=== PATIENT | female | born 1955 | race Caucasian/White ===

== ENCOUNTER 2017-01-04 08:59 | Inpatient (IN) | payer BC ==
[2017-01-04 09:36] LABS: Sodium 138 mmol/L (135-148)
[2017-01-04 09:37] LABS: Spontaneous Rate 20 min
[2017-01-04 09:38] LABS: Mode BI-PAP S/T; PIP 12 cmH2O
[2017-01-04] MEDS ORDERED: methylPREDNISolone Sod Succ/PF 125 MG/2 ML VIAL ONE (09:50)
[2017-01-04] MEDS ORDERED: Magnesium Sulfate 2 GM/100 ML BAG ONE (09:50)
[2017-01-04] MEDS ORDERED: Water For Inject, Bacteriostat 30 ML ONE (09:50)
[2017-01-04 10:02] LABS: #Basophils 0.1 thou/uL (0.0-0.2); #Eosinphils 0.2 thou/uL (0.0-0.7); #Lymphocytes 1.9 thou/uL (1.20-3.40); #Monocytes 0.5 thou/uL (0.11-0.59); #Neutrophils 9.2 thou/uL (1.40-6.50); %Basophils 0.6 % (0.0-1.0); %Eosinophils 1.7 % (0.0-10.0); %Lymphocytes 16.1 % (21.0-51.0); %Monocytes 4.5 % (0.0-10.0); Hematocrit 37.6 % (36.0-47.0); Mean Platelet Volume 7.1 fL (7.4-10.4); Red Blood Cell (RBC) Count 4.03 mill/uL (4.20-5.40); White Blood Cell (WBC) Count 11.9 thou/uL (4.8-10.8)
--- NOTE | 2017-01-04 10:17 | RAD ---
SINGLE VIEW OF THE CHEST: Comparison: 01-28-16 History: Dyspnea, shortness of breath. FINDINGS: Single view of the chest shows a normal sized cardiomediastinal silhouette. There is no evidence of consolidation, mass, or pleural effusion. The bones are unremarkable. IMPRESSION: No evidence of acute cardiopulmonary disease. POS: [facility]
[2017-01-04 10:27] LABS: ALT (SGPT) 31 U/L (8-55); AST (SGOT) 25 U/L (5-34); Alkaline Phosphatase 79 U/L (40-150); Anion Gap 12 mmol/L (10-20); BUN (Urea Nitrogen) 21 mg/dL (9.8-20.1); Bilirubin, Total 0.6 mg/dL (0.2-1.2); CK (CPK) 59 U/L (29-168); Calc. Creatinine Clearance 0 mL/min (70-130); Calcium 9.6 mg/dL (7.8-10.44); Carbon Dioxide 30 mmol/L (23-31); Chloride 99 mmol/L (98-107); Estimated GFR-MDRD 66; Globulin 3.9 g/dL (2.4-3.5); Protein, Total 7.3 g/dL (6.0-8.3)
[2017-01-04 10:32] LABS: Troponin I 0.016 ng/mL (< 0.028)
[2017-01-04] MEDS ORDERED: Loratadine 10 MG TAB PO PRN (12:56)
[2017-01-04] MEDS ORDERED: Zolpidem Tartrate 5 MG TAB PO PRN (12:56)
[2017-01-04] MEDS ORDERED: Loperamide HCl 2 MG CAP PO PRN (12:56)
[2017-01-04] MEDS ORDERED: Sodium Chloride 0.65% Nasal 44 ML BOT EA NARE PRN (12:56)
[2017-01-04] MEDS ORDERED: Ondansetron ODT 4 MG TAB PO PRN (12:56)
[2017-01-04] MEDS ORDERED: Diabetic Tussin 200 MG/10 ML UDCUP PO PRN (12:56)
[2017-01-04] MEDS ORDERED: Dextrose 5% in Water 1,000 ML IV PRN (12:56)
[2017-01-04] MEDS ORDERED: Artificial Tears 18 DROP/0.9 ML EA EYE PRN (12:56)
[2017-01-04] MEDS ORDERED: Ondansetron HCl/PF 4 MG/2 ML Vial IVP PRN (12:56)
[2017-01-04] MEDS ORDERED: Milk Of Magnesia 30 ML UDCUP PO PRN (12:56)
[2017-01-04] MEDS ORDERED: Eucerin (Mineral Oil/Petrolatum,White) 30 gm Jar TOP PRN (12:56)
[2017-01-04] MEDS ORDERED: Dextrose 50% Abboject 50 ML SYRINGE SLOW IVP PRN (12:56)
[2017-01-04] MEDS ORDERED: Mag-Al 1200 mg/1200 mg/30 ML UDCUP PO PRN (12:56)
[2017-01-04] MEDS ORDERED: Senokot 8.6 MG TAB PO PRN (12:56)
[2017-01-04 13:06] VITALS: BMI 47.6
--- NOTE | 2017-01-04 13:11 | HP ---
PRIMARY CARE PHYSICIAN: Jassi Ramos M.D. REASON FOR ADMISSION: COPD/asthma exacerbation. HISTORY OF PRESENT ILLNESS: A 61-year-old female who has underlying history of obesity and asthma who came to emergency room for evaluation of increasing dyspnea. Patient reports that for last one week, she is experiencing dyspnea on exertion, after walking a few steps, she was getting out of breath and during nighttime she was feeling wheezing. Her symptoms gradually gotten worse to the point that last night she was not able to sleep. She was having cough productive of brown sputum. She denies any fever, but she was able to hear her own wheezing. She denies any lower extremity edema. She denies any fever or chills. She denies any flu-like illness. She was experiencing mild sore throat , but she was experiencing, that was related with her shortness of breath. She was feeling vague chest tightness, but no chest pain. She denies any dizziness , palpitation. She denies any PND. She had only orthopnea last night. She denies any recent travel or sick exposure. Last night, the patient tried to use her inhaler, but that was not helping, and that is why she has to call paramedics and paramedics brought her to the ER. Initially, paramedics gave her 3 times DuoNeb therapy and started on CPAP. The patient also required oxygen for her hypoxia, but after emergency room and gate attendant treatment, patient felt better, but wherever we are trying to reduce oxygen, she was desaturating and that is why we decided to keep this patient in the hospital. In the emergency room, initially she was treated with BiPAP and subsequently BiPAP was discontinued. PAST MEDICAL HISTORY: Chronic diastolic heart failure; history of atrial flutter, required cardioversion therapy and subsequently ablation; morbid obesity; asthma; diabetes type 2; hypertension; moderate mitral stenosis and mitral regurgitation. PAST SURGICAL HISTORY: Cholecystectomy, , cardioversion, cardiac ablation, cardiac catheterization in 2016 showed normal coronaries with normal EF. PAST PSYCHIATRIC HISTORY: Reviewed and negative. SOCIAL HISTORY: Patient lives at home with her . She quit smoking in 2008, but patient has passive exposure to smoking from her who is wheelchair bound. The patient has a 40-year smoking history. She denies any alcohol or illicit drug abuse. FAMILY HISTORY: Positive for heart disease and breast cancer to her mother. Father had unknown cancer, diabetes, hypertension runs among several family members. ALLERGIES: The patient is allergic to MULTAQ, SULFA, and BACTRIM. CURRENT HOME MEDICATIONS: Aspirin 81 mg p.o. daily, glyburide 10 mg twice daily , lisinopril 40 mg p.o. daily, Zocor 20 mg p.o. b.i.d., Lasix 20 mg 2 tablets b.i.d., albuterol inhaler as needed, digoxin 0.25 mg p.o. daily, Protonix 40 mg p.o. daily, potassium chloride 20 mEq p.o. daily, Carafate 1 gram a.c. and at bedtime, sotalol 80 mg twice daily, warfarin 5 mg p.o. as directed, Lantus insulin 80 units subcu in the evening, Cardizem CD 240 mg p.o. daily, vitamin two tablets daily. REVIEW OF SYSTEMS: The following complete review of systems was negative, unless otherwise mentioned in the HPI or below: Constitutional: Weight loss or gain, ability to conduct usual activities. Skin: Rash, itching. Eyes: Double vision, pain. ENT/Mouth: Nose bleeding, neck stiffness, pain, tenderness. Cardiovascular: Palpitations, dyspnea on exertion, orthopnea. Respiratory: Shortness of breath, wheezing, cough, hemoptysis, fever or night sweats. Gastrointestinal: Poor appetite, abdominal pain, heartburn, nausea, vomiting, constipation, or diarrhea. Genitourinary: Urgency, frequency, dysuria, nocturia. Musculoskeletal: Pain, swelling. Neurologic/Psychiatric: Anxiety, depression. Allergy/Immunologic: Skin rash, bleeding tendency. Please see my HPI for pertinent positive and negative. All other review of systems reviewed and negative except as mentioned in the HPI. EMERGENCY ROOM COURSE: The patient been given magnesium sulfate 2 g, Solu- Medrol 125 mg and patient has given 3 DuoNeb therapy by paramedics. PHYSICAL EXAMINATION: VITAL SIGNS: On arrival, blood pressure 120/84, pulse 89, respiratory rate 22, temperature 97.6, saturation 95% on 2 liter oxygen, weight 122.5 kilograms. GENERAL: Patient is currently alert, awake, in no obvious acute distress. HEAD: Normocephalic, atraumatic. EYES: Pupils round, reactive to light. Extraocular muscle intact. ENT: Oropharynx within normal limits. Moist mucous membranes. No oral lesions. No pharyngeal erythema, no exudate. NECK: Supple. Range of motion is normal. No meningeal signs of irritation. LUNGS: Bilateral end expiratory wheezing heard. No obvious rales noted. Air entry reduced on both sides. CARDIAC: S1 and S2 regular. No murmur, no gallop, no rub. ABDOMEN: Morbid obesity limiting examination. No peritoneal sign, no guarding , no rigidity, no rebound. BACK: Examination unremarkable, no CVA tenderness. EXTREMITIES: Upper extremity passive movements of all joints are normal. Lower extremity, trace bilateral pedal edema noted. No calf tenderness. Good distal pulsation. SKIN: No skin rash. HEMATOLOGICAL SYSTEM: No lymphadenopathy. PSYCHIATRIC: Normal affect. IMAGING AND SIGNIFICANT LABORATORY DATA: 1. EKG based on my review, normal sinus rhythm, premature ventricular complexes , nonspecific ST-T changes. Chest x-ray based on my review, no acute cardiopulmonary process. 2. CBC: WBC 11.9, hemoglobin 12.3, platelets 206. ABG: pH 7.38, CO2 51.9, O2 101.2, bicarbonate 32.2, saturation 97.7% on BiPAP. 3. BMP: Sodium 137, potassium 3.9, chloride 99, carbon dioxide 30, BUN 21, creatinine 0.87, glucose 207, calcium 9.6, lactic acid 1.0. 4. LFT: AST 25, ALT 31, alkaline phosphatase 79, albumin 3.4, CK 59, CK-MB 0.8 , troponin I 0.016, BNP 33.4. ASSESSMENT AND PLAN/IMPRESSION: 1. Acute chronic obstructive pulmonary disease/asthma exacerbation. This patient has a history of asthma and she has passive exposure to smoking from her . She has increasing shortness of breath for about a week and last night her condition gotten worse. She initially required bilevel positive airway pressure and continuous positive airway pressure. At this point, the patient has not completely improved with emergency room treatment. Patient will require admission. We will continue with DuoNeb every 6 hourly on an as needed basis, Dulera two puffs inhalation b.i.d., Solu-Medrol 20 mg IV q.8 hourly and empiric antibiotic therapy with Levaquin 750 mg daily and Mucinex 600 mg 3 times daily. We will monitor clinical response. We will wean off oxygen as needed basis. 2. Acute hypoxic and hypercapnic respiratory failure. The patient required initially bilevel positive airway pressure and continuous positive airway pressure in the emergency room. The patient is currently maintaining saturation with nasal cannula. We will continue with oxygen and we will daily assess her oxygen saturation to decide whether she needs oxygen therapy upon discharge or not. 3. Chronic diastolic heart failure. Currently, the patient appears slightly edematous on her feet, but her BNP is normal. She does not have any obvious rales. Her chest x-ray is normal. We will give her Lasix 20 mg IV b.i.d. while in hospital. 4. Diabetes type 2 with steroid, we are expecting her blood sugar may get worse and that is why we will continue insulin as per sliding scale per protocol. Diabetic diet will be given and we will continue her home dose of Lantus insulin while in hospital. 5. History of atrial arrhythmia, require cardioversion and ablation in the past. While in hospital, I will continue her home medications with digoxin, Cardizem CD, and sotalol. As per home dosage, we will verify her home medication and then we will resume those medications. 6. Chronic anticoagulation. We will check PT/INR here today as well as daily while in hospital and continue warfarin therapy as per home dosage. 7. Dyslipidemia. We will continue Zocor 20 mg p.o. at bedtime as per home dosage. 8. Gastroesophageal reflux disease. We will continue Protonix 40 mg p.o. daily. 9. Hypertension. We will continue lisinopril 20 mg p.o. daily along with other medication as mentioned above. 10. Deep venous thrombosis prophylaxis, patient is already on anticoagulation therapy. 11. Gastrointestinal prophylaxis, Protonix 40 mg p.o. daily. 12. Morbid obesity. Dietary education given. Weight loss education discussed. The patient may need outpatient sleep study to rule out any underlying sleep apnea. 13. Moderate mitral valve stenosis with regurgitation. The patient is advised to follow up with Cardiology on an outpatient basis. Patient is getting echocardiography every year through Cardiology office. CODE STATUS: The patient is FULL CODE. Disposition plan based on clinical course. We are expecting patient's stay in hospital more than 2 midnights. Plan of care discussed with the patient in detail. MTDD
[2017-01-04 14:16] LABS: Prothrombin Time 26.8 SEC (12.0-14.7)
[2017-01-04] MEDS: Furosemide 20 MG/2 ML VIAL SLOW IVP SCH (14:24)
[2017-01-04] MEDS: guaiFENesin ER 600 MG TAB PO SCH ×3 (14:25→23:27)
[2017-01-04] MEDS: HYDROcodone/Acetaminophen 5/325 mg Tablet PO PRN (16:37)
[2017-01-04] MEDS: Mometasone/Formoterol 120 PUFF INHALER INH SCH (18:53)
[2017-01-04] MEDS: Sucralfate 1 GM TAB PO SCH (20:34)
[2017-01-04] MEDS: HumaLOG 300 UNITS/3 ML VIAL SC PRN (20:40)
[2017-01-04] MEDS ORDERED: Famotidine 20 MG TAB PO SCH (21:00)
[2017-01-04] MEDS ORDERED: FLU VACC QS2017-18 36 mo. & older 0.5 ML SYRINGE IM ONE (21:00)
[2017-01-04] MEDS ORDERED: Insulin Detemir 100 UNITS/ML 80 UNITS in Pre-Filled Syringe 1 EACH SC SCH (21:00)
[2017-01-05] MEDS: HYDROcodone/Acetaminophen 5/325 mg Tablet PO PRN (01:05)
[2017-01-05] MEDS: Acetaminophen 325 MG TAB PO PRN ×2 (04:28→09:44)
[2017-01-05] MEDS: HumaLOG 300 UNITS/3 ML VIAL SC PRN ×3 (04:41→20:58)
[2017-01-05 05:47] LABS: #Lymphocytes 0.9 thou/uL (1.20-3.40); #Monocytes 0.2 thou/uL (0.11-0.59); #Neutrophils 11.5 thou/uL (1.40-6.50); %Eosinophils 0.1 % (0.0-10.0); %Lymphocytes 7.4 % (21.0-51.0); %Monocytes 1.2 % (0.0-10.0); Mean Platelet Volume 7.3 fL (7.4-10.4); Red Blood Cell (RBC) Count 3.88 mill/uL (4.20-5.40); White Blood Cell (WBC) Count 12.6 thou/uL (4.8-10.8)
[2017-01-05 05:53] LABS: Prothrombin Time 25.7 SEC (12.0-14.7)
[2017-01-05 06:11] LABS: Anion Gap 13 mmol/L (10-20); BUN (Urea Nitrogen) 21 mg/dL (9.8-20.1); Calc. Creatinine Clearance 125 mL/min (70-130); Calcium 9.3 mg/dL (7.8-10.44); Carbon Dioxide 27 mmol/L (23-31); Chloride 98 mmol/L (98-107); Estimated GFR-MDRD 63
[2017-01-05] MEDS: Furosemide 20 MG/2 ML VIAL SLOW IVP SCH ×2 (06:28→14:12)
[2017-01-05] MEDS ORDERED: Metolazone 2.5 MG TAB PO PRN (06:40)
[2017-01-05] MEDS ORDERED: DULAGLUTIDE SQ SCH (06:45)
[2017-01-05] MEDS ORDERED: DULAGLUTIDE SC SCH (07:15)
[2017-01-05] MEDS: Mometasone/Formoterol 120 PUFF INHALER INH SCH ×2 (07:33→18:35)
[2017-01-05] MEDS: Sucralfate 1 GM TAB PO SCH ×7 (07:41→20:53)
[2017-01-05] MEDS ORDERED: [UNRECOGNIZED DRUG - REMARK] PO SCH (09:00)
--- NOTE | 2017-01-05 09:22 | PDOC.PN ---
- Subjective Encounter Start Date: 01/05/17 Encounter Start Time: 07:10 -: old records requested/rev pt is feeling little better but not up to her baseline, no fever - Objective Resuscitation Status: Resuscitation Status FULL:Full Resuscitation MAR Reviewed: Yes Vital Signs & Weight: Vital Signs (12 hours) Temp Pulse Resp BP BP Pulse Ox 01/05/17 07:52 99 F 91 22 H 157/83 H 93 L 01/05/17 07:33 92 16 97 01/05/17 07:31 92 16 97 01/05/17 05:32 97.9 F 92 16 149/92 H 97 01/05/17 01:17 97.9 F 102 H 16 174/80 H 92 L 01/04/17 23:36 94 16 95 01/04/17 22:19 98.1 F 95 20 93 L Weight Weight 268 lb 15.423 oz I&O: 01/04/17 01/05/17 01/06/17 06:59 06:59 06:59 Intake Total 240 1100 Balance 240 1100 Result Diagrams: 01/05/17 05:13 01/05/17 05:13 Additional Labs: Accuchecks 01/05/17 01/04/17 01/04/17 04:35 19:41 18:01 POC Glucose 302 H 373 H 362 H Phys Exam - Physical Examination Constitutional: NAD HEENT: PERRLA, moist MMs, sclera anicteric Neck: no JVD, supple Respiratory: no wheezing, no rhonchi reduced air entry Cardiovascular: RRR, no significant murmur, no rub Gastrointestinal: soft, non-tender, no distention, positive bowel sounds obesity+ Musculoskeletal: pulses present, edema present Neurological: non-focal, normal sensation, moves all 4 limbs Psychiatric: normal affect, A&O x 3 Skin: no rash, normal turgor, cap refill <2 seconds Dx/Plan (1) COPD exacerbation Code(s): J44.1 - CHRONIC OBSTRUCTIVE PULMONARY DISEASE W (ACUTE) EXACERBATION Status: Acute (2) Acute respiratory failure with hypoxia Code(s): J96.01 - ACUTE RESPIRATORY FAILURE WITH HYPOXIA Status: Acute (3) Diabetes type 2, controlled Code(s): E11.9 - TYPE 2 DIABETES MELLITUS WITHOUT COMPLICATIONS Status: Chronic (4) Hypertension Code(s): I10 - ESSENTIAL (PRIMARY) HYPERTENSION Status: Chronic (5) Dyslipidemia Code(s): E78.5 - HYPERLIPIDEMIA, UNSPECIFIED Status: Chronic (6) Morbid obesity with BMI of 45.0-49.9, adult Code(s): E66.01 - MORBID (SEVERE) OBESITY DUE TO EXCESS CALORIES; Z68.42 - BODY MASS INDEX (BMI) 45.0-49.9, ADULT Status: Chronic (7) Chronic anticoagulation Code(s): Z79.01 - ALF (CURRENT) USE OF ANTICOAGULANTS Status: Chronic (8) H/O radiofrequency ablation for complex left atrial arrhythmia Code(s): Z98.890 - OTHER SPECIFIED POSTPROCEDURAL STATES; Z86.79 - PERSONAL HISTORY OF OTHER DISEASES OF THE CIRCULATORY SYSTEM Status: Chronic - Plan cont current plan of care, continue antibiotics, respiratory therapy * her blood sugar is high, so will start her home dose of insulin and meds, this is related with steroid * today will try to wean of oxygen as tolerated * continue IV lasix * continue current optimum medical therapy for copd/asthma * will dc levaquin as sotalol has interaction, will start cefepime * home medication reconciled * medication reviewed as below * symptomatic treatment. Review of Systems - Review of Systems Eyes: negative: Pain, Vision Change, Conjunctivae Inflammation, Eyelid Inflammation, Redness, Other ENT: negative: Ear Pain, Ear Discharge, Nose Pain, Nose Discharge, Nose Congestion, Mouth Pain, Mouth Swelling, Throat Pain, Throat Swelling, Other Respiratory: Cough, Shortness of Breath. negative: Dry, Hemoptysis, SOB with Excertion, Pleuritic Pain, Sputum, Wheezing Cardiovascular: negative: Chest Pain, Palpitations, Orthopnea, Paroxysmal Noc. Dyspnea, Edema, Light Headedness, Other Gastrointestinal: negative: Nausea, Vomiting, Abdominal Pain, Diarrhea, Constipation, Melena, Hematochezia, Other Genitourinary: negative: Dysuria, Frequency, Incontinence, Hematuria, Retention , Other Musculoskeletal: negative: Neck Pain, Shoulder Pain, Arm Pain, Back Pain, Hand Pain, Leg Pain, Foot Pain, Other Skin: negative: Rash, Lesions, Dino, Bruising, Other - Medications/Allergies Allergies/Adverse Reactions: Allergies Allergy/AdvReac Type Severity Reaction Status Date / Time dronedarone HCl [From Multaq] Allergy Verified 07/01/16 12:32 flecainide Allergy Verified 07/01/16 12:32 Sulfa (Sulfonamide Allergy Verified 07/01/16 12:32 Antibiotics) Medications: Current Medications Acetaminophen (Tylenol) 650 mg PO Q4H PRN PRN Reason: Headache/Fever or Pain Last Admin: 01/05/17 04:28 Dose: 650 mg Hydrocodone Bitart/Acetaminophen ([place] 5/325) 1 tab PO Q4H PRN PRN Reason: Moderate Pain (4-6) Last Admin: 01/05/17 01:05 Dose: 1 tab Al Hydroxide/Mg Hydroxide (Maalox) 30 ml PO Q6H PRN PRN Reason: Heartburn or Indigestion Albuterol/Ipratropium (Duoneb) 3 ml NEB [id number] Last Admin: 01/05/17 07:31 Dose: 3 ml Albuterol/Ipratropium (Duoneb) 3 ml NEB [id number] PRN PRN Reason: SOB &/or Wheezing Artificial Tears (Tears Naturale) 0 drop EA EYE PRN PRN PRN Reason: Dry Eyes Aspirin (Ecotrin) 81 mg PO DAILY [facility] Atorvastatin Calcium (Lipitor) 10 mg PO HS [facility] Dextrose/Water (Dextrose 50%) 25 gm SLOW IVP PRN PRN PRN Reason: Hypoglycemia Digoxin (Lanoxin) 0.25 mg PO DAILY [facility] Diltiazem HCl (Cardizem Cd) 120 mg PO DAILY [facility] Furosemide (Lasix) 20 mg SLOW IVP 0600,1400 [facility] Last Admin: 01/05/17 06:28 Dose: Not Given Glucagon (Glucagon) 1 mg IM PRN PRN PRN Reason: Hypoglycemia Glyburide (Diabeta) 10 mg PO BID-[facility] Guaifenesin (Robitussin Sf) 200 mg PO Q4H PRN PRN Reason: Cough Guaifenesin (Mucinex) 600 mg PO TID [facility] Last Admin: 01/04/17 23:27 Dose: 600 mg Hydralazine HCl (Apresoline) 10 mg SLOW IVP Q4H PRN PRN Reason: Systolic BP > 180 Dextrose/Water (D5w) 1,000 mls @ 0 mls/hr IV .Q0M PRN; As Directed PRN Reason: Hypoglycemia Insulin Detemir 80 units/ (Miscellaneous Medication) 0.8 mls @ 0 mls/hr SC [facility] Cefepime HCl 2 gm/ Sodium (Chloride) 100 mls @ 200 mls/hr IVPB Q12HR [facility] Insulin Human Lispro (Humalog) 0 units SC .MODERATE SLIDING SC PRN PRN Reason: Moderate Correctional Scale Last Admin: 01/05/17 04:41 Dose: 8 unit Insulin Human Lispro (Humalog) 0 units SC .BEDTIME SLIDING SC PRN PRN Reason: Bedtime Correctional Scale Last Admin: 01/04/17 20:40 Dose: 5 unit Lisinopril (Zestril) 20 mg PO DAILY [facility] Loperamide HCl (Imodium) 2 mg PO PRN PRN PRN Reason: Diarrhea/Loose Stools Loratadine (Claritin) 10 mg PO DAILYPRN PRN PRN Reason: Sinus Symptoms Magnesium Hydroxide (Milk Of Magnesium) 30 ml PO DAILYPRN PRN PRN Reason: Constipation Methylprednisolone Sodium Succinate (Solu-Medrol) 20 mg IVP Q8HR [facility] Last Admin: 01/05/17 04:40 Dose: 20 mg Metolazone (Zaroxolyn) 2.5 mg PO DAILYPRN PRN PRN Reason: Edema Mineral Oil/White Petrolatum (Eucerin Cream) 0 gm TOP BIDPRN PRN PRN Reason: Dry Skin Mometasone Furoate/Formoterol Fumar (Dulera 200 Mcg/5 Mcg Inhaler) 2 puff INH BID-RT [facility] Last Admin: 01/05/17 07:33 Dose: 2 puff Ondansetron HCl (Zofran Odt) 4 mg PO Q6H PRN PRN Reason: Nausea/Vomiting Ondansetron HCl (Zofran) 4 mg IVP Q6H PRN PRN Reason: Nausea/Vomiting Pantoprazole Sodium (Protonix) 40 mg PO 2100 [facility] Last Admin: 01/04/17 20:34 Dose: 40 mg Dulaglutide [ (Trulicity] 75 Mcg) 0 each SC Q7D [facility] Potassium Chloride (K-Dur) 20 meq PO QAM-WM [facility] Multivit/Folic Acid/Iron ( Vitamin) 2 tab PO DAILY [facility] Senna (Senokot) 2 tab PO HSPRN PRN PRN Reason: Constipation Sodium Chloride ([place] Nasal [place] 0.65%) 0 ml EA NARE QIDPRN PRN PRN Reason: Nasal Congestion Sodium Chloride (Flush - Normal Saline) 10 ml IVF Q12HR [facility] Last Admin: 01/04/17 20:45 Dose: 10 ml Sodium Chloride (Flush - Normal Saline) 10 ml IVF PRN PRN PRN Reason: Saline Flush Sotalol HCl (Betapace) 40 mg PO BID [facility] Sucralfate (Carafate) 1 gm PO ACHS [facility] Last Admin: 01/05/17 07:41 Dose: 1 gm Sucralfate (Carafate) 1 gm PO ACHS [facility] Last Admin: 01/05/17 07:58 Dose: 1 gm Tramadol HCl (Ultram) 50 mg PO TIDPRN PRN PRN Reason: Pain Zolpidem Tartrate (Ambien) 5 mg PO HSPRN PRN PRN Reason: Insomnia
[2017-01-05] MEDS: Cefepime 2 GM in Sodium Chloride 0.9% 100 ML IVPB SCH ×2 (09:33→20:52)
[2017-01-05] MEDS: Sotalol HCl 80 MG TAB PO SCH ×2 (09:34→20:53)
[2017-01-05] MEDS: Aspirin 81 mg Enteric Coated Tablet PO SCH (09:35)
[2017-01-05] MEDS: Prenatal Vitamin 1 TAB PO SCH (09:35)
[2017-01-05] MEDS: glyBURIDE 5 MG TAB PO SCH ×2 (09:35→16:50)
[2017-01-05] MEDS: Digoxin 0.25 MG TAB PO SCH (09:35)
[2017-01-05] MEDS: Lisinopril 20 MG TAB PO SCH (09:35)
[2017-01-05] MEDS: guaiFENesin ER 600 MG TAB PO SCH ×3 (09:36→20:53)
[2017-01-05] MEDS: Potassium Chloride 20 MEQ TAB PO SCH (09:36)
[2017-01-05] MEDS: traMADol HCl 50 MG TAB PO PRN ×2 (10:46→20:58)
[2017-01-05] MEDS ORDERED: Insulin Detemir 100 UNITS/ML 80 UNITS in Pre-Filled Syringe 1 EACH SC SCH (21:00)
[2017-01-05] MEDS ORDERED: Simvastatin 20 MG TAB PO SCH (21:00)
[2017-01-05] MEDS ORDERED: INSULIN GLARGINE HUM REC ANLOG 80 UNIT SQ SCH (21:00)
[2017-01-05] MEDS ORDERED: Atorvastatin Calcium 10 MG TAB PO SCH (21:00)
[2017-01-06] MEDS: Furosemide 20 MG/2 ML VIAL SLOW IVP SCH ×2 (05:35→13:17)
[2017-01-06] MEDS: HumaLOG 300 UNITS/3 ML VIAL SC PRN ×2 (05:35→11:23)
[2017-01-06] MEDS: Mometasone/Formoterol 120 PUFF INHALER INH SCH (06:22)
[2017-01-06 08:16] VITALS: BP 137/92; TEMP 98.5
[2017-01-06] MEDS: traMADol HCl 50 MG TAB PO PRN (08:52)
[2017-01-06] MEDS: Sucralfate 1 GM TAB PO SCH ×2 (08:52→11:23)
[2017-01-06] MEDS: Potassium Chloride 20 MEQ TAB PO SCH (08:52)
[2017-01-06] MEDS: Prenatal Vitamin 1 TAB PO SCH (08:52)
[2017-01-06] MEDS: guaiFENesin ER 600 MG TAB PO SCH ×2 (08:52→14:48)
[2017-01-06] MEDS: Cefepime 2 GM in Sodium Chloride 0.9% 100 ML IVPB SCH (08:53)
[2017-01-06] MEDS: Aspirin 81 mg Enteric Coated Tablet PO SCH (08:53)
[2017-01-06] MEDS: glyBURIDE 5 MG TAB PO SCH (08:53)
[2017-01-06] MEDS: Lisinopril 20 MG TAB PO SCH (08:55)
[2017-01-06] MEDS: Digoxin 0.25 MG TAB PO SCH (08:55)
[2017-01-06] MEDS: Sotalol HCl 80 MG TAB PO SCH (08:56)
--- NOTE | 2017-01-06 10:59 | DIS ---
DATE OF ADMISSION: 01/04/2017 DATE OF DISCHARGE: 01/06/2017 PRIMARY CARE PHYSICIAN: Dr. Jassi Ramos. DISCHARGE DISPOSITION: Home. PRIMARY DISCHARGE DIAGNOSES: 1. Acute respiratory failure with hypoxia. 2. Chronic obstructive pulmonary disease exacerbation. SECONDARY DISCHARGE DIAGNOSES: Diabetes type 2, chronic anticoagulation with warfarin, dyslipidemia, chronic obstructive pulmonary disease/asthma, history of radiofrequency ablation for complex, left atrial arrhythmia, hypertension, morbid obesity with BMI of 47. PRIMARY PROCEDURE/OPERATION: None. RADIOLOGICAL INVESTIGATION: Chest x-ray was normal. SIGNIFICANT LABORATORIES: WBC 12.6, hemoglobin 11.6, platelets 211. INR 2.3. Sodium 134, potassium 4.2, BUN 21, creatinine 0.90, calcium 9.3. LFTs normal. Cardiac enzymes negative. Lactic acid 1.0. BNP 33.4. Blood culture negative. DISCHARGE MEDICATIONS: New medications: Omnicef 300 mg p.o. b.i.d. for 7 days , Dulera 2 puffs inhalation b.i.d., Mucinex 600 mg t.i.d. for 7 days, prednisone 20 mg p.o. daily for 5 days, and then 10 mg p.o. daily for 5 days, and then 5 mg p.o. daily for 5 days, then stop. Continue following medications : ProAir HFA 2 puffs q.6 hourly p.r.n., aspirin 81 mg p.o. daily, digoxin 250 mcg p.o. daily, Cardizem-CD 120 mg p.o. daily, dulaglutide 70 mcg subQ every 7 days, Lantus 80 units subQ in the evening, lisinopril 20 mg p.o. daily, Zaroxolyn 2.5 mg p.o. daily p.r.n., multivitamin 1 tablet p.o. daily, potassium chloride 20 mEq p.o. daily, Zocor 20 mg p.o. at bedtime, Betapace 40 mg p.o. b.i.d., Carafate 1 gram p.o. q.i.d., Demadex 40 mg p.o. daily, warfarin as per home dosage, glyburide 10 mg p.o. b.i.d., tramadol 50 mg p.o. t.i.d. p.r.n. CONTRAINDICATIONS: None. CODE STATUS: FULL CODE. INPATIENT CONSULTANTS: None. ALLERGIES: MULTAQ, FLECAINIDE and SULFA DRUGS. DISCHARGE PLAN: Post hospital, the patient will follow up with primary care physician. HOSPITAL COURSE: A 61-year-old female who has underlying history of COPD/ asthma. She has ongoing passive smoking exposure from her . She came to emergency room on 01/04/2017. The patient was admitted by me. Please see my HPI for further details. This patient was hypoxic. She appeared to be in chronic obstructive pulmonary disease/asthma exacerbation based on clinical picture. She was not improved emergency room treatment. She required CPAP and subsequently CPAP was weaned off in the emergency room for hypoxia. She was also given a trial of BiPAP therapy in the emergency room. Patient was admitted to the medical floor and we optimally treated for COPD flare-up with steroid, empiric antibiotic therapy, Dulera and DuoNeb therapy. Patient's home medication was also continued while in hospital. On admission, she was hypoxic and after hospital treatment, we are monitoring her oxygen saturation. At this point, the patient is still requiring oxygen therapy whenever she exerts herself, her oxygen saturation is pretty much stable and normalized. Today, we will make sure that her oxygen remains normal after walking for a few minutes and if she qualifies for home oxygen, then we will arrange home oxygen because of steroid, her blood sugar was out of control, but we are expecting that will get better after discontinuation of steroid. Patient has bedbound and she today wants to go home and that is why per request, we are discharging her home with the above-mentioned medication. At this point, patient is pretty much stabilized and we advised her to avoid passive exposure to the smoking. The patient is seen and examined at bedside today. PHYSICAL EXAMINATION: VITAL SIGNS: Currently temperature 98.5, pulse 85, respiratory rate 16, saturation 94%, blood pressure 137/92. Weight 268 pounds. GENERAL: The patient is currently alert, awake, in no acute distress. HEAD: Normocephalic, atraumatic. EYES: Pupils round, reactive to light. Extraocular muscles intact. ENT: Oropharynx within normal limits. Moist mucous membranes. No oral lesions. No pharyngeal erythema. No exudate. NECK: Supple, range of motion is normal. LUNGS: Clear to auscultation without any rhonchi or rales. CARDIAC: S1, S2 regular without any significant murmur. ABDOMEN: Soft and benign. EXTREMITIES: No edema. NEUROLOGIC: Nonfocal examination. Total time spent on discharge day more than 30 minutes. MTDD
[2017-01-06] MEDS: HYDROcodone/Acetaminophen 5/325 mg Tablet PO PRN (14:48)
--- NOTE | 2017-01-07 14:48 | EKG ---
Test Reason : SOB Blood Pressure : / mmHG Vent. Rate : 087 BPM Atrial Rate : 087 BPM P-R Int : 172 ms QRS Dur : 094 ms QT Int : 388 ms P-R-T Axes : 069 045 066 degrees QTc Int : 466 ms Sinus rhythm with occasional Premature ventricular complexes Nonspecific ST and T wave abnormality Abnormal ECG Confirmed by DREAD MARIE, DEXTER Bowen ([id number]), newspaper editor LAUREN SOLIS ([id number]) on 01/07/2017 2:47:57 PM Referred By: Confirmed By:DEXTER CANADA MD
== END 2017-01-06 16:03 | disposition home or self-care (01) | DRG 190 ==
LOC: ERS 08:59 → T4-A 11:39
PROVIDERS: ADMIT Internal Medicine; ATTEND Internal Medicine
PROC: 5A09357 Assistance with Respiratory Ventilation, Less than 24 Consecutive Hours, Continuous Positive Airway Pressure (ICD-10-PCS; principal; 2017-01-04)
DX: J44.1 Chronic obstructive pulmonary disease with (acute) exacerbation (principal); J96.01 Acute respiratory failure with hypoxia; J96.02 Acute respiratory failure with hypercapnia; Z68.42 Body mass index [BMI] 45.0-49.9, adult; I11.0 Hypertensive heart disease with heart failure; I50.32 Chronic diastolic (congestive) heart failure; I48.92 Unspecified atrial flutter; E11.65 Type 2 diabetes mellitus with hyperglycemia; I05.2 Rheumatic mitral stenosis with insufficiency; Z87.891 Personal history of nicotine dependence; E66.01 Morbid (severe) obesity due to excess calories; Z23 Encounter for immunization; Z79.4 Long term (current) use of insulin; Z79.01 Long term (current) use of anticoagulants; K21.9 Gastro-esophageal reflux disease without esophagitis; Z88.1 Allergy status to other antibiotic agents; Z88.2 Allergy status to sulfonamides; Z88.8 Allergy status to other drugs, medicaments and biological substances; E78.5 Hyperlipidemia, unspecified; T38.0X5A Adverse effect of glucocorticoids and synthetic analogues, initial encounter
CPT/HCPCS: 36415; 36416; 71010; 80048; 80053; 82550; 82553; 82805; 83605; 83880; 84484; 85025; 85610; 87040; 90471; 90682; 93005; 94640; 94660; 96365; 96375; A4216; G0008; J0692; J1815; J1940; J1956; J2405; J2920; J2930; J3475; J7050; J7620; Q2036

== ENCOUNTER 2017-03-02 09:55 | Inpatient (IN) | payer BC ==
[2017-03-02] MEDS ORDERED: Furosemide 40 MG/4 ML VIAL ONE (10:13)
[2017-03-02 10:17] LABS: Oxyhemoglobin 85.3 % (94.0-97.0); Sodium 142 mmol/L (135-148)
[2017-03-02 10:18] LABS: Modified Allen's Test POSITIVE; Spontaneous Rate 14 min; Vent NO
[2017-03-02] MEDS ORDERED: Magnesium 2 GM/NS 0.9% 50 ML 2 GM in Premix Bag 1 BAG IVPB SCH (10:30)
[2017-03-02 10:39] LABS: Lactic Acid - Sepsis 1.3 mmol/L (0.5-2.2)
[2017-03-02 10:44] LABS: ALT (SGPT) 28 U/L (8-55); AST (SGOT) 27 U/L (5-34); Alkaline Phosphatase 84 U/L (40-150); Anion Gap 13 mmol/L (10-20); BUN (Urea Nitrogen) 18 mg/dL (9.8-20.1); Bilirubin, Total 0.7 mg/dL (0.2-1.2); Calc. Creatinine Clearance 0 mL/min (70-130); Calcium 9.4 mg/dL (7.8-10.44); Carbon Dioxide 23 mmol/L (23-31); Chloride 106 mmol/L (98-107); Estimated GFR-MDRD 72; Globulin 3.9 g/dL (2.4-3.5); Protein, Total 7.7 g/dL (6.0-8.3)
--- NOTE | 2017-03-02 10:49 | RAD ---
AP VIEW CHEST: Date: 03/02/17 HISTORY: Shortness of breath. FINDINGS: AP view of chest obtained. Comparison made to previous exam from 01/04/17. AP view of chest demonstrates cardiomegaly. Pulmonary vasculature congestion is seen. Diffuse air spa ce opacities seen in both perihilar regions. Small bilateral pleural effusions seen. IMPRESSION: 1. Cardiomegaly and pulmonary vascular congestion. 2. Small pleural effusions. Findings compatible with congestive heart failure. POS: [facility]
[2017-03-02 10:56] LABS: #Basophils 0.1 thou/uL (0.0-0.2); #Eosinphils 0.2 thou/uL (0.0-0.7); #Lymphocytes 3.3 thou/uL (1.20-3.40); #Monocytes 0.6 thou/uL (0.11-0.59); %Basophils 0.5 % (0.0-1.0); %Eosinophils 1.5 % (0.0-10.0); %Monocytes 4.1 % (0.0-10.0); Hematocrit 43.1 % (36.0-47.0); Mean Platelet Volume 7.6 fL (7.4-10.4); Red Blood Cell (RBC) Count 4.59 mill/uL (4.20-5.40); White Blood Cell (WBC) Count 14.1 thou/uL (4.8-10.8)
[2017-03-02 11:19] LABS: Bilirubin Negative (Negative); Blood, Urine Negative (Negative); Glucose, Urine (Dipstick) Negative (Negative); Ketone, Urine Negative (Negative); Nitrite Negative (Negative); Protein, Urine (Dipstick) 30 mg/dL (Neg-Trace); Urobilinogen 0.2 mg/dL (0.2-1.0)
[2017-03-02 11:20] LABS: Bacteria/HPF None Seen HPF (None Seen); Hyaline Casts/LPF 0-3 HYALINE CAST LPF (0-3 Hyaline); RBC/HPF 0-3 HPF (0-3); Squamous Epithelial 0-3 HPF (0-3); WBC/HPF None Seen HPF (0-3)
[2017-03-02 11:57] LABS: Troponin I Less than 0.010 ng/mL (< 0.028)
[2017-03-02] MEDS ORDERED: Acetaminophen 325 MG TAB PO PRN (12:50)
[2017-03-02] MEDS ORDERED: HumaLOG 300 UNITS/3 ML VIAL SC PRN (12:50)
[2017-03-02] MEDS ORDERED: Acetaminophen 650 MG Suppository PR PRN (12:50)
[2017-03-02] MEDS ORDERED: Ondansetron HCl/PF 4 MG/2 ML Vial IVP PRN (12:50)
[2017-03-02] MEDS ORDERED: Dextrose 50% Abboject 50 ML SYRINGE SLOW IVP PRN (12:50)
[2017-03-02] MEDS ORDERED: Dextrose 5% in Water 1,000 ML IV PRN (12:50)
[2017-03-02 13:43] LABS: Troponin I 0.013 ng/mL (< 0.028)
--- NOTE | 2017-03-02 13:48 | HP ---
PRIMARY CARE PHYSICIAN: Jassi Ramos M.D. CHIEF COMPLAINT: Shortness of breath. HISTORY OF PRESENT ILLNESS: Ms. Darling is a pleasant 61-year-old lady, who was seen at [facility] on 03/02/2017. She reports that she has had shortness of breath, at least over the last month. She reports that it is worse with exertion, but also reports waking up short of breath. She has not been able to lie fla t in a while. She denies any fevers. She denies any cough. She reports wheezing. She reports that her a couple of weeks ago from cancer and she has been stressed. In the emergency room, she was started on BiPAP, which has been discontinued at this time. She repor ts feeling slightly better. She denies any chest pain. REVIEW OF SYSTEM: The following complete review of systems was negative, unless otherwise mentioned in the HPI or below: Constitutional: Weight loss or gain, sense of well-being, ability to conduct usual activities, exerc ise tolerance. Skin/Breast: Rash, itching, changes in hair growth or loss, nail changes, breast lumps, tenderness, swelling, nipple discharge. Eyes: Vision, double vision, tearing, blind spots, pain. ENT/Mouth: Headaches (location, time of onset, duration, precipitating factors), vertigo, lightheade dness, injury. Vision, double vision, tearing, blind spots, pain, nose bleeding, colds, obstruction, discharge, dental difficulties, gingival bleeding, dentures, neck stiffness, pain, tenderness, masses in thyroid or other areas Cardiovascular: Precordial pain, substernal distress, palpitations, syncope, dyspnea on exertion, or thopnea, nocturnal paroxysmal dyspnea, edema, cyanosis, hypertension, heart murmurs, varicosities, ph lebitis, claudication. Respiratory: Pain, shortness of breath, wheezing, stridor, cough, hemoptysis, fever or night sweats. Gastrointestinal: Poor appetite, dysphagia, indigestion, abdominal pain, heartburn, eructation, naus ea, vomiting, hematemesis, jaundice, constipation, or diarrhea, abnormal stools (patrice-colored, tarry, bloody, greasy, foul smelling), flatulence, hemorrhoids, recent changes in bowel habits. Genitourinary: Urgency, frequency, dysuria, nocturia, hematuria, polyuria, oliguria, unusual (or libertad nge in) color of urine, stones, hesitancy, change in size of stream, dribbling, acute retention or in continence, libido, potency. Musculoskeletal: Pain, swelling, redness or heat of muscles or joints, limitation, of motion, muscular weakness, atrophy, cramps. Neurologic/Psychiatric: Convulsions, paralyses, tremor, incoordination, paresthesias, difficulties w ith memory of speech, sensory or motor disturbances, or muscular coordination (ataxia, tremor), emoti onal problems, anxiety, depression, previous psychiatric care, unusual perceptions, hallucinations. Allergy/Immunologic: Skin rash, anemia, bleeding tendency, polydipsia, polyuria, intolerance to heat or cold. PAST MEDICAL HISTORY: Significant for chronic diastolic heart failure, atrial flutter, status post c ardioversion, status post ablation, morbid obesity, asthma, diabetes mellitus type 2, hypertension, m oderate mitral stenosis, and mitral regurgitation. PAST SURGICAL HISTORY: Significant for cholecystectomy, , cardioversion, cardiac ablation. She had a cardiac catheterization in 2016, which showed normal coronaries and normal EF. SOCIAL HISTORY: The patient is an ex-smoker. She denies alcohol use or recreational drug use. As m entioned earlier, her 2 weeks ago. FAMILY HISTORY: Heart disease and breast cancer in her mother, diabetes, and hypertension among [facility] family members. ALLERGIES: MULTAQ, SULFA, and BACTRIM. CURRENT MEDICATIONS: Include aspirin 81 mg daily, glyburide 10 mg 2 times a day, lisinopril 40 mg da , simvastatin 20 mg 2 times a day, furosemide 40 mg 2 times a day, albuterol p.r.n., digoxin 0.25 mg daily, pantoprazole 40 mg daily, potassium chloride 20 mEq daily, Carafate 1 gram 2 times a day, s otalol 80 mg 2 times a day, warfarin 5 mg daily, Lantus insulin 80 units daily, Cardizem CD 240 mg da keyonna, and vitamins 2 tablets daily. PHYSICAL EXAMINATION: GENERAL: Ms. Darling is awake and alert, in moderate respiratory distress. VITAL SIGNS: Blood pressure is 113/74, pulse is 93. She is currently breathing at rate of 22 and sa turating 97% on 3 liters of oxygen. She is afebrile GENERAL: She is obese, weighing 117 kilograms. EYES: No scleral icterus. No conjunctival pallor. ENT: Moist mucosal membranes, no oropharyngeal erythema or exudates. NECK: Supple, nontender, normal range of movement, trachea is midline. RESPIRATORY: Accessory muscles of breathing are active. Chest wall movements are symmetric bilatera lly. LUNGS: Examination reveals markedly diminished air entry at both bases, diffuse expiratory wheezes i n the upper lung zones. CARDIOVASCULAR: S1 and S2 are heard, regular. Peripheral pulses palpable. No carotid bruit, no per icardial rub. ABDOMEN: Distended, nontender, bowel sounds heard, no hepatomegaly, no splenomegaly. NEUROLOGIC: Cranial nerves II-XII are intact. Deep tendon reflexes are 2+. MUSCULOSKELETAL: Power is 5/5 in all 4 extremities. Normal range of movement at all major extremity joints. SKIN: No rashes or subcutaneous nodules. LYMPHATIC: No cervical lymphadenopathy. PSYCHIATRIC: Normal mood, normal affect. The patient is oriented to person, place, and time. LABORATORY DATA: Ms. Darling's labs and investigations were reviewed. I reviewed her electrocardiogram , which shows sinus tachycardia, occasional premature ventricular complexes, no ST changes to suggest an acute coronary syndrome. I reviewed her chest x-ray, which does not show any pulmonary infiltrat es. She does have small pleural effusions. Laboratory investigations show leukocytosis with 14,100 white cells, of which 70.8% are neutrophils, normal hemoglobin and normal platelet count, normal elec trolytes, normal creatinine, unremarkable liver profile, normal BNP of 47 and normal troponin I. Uri nalysis is positive for protein. She had arterial blood gases, which showed pH of 7.26, pCO2 of 64.3 and pO2 of 61.4. These blood gases were done after she had received ketamine for anxiety. ASSESSMENT AND PLAN: Ms. Darling is a pleasant 61-year-old lady, who was seen at [facility] on 03/02/2017. Her problem list includes: 1. Acute respiratory failure: Hypoxic and hypercapnic after she received ketamine. Most likely cau se of acute respiratory failure is asthma exacerbation. She will be admitted to the hospital for fur ther management. 2. Asthma exacerbation: She will be treated with oxygen, steroids, and bronchodilators. 3. Diabetes mellitus: Start Accu-Cheks and insulin sliding scale, continue home medications. 4. Chronic diastolic heart failure: The patient does not appear to be in congestive heart failure e xacerbation. Continue home medications. 5. History of atrial flutter: Continue sotalol. 6. Hypertension: Resume home medications, monitor vital signs and titrate antihypertensives as need ed. Many thanks for allowing me to participate in your patient's care. Please feel free to contact me wi th any questions or concerns. LEVEL OF RISK: High. LEVEL OF COMPLEXITY: High.
--- NOTE | 2017-03-02 13:51 | CON ---
DATE OF CONSULTATION: 03/02/2017 CONSULTING PHYSICIAN: Dr. Pablo REASON FOR CONSULTATION: Shortness of breath. HISTORY OF PRESENT ILLNESS: This is a 61-year-old female who was brought into the hospital earlier t [facility] with a 1 day history of increasing shortness of breath. She was briefly on BiPAP, but that has since been discontinued. She is currently stable on the nasal cannula. She lost her 1 week ago to a chronic illness. She has been severely stressed at home. She has been taking her medicatio n. PAST MEDICAL HISTORY: 1. Chronic diastolic heart failure. 2. Atrial flutter. 3. Diabetes mellitus type 2. 4. Obesity. 5. Hypertension. 6. Moderate mitral stenosis and mitral regurgitation. 7. Question of chronic obstructive pulmonary disease and asthma. PAST SURGICAL HISTORY: 1. Cholecystectomy. 2. . 3. Cardiac ablation. SOCIAL HISTORY: She smoked a pack a day from about age 16 until age 54. She does not use alcohol or illicit drugs. FAMILY MEDICAL HISTORY: Remarkable for breast cancer, diabetes and hypertension. ALLERGIES: MULTAQ, SULFA, BACTRIM. MEDICATIONS: Tramadol, guaifenesin, glyburide, warfarin, torsemide, Carafate, sotalol, simvastatin, potassium chloride, albuterol metered dose inhaler, metolazone, lisinopril, insulin, diltiazem, digox in, aspirin. REVIEW OF SYSTEMS: She has had no fever, chills, no cough, no chest pain, no hematemesis, melena, he matochezia, no hematuria or dysuria. PHYSICAL EXAMINATION: VITAL SIGNS: O2 sat is currently 95%, blood pressure 120/70, pulse 84, respirations 18. GENERAL: She is awake and alert, in no distress. HEENT: Pupils react. Sclerae are anicteric. Oropharynx clear. NECK: No JVD. LUNGS: A few crackles in the bases. No wheezing. CARDIOVASCULAR: S1, S2 regular, without murmur. ABDOMEN: Soft, obese, nontender, nondistended. EXTREMITIES: No clubbing, cyanosis, trace edema. LABORATORY AND X-RAY FINDINGS: White blood cell count 14.1, hematocrit 43, platelet count 227. ABG earlier showed a pH of 7.26, pCO2 of 64, PO2 61. Sodium 138, potassium 4.2, chloride 106, CO2 23, BU N 18, creatinine 0.8, glucose 136. BNP was 47. Troponin 0.01. Chest x-ray showed pulmonary edema and bilateral small effusions. ASSESSMENT: Likely this is congestive heart failure. She has both mitral stenosis and mitral regur gitation. I am not sure why her BNP is not better reflective of her state of fluid overload. She bradley s improved rapidly with diuretics. This does not seem consistent with pneumonia and the speed of her improvement does not seem that consistent with chronic obstructive pulmonary disease exacerbation. RECOMMENDATIONS: 1. I would recommend continuing to diurese this patient gently. 2. Follow electrolytes. 3. Rapid steroid taper. 4. Continue breathing treatments. Thank you for the referral. We will follow.
[2017-03-02 15:02] VITALS: BMI 47.7
[2017-03-02] MEDS ORDERED: Metolazone 2.5 MG TAB PO PRN (15:15)
[2017-03-02] MEDS: traMADol HCl 50 MG TAB PO PRN ×2 (15:55→22:08)
[2017-03-02] MEDS: glyBURIDE 5 MG TAB PO SCH (15:56)
[2017-03-02] MEDS: Sucralfate 1 GM TAB PO SCH ×2 (15:56→20:48)
[2017-03-02] MEDS ORDERED: Warfarin Sodium 5 MG TAB PO SCH (17:00)
[2017-03-02] MEDS: Mometasone/Formoterol 120 PUFF INHALER INH SCH (18:46)
[2017-03-02] MEDS: guaiFENesin ER 600 MG TAB PO SCH (20:48)
[2017-03-02] MEDS: Sotalol HCl 80 MG TAB PO SCH (20:48)
[2017-03-02] MEDS: Atorvastatin Calcium 10 MG TAB PO SCH (20:48)
[2017-03-02] MEDS: Insulin Detemir 100 UNITS/ML 80 UNITS in Pre-Filled Syringe 1 EACH SC SCH (20:51)
[2017-03-02] MEDS ORDERED: INSULIN GLARGINE HUM REC ANLOG 80 UNIT SQ SCH (21:00)
[2017-03-02] MEDS ORDERED: Furosemide 40 MG/4 ML VIAL SLOW IVP SCH (21:00)
[2017-03-03] MEDS: Acetaminophen 325 MG TAB PO PRN ×3 (02:07→18:51)
[2017-03-03 05:38] LABS: Hematocrit 36.7 % (36.0-47.0)
[2017-03-03 05:51] LABS: Prothrombin Time 31.2 SEC (12.0-14.7)
[2017-03-03] MEDS: traMADol HCl 50 MG TAB PO PRN ×2 (06:40→20:30)
[2017-03-03] MEDS: Mometasone/Formoterol 120 PUFF INHALER INH SCH ×2 (06:41→19:08)
[2017-03-03] MEDS: glyBURIDE 5 MG TAB PO SCH ×2 (08:20→16:33)
[2017-03-03] MEDS ORDERED: Enoxaparin Sodium 40 MG/0.4 ML SYRINGE SC SCH (09:00)
[2017-03-03] MEDS ORDERED: DULAGLUTIDE SC SCH (09:00)
[2017-03-03] MEDS ORDERED: Torsemide 20 MG TAB PO SCH (09:00)
[2017-03-03 09:14] LABS: #Monocytes 0.5 thou/uL (0.11-0.59); %Basophils 0.2 % (0.0-1.0); %Eosinophils 0.1 % (0.0-10.0); %Lymphocytes 7.7 % (21.0-51.0); %Monocytes 3.3 % (0.0-10.0); Hematocrit 36.7 % (36.0-47.0); Mean Platelet Volume 7.9 fL (7.4-10.4); Red Blood Cell (RBC) Count 3.95 mill/uL (4.20-5.40); White Blood Cell (WBC) Count 13.5 thou/uL (4.8-10.8)
[2017-03-03 09:26] LABS: Anion Gap 9 mmol/L (10-20); BUN (Urea Nitrogen) 19 mg/dL (9.8-20.1); Calc. Creatinine Clearance 165 mL/min (70-130); Calcium 9.1 mg/dL (7.8-10.44); Carbon Dioxide 28 mmol/L (23-31); Chloride 103 mmol/L (98-107); Estimated GFR-MDRD 85
[2017-03-03] MEDS: Lisinopril 20 MG TAB PO SCH (10:17)
[2017-03-03] MEDS: Potassium Chloride 20 MEQ TAB PO SCH (10:18)
[2017-03-03] MEDS: Prenatal Vitamin 1 TAB PO SCH (10:18)
[2017-03-03] MEDS: Digoxin 0.25 MG TAB PO SCH (10:18)
[2017-03-03] MEDS: Sucralfate 1 GM TAB PO SCH ×4 (10:19→20:29)
[2017-03-03] MEDS: Sotalol HCl 80 MG TAB PO SCH ×2 (10:20→20:29)
[2017-03-03] MEDS: guaiFENesin ER 600 MG TAB PO SCH ×3 (10:20→20:29)
[2017-03-03] MEDS: Aspirin 81 mg Enteric Coated Tablet PO SCH (10:20)
[2017-03-03] MEDS: predniSONE 20 MG TAB PO SCH (10:21)
--- NOTE | 2017-03-03 11:03 | PDOC.PN ---
- Subjective Encounter Start Date: 03/03/17 Encounter Start Time: 07:20 Pt seen for followup re: acute respiratory failure. Feels slightly better. No nausea or vomiting. No chest pain. Shortness of breath is better. - Objective MAR Reviewed: Yes Vital Signs & Weight: Vital Signs (12 hours) Temp Pulse Resp BP BP BP Pulse Ox 03/03/17 10:20 82 135/93 H 03/03/17 10:18 82 03/03/17 10:17 135/93 H 03/03/17 08:46 97.4 F L 82 19 92 L 03/03/17 07:40 97.4 F L 82 19 135/93 H 92 L 03/03/17 06:44 98 03/03/17 06:41 80 16 98 03/03/17 03:10 98 F 82 19 136/76 96 03/03/17 00:44 95 03/02/17 23:58 135/78 Weight Weight 275 lb 11.2 oz I&O: 03/02/17 03/03/17 03/04/17 06:59 06:59 06:59 Intake Total 800 Output Total 1025 Balance -225 Result Diagrams: 03/03/17 08:59 03/03/17 08:59 Additional Labs: Accuchecks 03/03/17 03/02/17 03/02/17 05:38 19:58 16:38 POC Glucose 173 H 326 H 179 H EKG Reviewed by me: Yes (Tele: NSR) Phys Exam - Physical Examination Morbid obesity HEENT: PERRLA, moist MMs, sclera anicteric, oral pharynx no lesions Neck: no nodes, no JVD, supple, full ROM Respiratory: no wheezing, no rhonchi Diminished air entry shorty bases Cardiovascular: RRR, no rub Gastrointestinal: soft, non-tender, no distention, positive bowel sounds Musculoskeletal: pulses present Neurological: moves all 4 limbs Lymphatic: no nodes Psychiatric: normal affect, A&O x 3 Skin: no rash, normal turgor, cap refill <2 seconds Dx/Plan (1) Acute respiratory failure with hypoxia Code(s): J96.01 - ACUTE RESPIRATORY FAILURE WITH HYPOXIA Status: Acute (2) Asthma exacerbation Code(s): J45.901 - UNSPECIFIED ASTHMA WITH (ACUTE) EXACERBATION Status: Acute (3) CHF exacerbation Code(s): I50.9 - HEART FAILURE, UNSPECIFIED Status: Acute (4) Diabetes type 2, controlled Code(s): E11.9 - TYPE 2 DIABETES MELLITUS WITHOUT COMPLICATIONS Status: Chronic (5) Chronic anticoagulation Code(s): Z79.01 - [facility] (CURRENT) USE OF ANTICOAGULANTS Status: Chronic (6) Dyslipidemia Code(s): E78.5 - HYPERLIPIDEMIA, UNSPECIFIED Status: Chronic (7) Hypertension Code(s): I10 - ESSENTIAL (PRIMARY) HYPERTENSION Status: Chronic - Plan PT/OT, respiratory therapy, out of bed/ambulate * . Continue diuretics. Continue bronchodilators, antibiotics. Pt reports hypoxic episodes at home, may need home oxygen at the time of discharge. Ambulate patient. INR is therapeutic. Continue accuchecks, insulin sliding scale. Monitor vital signs, titrate antihypertensives as needed. Review of Systems - Review of Systems Constitutional: negative: Fever, Chills, Sweats, Weakness, Malaise Respiratory: Shortness of Breath, SOB with Excertion. negative: Cough, Dry, Hemoptysis, Pleuritic Pain, Sputum, Wheezing Cardiovascular: negative: Chest Pain, Palpitations, Orthopnea, Paroxysmal Noc. Dyspnea, Edema, Light Headedness Gastrointestinal: negative: Nausea, Vomiting, Abdominal Pain, Diarrhea, Constipation, Melena, Hematochezia Genitourinary: negative: Dysuria, Frequency, Incontinence, Hematuria, Retention - Medications/Allergies Allergies/Adverse Reactions: Allergies Allergy/AdvReac Type Severity Reaction Status Date / Time dronedarone HCl [From Multaq] Allergy Verified 07/01/16 12:32 flecainide Allergy Verified 07/01/16 12:32 Sulfa (Sulfonamide Allergy Verified 07/01/16 12:32 Antibiotics) Medications: Current Medications Acetaminophen (Tylenol) 650 mg PO Q4H PRN PRN Reason: Headache/Fever or Pain Last Admin: 03/03/17 02:07 Dose: 650 mg Aspirin (Ecotrin) 81 mg PO DAILY [facility] Last Admin: 03/03/17 10:20 Dose: 81 mg Atorvastatin Calcium (Lipitor) 10 mg PO HS [facility] Last Admin: 03/02/17 20:48 Dose: 10 mg Digoxin (Lanoxin) 0.25 mg PO DAILY [facility] Last Admin: 03/03/17 10:18 Dose: 0.25 mg Diltiazem HCl (Cardizem Cd) 120 mg PO DAILY [facility] Last Admin: 03/03/17 10:20 Dose: 120 mg Furosemide (Lasix) 20 mg SLOW IVP 0600,1400 [facility] Glyburide (Diabeta) 10 mg PO BID-WM [facility] Last Admin: 03/03/17 08:20 Dose: 10 mg Guaifenesin (Mucinex) 600 mg PO TID [facility] Last Admin: 03/03/17 10:20 Dose: 600 mg Insulin Detemir 80 units/ (Miscellaneous Medication) 0.8 mls @ 0 mls/hr SC QPM [facility] Last Admin: 03/02/17 20:51 Dose: 0.8 mls Lisinopril (Zestril) 20 mg PO DAILY [facility] Last Admin: 03/03/17 10:17 Dose: 20 mg Mometasone Furoate/Formoterol Fumar (Dulera 200 Mcg/5 Mcg Inhaler) 2 puff INH BID-RT [facility] Last Admin: 03/03/17 06:41 Dose: 2 puff Dulaglutide [ (Trulicity] 70 Mcg) 0 each SC Q7D [facility] Potassium Chloride (K-Dur) 20 meq PO DAILY [facility] Last Admin: 03/03/17 10:18 Dose: 20 meq Prednisone (Prednisone) 20 mg PO QAM-[facility] Stop: 03/07/17 08:01 Last Admin: 03/03/17 10:21 Dose: 20 mg Prednisone (Prednisone) 10 mg PO QAM-WM [facility] Stop: 03/12/17 08:01 Prednisone (Prednisone) 5 mg PO QAM-WM [facility] Stop: 03/17/17 08:01 Multivit/Folic Acid/Iron ( Vitamin) 1 tab PO DAILY [facility] Last Admin: 03/03/17 10:18 Dose: 1 tab Sotalol HCl (Betapace) 40 mg PO BID [facility] Last Admin: 03/03/17 10:20 Dose: 40 mg Sucralfate (Carafate) 1 gm PO QID [facility] Last Admin: 03/03/17 10:19 Dose: 1 gm Tramadol HCl (Ultram) 50 mg PO TID PRN PRN Reason: Pain Last Admin: 03/03/17 06:40 Dose: 50 mg Warfarin Sodium (Coumadin) 5 mg PO TuThSa@1700 [facility] Last Admin: 03/02/17 16:53 Dose: 5 mg Warfarin Sodium (Coumadin) 7.5 mg PO SuMoWeFr@1700 [facility]
--- NOTE | 2017-03-03 11:45 | PRG ---
DATE OF SERVICE: 03/03/2017 SUBJECTIVE: She feels much better today except for headache. PHYSICAL EXAMINATION: VITAL SIGNS: Temperature 97.4, pulse 82, respirations 18, O2 sat 92%, blood pressure 135/93. HEENT: Unremarkable. NECK: No JVD. LUNGS: No wheezing. Few crackles in the bases. CARDIAC: S1 and S2 regular. ABDOMEN: Soft. EXTREMITIES: No edema. LABORATORY DATA: White blood cell count 13.5, hematocrit 36.7, platelet count 184. INR 2.9, sodium 136, potassium 4, chloride 103, CO2 28, BUN 19, creatinine 0.7, and glucose 205. ASSESSMENT: 1. Acute diastolic congestive heart failure. 2. Status post acute respiratory failure. 3. Underlying asthma. RECOMMENDATIONS: 1. Continue gentle diuresis. Agree with steroid taper. 2. Should be able to go home by tomorrow.
[2017-03-03] MEDS: Furosemide 20 MG/2 ML VIAL SLOW IVP SCH (13:17)
[2017-03-03] MEDS ORDERED: Warfarin Sodium 7.5 MG TAB PO SCH (17:00)
[2017-03-03] MEDS: Sodium Chloride 0.9% 10 ML ONE (20:31)
[2017-03-03] MEDS: Atorvastatin Calcium 10 MG TAB PO SCH (20:31)
[2017-03-03] MEDS: Insulin Detemir 100 UNITS/ML 80 UNITS in Pre-Filled Syringe 1 EACH SC SCH (22:20)
[2017-03-04] MEDS: traMADol HCl 50 MG TAB PO PRN (04:51)
[2017-03-04 06:07] LABS: #Eosinphils 0.1 thou/uL (0.0-0.7); #Lymphocytes 2.1 thou/uL (1.20-3.40); #Monocytes 0.5 thou/uL (0.11-0.59); #Neutrophils 9.4 thou/uL (1.40-6.50); %Basophils 0.1 % (0.0-1.0); %Eosinophils 0.4 % (0.0-10.0); %Lymphocytes 17.1 % (21.0-51.0); %Monocytes 4.5 % (0.0-10.0); Hematocrit 36.2 % (36.0-47.0); Red Blood Cell (RBC) Count 3.84 mill/uL (4.20-5.40); White Blood Cell (WBC) Count 12.1 thou/uL (4.8-10.8)
[2017-03-04] MEDS ORDERED: Sodium Chloride 0.9% 10 ML ONE (06:18)
[2017-03-04] MEDS: Mometasone/Formoterol 120 PUFF INHALER INH SCH (06:38)
[2017-03-04] MEDS: Furosemide 20 MG/2 ML VIAL SLOW IVP SCH ×2 (06:49→14:50)
[2017-03-04] MEDS: Acetaminophen 325 MG TAB PO PRN (06:53)
[2017-03-04 07:00] LABS: Anion Gap 11 mmol/L (10-20); BUN (Urea Nitrogen) 23 mg/dL (9.8-20.1); Calc. Creatinine Clearance 152 mL/min (70-130); Calcium 8.7 mg/dL (7.8-10.44); Carbon Dioxide 30 mmol/L (23-31); Chloride 101 mmol/L (98-107); Estimated GFR-MDRD 80
[2017-03-04] MEDS: guaiFENesin ER 600 MG TAB PO SCH ×2 (09:32→15:09)
[2017-03-04] MEDS: Prenatal Vitamin 1 TAB PO SCH (09:32)
[2017-03-04] MEDS: Digoxin 0.25 MG TAB PO SCH (09:32)
[2017-03-04] MEDS: Lisinopril 20 MG TAB PO SCH (09:32)
[2017-03-04] MEDS: glyBURIDE 5 MG TAB PO SCH ×2 (09:33→16:44)
[2017-03-04] MEDS: Sotalol HCl 80 MG TAB PO SCH (09:33)
[2017-03-04] MEDS: Aspirin 81 mg Enteric Coated Tablet PO SCH (09:33)
[2017-03-04] MEDS: Potassium Chloride 20 MEQ TAB PO SCH (09:33)
[2017-03-04] MEDS: Sucralfate 1 GM TAB PO SCH ×3 (09:33→16:44)
[2017-03-04] MEDS: predniSONE 20 MG TAB PO SCH (09:34)
--- NOTE | 2017-03-04 09:43 | PDOC.PN ---
- Subjective Encounter Start Date: 03/04/17 Encounter Start Time: 07:20 Pt seen for followup re: acute respiratory failure. Feels better. No fevers or chills. No cough. Dyspnea is better. - Objective MAR Reviewed: Yes Vital Signs & Weight: Vital Signs (12 hours) Temp Pulse Resp BP BP BP Pulse Ox 03/04/17 09:33 68 03/04/17 09:32 68 132/80 03/04/17 07:44 98.1 F 68 17 132/80 99 03/04/17 06:48 66 20 141/87 H 03/04/17 06:39 98 03/04/17 06:38 72 16 98 03/04/17 04:55 99 03/04/17 04:45 97.1 F L 71 16 119/67 99 Weight Weight 269 lb I&O: 03/03/17 03/04/17 03/05/17 06:59 06:59 06:59 Intake Total 800 730 Output Total 1025 500 Balance -225 230 Result Diagrams: 03/04/17 05:32 03/04/17 05:32 Additional Labs: Accuchecks 03/04/17 03/03/17 03/03/17 05:42 20:59 18:58 POC Glucose 143 H 212 H 256 H 03/03/17 10:58 POC Glucose 248 H EKG Reviewed by me: Yes (Tele: NSR) Phys Exam - Physical Examination Morbid obesity HEENT: moist MMs Neck: supple Respiratory: clear to auscultation bilateral Cardiovascular: RRR Gastrointestinal: soft Musculoskeletal: pulses present Neurological: moves all 4 limbs Psychiatric: normal affect Dx/Plan (1) Acute respiratory failure with hypoxia Code(s): J96.01 - ACUTE RESPIRATORY FAILURE WITH HYPOXIA Status: Acute (2) Asthma exacerbation Code(s): J45.901 - UNSPECIFIED ASTHMA WITH (ACUTE) EXACERBATION Status: Acute (3) CHF exacerbation Code(s): I50.9 - HEART FAILURE, UNSPECIFIED Status: Acute (4) Diabetes type 2, controlled Code(s): E11.9 - TYPE 2 DIABETES MELLITUS WITHOUT COMPLICATIONS Status: Chronic (5) Chronic anticoagulation Code(s): Z79.01 - [facility] (CURRENT) USE OF ANTICOAGULANTS Status: Chronic (6) Dyslipidemia Code(s): E78.5 - HYPERLIPIDEMIA, UNSPECIFIED Status: Chronic (7) Hypertension Code(s): I10 - ESSENTIAL (PRIMARY) HYPERTENSION Status: Chronic - Plan PT/OT, out of bed/ambulate Switch to oral diuretics. Evaluate for home oxygen. Home today or tomorrow. Continue steroids. * . Review of Systems - Review of Systems Respiratory: SOB with Excertion. negative: Cough, Dry, Shortness of Breath, Hemoptysis, Pleuritic Pain, Sputum, Wheezing Cardiovascular: negative: Chest Pain, Palpitations, Orthopnea, Paroxysmal Noc. Dyspnea, Edema, Light Headedness - Medications/Allergies Allergies/Adverse Reactions: Allergies Allergy/AdvReac Type Severity Reaction Status Date / Time dronedarone HCl [From Multaq] Allergy Verified 07/01/16 12:32 flecainide Allergy Verified 07/01/16 12:32 Sulfa (Sulfonamide Allergy Verified 07/01/16 12:32 Antibiotics) Medications: Current Medications Acetaminophen (Tylenol) 650 mg PO Q4H PRN PRN Reason: Headache/Fever or Pain Last Admin: 03/04/17 06:53 Dose: 650 mg Aspirin (Ecotrin) 81 mg PO DAILY [facility] Last Admin: 03/04/17 09:33 Dose: 81 mg Atorvastatin Calcium (Lipitor) 10 mg PO HS [facility] Last Admin: 03/03/17 20:31 Dose: 10 mg Digoxin (Lanoxin) 0.25 mg PO DAILY [facility] Last Admin: 03/04/17 09:32 Dose: 0.25 mg Diltiazem HCl (Cardizem Cd) 120 mg PO DAILY [facility] Last Admin: 03/04/17 09:32 Dose: 120 mg Furosemide (Lasix) 20 mg SLOW IVP 0600,1400 [facility] Last Admin: 03/04/17 06:49 Dose: 20 mg Glyburide (Diabeta) 10 mg PO BID-[facility] Last Admin: 03/04/17 09:33 Dose: 10 mg Guaifenesin (Mucinex) 600 mg PO TID [facility] Last Admin: 03/04/17 09:32 Dose: 600 mg Insulin Detemir 80 units/ (Miscellaneous Medication) 0.8 mls @ 0 mls/hr SC QPM [facility] Last Admin: 03/03/17 22:20 Dose: 0.8 mls Lisinopril (Zestril) 20 mg PO DAILY [facility] Last Admin: 03/04/17 09:32 Dose: 20 mg Mometasone Furoate/Formoterol Fumar (Dulera 200 Mcg/5 Mcg Inhaler) 2 puff INH BID-RT [facility] Last Admin: 03/04/17 06:38 Dose: 2 puff Dulaglutide [ (Trulicity] 70 Mcg) 0 each SC Q7D [facility] Potassium Chloride (K-Dur) 20 meq PO DAILY [facility] Last Admin: 03/04/17 09:33 Dose: 20 meq Prednisone (Prednisone) 20 mg PO QAM-WM [facility] Stop: 03/07/17 08:01 Last Admin: 03/04/17 09:34 Dose: 20 mg Prednisone (Prednisone) 10 mg PO QAM-WM [facility] Stop: 03/12/17 08:01 Prednisone (Prednisone) 5 mg PO QAM-WM [facility] Stop: 03/17/17 08:01 Multivit/Folic Acid/Iron ( Vitamin) 1 tab PO DAILY [facility] Last Admin: 03/04/17 09:32 Dose: 1 tab Sotalol HCl (Betapace) 40 mg PO BID [facility] Last Admin: 03/04/17 09:33 Dose: 40 mg Sucralfate (Carafate) 1 gm PO QID [facility] Last Admin: 03/04/17 09:33 Dose: 1 gm Tramadol HCl (Ultram) 50 mg PO TID PRN PRN Reason: Pain Last Admin: 03/04/17 04:51 Dose: 50 mg Warfarin Sodium (Coumadin) 5 mg PO TuThSa@1700 [facility] Last Admin: 03/02/17 16:53 Dose: 5 mg Warfarin Sodium (Coumadin) 7.5 mg PO SuMoWeFr@1700 [facility] Last Admin: 03/03/17 16:33 Dose: 7.5 mg
[2017-03-04 10:50] LABS: Prothrombin Time 37.5 SEC (12.0-14.7)
[2017-03-04] MEDS: Sodium Chloride 0.9% 10 ML ONE (15:10)
--- NOTE | 2017-03-04 15:40 | EKG ---
Test Reason : Blood Pressure : / mmHG Vent. Rate : 119 BPM Atrial Rate : 119 BPM P-R Int : 158 ms QRS Dur : 082 ms QT Int : 318 ms P-R-T Axes : 068 048 -19 degrees QTc Int : 447 ms Sinus tachycardia with occasional Premature ventricular complexes Abnormal ECG Confirmed by SHAHAB CANALES D.O. ([id number]), editorial writer LAUREN SOLIS ([id number]) on 03/04/2017 3:40:17 PM Referred By: Confirmed By:SHAHAB CANALES D.O.
[2017-03-04 16:27] VITALS: BP 136/78; TEMP 97.7
--- NOTE | 2017-03-05 06:46 | DIS ---
DATE OF ADMISSION: 03/02/2017 DATE OF DISCHARGE: 03/04/2017 PRIMARY CARE PHYSICIAN: Jassi Ramos M.D. DISCHARGE DIAGNOSES: 1. Acute hypoxic respiratory failure. 2. Congestive heart failure exacerbation. 3. Asthma exacerbation. CONDITION OF PATIENT AT THE TIME OF DISCHARGE: Stable. I assessed Ms. Darilng on the day of discharge. Please refer to my daily hospitalist progress note for further information regarding this face-to-f julianna encounter. DISCHARGE MEDICATIONS: ProAir HFA 2 puffs every 6 hours as needed, aspirin 81 mg daily, digoxin 250 mcg daily, Cardizem CD 120 mg daily, Trulicity 70 mcg subcutaneously every week, glyburide 10 mg 2 ti mes a day, Mucinex 600 mg 3 times a day, Lantus insulin 80 units every evening, lisinopril 20 mg georgette y, metolazone 2.5 mg daily, mometasone/formoterol 2 puffs 2 times a day, iron fumarate 2 tablets georgette y, potassium chloride 20 mEq daily, prednisone on a slow taper, simvastatin 20 mg every evening, sota lol 40 mg 2 times a day, Carafate 1 gram 4 times a day, torsemide 40 mg daily, tramadol p.r.n., warfa rin as directed by her primary care physician. HOSPITAL COURSE: Ms. Darling is a pleasant 61-year-old lady who was admitted to [facility] on 03/02/2017. She was briefly treated with bilevel positive airway pressures in the [facility] room. She was seen by Pulmonology Service. Her acute respiratory failure was felt to be a combination of a sthma exacerbation as well as congestive heart failure exacerbation, with a bigger component of conge stive heart failure exacerbation. She was treated with steroids and bronchodilators. She also recei iam intravenous diuretics. She improved clinically. On the day of discharge, she was assessed for home oxygen, but did not qualify for it. She has been started back on her home medications including torsemide and metolazone. She is advised to follow up with her primary care provider in 3-5 days. On the day of discharge, she has a white count of 12,100, hemoglobin 11.5, platelet count 184,000. S odium 138, potassium 3.8, blood urea nitrogen 23, and creatinine 0.74. During this hospitalization, she had a BNP level of only 47, although clinically, she was in congestive heart failure exacerbation . Chest x-ray also showed cardiomegaly, pulmonary vascular congestion, and small pleural effusions. Many thanks for allowing me to participate in your patient's care. Please feel free to contact me wi th any questions or concerns. DISCHARGE DESTINATION: Home. TOTAL AMOUNT OF TIME SPENT COORDINATING THIS DISCHARGE: 32 minutes. Please note that the patient has also been referred to cardiac rehabilitation.
[2017-03-05] MEDS ORDERED: Warfarin Sodium 5 MG TAB PO SCH (17:00)
[2017-03-08] MEDS ORDERED: predniSONE 5 MG TAB PO SCH (08:00)
[2017-03-13] MEDS ORDERED: predniSONE 5 MG TAB PO SCH (08:00)
== END 2017-03-04 18:37 | disposition home or self-care (01) | DRG 291 ==
LOC: ERS 09:55 → 2NO 11:16 → ERS 14:19
PROVIDERS: ADMIT Internal Medicine; ATTEND Internal Medicine
PROC: 5A09357 Assistance with Respiratory Ventilation, Less than 24 Consecutive Hours, Continuous Positive Airway Pressure (ICD-10-PCS; principal; 2017-03-02)
DX: I11.0 Hypertensive heart disease with heart failure (principal); J96.01 Acute respiratory failure with hypoxia; J96.02 Acute respiratory failure with hypercapnia; Z68.42 Body mass index [BMI] 45.0-49.9, adult; J45.901 Unspecified asthma with (acute) exacerbation; E66.01 Morbid (severe) obesity due to excess calories; I48.92 Unspecified atrial flutter; I05.2 Rheumatic mitral stenosis with insufficiency; I50.33 Acute on chronic diastolic (congestive) heart failure; E11.9 Type 2 diabetes mellitus without complications; Z87.891 Personal history of nicotine dependence; F41.9 Anxiety disorder, unspecified; E78.5 Hyperlipidemia, unspecified; Z79.01 Long term (current) use of anticoagulants
CPT/HCPCS: 36415; 36416; 51702; 71010; 80048; 80053; 81003; 81015; 82553; 82805; 83605; 83880; 84484; 85014; 85018; 85025; 85049; 85610; 93005; 93306; 93798; 96374; 96375; A4216; J1815; J1940; J3475; J7506; J7620

== ENCOUNTER 2017-03-21 19:32 | Emergency (ER) | payer BC ==
--- NOTE | 2017-03-21 20:49 | RAD ---
PORTABLE CHEST: 03/21/17 COMPARISON: 03/02/17 study. HISTORY: Shortness of breath. Heart size is enlarged. Pulmonary vessels are mildly engorged. This is fairly similar to the prior ex am. Interstitial changes are felt to be largely chronic in nature. IMPRESSION: Cardiomegaly with mild vascular prominence and increased interstitial markings. I think this is more a chronic baseline change for this patient. It is difficult to exclude some minimal element of edema. POS: [facility]
[2017-03-21 21:34] LABS: #Eosinphils 0.2 thou/uL (0.0-0.7); #Lymphocytes 1.2 thou/uL (1.20-3.40); #Monocytes 0.5 thou/uL (0.11-0.59); #Neutrophils 9.7 thou/uL (1.40-6.50); %Basophils 0.2 % (0.0-1.0); %Eosinophils 1.3 % (0.0-10.0); %Lymphocytes 10.6 % (21.0-51.0); %Monocytes 4.7 % (0.0-10.0); Hematocrit 39.6 % (36.0-47.0); Mean Platelet Volume 7.5 fL (7.4-10.4); Red Blood Cell (RBC) Count 4.28 mill/uL (4.20-5.40); White Blood Cell (WBC) Count 11.6 thou/uL (4.8-10.8)
[2017-03-21 21:54] LABS: ALT (SGPT) 23 U/L (8-55); AST (SGOT) 17 U/L (5-34); Alkaline Phosphatase 87 U/L (40-150); Anion Gap 13 mmol/L (10-20); BUN (Urea Nitrogen) 17 mg/dL (9.8-20.1); Bilirubin, Total 0.4 mg/dL (0.2-1.2); CK (CPK) 44 U/L (29-168); Calc. Creatinine Clearance 0 mL/min (70-130); Calcium 9.5 mg/dL (7.8-10.44); Carbon Dioxide 29 mmol/L (23-31); Chloride 98 mmol/L (98-107); Estimated GFR-MDRD 64; Globulin 3.4 g/dL (2.4-3.5)
[2017-03-21 21:59] LABS: Troponin I Less than 0.010 ng/mL (< 0.028)
[2017-03-21] MEDS ORDERED: methylPREDNISolone Sod Succ/PF 125 MG/2 ML VIAL ONE (22:13)
== END 2017-03-21 23:10 | disposition home or self-care (01) ==
LOC: ERS 19:32
DX: J44.1 Chronic obstructive pulmonary disease with (acute) exacerbation (principal); E11.9 Type 2 diabetes mellitus without complications; I11.0 Hypertensive heart disease with heart failure; I50.9 Heart failure, unspecified; E78.00 Pure hypercholesterolemia, unspecified; I48.91 Unspecified atrial fibrillation; Z87.891 Personal history of nicotine dependence; Z79.82 Long term (current) use of aspirin; Z79.899 Other long term (current) drug therapy; Z79.4 Long term (current) use of insulin
CPT/HCPCS: 36415; 71010; 80053; 82553; 83880; 84484; 85025; 87040; 94640; 96374; J2930; J7620

== ENCOUNTER 2017-03-22 10:30 | Observation (INO) | payer BC ==
--- NOTE | 2017-03-22 15:24 | RAD ---
CHEST ONE VIEW: History: Dyspnea. Comparison: 03-21-17 FINDINGS: Cardiac silhouette is magnified by projection and upper limits of normal in size. Pulmonary vascular prominence is less than on the prior exam. Mediastinum is midline. There is no lobar consolidation or evidence of pneumothorax. IMPRESSION: Given the interval improvement, no active cardiopulmonary abnormalities are demonstrated. POS: [facility]
[2017-03-22 15:29] LABS: #Lymphocytes 1.1 thou/uL (1.20-3.40); #Monocytes 0.2 thou/uL (0.11-0.59); %Basophils 0.1 % (0.0-1.0); %Eosinophils 0.2 % (0.0-10.0); %Lymphocytes 8.2 % (21.0-51.0); %Monocytes 1.5 % (0.0-10.0); Hemoglobin 13.3 g/dL (12.0-16.0); Mean Corpuscular HGB CONC 32.5 g/dL (32.0-36.0); Mean Corpuscular Hemoglobin 29.9 pg (27.0-31.0); Mean Corpuscular Volume 91.9 fl (81.0-99.0); Mean Platelet Volume 7.8 fL (7.4-10.4); Platelet Count 208 thou/uL (130-400); RBC Distribution Width 13.2 % (11.5-14.5); Red Blood Cell (RBC) Count 4.43 mill/uL (4.20-5.40); White Blood Cell (WBC) Count 13.3 thou/uL (4.8-10.8)
[2017-03-22] MEDS ORDERED: methylPREDNISolone Sod Succ/PF 125 MG/2 ML VIAL ONE (15:32)
[2017-03-22] MEDS ORDERED: Azithromycin 500 MG VIAL ONE (15:32)
[2017-03-22 15:35] LABS: INR-International Normal Ratio 1.9; Prothrombin Time 22.6 SEC (12.0-14.7)
[2017-03-22 15:36] LABS: PTT 44.9 SEC (22.9-36.1)
[2017-03-22 15:52] LABS: ALT (SGPT) 24 U/L (8-55); AST (SGOT) 26 U/L (5-34); Albumin 3.8 g/dL (3.4-4.8); Alkaline Phosphatase 87 U/L (40-150); Anion Gap 17 mmol/L (10-20); BUN (Urea Nitrogen) 17 mg/dL (9.8-20.1); Bilirubin, Total 0.5 mg/dL (0.2-1.2); CK (CPK) 61 U/L (29-168); Calc. Creatinine Clearance 0 mL/min (70-130); Calcium 10.4 mg/dL (7.8-10.44); Carbon Dioxide 24 mmol/L (23-31); Chloride 97 mmol/L (98-107); Estimated GFR-MDRD 69; Globulin 4.1 g/dL (2.4-3.5); Glucose 293 mg/dL (80-115); Lipase 4 U/L (8-78); Potassium 4.7 mmol/L (3.5-5.1); Protein, Total 7.9 g/dL (6.0-8.3); Sodium 133 mmol/L (136-145)
[2017-03-22 15:56] LABS: CKMB 1.1 ng/mL (0-6.6)
[2017-03-22] MEDS ORDERED: Dextrose 5% in Water 1,000 ML IV PRN (18:23)
[2017-03-22] MEDS ORDERED: Bisacodyl 5 MG TAB PO PRN (18:23)
[2017-03-22] MEDS ORDERED: Acetaminophen 325 MG TAB PO PRN (18:23)
[2017-03-22] MEDS ORDERED: Acetaminophen 650 MG Suppository PR PRN (18:23)
[2017-03-22] MEDS ORDERED: Ondansetron HCl/PF 4 MG/2 ML Vial IVP PRN (18:23)
[2017-03-22] MEDS ORDERED: DULAGLUTIDE SQ SCH (18:23)
[2017-03-22] MEDS ORDERED: Metolazone 2.5 MG TAB PO PRN (18:23)
[2017-03-22] MEDS ORDERED: Ondansetron ODT 4 MG TAB PO PRN (18:23)
[2017-03-22] MEDS ORDERED: Dextrose 50% Abboject 50 ML SYRINGE SLOW IVP PRN (18:23)
[2017-03-22 18:29] VITALS: BMI 40.0
[2017-03-22] MEDS: Mometasone/Formoterol 120 PUFF INHALER INH SCH (19:08)
[2017-03-22] MEDS: Famotidine 20 MG TAB PO SCH (20:19)
[2017-03-22] MEDS: Sucralfate 1 GM TAB PO SCH (20:19)
--- NOTE | 2017-03-22 20:31 | HP ---
PRIMARY CARE PHYSICIAN: Jassi Ramos MD CHIEF COMPLAINT: Cough and shortness of breath. HISTORY OF PRESENT ILLNESS: This is a 61-year-old white female with a known history of both COPD and diastolic congestive heart failure, was recently in 2 weeks ago for an exacerbation of congestive he art failure. At that time, she had Pulmonology evaluate her and determined that her COPD was at base line and she was diuresed with good improvement in her shortness of breath and was discharged home. She was doing well at home until about 3 days ago, the patient developed runny nose, cough, and then started having more trouble breathing. She went to her primary care doctor and was given amoxicillin , which upset her stomach. She has a very sensitive stomach that easily gets upset with medications. This made her very anxious and worsened the difficulty breathing, so she came into the emergency ro om. In the emergency room, the patient was found to have some mild wheezing, but also had a borderli ne low oxygen saturation in the low 90s. When she dozed off during her ER stay, her saturations drop ped to 85%. Chest x-ray was actually improved from previous. Due to the patient's desaturation and feeling worse after ER visit yesterday, she is being put in observation for steroids, nebs, and antib iotics. PAST MEDICAL HISTORY: 1. Diastolic congestive heart failure. 2. Atrial flutter, status post cardioversion and ablation. 3. Morbid obesity. 4. Asthma/COPD. 5. Diabetes mellitus type 2, insulin dependent. 6. Hypertension. 7. Moderate mitral stenosis and mitral regurgitation. PAST SURGICAL HISTORY: 1. Cholecystectomy. 2. . 3. Cardioversion and cardiac ablation. 4. Cardiac catheterization in 2016 with normal coronaries and normal ejection fraction. SOCIAL HISTORY: The patient is an ex-smoker, quit in 2008, but continued to secondhand smoke from he r , who at the end of January. This has been an emotional stressor on her. She is havi ng the carpets in the house changed out though to help her with her asthma and getting rid of the smo ke smell. No alcohol or illicit drug use. FAMILY HISTORY: Early heart disease in her mom, who had a CABG in her 30s. Also, her mom had breast cancer. Multiple family members with diabetes and hypertension. Her dad of myocardial infarct ion in his 80s. ALLERGIES: 1. MULTAQ. 2. SULFA. 3. BACTRIM. CURRENT MEDICATIONS: The patient does not have her active medication list with her, but states that it is unchanged from her discharge from the hospital with her last stay. This includes, 1. Albuterol 2 puffs every 6 hours. 2. Aspirin 81 mg daily. 3. Digoxin 250 mcg daily. 4. Cardizem CD 120 mg daily. 5. Trulicity 70 mcg subcutaneous weekly. 6. Glyburide 10 mg 2 times a day. 7. Mucinex 600 mg 3 times a day. 8. Lantus 80 units each evening. 9. Lisinopril 20 mg daily. 10. Metolazone 2.5 mg daily. 11. Mometasone/formoterol 2 puffs 2 times a day. 12. Iron fumarate 2 tablets daily. 13. Potassium chloride 20 mEq daily. 14. Simvastatin 20 mg daily. 15. Sotalol 40 mg 2 times a day. 16. Carafate 1 g 4 times a day. 17. Torsemide 40 mg daily. 18. Warfarin. 19. Tramadol p.r.n. REVIEW OF SYSTEMS: Constitutional: No fevers or chills. Eyes: No double vision or blurred vision. ENT: She has had a little congestion and drainage. No sore throat. Cardiac: No chest pain. No palpitations or racing heart. Pulmonary: See HPI. Gastrointestinal: Some mid epigastric abdominal uneasiness/discomfort that she commonly gets whenever she takes different kinds of medications. Aubrey e nausea, but no vomiting of stomach contents. She occasionally spits up the mucus that is draining out in back of her airway and into her throat. No diarrhea or constipation, though she has had a lit tle bit more frequent stools recently. Genitourinary: No dysuria or hematuria. Musculoskeletal: N o muscle aches or joint pains. Skin: No rashes or other lesions. Neurologic: No numbness, tinglin g, or focal weakness. PHYSICAL EXAMINATION: VITAL SIGNS: Blood pressure 119/78, pulse 94, respirations 18, temperature 98.2, O2 sat ranging betw een 85% and 93% on room air. GENERAL: This is a well-developed, obese, white female in no apparent distress. HEENT: Pupils equal, round, and reactive to light. Extraocular movements intact. Oropharynx is mik ar without lesions, erythema, or exudate. NECK: Supple. No lymphadenopathy. No thyroid nodules or enlargement. No JVD. HEART: Regular rate and rhythm. No murmurs, rubs, or gallops. LUNGS: The patient has scattered wheezes throughout. She has decent air movement throughout. No si gnificantly prolonged expiratory phase. She does have intermittent coughing fits. ABDOMEN: Soft. Mild discomfort to palpation in the epigastrium, but no actual tenderness per the sharona leone's report. No masses. No guarding or rebound tenderness. No hepatosplenomegaly. EXTREMITIES: No clubbing, cyanosis, or edema. SKIN: No rashes or other lesions noted. NEUROLOGIC: Intact strength in all extremities and no facial droop. LABORATORY DATA: Influenza antigen negative. Cardiac marker set negative x1. Lipase normal. Compl ete metabolic panel is notable for a sodium of 133, chloride of 97, glucose of 293. Remainder is nor mal. INR is 1.9, slightly subtherapeutic. White blood cell count is 13.3 with a 90% neutrophils. T he rest of the CBC is normal. Chest x-ray: I did review the chest x-ray done in the emergency room along with the radiologist's re port. The patient does not have any acute changes. The heart size is upper limits of normal. Hermes ring with a film from couple weeks ago when the patient was admitted, she actually has markedly decre ased pulmonary vessel size and markedly decreased pulmonary congestion consistent with improvement of her CHF. ASSESSMENT AND PLAN: 1. Acute upper respiratory tract infection with exacerbation of chronic obstructive pulmonary diseas e. The patient has been given steroids, nebs, and antibiotics in the emergency room. We will contin ue azithromycin along with DuoNeb as needed and we will switch to p.o. steroids. We will put the horace carrera in the hospital overnight and observe her. If she is doing better in the morning, she can likel y go home. 2. Desaturation while sleeping. The patient likely has sleep apnea and I would suspect desats at [facility] as well. She does have a sleep study scheduled for early next year. 3. Diastolic congestive heart failure, currently well compensated. We will continue diuretics. 4. History of atrial arrhythmias. We will continue diltiazem and sotalol. 5. Gastrointestinal prophylaxis. Put the patient on Pepcid twice a day and we will continue her suc ralfate. 6. Diabetes mellitus type 2, currently exacerbated due to infection. We will resume her Lantus and her glyburide, and we will also put her on a high-dose insulin sliding scale. 7. Code status. I did discuss code status with the patient. She is a FULL CODE. She does not curr ently have an identified medical decision maker, though she is going to talk to people at her [facility] about it and see if somebody is willing to do that for her.
[2017-03-22] MEDS ORDERED: Warfarin Sodium 7.5 MG TAB PO SCH (20:45)
[2017-03-22] MEDS ORDERED: INSULIN GLARGINE HUM REC ANLOG 80 UNIT SQ SCH (21:00)
[2017-03-22] MEDS: guaiFENesin ER 600 MG TAB PO SCH (21:21)
[2017-03-22] MEDS: Simvastatin 20 MG TAB PO SCH (21:22)
[2017-03-22] MEDS: Sotalol HCl 80 MG TAB PO SCH (21:24)
[2017-03-22] MEDS: INSULIN DETEMIR SC SCH (21:34)
[2017-03-22] MEDS: PRE FILLED SC SCH (21:34)
[2017-03-22] MEDS: HumaLOG 300 UNITS/3 ML VIAL SC PRN (21:35)
[2017-03-23] MEDS: traMADol HCl 50 MG TAB PO PRN ×2 (00:21→17:52)
[2017-03-23 05:34] LABS: #Basophils 0.1 thou/uL (0.0-0.2); #Lymphocytes 1.3 thou/uL (1.20-3.40); #Monocytes 0.4 thou/uL (0.11-0.59); %Basophils 0.3 % (0.0-1.0); %Eosinophils 0.1 % (0.0-10.0); %Lymphocytes 7.8 % (21.0-51.0); %Monocytes 2.3 % (0.0-10.0); %Neutrophils 89.5 % (42.0-75.0); Hemoglobin 12.7 g/dL (12.0-16.0); Mean Corpuscular Hemoglobin 29.5 pg (27.0-31.0); Mean Corpuscular Volume 92.1 fl (81.0-99.0); Mean Platelet Volume 7.7 fL (7.4-10.4); Platelet Count 221 thou/uL (130-400); RBC Distribution Width 13.3 % (11.5-14.5); Red Blood Cell (RBC) Count 4.31 mill/uL (4.20-5.40); White Blood Cell (WBC) Count 16.7 thou/uL (4.8-10.8)
[2017-03-23 05:39] LABS: Anion Gap 14 mmol/L (10-20); BUN (Urea Nitrogen) 22 mg/dL (9.8-20.1); Calc. Creatinine Clearance 133 mL/min (70-130); Calcium 9.6 mg/dL (7.8-10.44); Carbon Dioxide 25 mmol/L (23-31); Chloride 99 mmol/L (98-107); Estimated GFR-MDRD 68; Glucose 306 mg/dL (80-115); Potassium 4.3 mmol/L (3.5-5.1); Sodium 134 mmol/L (136-145)
[2017-03-23] MEDS: HumaLOG 300 UNITS/3 ML VIAL SC PRN ×4 (06:45→20:56)
[2017-03-23] MEDS: Mometasone/Formoterol 120 PUFF INHALER INH SCH ×2 (06:52→19:48)
[2017-03-23] MEDS: Prenatal Vitamin 1 TAB PO SCH (08:50)
[2017-03-23] MEDS: Lisinopril 20 MG TAB PO SCH (08:52)
[2017-03-23] MEDS: Famotidine 20 MG TAB PO SCH ×2 (08:53→20:48)
[2017-03-23] MEDS: Azithromycin 250 MG TAB PO SCH (08:53)
[2017-03-23] MEDS: guaiFENesin ER 600 MG TAB PO SCH ×3 (08:55→20:48)
[2017-03-23] MEDS: Aspirin 81 mg Enteric Coated Tablet PO SCH (08:55)
[2017-03-23] MEDS: Potassium Chloride 20 MEQ TAB PO SCH (08:56)
[2017-03-23] MEDS: predniSONE 20 MG TAB PO SCH (08:56)
[2017-03-23] MEDS: glyBURIDE 5 MG TAB PO SCH ×2 (08:57→16:54)
--- NOTE | 2017-03-23 08:57 | PDOC.PN ---
- Subjective Encounter Start Date: 03/23/17 Encounter Start Time: 16:00 Subjective: Patient feeling a little better. Desating with sleep and ambulation. -: Stomach doing better on Azithromycin and off amoxicillin. - Objective Resuscitation Status: Resuscitation Status FULL:Full Resuscitation MAR Reviewed: Yes Vital Signs & Weight: Vital Signs (12 hours) Temp Pulse Resp BP BP Pulse Ox 03/23/17 08:00 97.8 F 91 22 H 114/58 L 95 03/23/17 06:49 78 16 94 L 03/23/17 04:45 98.3 F 80 22 H 134/74 134/74 94 L 03/23/17 03:41 90 16 94 L 03/23/17 02:05 96 03/23/17 00:15 97.9 F 84 20 130/84 130/84 97 03/22/17 22:20 98 03/22/17 21:24 96 131/72 03/22/17 20:56 96 Weight Weight 271 lb 2.697 oz I&O: 03/22/17 03/23/17 03/24/17 06:59 06:59 06:59 Intake Total 1430 Balance 1430 Result Diagrams: 03/23/17 04:57 03/23/17 04:57 Additional Labs: Accuchecks 03/23/17 03/22/17 06:39 21:31 POC Glucose 308 H 316 H Phys Exam - Physical Examination Constitutional: NAD HEENT: moist MMs Respiratory: no wheezing, no rales, no rhonchi, clear to auscultation bilateral Cardiovascular: RRR, no significant murmur Gastrointestinal: soft, positive bowel sounds Neurological: non-focal, moves all 4 limbs Psychiatric: normal affect, A&O x 3 Dx/Plan (1) COPD exacerbation Code(s): J44.1 - CHRONIC OBSTRUCTIVE PULMONARY DISEASE W (ACUTE) EXACERBATION Status: Acute Comment: Improved, will arrange for home O2. Needs f/u outpatient sleep study. (2) Diastolic congestive heart failure Code(s): I50.30 - UNSPECIFIED DIASTOLIC (CONGESTIVE) HEART FAILURE Status: Chronic Qualifiers: Congestive heart failure chronicity: chronic Qualified Code(s): I50.32 - Chronic diastolic (congestive) heart failure (3) Chronic anticoagulation Code(s): Z79.01 - RESIDENTIAL (CURRENT) USE OF ANTICOAGULANTS Status: Chronic (4) Diabetes type 2, controlled Code(s): E11.9 - TYPE 2 DIABETES MELLITUS WITHOUT COMPLICATIONS Status: Chronic (5) Dyslipidemia Code(s): E78.5 - HYPERLIPIDEMIA, UNSPECIFIED Status: Chronic (6) H/O radiofrequency ablation for complex left atrial arrhythmia Code(s): Z98.890 - OTHER SPECIFIED POSTPROCEDURAL STATES; Z86.79 - PERSONAL HISTORY OF OTHER DISEASES OF THE CIRCULATORY SYSTEM Status: Chronic (7) Hypertension Code(s): I10 - ESSENTIAL (PRIMARY) HYPERTENSION Status: Chronic (8) Morbid obesity with BMI of 45.0-49.9, adult Code(s): E66.01 - MORBID (SEVERE) OBESITY DUE TO EXCESS CALORIES; Z68.42 - BODY MASS INDEX (BMI) 45.0-49.9, ADULT Status: Chronic - Plan cont current plan of care, continue antibiotics, out of bed/ambulate, DVT proph w/SCDs D/C in AM as home O2 won't be available until then. * . - Discharge Day Encounter end time: 16:30
[2017-03-23] MEDS: Digoxin 0.25 MG TAB PO SCH (08:59)
[2017-03-23] MEDS ORDERED: Enoxaparin Sodium 40 MG/0.4 ML SYRINGE SC SCH (09:00)
[2017-03-23] MEDS: Sotalol HCl 80 MG TAB PO SCH ×2 (09:01→20:49)
[2017-03-23] MEDS: Sucralfate 1 GM TAB PO SCH ×4 (09:02→20:48)
[2017-03-23] MEDS: Torsemide 20 MG TAB PO SCH (09:03)
[2017-03-23] MEDS ORDERED: Sodium Chloride 0.9% 10 ML ONE (10:36)
[2017-03-23] MEDS ORDERED: Warfarin Sodium 5 MG TAB PO SCH (17:00)
[2017-03-23] MEDS: Simvastatin 20 MG TAB PO SCH (20:49)
[2017-03-23] MEDS: PRE FILLED SC SCH (20:55)
[2017-03-23] MEDS: INSULIN DETEMIR SC SCH (20:55)
[2017-03-24 01:47] VITALS: TEMP 97.9
[2017-03-24 05:44] LABS: INR-International Normal Ratio 3.1; Prothrombin Time 33.2 SEC (12.0-14.7)
[2017-03-24] MEDS: Mometasone/Formoterol 120 PUFF INHALER INH SCH (07:07)
[2017-03-24] MEDS: Aspirin 81 mg Enteric Coated Tablet PO SCH (09:06)
[2017-03-24] MEDS: Azithromycin 250 MG TAB PO SCH (09:06)
[2017-03-24] MEDS: glyBURIDE 5 MG TAB PO SCH (09:06)
[2017-03-24] MEDS: predniSONE 20 MG TAB PO SCH (09:07)
[2017-03-24] MEDS: Famotidine 20 MG TAB PO SCH (09:09)
[2017-03-24] MEDS: guaiFENesin ER 600 MG TAB PO SCH (09:09)
[2017-03-24] MEDS: Prenatal Vitamin 1 TAB PO SCH (09:10)
[2017-03-24] MEDS: Digoxin 0.25 MG TAB PO SCH (09:11)
[2017-03-24] MEDS: Lisinopril 20 MG TAB PO SCH (09:11)
[2017-03-24] MEDS: Sucralfate 1 GM TAB PO SCH (09:12)
[2017-03-24] MEDS: Torsemide 20 MG TAB PO SCH (09:12)
[2017-03-24] MEDS: Sotalol HCl 80 MG TAB PO SCH (09:12)
[2017-03-24] MEDS: Potassium Chloride 20 MEQ TAB PO SCH (09:15)
[2017-03-24 09:16] VITALS: BP 109/57
[2017-03-24] MEDS ORDERED: Warfarin Sodium 7.5 MG TAB PO SCH (17:00)
--- NOTE | 2017-03-29 10:12 | DIS ---
PRIMARY CARE PHYSICIAN: Dr. Jassi Ramos DIAGNOSES ON ADMISSION: 1. Acute upper respiratory tract infection with exacerbation of chronic obstructive pulmonary diseas e. 2. Desaturation while sleeping. 3. Diastolic congestive heart failure. 4. Atrial arrhythmias. 5. Diabetes mellitus type 2. DIAGNOSES ON DISCHARGE: 1. Chronic obstructive pulmonary disease exacerbation, improved. 2. Nighttime desaturation likely obstructive sleep apnea. 3. Diastolic congestive heart failure. 4. Chronic anticoagulation for atrial arrhythmias. 5. Diabetes mellitus type 2. PROCEDURES: None. CONSULTATIONS: None. HOSPITAL COURSE: This is a 61-year-old white female with a known history of COPD and diastolic conge stive heart failure, recently in the hospital for exacerbation of her CHF. [facility] prior to admission, developed runny nose, cough, upper respiratory tract symptoms. brittany saw her primary care doctor and was given amoxicillin, which upsets her stomach. After she took it , she got very anxious from the upset stomach that made her breathing worse and so she came to the ER . She was doing well in the ER until she started to fall asleep and then as her saturations dropped to 85%, so she was put in the hospital. The patient was actually doing well from a CHF standpoint an d did not need further diuresis. Her COPD was mildly exacerbated and was treated with just nebulizer s. The patient did desaturate while asleep again in the hospital down to 85%, so home oxygen was ord ered and the patient was discharged home. She does have followup sleep study already scheduled in [facility]. DISCHARGE MANAGEMENT: Discharged home. Follow up with primary care physician as scheduled and with sleep study as already scheduled. ACTIVITY: As tolerated. DIET: Diabetic diet. Home equipment supplies will be oxygen. DISCHARGE MEDICATIONS: Continue all home medications plus I have added Zofran 4 mg every 6 hours as needed for nausea and vomiting, 15 tablets dispensed.
--- NOTE | 2017-04-13 13:04 | EKG ---
Test Reason : SOB Blood Pressure : / mmHG Vent. Rate : 096 BPM Atrial Rate : 096 BPM P-R Int : 166 ms QRS Dur : 080 ms QT Int : 348 ms P-R-T Axes : 070 039 057 degrees QTc Int : 439 ms Normal sinus rhythm Normal ECG Confirmed by AMAN PRATT DO ([id number]), film and video editor LAUREN SOLIS ([id number]) on 04/13/2017 1:03:44 PM Referred By: Confirmed By:AMAN PRATT DO
== END 2017-03-24 09:20 | disposition home or self-care (01) ==
LOC: ERS 10:30 → 3SE 16:06
PROVIDERS: ADMIT Emergency Medicine; ATTEND Emergency Medicine
DX: J44.1 Chronic obstructive pulmonary disease with (acute) exacerbation (principal); J06.9 Acute upper respiratory infection, unspecified; I49.9 Cardiac arrhythmia, unspecified; E11.9 Type 2 diabetes mellitus without complications; I11.0 Hypertensive heart disease with heart failure; I50.32 Chronic diastolic (congestive) heart failure; I48.92 Unspecified atrial flutter; I05.2 Rheumatic mitral stenosis with insufficiency; E78.00 Pure hypercholesterolemia, unspecified; E66.01 Morbid (severe) obesity due to excess calories; Z68.41 Body mass index [BMI] 40.0-44.9, adult; Z87.891 Personal history of nicotine dependence; Z79.4 Long term (current) use of insulin; Z79.82 Long term (current) use of aspirin; Z79.01 Long term (current) use of anticoagulants; Z79.899 Other long term (current) drug therapy; Z88.2 Allergy status to sulfonamides; Z88.8 Allergy status to other drugs, medicaments and biological substances; Z90.49 Acquired absence of other specified parts of digestive tract; Z98.890 Other specified postprocedural states
CPT/HCPCS: 36415; 36416; 71010; 80048; 80053; 82550; 82553; 83690; 84484; 85025; 85610; 85730; 87804; 93005; 94640; 96365; 96372; 96375; A4216; G0378; J0456; J0696; J1650; J1815; J2405; J2930; J7506; J7620; Q0162

== ENCOUNTER 2017-04-07 16:40 | Observation (INO) | payer BC ==
[2017-04-07 17:35] LABS: #Basophils 0.1 thou/uL (0.0-0.2); #Eosinphils 0.1 thou/uL (0.0-0.7); #Lymphocytes 1.8 thou/uL (1.20-3.40); #Monocytes 0.7 thou/uL (0.11-0.59); #Neutrophils 6.2 thou/uL (1.40-6.50); %Basophils 0.9 % (0.0-1.0); %Eosinophils 0.8 % (0.0-10.0); %Lymphocytes 20.1 % (21.0-51.0); %Monocytes 7.5 % (0.0-10.0); %Neutrophils 70.6 % (42.0-75.0); Hemoglobin 13.8 g/dL (12.0-16.0); Mean Corpuscular HGB CONC 32.6 g/dL (32.0-36.0); Mean Corpuscular Hemoglobin 29.6 pg (27.0-31.0); Mean Corpuscular Volume 90.6 fl (81.0-99.0); Mean Platelet Volume 8.5 fL (7.4-10.4); Platelet Count 211 thou/uL (130-400); RBC Distribution Width 13.4 % (11.5-14.5); Red Blood Cell (RBC) Count 4.68 mill/uL (4.20-5.40); White Blood Cell (WBC) Count 8.8 thou/uL (4.8-10.8)
[2017-04-07 18:02] LABS: CKMB 1.1 ng/mL (0-6.6); Troponin I Less than 0.010 ng/mL (< 0.028)
--- NOTE | 2017-04-07 18:28 | RAD ---
CHEST ONE VIEW 04/07/17 HISTORY: Fall. COMPARISON: Chest one view 03/22/17 FINDINGS: Lungs are clear. Heart size is upper limits of normal. No pneumothorax. No focal air space consolidat ion. No displaced rib fracture. IMPRESSION: No acute intrathoracic abnormality. No significant change. POS: [facility]
[2017-04-07 18:36] LABS: ALT (SGPT) 30 U/L (8-55); AST (SGOT) 26 U/L (5-34); Albumin 3.3 g/dL (3.4-4.8); Alkaline Phosphatase 68 U/L (40-150); Anion Gap 17 mmol/L (10-20); BUN (Urea Nitrogen) 26 mg/dL (9.8-20.1); Bilirubin, Total 0.3 mg/dL (0.2-1.2); CK (CPK) 65 U/L (29-168); Calc. Creatinine Clearance 0 mL/min (70-130); Calcium 9.5 mg/dL (7.8-10.44); Carbon Dioxide 27 mmol/L (23-31); Chloride 97 mmol/L (98-107); Estimated GFR-MDRD 50; Globulin 3.4 g/dL (2.4-3.5); Glucose 186 mg/dL (80-115); Potassium 4.1 mmol/L (3.5-5.1); Protein, Total 6.7 g/dL (6.0-8.3); Sodium 137 mmol/L (136-145)
[2017-04-07 20:44] VITALS: BMI 48.2
[2017-04-07] MEDS ORDERED: Warfarin Sodium 5 MG TAB PO SCH (21:45)
[2017-04-07] MEDS ORDERED: Digoxin 0.25 MG TAB PO SCH (21:45)
[2017-04-07] MEDS ORDERED: Sotalol HCl 80 MG TAB PO SCH (21:45)
[2017-04-07 22:00] LABS: INR-International Normal Ratio 2.8
[2017-04-07] MEDS ORDERED: Acetaminophen 325 MG TAB PO PRN (22:07)
[2017-04-07] MEDS ORDERED: Nitroglycerin 0.4 MG TAB (25 Tab Bottle) PO PRN (22:07)
[2017-04-07 22:14] LABS: Digoxin 0.63 ng/mL (0.8-2.0)
[2017-04-07] MEDS ORDERED: Insulin Regular 300 UNITS/3 ML VIAL SC PRN ×2 (22:27)
[2017-04-07] MEDS ORDERED: Dextrose 50% Abboject 50 ML SYRINGE SLOW IVP PRN (22:27)
[2017-04-07] MEDS ORDERED: Dextrose 5% in Water 1,000 ML IV PRN (22:27)
[2017-04-07] MEDS ORDERED: PROVENTIL INHALER 6.7 G (200 INHALATIONS) INH PRN (22:30)
[2017-04-07] MEDS ORDERED: traMADol HCl 50 MG TAB PO PRN (22:30)
[2017-04-07 22:35] LABS: Magnesium 1.7 mg/dL (1.6-2.6); Phosphorus 2.8 mg/dL (2.3-4.7)
--- NOTE | 2017-04-07 23:15 | HP ---
DATE OF ADMISSION: 04/07/2017 PRIMARY CARE PHYSICIAN: Dr. Ramos. PRIMARY DIRECTOR CLIENT SERVICES: The patient is unable to remember her name. She states that she follows one o f the cardiologists in Dr. Moreno's croup. CHIEF COMPLAINT: Near syncope. HISTORY OF PRESENT ILLNESS: Patient is a 61-year-old female with atrial flutter, status post ablatio n, diabetes mellitus type 2, atrial fibrillation on anticoagulation, chronic diastolic heart failure and hypertension, presented to the emergency room with near syncope while she was at home earlier tod ay. Patient suddenly felt nauseous along with dizziness. She felt unbalanced without any vertigo. No tinnitus, hearing loss or recent upper respiratory tract infection reported. No chest pain, short ness of breath, palpitations, recent immobilization, travel reported. Patient checked her pulse with her pulse oximeter and was in 48-50. She called her primary care physician who advised her to go to the emergency room. In the emergency room, her initial vital signs were temperature 98.7, respirations 18, pulse rate of 106, blood pressure 100/79 with O2 saturation 94% on room air. The EKG showed atrial flutter with va riable AV block. Chest x-ray was negative. She denies any chest pain, palpitations or syncope. PAST MEDICAL HISTORY: 1. History of atrial fibrillation on anticoagulation. 2. History of atrial flutter, status post ablation x2. 3. Chronic diastolic heart failure. 4. Morbid obesity with a BMI of 48.2. 5. Chronic respiratory failure on home oxygen, especially at night. 6. History of normal cardiac catheterization in the past. 7. Hypertension. 8. Mild intermittent asthma. 9. Moderate to severe mitral stenosis. 10. Pulmonary hypertension. PAST SURGICAL HISTORY: 1. . 2. Cardiac catheterization. 3. Cholecystectomy. 4. Cardiac ablations. ALLERGIES: Patient is allergic to MULTAQ, and SULFA DRUGS. CURRENT HOME MEDICATIONS: Digoxin 250 mcg at bedtime, Cardizem-CD 120 mg daily, sotalol 40 mg b.i.d. , ProAir as needed, aspirin 81 mg daily, Cardizem-CD 120 mg daily, Trulicity 70 mcg every 7 days, gly buride 10 mg daily, lisinopril 20 mg daily, metolazone as needed, potassium chloride 20 mEq daily, si mvastatin 20 mg daily, sucralfate 1 g 4 times daily, Demadex 40 mg daily, tramadol as needed, Coumadi n as directed. SOCIAL HISTORY: Patient currently lives at home. She quit smoking in 2008 and has [id number] smok ing history. No alcohol or drug use. FAMILY HISTORY: Positive for coronary artery disease. REVIEW OF SYSTEMS: The following complete review of systems was negative, unless otherwise mentioned in the HPI or below: Constitutional: Weight loss or gain, ability to conduct usual activities. Skin: Rash, itching. Ey es: Double vision, pain. ENT/Mouth: Nose bleeding, neck stiffness, pain, tenderness. Cardiovascul ar: Palpitations, dyspnea on exertion, orthopnea. Respiratory: Shortness of breath, wheezing, coug h, hemoptysis, fever or night sweats. Gastrointestinal: Poor appetite, abdominal pain, heartburn, n ausea, vomiting, constipation, or diarrhea. Genitourinary: Urgency, frequency, dysuria, nocturia. Musculoskeletal: Pain, swelling. Neurologic/Psychiatric: Anxiety, depression. Allergy/Immunologic : Skin rash, bleeding tendency. PHYSICAL EXAMINATION: VITAL SIGNS: As discussed above. GENERAL: A 61-year-old female in no apparent distress. Feels better now. HEENT: Head atraumatic, normocephalic, sclerae are anicteric. Moist mucous membrane, no oral lesion . NECK: Supple, no JVD appreciated. No carotid bruit. LUNGS: However, clear to auscultation bilaterally. No wheezing, rales or rhonchi. HEART: S1, S2 present. Irregularly irregular, 3/6 diastolic murmur over the mitral area. No reboun d or guarding. ABDOMEN: Soft, nontender, bowel sounds present. EXTREMITIES: No edema or calf tenderness. NEUROLOGIC: Grossly nonfocal, moves all four extremities. PSYCHIATRY: Alert, awake, oriented x3. SKIN: Warm and dry. LYMPH NODES: No palpable lymph nodes in the neck. PERIPHERAL VASCULAR: Radial pulses palpable bilaterally. MUSCULOSKELETAL: No joint swelling or tenderness. SKIN: Warm and dry. LABORATORY FINDINGS: INR was 2.8. Digoxin level was 0.63. Troponins were normal. BUN 26, creatini ne 1.1. CBC showed WBC 8.8 with hemoglobin 13.8. EKG and chest x-ray by my review as discussed above. IMPRESSION: 1. Near syncope, probably secondary to cardiac arrhythmia. 2. History of atrial fibrillation/atrial flutter. 3. Chronic anticoagulation. 4. Diabetes mellitus type 2. 5. Hypertension. 6. Moderate to severe mitral stenosis. 7. History of normal coronaries in the past. 8. Chronic respiratory failure, on home oxygen, especially at night. 9. Morbid obesity with a BMI of 48.2 10. Mild intermittent asthma. 11. Chronic diastolic heart failure. 12. Pulmonary hypertension. 13. Chronic kidney disease stage II. PLAN: The patient will be monitored in the telemetry unit. Cardiology will be consulted. We will c ontinue sotalol, digoxin as well as Cardizem. INR is therapeutic. Last blood sugar was 186. We tam l start her on sliding scale, hold acting long-acting insulin for now. Resume other home medications . Vitals q.4 hourly. Check magnesium and phosphorus. Plan of care was discussed with the patient in detail and she stated understanding. CODE STATUS: FULL CODE. SURROGATE DECISION MAKER: The patient makes her own decisions with the help of her family.
[2017-04-08 00:05] LABS: Troponin I Less than 0.010 ng/mL (< 0.028)
[2017-04-08] MEDS ORDERED: Ondansetron ODT 4 MG TAB PO SCH (01:30)
[2017-04-08] MEDS ORDERED: Sucralfate 1 GM TAB PO SCH (02:00)
[2017-04-08] MEDS ORDERED: Ondansetron HCl/PF 4 MG/2 ML Vial SLOW IVP PRN (08:30)
[2017-04-08] MEDS ORDERED: Lisinopril 20 MG TAB PO SCH (09:00)
[2017-04-08] MEDS ORDERED: Sotalol HCl 80 MG TAB PO SCH (09:00)
[2017-04-08] MEDS ORDERED: Famotidine 20 MG TAB PO SCH (09:00)
[2017-04-08] MEDS ORDERED: Docusate 100 MG CAP PO SCH (09:00)
[2017-04-08] MEDS: Sucralfate 1 GM TAB PO SCH ×2 (09:31→14:09)
[2017-04-08 11:43] VITALS: BP 123/65; TEMP 97.9
--- NOTE | 2017-04-08 13:18 | CON ---
DATE OF CONSULTATION: 04/08/2017 REASON FOR CONSULTATION: Bradycardia. PRIMARY COMPUTER PROGRAMMER CHIEF: Jones Argueta M.D. HISTORY OF PRESENT ILLNESS: Ms. Darling is a pleasant 61-year-old woman with paroxysmal atrial fibrilla tion. She has had 2 previous ablations. She states she had noticed yesterday, her heart rate was in the upper 40s. She called her primary provider and recommended she go to the Emergency Room. Since her admission, her heart rate has been in the 90s. She is currently asymptomatic. No chest pain or pressure noted. No other associated ameliorating or exacerbating factors present. PAST MEDICAL HISTORY: Paroxysmal atrial fibrillation status post ablation x2 last 2 years ago, diast olic dysfunction, hypertension, moderate mitral stenosis, and hypertension. PAST SURGICAL HISTORY: and cholecystectomy. ALLERGIES: MULTAQ. HOME MEDICATIONS: Include DIGOXIN, CARDIZEM, SOTALOL, PROAIR, GLYBURIDE, LISINOPRIL, METOLAZONE, CAR DIZEM, POTASSIUM, ZOCOR, SUCRALFATE, DEMADEX and TRAMADOL. REVIEW OF SYSTEMS: Ten-point review of systems is reviewed and as above, otherwise negative. PHYSICAL EXAMINATION: GENERAL: Patient is a pleasant female who is in no acute distress. The patient appears her stated a ge. VITAL SIGNS: Blood pressure 120/65, pulse 97, temperature 97.9. NEUROLOGIC: The patient is alert and oriented times 3 with no focal neurologic deficits. HEENT: Sclerae without icterus. Mouth has moist mucous membranes with normal pallor. NECK: No JVD. Carotid upstroke brisk. No bruits bilaterally. LUNGS: Clear to auscultation with unlabored respirations. BACK: No scoliosis or kyphosis. CARDIAC: Irregularly irregular. No S3 or S4 noted. No significant rubs, murmurs, thrills, or trejo ps noted throughout the precordium. PMI is not displaced. There is no parasternal heave. ABDOMEN: Soft, nontender, nondistended. No peritoneal signs present. No hepatosplenomegaly. No abnormal striae. EXTREMITIES: 2+ femoral and 2+ dorsalis pedis pulses. No cyanosis, clubbing, or edema. SKIN: No gross abnormalities. PERTINENT LABORATORY DATA AND IMAGING DATA: Hemoglobin 13. Troponin negative. EKG shows atrial fib rillation. IMPRESSION: Paroxysmal atrial fibrillation. RECOMMENDATIONS: Ms. Wall's heart rate has been stable. At this point, we will continue her current outpatient medications. Her digoxin level was felt to be therapeutic. We will continue all current doses. Would recommend a 3-week event recorder followed by outpatient followup with Dr. Jones olvera in 1-2 weeks.
[2017-04-08] MEDS ORDERED: Warfarin Sodium 5 MG TAB PO SCH (17:00)
[2017-04-08] MEDS ORDERED: Insulin Detemir 100 UNITS/ML 30 UNITS in Pre-Filled Syringe 1 EACH SC SCH (21:00)
[2017-04-08] MEDS ORDERED: Non-Formulary Item 1 EACH (Insulin Glargine,Hum.Rec.Anlog 30 UNIT) SQ SCH (21:00)
[2017-04-08] MEDS ORDERED: Digoxin 0.25 MG TAB PO SCH (21:00)
[2017-04-08] MEDS ORDERED: Simvastatin 20 MG TAB PO SCH (21:00)
[2017-04-09] MEDS ORDERED: Warfarin Sodium 7.5 MG TAB PO SCH (17:00)
--- NOTE | 2017-04-11 11:52 | DIS ---
DATE OF ADMISSION: 04/07/2017 DATE OF DISCHARGE: 04/08/2017 ADMITTING DIAGNOSIS: Acute bradycardia. DISCHARGE DIAGNOSIS: Paroxysmal atrial fibrillation. SECONDARY DIAGNOSES: 1. History of chronic diastolic dysfunction. 2. Hypertension. 3. Moderate mitral stenosis and history of hypertension. CONSULTANTS INVOLVED IN THIS CARE: Dr. Jero Eason, Cardiology. INVESTIGATIONS DONE DURING THIS ADMISSION: 2D echo. HISTORY OF PRESENT ILLNESS AND HOSPITAL COURSE: In brief, this is a 61-year-old white woman with kno wn history of paroxysmal atrial fibrillation. She has a history of 2 previous ablations and she has noticed yesterday that her heart rate was in the upper 40s and she called her primary care provider, recommended to go to the ER. On admission, the heart rate went up, has been in 90s and she has been asymptomatic. No chest pain, no chest pressure was noted. So Cardiology was consulted. Dr. Parminder hutchison was able to see the patient and was noted to have normal heart rates well controlled. So I so sug gested the patient to be continued on current medications and recommended to follow up with him in 3 weeks with event recorder. So, he referred the patient to the clinic for event recorder and will fol low up with Dr. Argueta in 1-2 weeks. The patient is discharged home in stable condition, answering all the questions. PHYSICAL EXAMINATION: On date of discharge, VITAL SIGNS: Blood pressures were 123/65, heart rate is 97, respiratory rate 18, saturation is 96%. GENERAL: The patient is moderately built, moderately nourished. CARDIOVASCULAR: S1, S2 normal. No murmurs, rubs or gallops. LUNGS: Bilateral air entry was equal. No wheezing, no crackles. ABDOMEN: Soft, nontender. No guarding or rebound tenderness. Bowel sounds normal. MUSCULOSKELETAL: No calf tenderness. No pedal edema. No joint redness. HOME MEDICATIONS: 1. Digoxin 250 mcg daily. 2. Cardizem 120 mg daily. 3. Sotalol 40 mg p.o. b.i.d. 4. ProAir as needed. 5. Aspirin 81 mg daily. 6. Trulicity 70 mcg every 7 days. 7. Glyburide 10 mg daily. 8. Lisinopril 20 mg daily. 9. Metolazone as needed. 10. Potassium 20 mEq daily. 11. Simvastatin 20 mg daily. 12. Sucralfate 1 gram 4 times daily. 13. Demadex 40 mg daily. 14. Coumadin as directed. DISCHARGE INSTRUCTIONS: Continue activity as tolerated. Advised to follow up with Dr. Argueta in 1 -2 weeks. Continue with diabetic diet. I spent 35 minutes with this patient on day of discharge.
--- NOTE | 2017-04-29 14:10 | EKG ---
Test Reason : Blood Pressure : / mmHG Vent. Rate : 102 BPM Atrial Rate : 294 BPM P-R Int : 000 ms QRS Dur : 094 ms QT Int : 328 ms P-R-T Axes : 000 042 -01 degrees QTc Int : 427 ms Atrial flutter with variable A-V block Nonspecific ST abnormality Abnormal ECG Confirmed by BHARATH MARIE, BRANT ([id number]), senior editor MARIEL ALANIS ([id number]) on 04/29/2017 2:10:00 PM Referred By: Confirmed By:BRANT SINHA MD
== END 2017-04-08 14:38 | disposition home or self-care (01) ==
LOC: ERS 16:40 → 2SW 18:55
PROVIDERS: ADMIT Internal Medicine; ATTEND Internal Medicine
DX: R55 Syncope and collapse (principal); I13.0 Hypertensive heart and chronic kidney disease with heart failure and stage 1 through stage 4 chronic kidney disease, or unspecified chronic kidney disease; E11.22 Type 2 diabetes mellitus with diabetic chronic kidney disease; N18.2 Chronic kidney disease, stage 2 (mild); I50.32 Chronic diastolic (congestive) heart failure; I05.0 Rheumatic mitral stenosis; I48.91 Unspecified atrial fibrillation; I27.20 Pulmonary hypertension, unspecified; J45.20 Mild intermittent asthma, uncomplicated; J96.10 Chronic respiratory failure, unspecified whether with hypoxia or hypercapnia; E66.01 Morbid (severe) obesity due to excess calories; Z68.42 Body mass index [BMI] 45.0-49.9, adult; Z88.0 Allergy status to penicillin; Z88.2 Allergy status to sulfonamides; Z88.8 Allergy status to other drugs, medicaments and biological substances; Z79.01 Long term (current) use of anticoagulants; Z90.49 Acquired absence of other specified parts of digestive tract; Z98.891 History of uterine scar from previous surgery; Z98.890 Other specified postprocedural states; Z87.891 Personal history of nicotine dependence; Z99.81 Dependence on supplemental oxygen
CPT/HCPCS: 36415; 36416; 71045; 80053; 80162; 82550; 82553; 83735; 84100; 84484; 85025; 85610; 93005; 94760; 96374; G0378; J1815; J2405; Q0162

== ENCOUNTER 2017-04-09 18:45 | Inpatient (IN) | payer BC ==
[2017-04-09] MEDS ORDERED: Diltiazem HCl 125 MG, Admixture Fee 1 EACH in Sodium Chloride 0.9% 100 ML IVPB SCH (19:15)
[2017-04-09 19:21] LABS: #Eosinphils 0.1 thou/uL (0.0-0.7); #Lymphocytes 2.1 thou/uL (1.20-3.40); #Monocytes 0.6 thou/uL (0.11-0.59); #Neutrophils 3.9 thou/uL (1.40-6.50); %Basophils 0.6 % (0.0-1.0); %Eosinophils 1.2 % (0.0-10.0); %Lymphocytes 31.3 % (21.0-51.0); %Monocytes 8.8 % (0.0-10.0); %Neutrophils 58.1 % (42.0-75.0); Mean Corpuscular Hemoglobin 30.1 pg (27.0-31.0); Mean Corpuscular Volume 91.3 fl (81.0-99.0); Mean Platelet Volume 7.8 fL (7.4-10.4); Platelet Count 189 thou/uL (130-400); RBC Distribution Width 13.2 % (11.5-14.5); Red Blood Cell (RBC) Count 4.33 mill/uL (4.20-5.40); White Blood Cell (WBC) Count 6.6 thou/uL (4.8-10.8)
[2017-04-09 19:39] LABS: INR-International Normal Ratio 2.3; PTT 42.3 SEC (22.9-36.1); Prothrombin Time 26.5 SEC (12.0-14.7)
[2017-04-09 19:43] LABS: ALT (SGPT) 32 U/L (8-55); AST (SGOT) 28 U/L (5-34); Albumin 3.5 g/dL (3.4-4.8); Alkaline Phosphatase 67 U/L (40-150); Anion Gap 14 mmol/L (10-20); BUN (Urea Nitrogen) 18 mg/dL (9.8-20.1); Bilirubin, Total 0.4 mg/dL (0.2-1.2); CK (CPK) 55 U/L (29-168); Calc. Creatinine Clearance 0 mL/min (70-130); Calcium 9.6 mg/dL (7.8-10.44); Carbon Dioxide 28 mmol/L (23-31); Chloride 98 mmol/L (98-107); Estimated GFR-MDRD 49; Globulin 3.2 g/dL (2.4-3.5); Glucose 244 mg/dL (80-115); Lipase 12 U/L (8-78); Potassium 3.7 mmol/L (3.5-5.1); Protein, Total 6.7 g/dL (6.0-8.3); Sodium 136 mmol/L (136-145)
[2017-04-09 19:48] LABS: CKMB 0.7 ng/mL (0-6.6); Troponin I 0.012 ng/mL (< 0.028)
--- NOTE | 2017-04-09 19:53 | RAD ---
CHEST ONE VIEW: History: Chest pain Comparison: 04-07-17 FINDINGS: Heart size is enlarged. Mild prominence of the hilum bilaterally. There are right basilar streaky opacities. No pneumothorax. IMPRESSION: 1. Streaky opacities right lung base may represent developing pneumonia. 2. Prominence of the hilum bilaterally may be a sequellae of arterial prominence from hypertension. S imilar cardiomegaly. POS: [facility]
[2017-04-09] MEDS ORDERED: Ondansetron HCl/PF 4 MG/2 ML Vial ONE (20:05)
[2017-04-09] MEDS ORDERED: HYDROcodone/Acetaminophen 5/325 mg Tablet PO PRN (20:56)
[2017-04-09] MEDS: HYDROcodone/Acetaminophen 10/325 mg Tablet PO PRN (21:55)
[2017-04-09] MEDS ORDERED: Ondansetron ODT 4 MG TAB SL PRN (22:25)
[2017-04-09] MEDS ORDERED: Ondansetron HCl/PF 4 MG/2 ML Vial IVP PRN (22:25)
[2017-04-09] MEDS ORDERED: Acetaminophen 325 MG TAB PO PRN (22:25)
[2017-04-09] MEDS ORDERED: Aspirin 325 MG TAB PO SCH (23:00)
[2017-04-09] MEDS ORDERED: PROVENTIL INHALER 6.7 G (200 INHALATIONS) INH PRN (23:32)
[2017-04-09] MEDS ORDERED: Metolazone 2.5 MG TAB PO PRN (23:35)
[2017-04-09 23:36] LABS: Troponin I 0.012 ng/mL (< 0.028)
[2017-04-09] MEDS ORDERED: Naproxen 500 MG TAB PO SCH (23:45)
[2017-04-09] MEDS ORDERED: Insulin Detemir 100 UNITS/ML 80 UNITS in Pre-Filled Syringe 1 EACH SC SCH (23:45)
[2017-04-09] MEDS ORDERED: Sotalol HCl 80 MG TAB PO SCH (23:45)
[2017-04-09] MEDS ORDERED: Warfarin Sodium 7.5 MG TAB PO SCH (23:45)
[2017-04-09] MEDS ORDERED: Sucralfate 1 GM TAB PO SCH (23:45)
[2017-04-09] MEDS ORDERED: Digoxin 0.125 MG TAB PO SCH (23:45)
[2017-04-09] MEDS ORDERED: Simvastatin 20 MG TAB PO SCH (23:45)
--- NOTE | 2017-04-10 00:12 | HP ---
CHIEF COMPLAINT: Chest pain. HISTORY OF PRESENT ILLNESS: She is a 61-year-old woman with a history of chronic atrial fibrillation ablation x2. She presented to the hospital with chest pain, pressure-like pain, onset 5 minutes ward or to admission. In the ER, she was in atrial fibrillation with RVR and started on Cardizem drip wit h a bolus was given in the ER. The chest pain was tightness and no radiation and no diaphoresis, no shortness of breath, no PND, no orthopnea. She had some nausea, no vomiting. No fever, no cough. H er pain with dull in nature and severity was 5/10 and in the ER, she was given a bolus of Cardizem an d Cardizem drip was started. Heart rate came down to 110. 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 PAST MEDICAL HISTORY: History of type 2 diabetes, hypertension, hyperlipidemia, congestive heart river lure, cardioversion x5, ablation x2, atrial fibrillation, chronic COPD. PAST SURGICAL HISTORY: She has cardiac ablation x2. PSYCHIATRIC HISTORY: No psychiatric history. SOCIAL HISTORY: Denies any alcohol, drug use. Former smoker. She quit smoking 10 years ago. ALLERGIES: She is allergic to AMPICILLIN, FLECAINIDE, and SULFA. MEDICATIONS: She is taking at home, aspirin 81 daily, glyburide 5 mg daily, lisinopril 40 mg daily, Zocor 20 mg daily, furosemide 20 mg daily, albuterol sulfate inhaler, digoxin 0.25 daily, Protonix 40 mg daily, potassium chloride tablets, sotalol 80 mg twice daily, warfarin 5 mg daily, Lantus 8 units once daily in the evening, Cardizem 250, prednisone 5 mg daily, amoxicillin 875. FAMILY HISTORY: Noncontributory. REVIEW OF SYSTEMS: CONSTITUTIONAL: Negative for fever, chills, malaise. ENT: Negative for the rhinorrhea and sore throat. CARDIOVASCULAR: She has chest pain and chest pressure and palpitation. No PND, no orthopnea. RESPIRATORY: No cough, no wheezing. GASTROINTESTINAL: She does have some nausea, no vomiting, no abdominal pain, or hematemesis, no ana na. GENITOURINARY: Female, negative for urgency, frequency, hematuria. ENDOCRINE: Negative for polyuria, polydipsia. PHYSICAL EXAMINATION: GENERAL: She is a middle-aged woman lying in the bed, in no distress. VITAL SIGNS: Pulse running from 110-120 atrial fibrillation with rapid ventricular response. Blood pressure 120/87 and sats 96. HEENT: Head is atraumatic, normocephalic. Pupils are round and reactive. Extraocular muscles are i ntact. Ear, nose, throat normal. Tongue, mucosa moist. NECK: Supple, no JVD, no thyromegaly, no carotid bruit. Trachea midline. CHEST: Normal vesicular breathing. No wheezing, no crackles, no rhonchi. No accessory muscle. CARDIOVASCULAR: Heart rate irregular, tachycardic. No murmur. ABDOMEN: Soft, bowel sounds audible, nontender, no organomegaly, no guarding or rigidity. EXTREMITIES: No pedal edema. No cyanosis or clubbing. NEUROLOGIC: Alert and oriented x3, no focal deficit. Cranial nerves II through 12 normal. SKIN: Warm and dry. No rash. PSYCHIATRIC: Normal affect and judgment. EKG shows atrial flutter, no ST changes abnormality. Chest x-ray negative. LABORATORY DATA: Shows WBCs 6.6, hematocrit 39.5, MCV 91.3, platelets 189. Sodium 136, potassium 3. 7, chloride 98, carbon dioxide 28, anion gap 14, BUN 18, creatinine 1.13, GFR 49, glucose 244, calciu m 9.6, total bilirubin 1.4, AST 28, ALT 32, alkaline phosphatase 67. CK 55. Troponin 0.012. BNP 96 . Total protein 6.7, globulin 3.2, albumin 1.1, lipase 12. TSH 1.3. INR 2.3, therapeutic. Chest x -ray shows a streaky pus in right lung base developing pneumonia, cardiomegaly. ASSESSMENT AND PLAN: 1. Atrial fibrillation with rapid ventricular response. We will continue Cardizem drip IV, titrate heart rate less than 100. Continue her warfarin, sotalol, digoxin. Cardiology will be consulted in the morning. 2. Type 2 diabetes. Continue sliding scale with Lantus and Humalog. 3. Questionable pneumonia. Chest x-ray a week of antibiotic empirically with Rocephin 1 gram daily. 4. Deep venous thrombosis prophylaxis will be Coumadin.
[2017-04-10 02:53] LABS: #Basophils 0.1 thou/uL (0.0-0.2); #Eosinphils 0.1 thou/uL (0.0-0.7); #Lymphocytes 2.5 thou/uL (1.20-3.40); #Monocytes 0.5 thou/uL (0.11-0.59); #Neutrophils 3.2 thou/uL (1.40-6.50); %Basophils 1.2 % (0.0-1.0); %Eosinophils 1.7 % (0.0-10.0); %Lymphocytes 38.5 % (21.0-51.0); %Monocytes 8.3 % (0.0-10.0); %Neutrophils 50.4 % (42.0-75.0); Hemoglobin 12.5 g/dL (12.0-16.0); Mean Corpuscular Hemoglobin 30.9 pg (27.0-31.0); Mean Corpuscular Volume 90.9 fl (81.0-99.0); Mean Platelet Volume 8.1 fL (7.4-10.4); Platelet Count 156 thou/uL (130-400); Red Blood Cell (RBC) Count 4.04 mill/uL (4.20-5.40); White Blood Cell (WBC) Count 6.4 thou/uL (4.8-10.8)
[2017-04-10 03:23] LABS: Anion Gap 12 mmol/L (10-20); BUN (Urea Nitrogen) 18 mg/dL (9.8-20.1); Calc. Creatinine Clearance 120 mL/min (70-130); Calcium 9.2 mg/dL (7.8-10.44); Carbon Dioxide 33 mmol/L (23-31); Chloride 99 mmol/L (98-107); Estimated GFR-MDRD 61; Glucose 95 mg/dL (80-115); Potassium 3.5 mmol/L (3.5-5.1); Sodium 140 mmol/L (136-145)
[2017-04-10 03:25] LABS: Troponin I 0.014 ng/mL (< 0.028)
[2017-04-10] MEDS: HYDROcodone/Acetaminophen 10/325 mg Tablet PO PRN ×2 (05:09→15:57)
[2017-04-10] MEDS: glyBURIDE 5 MG TAB PO SCH (08:39)
[2017-04-10] MEDS: Sucralfate 1 GM TAB PO SCH ×4 (08:40→21:30)
[2017-04-10] MEDS: Torsemide 20 MG TAB PO SCH (08:40)
[2017-04-10] MEDS: Aspirin 81 mg Enteric Coated Tablet PO SCH (08:40)
[2017-04-10] MEDS: Prenatal Vitamin 1 TAB PO SCH (08:40)
[2017-04-10] MEDS: Naproxen 500 MG TAB PO SCH ×2 (08:40→21:30)
[2017-04-10] MEDS: Potassium Chloride 20 MEQ TAB PO SCH (08:40)
[2017-04-10] MEDS: Sotalol HCl 80 MG TAB PO SCH ×2 (08:41→21:30)
[2017-04-10] MEDS: Lisinopril 20 MG TAB PO SCH (08:41)
[2017-04-10] MEDS: Ondansetron ODT 4 MG TAB PO PRN (08:52)
--- NOTE | 2017-04-10 13:10 | PDOC.PN ---
- Subjective Encounter Start Date: 04/10/17 Encounter Start Time: 13:08 Ms. Darling was seen today in follow-up of AFIB with RVR. She notes continued nausea, and some dyspnea. - Objective MAR Reviewed: Yes Vital Signs & Weight: Vital Signs (12 hours) Temp Pulse Resp BP BP BP Pulse Ox 04/10/17 11:29 98.4 F 75 20 118/78 96 04/10/17 09:31 98.4 F 67 20 04/10/17 08:41 67 104/65 04/10/17 08:40 67 04/10/17 07:58 98.4 F 67 20 136/67 94 L 04/10/17 04:00 97.6 F 70 16 117/75 97 04/10/17 01:37 80 16 93/54 L 98 Weight Weight 269 lb 4.8 oz I&O: 04/09/17 04/10/17 04/11/17 06:59 06:59 06:59 Intake Total 821.5 Balance 821.5 Result Diagrams: 04/10/17 02:32 04/10/17 02:32 Additional Labs: Accuchecks 04/10/17 04/10/17 04/10/17 11:08 04:39 01:48 POC Glucose 155 H 100 111 H 04/09/17 21:30 POC Glucose 186 H Phys Exam - Physical Examination HEENT: PERRLA Respiratory: no wheezing, no rales, no rhonchi Cardiovascular: RRR, no significant murmur, no rub Gastrointestinal: soft, non-tender, positive bowel sounds Musculoskeletal: no edema Dx/Plan (1) Paroxysmal A-fib Code(s): I48.0 - PAROXYSMAL ATRIAL FIBRILLATION Status: Acute (2) COPD exacerbation Code(s): J44.1 - CHRONIC OBSTRUCTIVE PULMONARY DISEASE W (ACUTE) EXACERBATION Status: Acute Comment: Improved, will arrange for home O2. Needs f/u outpatient sleep study. (3) Diabetes type 2, controlled Code(s): E11.9 - TYPE 2 DIABETES MELLITUS WITHOUT COMPLICATIONS Status: Chronic (4) Hypertension Code(s): I10 - ESSENTIAL (PRIMARY) HYPERTENSION Status: Chronic - Plan * AFIB with RVR- her heart rate has been stable- await further recommendations from Cardiology * CVA prevention- she is on coumadin, INR was 2.3 yesterday- will need to monitor PT/ INR while in hospital * ? PNeumonia on CXR- patient says she was treated for this a few weeks ago, and her symptoms of cough and congestion has improved- the changes likely represent a resolving pneumonia * Nausea- ? etiology, will monitor * DM- blood glucose is stable * HTN- blood pressure is low normal.
[2017-04-10 13:15] VITALS: BMI 46.9
[2017-04-10] MEDS: Promethazine 25 MG TAB PO PRN (14:08)
[2017-04-10] MEDS: Docusate 100 MG CAP PO SCH (14:08)
[2017-04-10] MEDS ORDERED: Warfarin Sodium 7.5 MG TAB PO SCH (17:00)
[2017-04-10] MEDS: Insulin Detemir 100 UNITS/ML 80 UNITS in Pre-Filled Syringe 1 EACH SC SCH (21:29)
[2017-04-10] MEDS: Simvastatin 20 MG TAB PO SCH (21:31)
[2017-04-10] MEDS: Digoxin 0.125 MG TAB PO SCH (21:31)
--- NOTE | 2017-04-10 23:20 | CON ---
DATE OF CONSULTATION: 04/10/2017 PRIMARY LPN RN HOSPICE: Jones Argueta M.D. HISTORY OF PRESENT ILLNESS: Ms. Steff Darling is a pleasant 61-year-old woman with recurrent atrial fib rillation. The patient was just admitted to the hospital, seen by Dr. Eason, 04/08/2017 at that time, she bradley d atrial fibrillation but she came in with heart rate in the 40s. She had just been released home, b ut came back in with rapid heart rate and we have been consulted. The patient was readmitted to the hospital yesterday evening. The patient had some chest pain yesterday. PAST MEDICAL HISTORY: Diabetes, hypertension, hyperlipidemia, history of cardioversion, history of a blation x2. PAST SURGICAL HISTORY: Cardiac ablation. PSYCHIATRIC HISTORY: Negative. SOCIAL HISTORY: No alcohol or tobacco. ALLERGIES: AMPICILLIN, FLECAINIDE and SULFA. MEDICATIONS AT HOME: Aspirin, glyburide, lisinopril, Zocor, furosemide, albuterol, digoxin 0.25 mg a day, warfarin, Lantus insulin, Cardizem-CD. FAMILY HISTORY: Noncontributory. REVIEW OF SYSTEMS: CONSTITUTIONAL: No significant weight gain or loss. VISION: No changes. HEARING: No changes. PULMONARY: No cough or wheezing. GASTROINTESTINAL: No nausea, vomiting or diarrhea. SKIN: No rashes. NEUROLOGIC: No unilateral weakness or numbness. PSYCHIATRIC: No unusual depression or anxiety. PHYSICAL EXAMINATION: GENERAL: When I walked in the room, initially, the patient was snoring, lying on her side, look like sleep apnea type of pattern. When she woke, she is alert and oriented. VITAL SIGNS: Blood pressure 118/78, pulse 70, irregularly irregular. HEENT: Eyes: Sclerae nonicteric. Mouth mucous membranes moist. NECK: Supple, no lymphadenopathy. LUNGS: Clear. CARDIAC: Irregularly irregular. No murmur, rub or gallop. ABDOMEN: Soft, nontender. EXTREMITIES: No edema. PERTINENT LABORATORY DATA: INR is 2.3. EKG reveals atrial fibrillation with controlled ventricular response. ASSESSMENT: 1. Atrial fibrillation, recurrent. 2. Probable sleep apnea. 3. Obesity. PLAN: Continue current medical regimen. Dr. Argueta to see the patient tomorrow morning. The evan ent also is apparently on sotalol at low dose. Further recommendations at that point.
[2017-04-11] MEDS: Ondansetron ODT 4 MG TAB PO PRN ×2 (03:42→14:25)
[2017-04-11 05:49] LABS: INR-International Normal Ratio 2.8; Prothrombin Time 30.6 SEC (12.0-14.7)
[2017-04-11] MEDS: glyBURIDE 5 MG TAB PO SCH (08:37)
[2017-04-11] MEDS: Promethazine 25 MG TAB PO PRN (08:37)
[2017-04-11] MEDS: Aspirin 81 mg Enteric Coated Tablet PO SCH (08:41)
[2017-04-11] MEDS: Docusate 100 MG CAP PO SCH ×2 (08:47→22:28)
[2017-04-11] MEDS: Sotalol HCl 80 MG TAB PO SCH ×3 (08:47→22:27)
[2017-04-11] MEDS: Lisinopril 20 MG TAB PO SCH (08:51)
[2017-04-11] MEDS: Naproxen 500 MG TAB PO SCH ×2 (08:54→22:28)
[2017-04-11] MEDS ORDERED: DULAGLUTIDE (TRULICITY) SC SCH (09:00)
[2017-04-11] MEDS: Torsemide 20 MG TAB PO SCH (09:32)
[2017-04-11] MEDS: Sucralfate 1 GM TAB PO SCH ×2 (09:32→13:09)
[2017-04-11] MEDS: Prenatal Vitamin 1 TAB PO SCH (09:32)
[2017-04-11] MEDS: Potassium Chloride 20 MEQ TAB PO SCH (09:32)
[2017-04-11] MEDS ORDERED: Diprivan 20 ML ONE ×2 (10:04→10:20)
--- NOTE | 2017-04-11 12:09 | ECHO ---
TRANSESOPHAGEAL ESOPHOGRAM: INDICATION: Paroxysmal atrial fibrillation. DESCRIPTION OF PROCEDURE: The patient taken to the PACU. The patient was sedated by anesthesiology. A transesophageal probe w as placed to the distal esophagus and stomach. Echocardiographic images were obtained. The transeso phageal probe was removed. FINDINGS: 1. Normal left ventricular systolic function. 2. Left atrial enlargement. 3. The mitral valve leaflets are thickened with reduced leaflet excursion. 4. Aortic valve leaflets appear to be normal. 5. Mild to moderate mitral stenosis. 6. Mild to moderate mitral regurgitation. 7. Mild to moderate aortic regurgitation. 8. Mild to moderate tricuspid regurgitation. 9. No thrombus is noted in the left atrial appendage. 10. Atherosclerotic debris in the descending aorta. IMPRESSION: No formed thrombus in the left atrium or left atrial appendage. POS: [facility]
--- NOTE | 2017-04-11 12:54 | OP ---
INDICATION FOR THE PROCEDURE: Paroxysmal atrial fibrillation. DESCRIPTION OF PROCEDURE: The patient was taken to the PACU, the patient is sedated by anesthesiolog y. The patient was shocked with 200 joules synchronized electricity. The patient converted to ely l sinus rhythm. IMPRESSION: Successful electrocardioversion.
[2017-04-11] MEDS ORDERED: Propofol 200 MG/20 ML VIAL ONE (14:15)
--- NOTE | 2017-04-11 16:11 | PDOC.PN ---
- Subjective Encounter Start Date: 04/11/17 Encounter Start Time: 16:09 Ms. Darling was seen today in follow-up. She says the nausea is a little better today. No new complaints. - Objective MAR Reviewed: Yes Vital Signs & Weight: Vital Signs (12 hours) Temp Pulse Resp BP BP Pulse Ox 04/11/17 16:00 98.2 F 74 20 139/81 96 04/11/17 11:38 98.1 F 71 20 124/73 93 L 04/11/17 10:40 124/80 04/11/17 08:51 124/80 04/11/17 08:47 73 04/11/17 08:41 73 124/80 04/11/17 08:00 97.9 F 73 20 124/80 93 L 04/11/17 04:19 97.7 F 63 16 147/71 H 97 Weight Admit Weight 266 lb 4.8 oz Weight 272 lb I&O: 04/10/17 04/11/17 04/12/17 06:59 06:59 06:59 Intake Total 821.5 1180 240 Balance 821.5 1180 240 Result Diagrams: 04/10/17 02:32 04/10/17 02:32 Additional Labs: Accuchecks 04/11/17 04/11/17 04/10/17 11:23 06:09 20:53 POC Glucose 83 86 192 H 04/10/17 17:10 POC Glucose 122 H Phys Exam - Physical Examination HEENT: PERRLA Cardiovascular: RRR, no significant murmur, no rub Gastrointestinal: soft, non-tender, positive bowel sounds Musculoskeletal: no edema Dx/Plan (1) Paroxysmal A-fib Code(s): I48.0 - PAROXYSMAL ATRIAL FIBRILLATION Status: Acute (2) COPD exacerbation Code(s): J44.1 - CHRONIC OBSTRUCTIVE PULMONARY DISEASE W (ACUTE) EXACERBATION Status: Acute Comment: Improved, will arrange for home O2. Needs f/u outpatient sleep study. (3) Diabetes type 2, controlled Code(s): E11.9 - TYPE 2 DIABETES MELLITUS WITHOUT COMPLICATIONS Status: Chronic (4) Hypertension Code(s): I10 - ESSENTIAL (PRIMARY) HYPERTENSION Status: Chronic - Plan * Paroxysmal Atrial Fibrillation- she is now in sinus after a successful cardioversion * Will monitor her in the hospital overnight on the higher dose of Sotalol * Nausea- improved- will observe * HTN- blood pressure is stable. * DM- blood glucose is stable
[2017-04-11] MEDS: Sucralfate 1 GM/10 ML UDCUP PO SCH ×2 (16:32→22:46)
[2017-04-11] MEDS: traMADol HCl 50 MG TAB PO PRN (16:33)
[2017-04-11] MEDS ORDERED: Warfarin Sodium 5 MG TAB PO SCH (17:00)
[2017-04-11] MEDS: Digoxin 0.125 MG TAB PO SCH (22:26)
[2017-04-11] MEDS: Simvastatin 20 MG TAB PO SCH (22:28)
[2017-04-11] MEDS: Insulin Detemir 100 UNITS/ML 80 UNITS in Pre-Filled Syringe 1 EACH SC SCH (22:34)
--- NOTE | 2017-04-11 23:13 | CON ---
DATE OF CONSULTATION: 04/11/2017 ELECTROPHYSIOLOGY CONSULTATION REPORT REFERRING PHYSICIAN: Jones Argueta M.D. I am seeing Ms. Darling at our [facility] telemetry floor as an electrophysiology statistical consultant for the following problems: 1. Recurrent atrial arrhythmias. A. Prior history of repeated left atrial ablation procedures and pulmonary venous isolation twice in 2016, with STEMI in 11/2015. B. Current admission with atypical atrial flutter on low dose sotalol. C. Status post OC-guided cardioversion demonstrating normal LVEF, left atrial enlargement, [id number]-[id number] mitral stenosis, kktf-wd-fpwrlghw mitral regurgitation, lowj-ze-lijunxfv aortic regurgitation, jtbp-do-zskxveul tricuspid regurgitation, but no in the left atrium is noted. 2. History of obesity. 3. Coronary artery risk factors otherwise diabetes, hypertension, hyperlipidemia. 4. History of chronic COPD. ALLERGIES: AMPICILLIN, FLECAINIDE, SULFA, and DRONEDARONE. MEDICATIONS: At home include aspirin, glyburide, lisinopril, Zocor, furosemide , albuterol, digoxin, Protonix, potassium chloride, sotalol 40 mg twice a day, warfarin 5 mg daily, Lantus 8 units once a day, Cardizem 250 mg daily, prednisone 5 mg daily. SUBJECTIVE: Ms. Darling is here with recurrent dyspnea and palpitations. Her heart rate was elevated. She came to the ER complaining of this and chest pressure-like sensations and atrial fibrillation with rapid ventricular response was diagnosed on her. She was put on diltiazem drip and eventually underwent the OC-guided cardioversion with Dr. Argueta as above. She was placed on high dose sotalol. Cardiac assessment otherwise was benign. She has no definite evidence of fluid overload. BNP was 96. She has therapeutic INR, very questionable with x-ray findings suggestive of pneumonia, treated empirically with Rocephin. Currently , she is asymptomatic after cardioversion in sinus rhythm. PAST MEDICAL HISTORY: As above. SOCIAL HISTORY: The patient denies smoking, ETOH, or drug abuse. FAMILY HISTORY: Noncontributory. REVIEW OF SYSTEMS: A 12-point review of systems overall is otherwise unremarkable. OBJECTIVE DATA: VITAL SIGNS: Blood pressure currently 124/73, heart rate 71, respirations 20, temperature 98.1 degrees Fahrenheit. GENERAL: She is an alert and oriented woman with an elevated BMI. NECK: Supple. Jugular veins are not distended. CHEST: Coarse without crackles. CARDIOVASCULAR: Heart sounds are regular to rate and rhythm. No murmur or gallop. ABDOMEN: Benign, bowel sounds positive. EXTREMITIES: Lower extremities without edema, clubbing, or cyanosis. Pulses are adequate. NEUROLOGIC: The patient is nonfocal. MUSCULOSKELETAL: Without joint swelling or deformities. SKIN: Without rash. DATABASE: The EKG is reviewed reveals sinus rhythm, rate of 71 beats per minute with no significant ST-T changes. QTC on this EKG post-cardioversion is 436 milliseconds. The previous EKG reveals an atypical atrial flutter with 2:1 AV conduction on 04/09/2017. LABORATORY DATA: White cell count 6.4, hemoglobin is 12.5, platelet count is 156. INR 2.8. Sodium is 140, potassium 3.5, BUN 18, creatinine 0.93. ASSESSMENT AND PLAN: Ms. Darling is a pleasant 61-year-old woman with a prior history of persistent atrial fibrillation, 2 prior ablations, and who has had good success with suppressing atrial fibrillation with the help of low dose sotalol 40 mg twice a day since 11/2015, her last ablation. She underwent a cardioversion most recently in 06/2016. At this point, she was placed on a high dose of sotalol 80 mg twice a day was initiated. Her renal function is stable. QTC is not markedly prolonged. No evident arrhythmias are seen and it is reasonable to attempt this dose even possible 120 twice a day could be considered if further recurrences are seen. I would monitor her QT over the administration of next couple of dosages and monitor for proarrhythmia. Continue also the warfarin management. She is to follow up in our office in 4 weeks. If further recurrences are seen or if Sotalol not tolerated at this dose, repeat ablation procedure would be a consideration. MTDD
[2017-04-12] MEDS: traMADol HCl 50 MG TAB PO PRN (02:37)
[2017-04-12 05:40] LABS: INR-International Normal Ratio 3.3
[2017-04-12 06:07] LABS: Anion Gap 10 mmol/L (10-20); BUN (Urea Nitrogen) 11 mg/dL (9.8-20.1); Calc. Creatinine Clearance 151 mL/min (70-130); Calcium 9.2 mg/dL (7.8-10.44); Carbon Dioxide 32 mmol/L (23-31); Chloride 100 mmol/L (98-107); Estimated GFR-MDRD 77; Glucose 108 mg/dL (80-115); Potassium 4.1 mmol/L (3.5-5.1); Sodium 138 mmol/L (136-145)
[2017-04-12] MEDS: Sucralfate 1 GM/10 ML UDCUP PO SCH ×2 (08:23→14:00)
[2017-04-12] MEDS: Docusate 100 MG CAP PO SCH (08:24)
[2017-04-12] MEDS: glyBURIDE 5 MG TAB PO SCH (08:24)
[2017-04-12] MEDS: Naproxen 500 MG TAB PO SCH (08:24)
[2017-04-12] MEDS: Potassium Chloride 20 MEQ TAB PO SCH (08:25)
[2017-04-12] MEDS: Torsemide 20 MG TAB PO SCH (08:25)
[2017-04-12] MEDS: Sotalol HCl 80 MG TAB PO SCH (08:25)
[2017-04-12] MEDS: Aspirin 81 mg Enteric Coated Tablet PO SCH (08:25)
[2017-04-12] MEDS: Lisinopril 20 MG TAB PO SCH (08:26)
[2017-04-12] MEDS ORDERED: Prenatal Vitamin 1 TAB PO SCH (09:00)
--- NOTE | 2017-04-12 10:26 | PRG ---
DATE OF SERVICE: 04/12/2017 SUBJECTIVE: Ms. Darling is doing well one day after cardioversion on sotalol loading. OBJECTIVE DATA: VITAL SIGNS: Blood pressure is 120/71, heart rate 73, respirations 20, temperature 98.4 degrees Fahr enheit. GENERAL: Alert, oriented, morbidly obese woman in no apparent distress. NECK: Supple. Jugular veins not distended. CHEST: Coarse, no crackles. CARDIOVASCULAR: Heart sounds are regular to rate and rhythm, 1/6 holosystolic murmur is heard, diast olic rumble appreciated. PMI nonpalpable. ABDOMEN: Benign. Bowel sounds positive. EXTREMITIES: Lower extremity, no edema, clubbing or cyanosis. DATABASE: Telemetry strips reveal sinus rhythm. No significant QT prolongation. ASSESSMENT AND PLAN: Ms. Darling is a pleasant 61-year-old woman with history of paroxysmal atrial arrh ythmias. She had prior ablations, now admitted with recurrent atypical atrial flutter on sotalol 40 mg twice a day, home medication. She underwent cardioversion and now it being loaded with 80 mg sota lol twice a day, so far no proarrhythmia noted. She is stable, maintaining sinus rhythm. No further complaints. PLAN: At this point continue sotalol loading. Discharge home once stable. Outpatient follow up. C onsider ablation if recurrent arrhythmias despite above.
[2017-04-12 11:31] VITALS: BP 132/74; TEMP 98.8
[2017-04-12] MEDS: Promethazine 25 MG TAB PO PRN (12:49)
[2017-04-12] MEDS ORDERED: Warfarin Sodium 7.5 MG TAB PO SCH (17:00)
--- NOTE | 2017-04-13 00:48 | EKG ---
Test Reason : POST OC/CARDIOVERSI Blood Pressure : / mmHG Vent. Rate : 071 BPM Atrial Rate : 071 BPM P-R Int : 196 ms QRS Dur : 096 ms QT Int : 402 ms P-R-T Axes : 071 056 056 degrees QTc Int : 436 ms Normal sinus rhythm Normal ECG When compared with ECG of 09-APR-2017 18:53, (Unconfirmed) Sinus rhythm has replaced Atrial flutter Vent. rate has decreased BY [address] no longer depressed in Lateral leads Nonspecific T wave abnormality no longer evident in Inferior leads Nonspecific T wave abnormality no longer evident in Lateral leads Confirmed by ANYA MARIE, DR. Alvarez ([id number]) on 04/13/2017 12:48:31 AM Referred By: JOHN Confirmed By:DR. Kim JOYNER MD
[2017-04-13] MEDS ORDERED: Warfarin Sodium 5 MG TAB PO SCH (17:00)
== END 2017-04-12 14:48 | disposition home or self-care (01) | DRG 309 ==
LOC: ERS 18:45 → 2SE 21:10 → OBSVTOIN 21:10
PROVIDERS: ADMIT Family Medicine; ATTEND Family Medicine
PROC: 5A2204Z Restoration of Cardiac Rhythm, Single (ICD-10-PCS; principal; 2017-04-11)
DX: I48.0 Paroxysmal atrial fibrillation (principal); Z68.42 Body mass index [BMI] 45.0-49.9, adult; J44.1 Chronic obstructive pulmonary disease with (acute) exacerbation; I48.4 Atypical atrial flutter; I48.2 Chronic atrial fibrillation; E11.9 Type 2 diabetes mellitus without complications; I10 Essential (primary) hypertension; E78.5 Hyperlipidemia, unspecified; Z87.891 Personal history of nicotine dependence; Z88.2 Allergy status to sulfonamides; Z88.8 Allergy status to other drugs, medicaments and biological substances; Z79.01 Long term (current) use of anticoagulants; Z79.82 Long term (current) use of aspirin; Z79.4 Long term (current) use of insulin; Z79.52 Long term (current) use of systemic steroids; E66.9 Obesity, unspecified
CPT/HCPCS: 36415; 36416; 71045; 80048; 80053; 80162; 82553; 83690; 83880; 84132; 84443; 84484; 85025; 85610; 85730; 92960; 93005; 93010; 93312; 94664; 96374; 96375; 96376; A4216; J1815; J2405; J2704; J7050; Q0162

== ENCOUNTER 2017-04-23 20:08 | Emergency (ER) | payer BC ==
[~2017-04-23 20:08] MED LIST: ISOVUE-370 76%-LOCM 1 ML ONE
--- NOTE | 2017-04-23 21:07 | RAD ---
CHEST 1 VIEW: Date: 04/23/17 HISTORY: Difficulty breathing. Dyspnea. COMPARISON: 04/09/17. FINDINGS: Cardiomegaly. Pulmonary vessels are normal. Costophrenic angles are clear. Hyperinflation, without co nsolidation or mass. No pneumothorax or osseous abnormalities. IMPRESSION: Cardiomegaly. No evidence of congestive heart failure. POS: [facility]
[2017-04-23 21:12] LABS: #Basophils 0.1 thou/uL (0.0-0.2); #Eosinphils 0.2 thou/uL (0.0-0.7); #Lymphocytes 1.6 thou/uL (1.20-3.40); #Monocytes 0.4 thou/uL (0.11-0.59); %Basophils 0.8 % (0.0-1.0); %Eosinophils 2.3 % (0.0-10.0); %Lymphocytes 22.3 % (21.0-51.0); %Monocytes 5.9 % (0.0-10.0); %Neutrophils 68.8 % (42.0-75.0); Hemoglobin 11.6 g/dL (12.0-16.0); Mean Corpuscular HGB CONC 33.3 g/dL (32.0-36.0); Mean Corpuscular Hemoglobin 30.4 pg (27.0-31.0); Mean Corpuscular Volume 91.3 fl (81.0-99.0); Mean Platelet Volume 7.6 fL (7.4-10.4); Platelet Count 167 thou/uL (130-400); RBC Distribution Width 13.5 % (11.5-14.5); White Blood Cell (WBC) Count 7.2 thou/uL (4.8-10.8)
[2017-04-23 21:34] LABS: ALT (SGPT) 28 U/L (8-55); AST (SGOT) 23 U/L (5-34); Albumin 3.5 g/dL (3.4-4.8); Alkaline Phosphatase 64 U/L (40-150); Anion Gap 14 mmol/L (10-20); BUN (Urea Nitrogen) 16 mg/dL (9.8-20.1); Bilirubin, Total 0.5 mg/dL (0.2-1.2); CK (CPK) 66 U/L (29-168); Calc. Creatinine Clearance 0 mL/min (70-130); Calcium 9.4 mg/dL (7.8-10.44); Carbon Dioxide 33 mmol/L (23-31); Chloride 99 mmol/L (98-107); Estimated GFR-MDRD 69; Globulin 3.1 g/dL (2.4-3.5); Glucose 176 mg/dL (80-115); Potassium 3.6 mmol/L (3.5-5.1); Protein, Total 6.6 g/dL (6.0-8.3); Sodium 142 mmol/L (136-145)
[2017-04-23 21:37] LABS: CKMB 0.5 ng/mL (0-6.6); Troponin I Less than 0.010 ng/mL (< 0.028)
--- NOTE | 2017-04-23 22:32 | CT ---
CT ANGIOGRAM OF CHEST: Date: 04/23/17 HISTORY: Dyspnea. Hypoxia. Congestive heart failure. Previous cardiac ablation. COMPARISON: None. TECHNIQUE: CT angiogram of the chest is performed in the axial plane. Oblique and coronal three-dimensional refo rmatted images are submitted for interpretation. FINDINGS: Enlarged right paratracheal lymph node measuring 1.6 x 1.0 cm. Enlarged prevascular lymph node measur ing 3.0 x 1.3 cm. Heart is enlarged. There are coronary calcifications. No significant pericardial fl uid. Limited evaluation of the aorta due to timing of bolus. No evidence of aneurysm or obvious disse ction. No periaortic fat stranding. Visualized upper solid organs are grossly unremarkable. Atrophy in majority of the pancreas, with exc eption of the tail of the pancreas. This finding is similar to the CT from March 2007. Trachea and central bronchi are patent. Diffuse ground-glass opacities. No consolidation. No pleural effusion or pneumothorax. Degenerative changes of the thoracic spine. No lytic or blastic lesions. Adequate contrast opacification of the pulmonary arterial system to the level of the segmental arteri es. No filling defects to suggest thromboembolism. Minimal right hilar lymphadenopathy. IMPRESSION: 1. Minimal right hilar and mediastinal lymphadenopathy. Findings are nonspecific. Correlate clinical ly for infectious, inflammatory, or other processes. 2. No evidence of pulmonary artery embolism to the level of the segmental arteries. 3. Diffuse ground-glass opacities likely due to volume overload. POS: [facility]
== END 2017-04-23 23:37 | disposition home or self-care (01) ==
LOC: ERS 20:08
DX: R06.00 Dyspnea, unspecified (principal); E11.9 Type 2 diabetes mellitus without complications; I50.9 Heart failure, unspecified; I11.0 Hypertensive heart disease with heart failure; I48.91 Unspecified atrial fibrillation; Z87.891 Personal history of nicotine dependence; Z79.82 Long term (current) use of aspirin; Z79.899 Other long term (current) drug therapy; Z79.4 Long term (current) use of insulin
CPT/HCPCS: 71045; 71275; 80053; 82553; 83880; 84484; 85025; 85379; 93005

== ENCOUNTER 2017-04-24 18:46 | Emergency (ER) | payer BC ==
[2017-04-24] MEDS ORDERED: Promethazine HCl 25 MG/ML VIAL ONE (21:52)
== END 2017-04-24 22:26 | disposition home or self-care (01) ==
LOC: ERS 18:46
DX: R11.0 Nausea (principal); E11.9 Type 2 diabetes mellitus without complications; I11.0 Hypertensive heart disease with heart failure; I50.9 Heart failure, unspecified; I48.91 Unspecified atrial fibrillation; J44.9 Chronic obstructive pulmonary disease, unspecified; Z87.891 Personal history of nicotine dependence; Z79.01 Long term (current) use of anticoagulants; Z79.82 Long term (current) use of aspirin; Z79.899 Other long term (current) drug therapy; Z79.4 Long term (current) use of insulin
CPT/HCPCS: 96372; J2550

== ENCOUNTER 2017-05-08 11:05 | Emergency (ER) | payer BC ==
--- NOTE | 2017-05-08 11:47 | RAD ---
PA AND LATERAL VIEWS OF CHEST: Date: 05/08/17 HISTORY: Chest pain. CHF. FINDINGS: Comparison made with exam of 04/22/08. The heart size is mildly enlarged. The aorta is tortuous. The lungs are expanded without confluent ar eas of consolidation, pneumothorax, anthony pulmonary edema, or pleural effusions. There are degenerati ve changes in the spine. IMPRESSION: No radiographic evidence of acute cardiopulmonary process. POS: [facility]
[2017-05-08 11:53] LABS: #Eosinphils 0.1 thou/uL (0.0-0.7); #Lymphocytes 1.4 thou/uL (1.20-3.40); #Monocytes 0.6 thou/uL (0.11-0.59); #Neutrophils 6.7 thou/uL (1.40-6.50); %Basophils 0.4 % (0.0-1.0); %Eosinophils 1.3 % (0.0-10.0); %Lymphocytes 15.5 % (21.0-51.0); %Monocytes 6.4 % (0.0-10.0); %Neutrophils 76.5 % (42.0-75.0); Hemoglobin 11.4 g/dL (12.0-16.0); Mean Corpuscular HGB CONC 32.4 g/dL (32.0-36.0); Mean Corpuscular Hemoglobin 29.6 pg (27.0-31.0); Mean Corpuscular Volume 91.3 fl (81.0-99.0); Mean Platelet Volume 7.7 fL (7.4-10.4); Platelet Count 209 thou/uL (130-400); Red Blood Cell (RBC) Count 3.86 mill/uL (4.20-5.40); White Blood Cell (WBC) Count 8.8 thou/uL (4.8-10.8)
[2017-05-08 12:21] LABS: CKMB 0.8 ng/mL (0-6.6); Troponin I Less than 0.010 ng/mL (< 0.028)
[2017-05-08 12:22] LABS: ALT (SGPT) 21 U/L (8-55); AST (SGOT) 24 U/L (5-34); Albumin 3.6 g/dL (3.4-4.8); Alkaline Phosphatase 71 U/L (40-150); Anion Gap 12 mmol/L (10-20); BUN (Urea Nitrogen) 15 mg/dL (9.8-20.1); Bilirubin, Total 0.7 mg/dL (0.2-1.2); CK (CPK) 66 U/L (29-168); Calc. Creatinine Clearance 0 mL/min (70-130); Calcium 9.4 mg/dL (7.8-10.44); Carbon Dioxide 31 mmol/L (23-31); Chloride 100 mmol/L (98-107); Estimated GFR-MDRD 85; Globulin 3.4 g/dL (2.4-3.5); Glucose 156 mg/dL (80-115); Lipase 13 U/L (8-78); Magnesium 1.8 mg/dL (1.6-2.6); Potassium 4.1 mmol/L (3.5-5.1); Sodium 139 mmol/L (136-145)
[2017-05-08 13:27] LABS: INR-International Normal Ratio 2.1; PTT 38.3 SEC (22.9-36.1); Prothrombin Time 24.2 SEC (12.0-14.7)
[2017-05-08 13:28] LABS: D-Dimer Test 0.29 *mcg/mL (0.27-0.43)
[2017-05-08] MEDS ORDERED: Furosemide 40 MG/4 ML VIAL ONE (13:41)
--- NOTE | 2017-06-03 17:06 | EKG ---
Test Reason : Blood Pressure : / mmHG Vent. Rate : 068 BPM Atrial Rate : 068 BPM P-R Int : 168 ms QRS Dur : 086 ms QT Int : 416 ms P-R-T Axes : 005 038 042 degrees QTc Int : 442 ms Normal sinus rhythm Normal ECG Confirmed by DIANN TENA ([id number]), editor newspaper LAUREN SOLIS ([id number]) on 06/03/2017 5:05:40 PM Referred By: Confirmed By:DIANN TENA
== END 2017-05-08 13:54 | disposition home or self-care (01) ==
LOC: ERS 11:05
DX: M79.89 Other specified soft tissue disorders (principal); E11.9 Type 2 diabetes mellitus without complications; I11.0 Hypertensive heart disease with heart failure; I50.9 Heart failure, unspecified; E78.00 Pure hypercholesterolemia, unspecified; I48.91 Unspecified atrial fibrillation; J44.9 Chronic obstructive pulmonary disease, unspecified; Z87.891 Personal history of nicotine dependence; Z79.899 Other long term (current) drug therapy; Z79.82 Long term (current) use of aspirin; Z79.01 Long term (current) use of anticoagulants
CPT/HCPCS: 71046; 80053; 82550; 82553; 83690; 83735; 83880; 84484; 85025; 85379; 85610; 85730; 93005; 96374; J1940

== ENCOUNTER 2017-05-20 13:16 | Emergency (ER) | payer BC ==
[2017-05-20 13:47] LABS: #Eosinphils 0.1 thou/uL (0.0-0.7); #Lymphocytes 1.7 thou/uL (1.20-3.40); #Monocytes 0.7 thou/uL (0.11-0.59); #Neutrophils 7.8 thou/uL (1.40-6.50); %Basophils 0.2 % (0.0-1.0); %Eosinophils 1.3 % (0.0-10.0); %Lymphocytes 16.8 % (21.0-51.0); %Monocytes 6.3 % (0.0-10.0); %Neutrophils 75.5 % (42.0-75.0); Hemoglobin 11.7 g/dL (12.0-16.0); Mean Corpuscular HGB CONC 33.4 g/dL (32.0-36.0); Mean Corpuscular Hemoglobin 30.2 pg (27.0-31.0); Mean Corpuscular Volume 90.4 fl (81.0-99.0); Mean Platelet Volume 7.8 fL (7.4-10.4); Platelet Count 195 thou/uL (130-400); RBC Distribution Width 13.4 % (11.5-14.5); Red Blood Cell (RBC) Count 3.87 mill/uL (4.20-5.40); White Blood Cell (WBC) Count 10.3 thou/uL (4.8-10.8)
[2017-05-20 14:03] LABS: ALT (SGPT) 19 U/L (8-55); AST (SGOT) 21 U/L (5-34); Albumin 3.9 g/dL (3.4-4.8); Alkaline Phosphatase 79 U/L (40-150); Anion Gap 14 mmol/L (10-20); BUN (Urea Nitrogen) 21 mg/dL (9.8-20.1); Bilirubin, Total 0.5 mg/dL (0.2-1.2); CK (CPK) 69 U/L (29-168); Calc. Creatinine Clearance 0 mL/min (70-130); Carbon Dioxide 35 mmol/L (23-31); Chloride 94 mmol/L (98-107); Estimated GFR-MDRD 56; Globulin 3.7 g/dL (2.4-3.5); Glucose 184 mg/dL (80-115); Protein, Total 7.6 g/dL (6.0-8.3); Sodium 139 mmol/L (136-145)
[2017-05-20 14:07] LABS: CKMB 0.6 ng/mL (0-6.6); Troponin I Less than 0.010 ng/mL (< 0.028)
--- NOTE | 2017-05-20 15:35 | RAD ---
PORTABLE CHEST ONE VIEW 05/20/17 at 1:53 p.m. HISTORY: Bilateral lower extremity swelling, dyspnea, tachycardia. FINDINGS: Comparison is made with exam of 05/08/17. The heart is enlarged. The lungs are well expanded without confluent areas of consolidation, pneumoth orax, anthony pulmonary edema or pleural effusions. There are degenerative changes in the spine. IMPRESSION: No acute process. POS: [facility]
[2017-05-20] MEDS ORDERED: Furosemide 20 MG/2 ML VIAL ONE (16:00)
--- NOTE | 2017-05-27 15:04 | EKG ---
Test Reason : Blood Pressure : / mmHG Vent. Rate : 073 BPM Atrial Rate : 073 BPM P-R Int : 178 ms QRS Dur : 088 ms QT Int : 402 ms P-R-T Axes : 043 034 021 degrees QTc Int : 442 ms Normal sinus rhythm Normal ECG Confirmed by DEXTER DRUMMOND ([id number]), editorial writer MARIEL ALANIS ([id number]) on 05/27/2017 3:03:55 PM Referred By: Confirmed By:DEXTER DRUMMOND
== END 2017-05-20 16:35 | disposition home or self-care (01) ==
LOC: ERS 13:16
DX: R60.0 Localized edema (principal); E78.00 Pure hypercholesterolemia, unspecified; E11.9 Type 2 diabetes mellitus without complications; I11.0 Hypertensive heart disease with heart failure; I50.9 Heart failure, unspecified; Z87.891 Personal history of nicotine dependence; Z79.01 Long term (current) use of anticoagulants; Z79.899 Other long term (current) drug therapy; Z79.82 Long term (current) use of aspirin
CPT/HCPCS: 36415; 71045; 80053; 82553; 83880; 84484; 85025; 93005; 94760; 96374; J1940

== ENCOUNTER 2017-05-22 09:20 | Emergency (ER) | payer BC ==
--- NOTE | 2017-05-22 09:49 | RAD ---
PORTABLE CHEST: HISTORY: Chest pain and atrial fibrillation. COMPARISON: 05/20/17 study. Heart size is enlarged. Mediastinal structures appear unremarkable. Lungs appear cl ear of infiltrates. No signs of failure. IMPRESSION: Cardiomegaly. POS: [facility]
[2017-05-22 09:59] LABS: #Basophils 0.1 thou/uL (0.0-0.2); #Eosinphils 0.1 thou/uL (0.0-0.7); #Lymphocytes 1.4 thou/uL (1.20-3.40); #Monocytes 0.6 thou/uL (0.11-0.59); #Neutrophils 6.8 thou/uL (1.40-6.50); %Basophils 0.8 % (0.0-1.0); %Eosinophils 1.3 % (0.0-10.0); %Lymphocytes 15.4 % (21.0-51.0); %Monocytes 6.5 % (0.0-10.0); Hemoglobin 11.9 g/dL (12.0-16.0); Mean Corpuscular HGB CONC 31.7 g/dL (32.0-36.0); Mean Corpuscular Hemoglobin 28.9 pg (27.0-31.0); Mean Platelet Volume 7.6 fL (7.4-10.4); Platelet Count 198 thou/uL (130-400); RBC Distribution Width 13.4 % (11.5-14.5); Red Blood Cell (RBC) Count 4.13 mill/uL (4.20-5.40); White Blood Cell (WBC) Count 8.9 thou/uL (4.8-10.8)
[2017-05-22 10:20] LABS: ALT (SGPT) 18 U/L (8-55); AST (SGOT) 18 U/L (5-34); Albumin 3.8 g/dL (3.4-4.8); Alkaline Phosphatase 78 U/L (40-150); Anion Gap 14 mmol/L (10-20); BUN (Urea Nitrogen) 24 mg/dL (9.8-20.1); Bilirubin, Total 0.6 mg/dL (0.2-1.2); CK (CPK) 131 U/L (29-168); Calc. Creatinine Clearance 0 mL/min (70-130); Calcium 9.7 mg/dL (7.8-10.44); Carbon Dioxide 31 mmol/L (23-31); Chloride 92 mmol/L (98-107); Estimated GFR-MDRD 64; Globulin 3.7 g/dL (2.4-3.5); Glucose 141 mg/dL (80-115); Lipase 11 U/L (8-78); Potassium 3.6 mmol/L (3.5-5.1); Protein, Total 7.5 g/dL (6.0-8.3); Sodium 133 mmol/L (136-145)
[2017-05-22 10:24] LABS: CKMB 0.5 ng/mL (0-6.6); Troponin I Less than 0.010 ng/mL (< 0.028)
[2017-05-22 10:51] LABS: INR-International Normal Ratio 1.9; PTT 43.8 SEC (22.9-36.1); Prothrombin Time 22.3 SEC (12.0-14.7)
[2017-05-22] MEDS ORDERED: Ondansetron HCl/PF 4 MG/2 ML Vial ONE (11:39)
[2017-05-22 13:53] LABS: Troponin I Less than 0.010 ng/mL (< 0.028)
--- NOTE | 2017-05-27 15:33 | EKG ---
Test Reason : CP Blood Pressure : / mmHG Vent. Rate : 070 BPM Atrial Rate : 070 BPM P-R Int : 164 ms QRS Dur : 090 ms QT Int : 402 ms P-R-T Axes : 018 027 025 degrees QTc Int : 434 ms Normal sinus rhythm Normal ECG Confirmed by MARION PENDLETON ([id number]), assignment editor MARIEL ALANIS ([id number]) on 05/27/2017 3:32:44 PM Referred By: Confirmed By:MARION PENDLETON
== END 2017-05-22 14:13 | disposition home or self-care (01) ==
LOC: ERS 09:20
DX: R07.9 Chest pain, unspecified (principal); I10 Essential (primary) hypertension; E11.9 Type 2 diabetes mellitus without complications; J44.9 Chronic obstructive pulmonary disease, unspecified; I48.91 Unspecified atrial fibrillation; Z87.891 Personal history of nicotine dependence; Z79.01 Long term (current) use of anticoagulants; Z79.899 Other long term (current) drug therapy; Z79.82 Long term (current) use of aspirin; Z79.891 Long term (current) use of opiate analgesic
CPT/HCPCS: 36415; 71045; 80053; 82550; 82553; 83690; 83880; 84484; 85025; 85610; 85730; 93005; 94760; 96374; J2405

== ENCOUNTER 2017-05-25 00:56 | Emergency (ER) | payer BC ==
[2017-05-25 01:40] LABS: #Eosinphils 0.2 thou/uL (0.0-0.7); #Lymphocytes 1.9 thou/uL (1.20-3.40); #Monocytes 0.6 thou/uL (0.11-0.59); #Neutrophils 6.3 thou/uL (1.40-6.50); %Basophils 0.4 % (0.0-1.0); %Eosinophils 1.8 % (0.0-10.0); %Lymphocytes 21.3 % (21.0-51.0); %Monocytes 6.6 % (0.0-10.0); %Neutrophils 69.9 % (42.0-75.0); Hemoglobin 11.1 g/dL (12.0-16.0); Mean Corpuscular HGB CONC 33.4 g/dL (32.0-36.0); Mean Corpuscular Hemoglobin 29.7 pg (27.0-31.0); Mean Platelet Volume 7.5 fL (7.4-10.4); Platelet Count 195 thou/uL (130-400); RBC Distribution Width 13.3 % (11.5-14.5); Red Blood Cell (RBC) Count 3.73 mill/uL (4.20-5.40)
[2017-05-25 01:49] LABS: INR-International Normal Ratio 2.1; PTT 42.6 SEC (22.9-36.1); Prothrombin Time 24.6 SEC (12.0-14.7)
[2017-05-25 02:04] LABS: ALT (SGPT) 15 U/L (8-55); AST (SGOT) 18 U/L (5-34); Albumin 3.7 g/dL (3.4-4.8); Alkaline Phosphatase 73 U/L (40-150); Anion Gap 13 mmol/L (10-20); BUN (Urea Nitrogen) 27 mg/dL (9.8-20.1); Bilirubin, Total 0.3 mg/dL (0.2-1.2); Calc. Creatinine Clearance 0 mL/min (70-130); Calcium 9.7 mg/dL (7.8-10.44); Carbon Dioxide 34 mmol/L (23-31); Chloride 92 mmol/L (98-107); Estimated GFR-MDRD 52; Globulin 3.5 g/dL (2.4-3.5); Glucose 284 mg/dL (80-115); Potassium 3.6 mmol/L (3.5-5.1); Protein, Total 7.2 g/dL (6.0-8.3); Sodium 135 mmol/L (136-145)
[2017-05-25 02:09] LABS: CKMB 0.6 ng/mL (0-6.6); Troponin I Less than 0.010 ng/mL (< 0.028)
--- NOTE | 2017-05-27 13:14 | EKG ---
Test Reason : PALP Blood Pressure : / mmHG Vent. Rate : 072 BPM Atrial Rate : 072 BPM P-R Int : 184 ms QRS Dur : 088 ms QT Int : 404 ms P-R-T Axes : 083 027 037 degrees QTc Int : 442 ms Normal sinus rhythm Normal ECG Confirmed by SAHRA MARIE, LIDIA ([id number]), legal editor MARIEL ALANIS ([id number]) on 05/27/2017 1:14:34 PM Referred By: Confirmed By:LIDIA BOCANEGRA MD
== END 2017-05-25 03:22 | disposition home or self-care (01) ==
LOC: ERS 00:56
DX: G47.30 Sleep apnea, unspecified (principal); E11.9 Type 2 diabetes mellitus without complications; E78.00 Pure hypercholesterolemia, unspecified; I11.0 Hypertensive heart disease with heart failure; I50.9 Heart failure, unspecified; I48.91 Unspecified atrial fibrillation; J44.9 Chronic obstructive pulmonary disease, unspecified; Z79.01 Long term (current) use of anticoagulants; Z79.82 Long term (current) use of aspirin; Z79.4 Long term (current) use of insulin; Z79.899 Other long term (current) drug therapy
CPT/HCPCS: 80053; 82553; 84484; 85025; 85610; 85730; 93005

== ENCOUNTER 2017-05-26 10:39 | Emergency (ER) | payer BC ==
[2017-05-26 11:14] LABS: #Basophils 0.1 thou/uL (0.0-0.2); #Eosinphils 0.1 thou/uL (0.0-0.7); #Lymphocytes 1.5 thou/uL (1.20-3.40); #Monocytes 0.5 thou/uL (0.11-0.59); #Neutrophils 6.1 thou/uL (1.40-6.50); %Basophils 0.6 % (0.0-1.0); %Eosinophils 1.6 % (0.0-10.0); %Lymphocytes 17.8 % (21.0-51.0); %Monocytes 6.3 % (0.0-10.0); %Neutrophils 73.7 % (42.0-75.0); Hemoglobin 12.6 g/dL (12.0-16.0); Mean Corpuscular Hemoglobin 29.4 pg (27.0-31.0); Mean Platelet Volume 7.5 fL (7.4-10.4); Platelet Count 202 thou/uL (130-400); RBC Distribution Width 13.4 % (11.5-14.5); Red Blood Cell (RBC) Count 4.27 mill/uL (4.20-5.40); White Blood Cell (WBC) Count 8.3 thou/uL (4.8-10.8)
[2017-05-26 11:21] LABS: INR-International Normal Ratio 2.2; Prothrombin Time 25.2 SEC (12.0-14.7)
[2017-05-26 11:22] LABS: PTT 43.6 SEC (22.9-36.1)
--- NOTE | 2017-05-26 11:33 | RAD ---
FRONTAL VIEW CHEST: COMPARISON: 05/22/17. INDICATION: Chest pain. FINDINGS: The cardiac silhouette is enlarged. There is prominence of the pulmonary vasculature with interstiti al prominence. There is mild blunting of the costophrenic sulci which may be on the basis of minimal pleural fluid. No pneumothorax. Osseous degenerative change. IMPRESSION: There is evidence of congestive heart failure. POS: [facility]
[2017-05-26 11:35] LABS: Digoxin 0.87 ng/mL (0.8-2.0)
[2017-05-26 11:37] LABS: ALT (SGPT) 20 U/L (8-55); AST (SGOT) 24 U/L (5-34); Albumin 4.1 g/dL (3.4-4.8); Alkaline Phosphatase 82 U/L (40-150); Anion Gap 14 mmol/L (10-20); BUN (Urea Nitrogen) 18 mg/dL (9.8-20.1); Bilirubin, Total 0.4 mg/dL (0.2-1.2); CK (CPK) 84 U/L (29-168); Calc. Creatinine Clearance 0 mL/min (70-130); Calcium 10.3 mg/dL (7.8-10.44); Carbon Dioxide 34 mmol/L (23-31); Chloride 93 mmol/L (98-107); Estimated GFR-MDRD 72; Globulin 4.1 g/dL (2.4-3.5); Glucose 150 mg/dL (80-115); Potassium 4.2 mmol/L (3.5-5.1); Protein, Total 8.2 g/dL (6.0-8.3); Sodium 137 mmol/L (136-145)
[2017-05-26 11:56] LABS: CKMB 0.7 ng/mL (0-6.6); Troponin I Less than 0.010 ng/mL (< 0.028)
[2017-05-26] MEDS ORDERED: Metoprolol Tartrate 25 MG TAB ONE (13:01)
== END 2017-05-26 13:06 | disposition home or self-care (01) ==
LOC: ERS 10:39
DX: R00.2 Palpitations (principal); R07.9 Chest pain, unspecified; E11.9 Type 2 diabetes mellitus without complications; E78.00 Pure hypercholesterolemia, unspecified; I11.0 Hypertensive heart disease with heart failure; I50.9 Heart failure, unspecified; I48.91 Unspecified atrial fibrillation; J44.9 Chronic obstructive pulmonary disease, unspecified; Z79.899 Other long term (current) drug therapy; Z79.82 Long term (current) use of aspirin; Z79.01 Long term (current) use of anticoagulants
CPT/HCPCS: 71045; 80053; 80162; 82550; 82553; 83880; 84484; 85025; 85610; 85730; 93005

== ENCOUNTER 2017-06-10 12:25 | Emergency (ER) | payer BC ==
[2017-06-10 13:22] LABS: #Eosinphils 0.2 thou/uL (0.0-0.7); #Lymphocytes 1.2 thou/uL (1.20-3.40); #Monocytes 0.4 thou/uL (0.11-0.59); #Neutrophils 6.2 thou/uL (1.40-6.50); %Basophils 0.4 % (0.0-1.0); %Eosinophils 2.2 % (0.0-10.0); %Lymphocytes 15.3 % (21.0-51.0); %Monocytes 4.4 % (0.0-10.0); %Neutrophils 77.8 % (42.0-75.0); Hemoglobin 10.5 g/dL (12.0-16.0); Mean Corpuscular HGB CONC 32.7 g/dL (32.0-36.0); Mean Corpuscular Hemoglobin 29.3 pg (27.0-31.0); Mean Corpuscular Volume 89.5 fl (81.0-99.0); Mean Platelet Volume 6.5 fL (7.4-10.4); Platelet Count 195 thou/uL (130-400); Prothrombin Time 23.8 SEC (12.0-14.7); RBC Distribution Width 13.5 % (11.5-14.5); Red Blood Cell (RBC) Count 3.59 mill/uL (4.20-5.40); White Blood Cell (WBC) Count 7.9 thou/uL (4.8-10.8)
[2017-06-10 13:23] LABS: PTT 41.5 SEC (22.9-36.1)
[2017-06-10 13:40] LABS: ALT (SGPT) 20 U/L (8-55); AST (SGOT) 16 U/L (5-34); Albumin 3.4 g/dL (3.4-4.8); Alkaline Phosphatase 73 U/L (40-150); Anion Gap 13 mmol/L (10-20); BUN (Urea Nitrogen) 14 mg/dL (9.8-20.1); Bilirubin, Total 0.4 mg/dL (0.2-1.2); CK (CPK) 49 U/L (29-168); Calc. Creatinine Clearance 0 mL/min (70-130); Calcium 9.4 mg/dL (7.8-10.44); Carbon Dioxide 28 mmol/L (23-31); Chloride 99 mmol/L (98-107); Estimated GFR-MDRD 78; Globulin 3.2 g/dL (2.4-3.5); Glucose 223 mg/dL (80-115); Lipase 13 U/L (8-78); Protein, Total 6.6 g/dL (6.0-8.3); Sodium 136 mmol/L (136-145)
[2017-06-10 13:43] LABS: CKMB 0.5 ng/mL (0-6.6); Troponin I 0.012 ng/mL (< 0.028)
[2017-06-10 14:00] LABS: Digoxin 0.69 ng/mL (0.8-2.0)
--- NOTE | 2017-06-10 16:15 | RAD ---
CHEST ONE VIEW: 06/10/17 HISTORY: 61-year-old female with history of cardiac ablation on Monday. COMPARISON: 05/26/17. FINDINGS: Monitor leads overlie the chest. There is mild cardiomegaly with some bilateral vascular congestion a nd minimal increased linear and interstitial markings more prominent than on the prior study. Evidenc e for some worsening vascular congestion. No confluent pneumonia. IMPRESSION: Worsening vascular congestion. Cardiomegaly. No confluent pneumonia. POS: [facility]
[2017-06-10] MEDS ORDERED: Furosemide 40 MG/4 ML VIAL ONE (16:22)
== END 2017-06-10 18:30 | disposition home or self-care (01) ==
LOC: ERS 12:25
DX: I51.7 Cardiomegaly (principal); D64.9 Anemia, unspecified; E11.9 Type 2 diabetes mellitus without complications; E78.00 Pure hypercholesterolemia, unspecified; I11.0 Hypertensive heart disease with heart failure; I50.9 Heart failure, unspecified; I48.91 Unspecified atrial fibrillation; J44.9 Chronic obstructive pulmonary disease, unspecified; Z79.4 Long term (current) use of insulin; Z79.82 Long term (current) use of aspirin; Z79.899 Other long term (current) drug therapy; Z79.01 Long term (current) use of anticoagulants
CPT/HCPCS: 36415; 71045; 80053; 80162; 82550; 82553; 83690; 83880; 84443; 84484; 85025; 85610; 85730; 93005; 94760; 96374; J1940

== ENCOUNTER 2017-06-17 21:19 | Emergency (ER) | payer BC ==
[2017-06-17 22:17] LABS: #Basophils 0.1 thou/uL (0.0-0.2); #Eosinphils 0.1 thou/uL (0.0-0.7); #Lymphocytes 1.7 thou/uL (1.20-3.40); #Monocytes 0.5 thou/uL (0.11-0.59); #Neutrophils 6.3 thou/uL (1.40-6.50); %Basophils 0.6 % (0.0-1.0); %Eosinophils 1.7 % (0.0-10.0); %Lymphocytes 18.9 % (21.0-51.0); %Monocytes 6.1 % (0.0-10.0); %Neutrophils 72.7 % (42.0-75.0); Hemoglobin 10.2 g/dL (12.0-16.0); Mean Corpuscular HGB CONC 32.9 g/dL (32.0-36.0); Mean Corpuscular Hemoglobin 29.6 pg (27.0-31.0); Mean Platelet Volume 7.3 fL (7.4-10.4); Platelet Count 187 thou/uL (130-400); RBC Distribution Width 13.6 % (11.5-14.5); Red Blood Cell (RBC) Count 3.46 mill/uL (4.20-5.40); White Blood Cell (WBC) Count 8.7 thou/uL (4.8-10.8)
[2017-06-17 22:40] LABS: ALT (SGPT) 27 U/L (8-55); AST (SGOT) 24 U/L (5-34); Albumin 3.5 g/dL (3.4-4.8); Alkaline Phosphatase 75 U/L (40-150); Anion Gap 10 mmol/L (10-20); BUN (Urea Nitrogen) 21 mg/dL (9.8-20.1); Bilirubin, Total 0.4 mg/dL (0.2-1.2); Calc. Creatinine Clearance 0 mL/min (70-130); Calcium 9.3 mg/dL (7.8-10.44); Carbon Dioxide 34 mmol/L (23-31); Chloride 100 mmol/L (98-107); Estimated GFR-MDRD 58; Globulin 3.4 g/dL (2.4-3.5); Glucose 190 mg/dL (80-115); Protein, Total 6.9 g/dL (6.0-8.3); Sodium 140 mmol/L (136-145)
[2017-06-17 22:42] LABS: CKMB 0.6 ng/mL (0-6.6); Troponin I Less than 0.010 ng/mL (< 0.028)
--- NOTE | 2017-06-18 09:23 | RAD ---
CHEST 2 VIEWS: Date: 06/17/17 COMPARISON: 05/08/17. HISTORY: Dyspnea. FINDINGS: Enlarged cardiac silhouette. Pulmonary vessels are within normal limits. Increased interstitial opaci ties have presumed to be chronic. There is no pleural effusion. No consolidation or mass. No pneumoth orax. IMPRESSION: Cardiomegaly. No evidence of congestive heart failure. POS: [facility]
--- NOTE | 2017-07-02 00:25 | EKG ---
Test Reason : Blood Pressure : / mmHG Vent. Rate : 090 BPM Atrial Rate : 090 BPM P-R Int : 156 ms QRS Dur : 086 ms QT Int : 360 ms P-R-T Axes : 055 037 034 degrees QTc Int : 440 ms Normal sinus rhythm Nonspecific ST and T wave abnormality Abnormal ECG Confirmed by HEMAL SEVILLA ([id number]), magazine editor LAUREN SOLIS ([id number]) on 07/02/2017 12:24:45 AM Referred By: Confirmed By:HEMAL SEVILLA
== END 2017-06-18 00:47 | disposition home or self-care (01) ==
LOC: ERS 21:19
DX: R06.02 Shortness of breath (principal); E11.9 Type 2 diabetes mellitus without complications; I11.0 Hypertensive heart disease with heart failure; I50.9 Heart failure, unspecified; Z87.891 Personal history of nicotine dependence; Z79.82 Long term (current) use of aspirin; Z79.899 Other long term (current) drug therapy; Z79.4 Long term (current) use of insulin; Z79.01 Long term (current) use of anticoagulants
CPT/HCPCS: 36415; 71046; 80053; 82553; 83880; 84484; 85025; 93005; 94640; J7620

== ENCOUNTER 2017-06-18 08:17 | Observation (INO) | payer BC ==
[2017-06-18 09:00] LABS: #Eosinphils 0.1 thou/uL (0.0-0.7); #Lymphocytes 1.5 thou/uL (1.20-3.40); #Monocytes 0.4 thou/uL (0.11-0.59); #Neutrophils 6.4 thou/uL (1.40-6.50); %Basophils 0.3 % (0.0-1.0); %Eosinophils 0.9 % (0.0-10.0); %Lymphocytes 17.5 % (21.0-51.0); %Monocytes 5.2 % (0.0-10.0); %Neutrophils 76.1 % (42.0-75.0); Hemoglobin 10.6 g/dL (12.0-16.0); Mean Corpuscular HGB CONC 34.2 g/dL (32.0-36.0); Mean Corpuscular Hemoglobin 30.4 pg (27.0-31.0); Mean Corpuscular Volume 88.8 fl (81.0-99.0); Mean Platelet Volume 8.8 fL (7.4-10.4); Platelet Count 173 thou/uL (130-400); RBC Distribution Width 13.7 % (11.5-14.5); Red Blood Cell (RBC) Count 3.49 mill/uL (4.20-5.40); White Blood Cell (WBC) Count 8.5 thou/uL (4.8-10.8)
[2017-06-18 09:05] LABS: INR-International Normal Ratio 1.8; PTT 28.3 SEC (22.9-36.1)
[2017-06-18 09:23] LABS: CKMB 0.6 ng/mL (0-6.6); Troponin I Less than 0.010 ng/mL (< 0.028)
[2017-06-18 09:54] LABS: Albumin 3.8 g/dL (3.4-4.8)
[2017-06-18 09:55] LABS: Calcium 9.7 mg/dL (7.8-10.44); Chloride 96 mmol/L (98-107); Potassium 4.2 mmol/L (3.5-5.1); Sodium 138 mmol/L (136-145)
[2017-06-18 09:56] LABS: Globulin 3.6 g/dL (2.4-3.5); Glucose 191 mg/dL (80-115); Protein, Total 7.4 g/dL (6.0-8.3)
[2017-06-18 09:58] LABS: Anion Gap 12 mmol/L (10-20); Bilirubin, Total 0.5 mg/dL (0.2-1.2); Carbon Dioxide 34 mmol/L (23-31)
[2017-06-18 09:59] LABS: Alkaline Phosphatase 82 U/L (40-150)
[2017-06-18 10:00] LABS: BUN (Urea Nitrogen) 18 mg/dL (9.8-20.1); Calc. Creatinine Clearance 0 mL/min (70-130); Estimated GFR-MDRD 64
[2017-06-18 10:01] LABS: AST (SGOT) 20 U/L (5-34)
[2017-06-18 10:02] LABS: ALT (SGPT) 26 U/L (8-55); CK (CPK) 58 U/L (29-168)
--- NOTE | 2017-06-18 10:47 | RAD ---
CHEST 1 VIEW: Date 06/18/17 COMPARISON: 06/10/17. HISTORY: Chest pain. COMPARISON: 06/18/17 at 0000 hours. FINDINGS: Enlarged cardiac silhouette. Slight elongation of the aorta. Pulmonary vessels and hilum are normal. Costophrenic angles are clear. No masses or consolidation. No pneumothorax or osseous abnormalities. IMPRESSION: No acute cardiopulmonary process. POS: [facility]
[2017-06-18] MEDS ORDERED: Furosemide 40 MG/4 ML VIAL ONE (10:59)
[2017-06-18] MEDS ORDERED: traMADol HCl 50 MG TAB PO PRN (12:12)
[2017-06-18 12:28] LABS: Troponin I Less than 0.010 ng/mL (< 0.028)
--- NOTE | 2017-06-18 12:33 | HP ---
DATE OF ADMISSION: 06/18/2017. REASON FOR ADMISSION: Shortness of breath. PRIMARY JOURNEYMAN LEVEL ACOUSTIC ANALYST: Jones Argueta M.D. HISTORY OF PRESENT ILLNESS: Mrs. Darling is a very pleasant 61-year-old white female who comes to the ospital for increased shortness of breath as well as worsening edema and weight gain. She has a sign ificant diastolic heart failure. She has had atrial fibrillation in the past with ablations before. The last time she had an ablation, on the transesophageal echo, the mitral valve was cataloged as be ing severely stenotic and she is scheduled to have mitral valve balloon valvuloplasty on 07/05. She has been given indications for heart failure and actually has been following them very closely. She has noted that in the last 3 or 4 days, she has been slowly gaining weight. She has gained up to abo ut 10 pounds so far. Yesterday, she was up 7 pounds and she was taking 80 of Lasix in the morning an d 40 in the afternoon plus the metolazone, which is the most that she has taken in the past and she w as not seeing any of this fluid come out, so she came into the ER last night where she was discharged home after evaluation. She did not get any IV Lasix. She called me this morning as she continued t o gain weight. She was 10 pounds higher. She was very scared. She was starting to get more short o f breath. I asked her to come to the hospital for further evaluation. In the ER, she was found to h ave a normal BNP. Chest x-ray was clear, so she is certainly not in fluid pulmonary edema and volume overload, but she has gained about 10 pounds total from her normal weight, which is all fluid weight . I ordered to get her one dose of IV Lasix and she is already feeling much better. She is already diuresed about 2 pounds. We will admit her to try to get at least 7 pounds off and then discharge ho me. This could be either later today or tomorrow. PAST MEDICAL HISTORY: 1. Type 2 diabetes. 2. Hypertension. 3. Hyperlipidemia. 4. Atrial fibrillation, status post ablations in the past. 5. Mitral valve stenosis. PAST SURGICAL HISTORY: Atrial fibrillation ablations. SOCIAL HISTORY: No alcohol, tobacco or drugs. ALLERGIES: AMPICILLIN, FLECAINIDE and SULFA DRUGS. OUTPATIENT MEDICATIONS: Include, 1. Lantus. 2. Aspirin 81 a day. 3. Potassium chloride 10 mEq 2 tablets a day. 4. Sucralfate. 5. Digoxin 250 mcg a day. 6. Multivitamins. 7. Coumadin 5 mg per [facility]. 8. Lisinopril 10 mg. 9. Sotalol 40 mg twice a day. 10. Diltiazem 120 mg daily. 11. Tramadol 50 mg daily. 12. Metolazone 2.5 mg p.r.n. 13. Trulicity 0.5 mL subcu every week. 14. Glipizide 10 mg a day. 15. Lipitor 20 mg a day. 16. Torsemide 20 mg 2 tabs in the morning and 1 in the afternoons. FAMILY HISTORY: Noncontributory. REVIEW OF SYSTEMS: A 12-point review of systems was done and is all negative unless stated in the hi story of present illness. PHYSICAL EXAMINATION: VITAL SIGNS: Blood pressure 129/62, pulse 87, respiratory rate 22, satting 98% on 2 liters, temperat ure 98.4. Pain is 4/10. GENERAL: Awake, alert, oriented x3, in no distress. HEENT: Normocephalic, atraumatic. NECK: Supple. LUNGS: Clear. CARDIOVASCULAR: S1, S2. No S3, S4. No murmurs or rubs. ABDOMEN: Soft, positive bowel sounds. EXTREMITIES: 1+ edema. SKIN: Warm and dry. LABORATORY WORK: Reviewed. White count of 8.5, hemoglobin of 10.6, hematocrit of 31, platelet count of 173. Coags: INR of 1.8. Chemistry with a chloride of 96, dioxide of 34, glucose of 191. Tropo willian is undetectable. BNP was 32. Albumin of 3.8. Chest x-ray was unremarkable. ASSESSMENT: 1. Acute on chronic diastolic heart failure. 2. Severe mitral stenosis. 3. Atrial fibrillation, status post ablation, currently in sinus. PLAN: 1. We will give IV Lasix 40 mg twice a day. She has not had any reaction to the IV Lasix even thoug h she is allergic to sulfa drugs. We will monitor throughout the day. She already feels better. Jeanette soto has diuresed about 2 pounds worth of fluid. We will most likely plan on sending her home tomorrow after adequate diuresis. 2. Mitral valve stenosis: Scheduled to have mitral valvuloplasty on 07/05 in [place]. 3. Full code. 4. Proton pump inhibitor for stress ulcer prophylaxis and warfarin for DVT prophylaxis. She is subt herapeutic. We will restart home dose. 5. Disposition: Likely home in the morning.
[2017-06-18] MEDS ORDERED: Ondansetron ODT 4 MG TAB SL PRN (13:09)
[2017-06-18] MEDS ORDERED: Acetaminophen 325 MG TAB PO PRN (13:09)
[2017-06-18] MEDS ORDERED: Ondansetron HCl/PF 4 MG/2 ML Vial IVP PRN (13:09)
[2017-06-18 13:31] VITALS: BMI 48.7
[2017-06-18] MEDS ORDERED: Furosemide 40 MG/4 ML VIAL SLOW IVP SCH (14:00)
[2017-06-18] MEDS ORDERED: Sucralfate 1 GM TAB PO SCH ×2 (15:15→21:00)
[2017-06-18 15:52] VITALS: TEMP 98.3
[2017-06-18] MEDS ORDERED: Warfarin Sodium 5 MG TAB PO SCH ×2 (17:00)
[2017-06-18 19:19] VITALS: BP 109/73
--- NOTE | 2017-06-18 19:51 | DIS ---
DATE OF ADMISSION: 06/18/2017 DATE OF DISCHARGE: 06/18/2017 SUMMARY: Ms. Darling was admitted for fluid overload. She was about almost 10 pounds up. She received 2 doses of IV Lasix, one in the morning and one in the afternoon and she has diuresed about 7 pounds off. She feels much better. She would like to go home. I think it is okay for her to go home. Sh brittany is quite stable. Her blood works has been stable and she did not really have any severe respirator y insufficiency. She will go home. She will resume her home medications. FOLLOWUP APPOINTMENTS: As previously scheduled. She is scheduled to have a mitral valvuloplasty on 07/05/2016, this should continue to stand. Follow up with Dr. Argueta as scheduled.
[2017-06-18] MEDS ORDERED: Metoprolol Tartrate 25 MG TAB PO SCH (21:00)
[2017-06-18] MEDS ORDERED: Atorvastatin Calcium 20 MG TAB PO SCH (21:00)
[2017-06-19] MEDS ORDERED: Lisinopril 20 MG TAB PO SCH (09:00)
[2017-06-19] MEDS ORDERED: Digoxin 0.25 MG TAB PO SCH (09:00)
[2017-06-19] MEDS ORDERED: Warfarin Sodium 7.5 MG TAB PO SCH (17:00)
== END 2017-06-18 20:27 | disposition home or self-care (01) ==
LOC: ERS 08:17 → 2SW 12:27
PROVIDERS: ADMIT Internal Medicine Cardiovascular Disease; ATTEND Internal Medicine Cardiovascular Disease
DX: E87.70 Fluid overload, unspecified (principal); I11.0 Hypertensive heart disease with heart failure; I50.33 Acute on chronic diastolic (congestive) heart failure; E11.9 Type 2 diabetes mellitus without complications; E78.5 Hyperlipidemia, unspecified; I48.91 Unspecified atrial fibrillation; I05.0 Rheumatic mitral stenosis; Z88.0 Allergy status to penicillin; Z88.2 Allergy status to sulfonamides; Z88.8 Allergy status to other drugs, medicaments and biological substances; Z79.82 Long term (current) use of aspirin; Z79.4 Long term (current) use of insulin; Z79.01 Long term (current) use of anticoagulants; Z79.899 Other long term (current) drug therapy; Z98.890 Other specified postprocedural states
CPT/HCPCS: 36415; 71045; 80053; 82550; 82553; 83880; 84484; 85025; 85610; 85730; 93005; 96374; 96376; G0378; J1940; Q0162

== ENCOUNTER 2017-07-01 08:48 | Inpatient (IN) | payer BC ==
[2017-07-01 09:14] LABS: #Basophils 0.1 thou/uL (0.0-0.2); #Eosinphils 0.2 thou/uL (0.0-0.7); #Lymphocytes 3.5 thou/uL (1.20-3.40); #Monocytes 0.5 thou/uL (0.11-0.59); #Neutrophils 7.1 thou/uL (1.40-6.50); %Basophils 0.5 % (0.0-1.0); %Eosinophils 1.5 % (0.0-10.0); %Lymphocytes 30.9 % (21.0-51.0); %Monocytes 4.3 % (0.0-10.0); %Neutrophils 62.7 % (42.0-75.0); Hemoglobin 11.9 g/dL (12.0-16.0); Mean Corpuscular HGB CONC 32.1 g/dL (32.0-36.0); Mean Corpuscular Hemoglobin 28.8 pg (27.0-31.0); Mean Corpuscular Volume 89.8 fl (81.0-99.0); Mean Platelet Volume 6.9 fL (7.4-10.4); Platelet Count 226 thou/uL (130-400); RBC Distribution Width 13.4 % (11.5-14.5); Red Blood Cell (RBC) Count 4.11 mill/uL (4.20-5.40); White Blood Cell (WBC) Count 11.3 thou/uL (4.8-10.8)
[2017-07-01 09:20] LABS: PTT 41.7 SEC (22.9-36.1); Prothrombin Time 23.6 SEC (12.0-14.7)
[2017-07-01] MEDS ORDERED: Azithromycin 500 MG VIAL ONE (09:30)
[2017-07-01] MEDS ORDERED: Furosemide 40 MG/4 ML VIAL ONE (09:30)
[2017-07-01] MEDS ORDERED: Diltiazem 125 MG/25 ML ONE (09:30)
[2017-07-01 09:32] LABS: pH, Arterial 7.28 (7.35-7.45)
[2017-07-01 09:33] LABS: Actual Bicarbonate (HCO3a) 31.1 mEq/L (22-26); Base Excess (BEa) 2.9 mEq/L (0 (+/-) 2.5); CO2 Tension 67.7 mmHg (35.0-45.0); Hematocrit-ABG 38.5 % (36.0-47.0); Hemoglobin (Hb) 11.5 g/dL (12.0-16.0); O2 Tension (PaO2) 60.5 mmHg (80.0-100.0)
[2017-07-01 09:34] LABS: ALV-art Gradient 282.675 (0-20); Analyzer IN Cardio ER; Calcium, Ionized 1.2 mmol/L (1.12-1.30); Peep/CPAP 7.5 cmH2O; Puncture Site L.R.
[2017-07-01 09:36] LABS: ALT (SGPT) 23 U/L (8-55); AST (SGOT) 21 U/L (5-34); Albumin 3.8 g/dL (3.4-4.8); Alkaline Phosphatase 91 U/L (40-150); Anion Gap 11 mmol/L (10-20); BUN (Urea Nitrogen) 19 mg/dL (9.8-20.1); Bilirubin, Total 0.4 mg/dL (0.2-1.2); CK (CPK) 62 U/L (29-168); Calc. Creatinine Clearance 0 mL/min (70-130); Calcium 9.6 mg/dL (7.8-10.44); Carbon Dioxide 30 mmol/L (23-31); Chloride 100 mmol/L (98-107); Estimated GFR-MDRD 63; Glucose 209 mg/dL (80-115); Lipase 14 U/L (8-78); Potassium 3.4 mmol/L (3.5-5.1); Protein, Total 7.8 g/dL (6.0-8.3); Sodium 138 mmol/L (136-145)
[2017-07-01 09:39] LABS: CKMB 0.8 ng/mL (0-6.6); Troponin I Less than 0.010 ng/mL (< 0.028)
[2017-07-01 09:43] LABS: Bilirubin Negative (Negative); Blood, Urine Negative (Negative); Clarity CLEAR (Clear); Glucose, Urine (Dipstick) Negative (Negative); Leukocyte Negative (Negative); Nitrite Negative (Negative); Protein, Urine (Dipstick) 30 mg/dL (Neg-Trace); Specific Gravity, Urine 1.028 (1.002-1.036); Urobilinogen 0.2 mg/dL (0.2-1.0); pH, Urine 5.5 (5.0-9.0)
[2017-07-01 09:45] LABS: Bacteria/HPF None Seen HPF (None Seen); Hyaline Casts/LPF 7-10 HYALINE CAST LPF (0-3 Hyaline); Pathc Cast-AUWi Flag 1.16 (0-2.49); RBC/HPF 0-3 HPF (0-3); Squamous Epithelial 0-3 HPF (0-3); WBC/HPF 0-3 HPF (0-3)
[2017-07-01] MEDS ORDERED: Dexamethasone 10 MG/ML VIAL ONE (09:49)
[2017-07-01 09:50] LABS: Digoxin 0.68 ng/mL (0.8-2.0)
[2017-07-01] MEDS ORDERED: Albuterol Sulfate 2.5 mg/0.5 ml Neb ONE (10:23)
[2017-07-01] MEDS ORDERED: Nitroglycerin 2% Ointment 1 INCH/1 GM Packet ONE (10:35)
[2017-07-01] MEDS ORDERED: Fentanyl 100 MCG/2 ML VIAL ONE ×2 (10:39→11:00)
--- NOTE | 2017-07-01 11:49 | RAD ---
CHEST 1 VIEW ABDOMEN 1 VIEW: Date: 07/01/17 HISTORY: Dyspnea. Abdomen pain. COMPARISON: 06/18/17. FINDINGS: Cardiac silhouette is magnified and enlarged. Pulmonary vasculature is more engorged with bilateral p erihilar and bibasilar infiltrates. Mediastinum is midline. Tip of the endotracheal catheter overlies the thoracic inlet. Nasogastric tube descends to the abdomen. No evidence of pneumothorax on this po rtable supine exam. quality assurance monitor chassis leads overlie the chest. Gas and stool are apparent within the colon. Small bowel gas pattern is nonspecific. Nasogastric tube descends to the left lower quadrant, appearing to overlying the gastric antrum. IMPRESSION: 1. Endotracheal catheter and nasogastric tube are in good radiographic position. 2. Pulmonary edema. 3. Cardiomegaly. POS: [facility]
[2017-07-01] MEDS ORDERED: Sedation Protocol FS ONE (11:55)
[2017-07-01] MEDS ORDERED: hydrALAZINE 20 MG/ML VIAL SLOW IVP PRN (11:57)
[2017-07-01] MEDS ORDERED: Dextrose 5% in Water 1,000 ML IV PRN (11:57)
[2017-07-01] MEDS ORDERED: Dextrose 50% Abboject 50 ML SYRINGE SLOW IVP PRN (11:57)
[2017-07-01] MEDS ORDERED: cefTRIAXone\\ROCEPHIN 1 GM in Sodium Chloride 0.9% 100 ML IVPB SCH (12:00)
[2017-07-01 12:22] VITALS: BMI 43.0
[2017-07-01] MEDS ORDERED: fentaNYL Citrate/PF 2,000 MCG in Sodium Chloride 0.9% 60 ML IV SCH (12:23)
[2017-07-01] MEDS ORDERED: Fentanyl BOLUS 250 ML IVPB PRN (12:23)
[2017-07-01] MEDS ORDERED: Propofol 1,000 MG/100 ML VIAL IV PRN (12:23)
[2017-07-01] MEDS ORDERED: DISCONTINUE PREVIOUS NARCOTIC PAIN MEDICATIONS AND BENZODIAZEPINES FS SCH (12:23)
[2017-07-01] MEDS ORDERED: Morphine 4 MG/ML VIAL SLOW IVP PRN (12:25)
[2017-07-01] MEDS: Sodium Chloride 0.9% 1,000 ML IV SCH (12:44)
[2017-07-01] MEDS ORDERED: Vancomycin HCl 750 MG in Sodium Chloride 0.9% 250 ML 250 ML IVPB SCH (13:00)
[2017-07-01 13:04] LABS: Troponin I 0.014 ng/mL (< 0.028)
[2017-07-01] MEDS: cefTRIAXone\\ROCEPHIN 1 GM, Syringe 0.4 ML in Sterile Water 9.6 ML SLOW IVP SCH (13:06)
[2017-07-01] MEDS: Ondansetron HCl/PF 4 MG/2 ML Vial IVP PRN (13:11)
[2017-07-01 15:55] LABS: Troponin I 0.028 ng/mL (< 0.028)
--- NOTE | 2017-07-01 17:04 | HP ---
DATE OF ADMISSION: 07/01/2017 PRIMARY CARE PHYSICIAN: Dr. Ramos. CHIEF COMPLAINT: Shortness of breath. HISTORY OF PRESENT ILLNESS: The history of present illness is taken from discussion with the ER phys ileana as well as review of the patient's medical records: The patient is intubated, but she is awake and alert and can nod and shake her head to questions. Apparently, the patient has a history of nona betes mellitus, hypertension as well as history of severe mitral stenosis and was actually recently s een in our hospital for acute on chronic diastolic heart failure. This was back in May. She was t reated by Dr. Lopez at that time. According to the patient, she was doing well until just suddenly, she nods her head and says that she got short of breath quickly. She had not been feeling sick rece ntly and it was reported in the records that she was also feeling her heart racing. However, by the time the provider contracting consultant reached her home, she was having trouble breathing and was having audible wheezing. Jeanette soto was given 3 DuoNebs, magnesium, and Solu-Medrol. She stated that she was starting to tire, it is a lso noted on her ABG that her CO2 was elevated at 67 and the decision was made to intubate the patien t [facility] I come to see her again she is awake. She denies by shaking her head that she has any chest pain. She is breathing easily on the ventilator. She ind icates that she has a headache, but no other complaints. On her chest x-ray, she did have cardiomegaly as well as an infiltrate it looks in the mid lobe or ai rspace disease, hard to determine whether or not it is fluid or possible pneumonia. The review of sy stems is unobtainable due to the patient being intubated. PAST MEDICAL HISTORY: From her previous records indicate diabetes mellitus, hypertension, mitral rogers nosis in which it is regarded as severe and there was a plan to have a balloon angioplasty of the jannette ral valve. I asked the patient if she has had this surgery yet and she shakes her head no. Also, hi story of atrial fibrillation, COPD, and chronic diastolic heart failure. PAST SURGICAL HISTORY: She has had atrial fibrillation and several ablations. SOCIAL HISTORY: She is a nonsmoker, nondrinker. FAMILY HISTORY: Unobtainable due to the patient being intubated and there is no indication in her mn dical records. ALLERGIES: AMPICILLIN, MULTAQ, FLECAINIDE and SULFA. MEDICATIONS: As taken from the emergency room records include lisinopril 20 mg daily, Cardizem-CD 12 0 mg daily, glipizide 10 mg daily, torsemide 40 mg once a day, potassium chloride extended release 20 mEq daily, Carafate 1 gram 4 times a day, tramadol 50 mg as needed, atorvastatin 20 mg daily, Coumad in 5 mg daily, vitamins once a day, aspirin 81 mg daily, metolazone 2.5 mg daily, Lantus ins ulin 80 units once a day, Zofran p.r.n., sotalol 40 mg twice a day, digoxin 0.25 mg daily, prednisone 10 mg daily, Trulicity 0.75 mg daily, and albuterol nebs p.r.n. PHYSICAL EXAMINATION: GENERAL: She is well-developed, well-nourished. She is intubated, but she does not appear to be in any distress. She is awake and responsive. VITAL SIGNS: Blood pressure was initially 163/102, heart rate is in the low 100s, respiratory rate o f 18. GENERAL: She is afebrile with a temperature was 97.5. HEENT: Pupils are equal, round, and reactive. Extraocular muscles are intact. Her sclerae are anic teric. Throat no erythema, no exudates. NECK: No adenopathy, no bruits. LUNGS: She has got coarse breath sounds, some mild expiratory wheezing throughout. CARDIOVASCULAR: Heart rate is tachycardic and irregular. She does have a diastolic murmur. I do no t appreciate any clicks or rubs. ABDOMEN: Obese, it is soft, it is nontender, nondistended. Positive for bowel sounds. EXTREMITIES: She has got some trace nonpitting edema. NEUROLOGIC: Again, she is moving all extremities. She is awake and alert. SKIN AND INTEGUMENT: I do not appreciate any skin changes. No rashes. LABORATORY DATA: White blood cell count 11.3, hemoglobin 11.9, hematocrit is 36.9, platelet count is 226. INR is 2.0. Sodium 138, potassium 3.4, chloride is 100, CO2 is 30, BUN of 19, creatinine 0.9, glucose is 209. Troponin less than 0.010. Blood gas on arrival, pH 7.28, pCO2 of 67.7, pO2 of 60. Digoxin level was 0.68. Again, on her chest x-ray by my reading, it was noted to have cardiomegaly and possible right middle lobe airspace disease. There was no evidence of pleural effusions. X-RAY FINDINGS: Her EKG was sinus tachycardia. The heart rate was in the 120s and she had some nons pecific ST wave changes. ASSESSMENT AND PLAN: This is a 61-year-old female that presents to the emergency room with acute ons et of respiratory failure with both hypoxemia and hypercapnia, possibly due to pneumonia or possibly due to an acute episode of acute on chronic diastolic heart failure. It is very difficult to tell as the patient says her symptoms started suddenly and she does not give any history of any prodromal sy mptoms such as cough or congestion prior to this event. We will therefore admit her to the ICU and t reat initially for both. She has been recently hospitalized a month ago, so therefore we need to con field engineer treatment for hospital-acquired pneumonia. 1. Acute on chronic respiratory failure. She will be placed in the ICU. She will be treated empiri loida for hospital-acquired pneumonia. She has multiple drug allergies and she is also on Coumadin. Therefore, we will place her on Levaquin and vancomycin, will need to monitor her INR carefully. 2. Acute on chronic diastolic heart failure. She has already been given IV Lasix in the ER. We tam l see her response to this and treat accordingly. We will also consult Cardiology for further recomm endations. 3. History of paroxysmal atrial fibrillation. She had been on sotalol for this. This can be restar andi once she is able to take medications likely via NG tube. We will also defer to Cardiology to allyn granger with her management. Right now, her heart rate is controlled. 4. Diabetes mellitus. We will place her on sliding scale insulin and likely she will require some t ype of long-acting insulin for maintenance especially while she is intubated and then once extubated can hopefully restart her home medications. 5. Deep venous thrombosis prophylaxis. This will not be needed as she had been on Coumadin. Her IN R is currently 2.0. We will see how long she requires intubation, either the Coumadin will be restar andi or heparin depending on the situation. We will wait and see what the critical care/branch director recommends over the course of the day today.
[2017-07-01] MEDS: Lorazepam 2 MG/ML VIAL SLOW IVP PRN ×2 (17:12→22:23)
[2017-07-01] MEDS: HumaLOG 300 UNITS/3 ML VIAL SC PRN ×2 (17:22→22:14)
[2017-07-01] MEDS: Pantoprazole 40 MG VIAL IVP SCH (20:59)
[2017-07-01] MEDS ORDERED: Vancomycin HCl 1 GM in Premix Bag 1 BAG IVPB SCH (21:00)
[2017-07-01] MEDS ORDERED: Famotidine/PF 20 mg/2ml Vial SLOW IVP SCH (21:00)
[2017-07-01] MEDS: Vancomycin HCl 1.75 GM in Sodium Chloride 0.9% 500 ML IVPB SCH (23:29)
[2017-07-02 04:24] LABS: #Lymphocytes 0.7 thou/uL (1.20-3.40); #Monocytes 0.4 thou/uL (0.11-0.59); #Neutrophils 16.4 thou/uL (1.40-6.50); %Basophils 0.2 % (0.0-1.0); %Eosinophils 0.1 % (0.0-10.0); %Lymphocytes 4.1 % (21.0-51.0); %Monocytes 2.3 % (0.0-10.0); %Neutrophils 93.3 % (42.0-75.0); Hemoglobin 10.5 g/dL (12.0-16.0); Mean Corpuscular HGB CONC 33.2 g/dL (32.0-36.0); Mean Corpuscular Hemoglobin 29.6 pg (27.0-31.0); Mean Corpuscular Volume 89.1 fl (81.0-99.0); Mean Platelet Volume 7.7 fL (7.4-10.4); Platelet Count 194 thou/uL (130-400); RBC Distribution Width 13.4 % (11.5-14.5); Red Blood Cell (RBC) Count 3.54 mill/uL (4.20-5.40); White Blood Cell (WBC) Count 17.5 thou/uL (4.8-10.8)
[2017-07-02 04:30] LABS: Anion Gap 15 mmol/L (10-20); BUN (Urea Nitrogen) 30 mg/dL (9.8-20.1); Calc. Creatinine Clearance 101 mL/min (70-130); Calcium 9.5 mg/dL (7.8-10.44); Carbon Dioxide 25 mmol/L (23-31); Chloride 100 mmol/L (98-107); Estimated GFR-MDRD 48; Glucose 319 mg/dL (80-115); Potassium 4.2 mmol/L (3.5-5.1); Sodium 136 mmol/L (136-145)
[2017-07-02 04:37] LABS: INR-International Normal Ratio 1.9; Prothrombin Time 22.2 SEC (12.0-14.7)
[2017-07-02] MEDS: Lorazepam 2 MG/ML VIAL SLOW IVP PRN (05:25)
[2017-07-02] MEDS: HumaLOG 300 UNITS/3 ML VIAL SC PRN ×4 (05:25→20:40)
--- NOTE | 2017-07-02 07:55 | RAD ---
CHEST 1 VIEW: Date: 07/02/17 HISTORY: Dyspnea. Follow-up. COMPARISON: 07/01/17. FINDINGS: Cardiac silhouette is magnified and enlarged. Pulmonary vasculature remains engorged. Bilateral perih ilar and bibasilar infiltrates are again demonstrated. Patient is slightly rotated rightward. Lines a nd tubes appear unchanged in position. equipment monitor phototypesetting leads overlie the chest. IMPRESSION: Radiographic findings of CHF are stable. POS: [facility]
[2017-07-02] MEDS: Sodium Chloride 0.9% 1,000 ML IV SCH (08:03)
--- NOTE | 2017-07-02 08:50 | PDOC.PN ---
- Subjective Encounter Start Date: 07/02/17 Encounter Start Time: 08:49 Ms. Darling was seen today in follow-up of acute respiratory failure. She is intubated but awake, and alert, she follows commands. - Objective Resuscitation Status: Resuscitation Status FULL:Full Resuscitation MAR Reviewed: Yes Vital Signs & Weight: Vital Signs (12 hours) Temp Pulse Resp BP Pulse Ox 07/02/17 08:00 98.7 F 07/02/17 07:29 105 H 149/69 H 07/02/17 07:08 104 H 20 100 07/02/17 06:00 20 07/02/17 04:00 98.9 F 20 07/02/17 02:08 106 H 113/56 L 07/02/17 02:00 20 07/02/17 00:36 105 H 105/57 L 07/02/17 00:00 99.1 F 20 07/01/17 22:34 112 H 136/69 07/01/17 22:00 20 Weight Weight 274 lb 11.135 oz Most Recent Monitor Data Heart Rate from ECG 109 NIBP 149/69 NIBP BP-Mean 94 Respiration from ECG 22 SpO2 95 I&O: 07/01/17 07/02/17 07/03/17 06:59 06:59 06:59 Intake Total 1489 Output Total 2145 320 Balance -656 -320 Result Diagrams: 07/02/17 03:57 07/02/17 03:57 Additional Labs: Accuchecks 07/02/17 07/01/17 05:25 17:18 POC Glucose 292 H 333 H Phys Exam - Physical Examination HEENT: PERRLA + wheezing bilaterally, and rales at the bases Cardiovascular: irregular + tachycardic, and 2/6 diastolic murmur Gastrointestinal: soft, non-tender, no distention, positive bowel sounds Musculoskeletal: edema present 1+ Dx/Plan (1) Acute respiratory failure with hypoxia and hypercapnia Code(s): J96.01 - ACUTE RESPIRATORY FAILURE WITH HYPOXIA; J96.02 - ACUTE RESPIRATORY FAILURE WITH HYPERCAPNIA Status: Acute (2) Acute on chronic diastolic (congestive) heart failure Code(s): I50.33 - ACUTE ON CHRONIC DIASTOLIC (CONGESTIVE) HEART FAILURE Status : Acute (3) Atrial fibrillation, persistent Code(s): I48.1 - PERSISTENT ATRIAL FIBRILLATION Status: Acute (4) Chronic anticoagulation Code(s): Z79.01 - PREASSEMBLER AND INSPECTOR (CURRENT) USE OF ANTICOAGULANTS Status: Chronic (5) Diabetes type 2, controlled Code(s): E11.9 - TYPE 2 DIABETES MELLITUS WITHOUT COMPLICATIONS Status: Chronic (6) Hypertension Code(s): I10 - ESSENTIAL (PRIMARY) HYPERTENSION Status: Chronic (7) Mitral stenosis Code(s): I05.0 - RHEUMATIC MITRAL STENOSIS Status: Acute - Plan * Acute respiratory failure- from CHF exacerbation- she is intubated, but on CPAP trial * Acute diastolic heart failure- likely exacerbated by Mitral stenosis- careful diuresis, and await Cardiology recommendations * DM- blood glucose is elevated- will start Levemir in the interim * HTN- blood pressure is stable * ? Pneumonia- less likely- can possibly de-escalate antibiotics soon- awai recommendations from Bilingual Legal Assistant * Chronic anticoagulation- continue warfarin- 5mg today, once extubated can reconcile her home dose * AFIB- her heart rate is a bit elevated- will re-start Sotalol, and Digoxin .
[2017-07-02] MEDS ORDERED: DC Sedation Protocol FS ONE (08:56)
[2017-07-02] MEDS ORDERED: Sotalol HCl 80 MG TAB PER TUBE SCH (09:00)
[2017-07-02] MEDS ORDERED: Furosemide 40 MG/4 ML VIAL SLOW IVP SCH ×2 (09:00→21:00)
[2017-07-02] MEDS ORDERED: Digoxin 0.5 MG/2 ML AMP SLOW IVP SCH (09:00)
[2017-07-02 09:12] LABS: Actual Bicarbonate (HCO3a) 27.1 mEq/L (22-26); Base Excess (BEa) 2.3 mEq/L (0 (+/-) 2.5); CO2 Tension 42.8 mmHg (35.0-45.0); pH, Arterial 7.42 (7.35-7.45)
[2017-07-02 09:13] LABS: Calcium, Ionized 1.2 mmol/L (1.12-1.30); Hematocrit-ABG 34.5 % (36.0-47.0); Hemoglobin (Hb) 10.2 g/dL (12.0-16.0); Puncture Site RBA
[2017-07-02] MEDS: Digoxin 0.25 MG TAB PO SCH (10:13)
[2017-07-02] MEDS: Insulin Detemir 100 UNITS/ML 15 UNITS in Pre-Filled Syringe 1 EACH SC SCH ×2 (10:13→20:23)
--- NOTE | 2017-07-02 11:11 | CON ---
DATE OF CONSULTATION: 07/01/2017 HISTORY OF PRESENT ILLNESS: She is a 61-year-old obese female, who is intubated , apparently came to the ER, intubated. EMS reports that the patient was complaining of racing heart. She had difficulty breathing and had audible wheezing. She was given neb treatment, magnesium, Medrol. She was apparently getting tired. She was intubated because apparently according to the paramedics. The patient has an extensive medical history just recently discharged from the hospital several times. In fact, she has a plan to do some kind of a procedure. Mitral valve stenosis, scheduled to have mitral valve valvuloplasty in [place] on 07/05/2017. She is, to my surprise, awake, alert, responsive, on the vent. EXTENSIVE PAST MEDICAL HISTORY: Well outlined for obesity, bronchitis, hypertension, atrial fibrillation, diabetes. PAST SURGICAL HISTORY: Ablation. CHRONIC MEDICATIONS FROM HOME: Tramadol, glyburide 10, Coumadin, Demadex 40, potassium, Naprosyn, metoprolol 12.5, metolazone 2.5, lisinopril 20, aspirin, albuterol. ALLERGIES: PENICILLIN, MULTAQ, FLECAINIDE, SULFA. SOCIAL AND FAMILY HISTORY: Apparently no alcohol or tobacco abuse. REVIEW OF SYSTEMS: Otherwise, difficult to obtain, though she is awake and responsive, on the vent. PHYSICAL EXAMINATION: VITAL SIGNS: Pulse 108, blood pressureBP 130\74 respiratory rate 23. HEENT: Nose unremarkable. Throat negative. CHEST: With bilateral crackles. CARDIAC: Sinus tachycardia. ABDOMEN: Soft. NEUROLOGIC: Awake, responsive, moves all 4 extremities. EXTREMITIES: No edema. LABORATORY DATA: White count 11,000, H&H 11 and 36, platelet count of 226. A pO2 was 60, pCO2 of 67, pH 7,19 . Electrolytes are normal. Glucose 209. BNP is only 43. IMAGING: X-ray does suggest infiltrates, right lung, cardiomegaly. Findings consistent with congestive heart failure. IMPRESSION: 1. Acute respiratory distress, congestive heart failure, possible superimposed pneumonia. 2. Severe mitral stenosis,CHF_ 3. Diabetes. 4. Hypertension. PLAN: We will keep her intubated until the morning. Empiric antibiotics have been initiated. Neb treatments, supportive care. Cardiac cath as per Cardiology. We will follow. This is a 45-minute critical care time. [facility] [place] [facility]
[2017-07-02] MEDS: Vancomycin HCl 1.75 GM in Sodium Chloride 0.9% 500 ML IVPB SCH ×2 (11:51→23:14)
[2017-07-02] MEDS: cefTRIAXone\\ROCEPHIN 1 GM, Syringe 0.4 ML in Sterile Water 9.6 ML SLOW IVP SCH (13:51)
[2017-07-02] MEDS ORDERED: Metoprolol Tartrate 25 MG TAB PO SCH (14:15)
[2017-07-02] MEDS ORDERED: Warfarin Sodium 5 MG TAB PER TUBE SCH (17:00)
[2017-07-02] MEDS: Metoprolol Tartrate 25 MG TAB PO SCH (20:23)
[2017-07-02] MEDS: Pantoprazole 40 MG VIAL IVP SCH (20:25)
[2017-07-02] MEDS: Enoxaparin Sodium 120 MG/0.8 ML SYRINGE SC SCH (20:40)
[2017-07-02 22:40] LABS: Vancomycin, Trough 16.2 ug/mL
[2017-07-02] MEDS: traMADol HCl 50 MG TAB PO PRN (23:14)
[2017-07-03 04:59] LABS: INR-International Normal Ratio 1.8
[2017-07-03 05:07] LABS: Anion Gap 12 mmol/L (10-20); BUN (Urea Nitrogen) 28 mg/dL (9.8-20.1); Calc. Creatinine Clearance 142 mL/min (70-130); Calcium 9.1 mg/dL (7.8-10.44); Carbon Dioxide 29 mmol/L (23-31); Chloride 102 mmol/L (98-107); Estimated GFR-MDRD 72; Glucose 180 mg/dL (80-115); Potassium 4.1 mmol/L (3.5-5.1); Sodium 139 mmol/L (136-145)
[2017-07-03 05:19] LABS: Band 3 % (5-11); Hemoglobin 9.9 g/dL (12.0-16.0); Lymphocytes 4 % (21-51); MDiff Complete? YES; Mean Corpuscular HGB CONC 32.4 g/dL (32.0-36.0); Mean Corpuscular Hemoglobin 29.2 pg (27.0-31.0); Mean Corpuscular Volume 90.1 fl (81.0-99.0); Mean Platelet Volume 7.5 fL (7.4-10.4); Monocytes 2 % (0-10); Neutrophil 91 % (42-75); PLT Morphology Comment Appears Adequate; Platelet Count 189 thou/uL (130-400); RBC Distribution Width 13.7 % (11.5-14.5); Red Blood Cell (RBC) Count 3.39 mill/uL (4.20-5.40)
[2017-07-03] MEDS: HumaLOG 300 UNITS/3 ML VIAL SC PRN ×4 (05:21→20:58)
--- NOTE | 2017-07-03 08:16 | RAD ---
SINGLE VIEW CHEST: Date: 07/03/17 COMPARISON: 07/02/17. HISTORY: Ventilated patient with respiratory failure. FINDINGS: Single view of the chest shows an enlarged but stable cardiomediastinal silhouette. The endotracheal tube and NG tube have been removed. There is no evidence of consolidation, mass, or pleural effusion. IMPRESSION: No evidence of acute cardiopulmonary disease. POS: [facility]
[2017-07-03] MEDS: Metoprolol Tartrate 25 MG TAB PO SCH ×2 (08:53→20:56)
[2017-07-03] MEDS: Digoxin 0.25 MG TAB PO SCH (08:53)
[2017-07-03] MEDS: Enoxaparin Sodium 120 MG/0.8 ML SYRINGE SC SCH ×2 (08:55→20:57)
[2017-07-03] MEDS: predniSONE 20 MG TAB PO SCH (09:00)
--- NOTE | 2017-07-03 09:32 | PRG ---
DATE OF SERVICE: 07/03/2017 SUBJECTIVE: The patient was extubated yesterday. She is doing well. She is up in a chair. OBJECTIVE: VITAL SIGNS: On exam, temperature is 98.4, pulse 99, blood pressure 130/64, 24-intake 2541 and outpu t 3055. HEENT: Unremarkable. NECK: No JVD. LUNGS: Clear. CARDIAC: S1 and S2, regular. A 2/6 systolic murmur, left sternal border. ABDOMEN: Soft, nontender. LUNGS: Clear except for a few crackles in the bases. EXTREMITIES: No edema. LABORATORY DATA: White blood cell count 27, hematocrit 30, platelet count 189. INR 1.8. Sodium 139 , potassium 4.1, chloride 102, CO2 of 29, BUN 28, creatinine 0.8, glucose 180. Chest x-ray showed no acute changes. ASSESSMENT: 1. Likely congestive heart failure secondary to mitral stenosis. 2. Elevated white count, which I suspect may be from the steroids. She is on empiric antibiotics fo r possible pneumonia. 3. Diabetes mellitus. 4. Hypertension. PLAN: 1. Transfer to telemetry. 2. Continue antibiotics for the time being. 3. Reduce steroid dose. 4. Discontinue Rivero.
[2017-07-03] MEDS: Vancomycin HCl 1.75 GM in Sodium Chloride 0.9% 500 ML IVPB SCH (10:43)
[2017-07-03] MEDS: Insulin Detemir 100 UNITS/ML 15 UNITS in Pre-Filled Syringe 1 EACH SC SCH ×2 (10:43→20:58)
--- NOTE | 2017-07-03 10:51 | PRG ---
DATE OF SERVICE: 07/02/2017 SUBJECTIVE: Ms. Steff Darling is awake, alert and responsive on CPAP this morning. OBJECTIVE: VITAL SIGNS: Blood pressure 149/69, sats are 100%, respirations 18. I's and O's 1489 in and 2145 ou t. CHEST: Reveals bilateral crackles and rhonchi. CARDIAC: Normal S1 and S2. No gallops. ABDOMEN: Soft. No masses. LABORATORY DATA: White count 17,000, hemoglobin and hematocrit 10 and 31, platelet count of 94. Patricia ctrolytes are normal. Creatinine 1.4 and BUN 30. IMAGING DATA: Chest x-ray shows cardiomegaly. IMPRESSION: 1. Acute on chronic respiratory failure, congestive heart failure, diastolic dysfunction, possibly p neumonia. 2. Mitral stenosis. PLAN: 1. She will be weaned and extubated. She is on multiple antibiotics at this time, . 2. Continue neb treatment, PT, supportive care, post-extubation. 3. Await input from Cardiology regarding the mitral stenosis. One-half hour critical care time.
[2017-07-03] MEDS: traMADol HCl 50 MG TAB PO PRN ×2 (10:59→19:47)
[2017-07-03] MEDS: cefTRIAXone\\ROCEPHIN 1 GM, Syringe 0.4 ML in Sterile Water 9.6 ML SLOW IVP SCH (12:32)
--- NOTE | 2017-07-03 13:41 | CON ---
DATE OF CONSULTATION: 07/02/2017 DATE OF ADMISSION: 07/01/2017 INDICATION FOR CONSULTATION: A 61-year-old female with acute congestive heart failure due to mitral valve stenosis. HISTORY OF PRESENT ILLNESS: This very unfortunate 61-year-old female has had a long cardiac history. She has had atrial arrhythmias and has undergone ablations x2, the last ablation was on 06/20/2017 in [place] by Dr. Larson. At that time, her Betapace has been discontinued. She has had problems wit h mitral valve stenosis. She was also scheduled to undergo a mitral balloon valvuloplasty on 018 in [place] also. This has not yet been performed. There was some consideration about putting a W atchman device in due to her atrial arrhythmias, but this has also not yet been performed. She has a history of diastolic heart failure as well as hypertension, hypercholesterolemia, and diabetes. She has had a cardiac catheterization in 2015, which showed normal coronary arteries with ejection fract ion of 55%. She had an echocardiogram in June of this year, which showed severe mitral valve stenos is by OC. In March, it was felt to be [id number] mitral valve stenosis. At this time, she presented again after having a sudden onset of congestive heart failure with shortness of breath. Jeanette soto presented to the hospital. She has undergone diuresis and is feeling much better today, but is fat igued. She had a similar episode a couple weeks ago when she was in the hospital. She was I believe discharged on 06/18/2017 after she had been here for couple days and had received diuresis at that t [facility] and did quite well, and then she went to [place] later and had the repeat ablation done. I believ e this was her third ablation for atrial fibrillation and possibly one time for flutter. She has had cardioversions. At this time, she is doing much better after she has diuresed about 1300 mL. She d enied any chest pain or significant other problems. She did have some lower extremity edema however. Her O2 saturations were decreased and CO2 was elevated, but at this time it has improved significan tly and she has O2 saturation 95% or 96% at this time, and she is breathing very easily. She did req uire intubation when she presented to the hospital yesterday, but she has since been extubated. She does have cardiomegaly on the chest x-ray and there was some question about some middle lobe infiltra te, but this was questionable pneumonia or whether or not this is just fluid overload. At this time, she is however comfortable. Heart rate is 108 and shows a sinus rhythm, respiratory rates 20 to 24, O2 saturations 97%, and blood pressure remained stable. PAST MEDICAL HISTORY: Significant for the mitral valve stenosis and the balloon angioplasty is sched uled for 07/05/2017. She has a history of multiple atrial arrhythmias and has undergone ablation x3. She has a history of hypertension, history of diastolic heart failure, history of diabetes, hyperch olesterolemia, gastroesophageal reflux disease. She has obesity. SOCIAL HISTORY: There is no history of alcohol or tobacco abuse. FAMILY HISTORY: Noncontributory. ALLERGIES: She is reportedly allergic to AMPICILLIN, MULTAQ, FLECAINIDE, and SULFA. MEDICATIONS: Her medications prior to admission: She was taking Trulicity, aspirin 81 mg a day, ins ulin, metolazone, diltiazem 120 mg daily, digoxin 25 mcg daily, atorvastatin 20 mg at bedtime, Ventol in inhalers, metoprolol 12.5 mg b.i.d., Zofran as needed, Aleve p.r.n., potassium 20 mEq a day, Demad ex 40 mg a day, Carafate 1 gram q.i.d., tramadol p.r.n., glyburide 10 mg daily, and Coumadin 7.5 mg p .o. daily. She has stopped her Coumadin several days ago in anticipation for bridging over to Loveno x, so that she could undergo the balloon angioplasty of the mitral valve. At this time, we will cont inue with the Lovenox and we will hold the Coumadin. She remains in sinus rhythm at this time. Her INR is 1.9 and we will continue Lovenox at a full dose at this time, due to the mitral valve stenosis and the recent ablation of atrial fibrillation. REVIEW OF SYSTEMS: A 12-point review of systems is unremarkable except what was noted in the history of present illness with the sudden onset of shortness of breath and now also complains of fatigue an d she had some mild lower extremity edema. PHYSICAL EXAMINATION: GENERAL: Reveals a middle-aged female who is in no acute distress at this time. VITAL SIGNS: Her blood pressure is 143/68, heart rate is 109 and shows a sinus rhythm, respiratory r ate 28, O2 saturation is 96%. She is afebrile. HEENT: Shows the head to be normocephalic and atraumatic. NECK: Carotid pulses are present. There were no bruits. There is no JVD. The thyroid did not appe ar to be enlarged. Oral mucosa was pink and moist. CHEST: Clear to auscultation. I did not hear any rales, rhonchi, or wheezing at this time. CARDIOVASCULAR: Regular rate and rhythm, slightly tachycardic. She does have a split of second hear t sound, which appeared to be most likely associated with her mitral valve. There is a very soft nona stolic murmur over the mitral area, which is compatible with her mitral valve stenosis. There were n o heaves or thrills. ABDOMEN: Soft and nontender. Positive bowel sounds are present. EXTREMITIES: No clubbing or cyanosis. I did not elicit any edema today. Pedal pulses are present. NEUROLOGIC: She appears to be intact, but does appear to be fatigued. SKIN: Warm and dry. Her EKG showed a sinus rhythm with no acute changes and sinus tachycardia with no acute changes. LABORATORY DATA: Shows a WBC of 17.5 with a hemoglobin of 10.5, platelet count was 194,000. Blood s ugar was 319. Creatinine is 1.14 with a potassium of 4.3. Cardiac enzymes are unremarkable. IMPRESSION: 1. Acute congestive heart failure exacerbation, most likely associated with her mitral valve stenosi s and volume overload. She has diuresed very well and this is very stable at this time. We will con hero to plan for her mitral balloon valvuloplasty in about 4 days from now. She should be stable en ough for that. We will continue the Lovenox at this time in order to decrease her risk of embolic ph enomenon associated with her recent atrial fibrillation ablation, and we will consider at that time o n whether she would need to undergo a Watchman device. This will be dealt with in [place]. 2. History of hypertension. This is also stable at this time. 3. History of diabetes. This is actually in very poor control and needs better adjustment. 4. Anemia, hemoglobin of 10.5. We will need to repeat this. There could be some component of being diluted, but we will need to re-evaluate her hemoglobin. She may need to actually have further christianson sfusion prior to undergoing the mitral valvuloplasty, but otherwise should be stable. 5. Elevated white blood cell, most likely this is due to stress. There has been no indication of fe vers or any other indication that she may have an infection. 6. Hypercholesterolemia. We will continue her medications. These can be adjusted as needed. 7. History of atrial fibrillation. She appears to be she is maintaining sinus rhythm at this time. I would not reinstate the sotalol, but will continue the other medications as they are at this time. Further recommendations will be by Dr. Argueta when he sees the patient tomorrow.
--- NOTE | 2017-07-03 22:26 | PDOC.PN ---
- Subjective Encounter Start Date: 07/03/17 Encounter Start Time: 18:00 Patient seen and examined. No new complaints. No overnight events. SOB improving. - Objective Resuscitation Status: Resuscitation Status FULL:Full Resuscitation MAR Reviewed: Yes Vital Signs & Weight: Vital Signs (12 hours) Temp Pulse Resp Pulse Ox 07/03/17 20:00 98.4 F 07/03/17 18:58 90 21 H 97 07/03/17 16:00 98.1 F 07/03/17 14:05 84 17 07/03/17 12:00 98.2 F 07/03/17 11:00 98.2 F Weight Admit Weight 274 lb Weight 274 lb 11.135 oz Most Recent Monitor Data Heart Rate from ECG 92 NIBP 138/77 NIBP BP-Mean 106 Respiration from ECG 20 SpO2 95 I&O: 07/02/17 07/03/17 07/04/17 06:59 06:59 06:59 Intake Total 1489 2541 2339.6 Output Total 2145 3055 990 Balance -656 -514 1349.6 Result Diagrams: 07/05/17 04:57 07/05/17 04:57 Additional Labs: Accuchecks 07/03/17 07/03/17 07/03/17 20:56 16:12 10:49 POC Glucose 228 H 267 H 292 H 07/03/17 05:21 POC Glucose 177 H EKG Reviewed by me: Yes (Tele SR) Phys Exam - Physical Examination Constitutional: NAD Respiratory: no wheezing, no rhonchi Cardiovascular: RRR, no rub Gastrointestinal: soft, non-tender, positive bowel sounds Musculoskeletal: edema present (1+) Neurological: non-focal Dx/Plan - Plan DVT proph w/lovenox IMPRESSION: 1. Acute hypoxic resp failure due to Acute on chronic diastolic CHF exacerbation 2. Mitral stenosis 3. Morbid obesity BMI 43 4. Chronic Afib on Anticoag/HTN/DM2 5. Other issues per previous notes PLAN: * Cont diuretics * Cardio/Pulm following * Cont Nebs/Atbx/Steroids * Cont current meds as below Cont to monitor Review of Systems - Review of Systems Constitutional: negative: fever, chills, sweats, weakness, malaise, other Gastrointestinal: negative: Nausea, Vomiting, Abdominal Pain, Diarrhea, Constipation, Melena, Hematochezia, Other - Medications/Allergies Allergies/Adverse Reactions: Allergies Allergy/AdvReac Type Severity Reaction Status Date / Time ampicillin Allergy Verified 04/07/17 21:19 dronedarone HCl [From Multaq] Allergy Verified 07/01/16 12:32 flecainide Allergy Verified 04/07/17 21:19 Sulfa (Sulfonamide Allergy Rash Verified 04/07/17 21:19 Antibiotics) Medications: Current Medications Albuterol/Ipratropium (Duoneb) 3 ml NEB [id number] [facility] Last Admin: 07/03/17 18:58 Dose: 3 ml Dextrose/Water (Dextrose 50%) 25 gm SLOW IVP PRN PRN PRN Reason: Hypoglycemia Digoxin (Lanoxin) 0.25 mg PO DAILY [facility] Last Admin: 07/03/17 08:53 Dose: 0.25 mg Diltiazem HCl (Cardizem Cd) 120 mg PO DAILY [facility] Last Admin: 07/03/17 08:53 Dose: 120 mg Enoxaparin Sodium (Lovenox) 120 mg SC 0900,2100 [facility] Last Admin: 07/03/17 20:57 Dose: 120 mg Glucagon (Glucagon) 1 mg IM PRN PRN PRN Reason: Hypoglycemia Hydralazine HCl (Apresoline) 10 mg SLOW IVP Q4H PRN PRN Reason: Systolic BP > 180 Dextrose/Water (D5w) 1,000 mls @ 0 mls/hr IV .Q0M PRN; As Directed PRN Reason: Hypoglycemia Ceftriaxone Sodium 1 gm/ (Syringe 0.4 ml/ Sterile Water) 10 mls @ 120 mls/hr SLOW IVP 1200 [facility] Last Admin: 07/03/17 12:32 Dose: 10 mls Vancomycin HCl 1.75 gm/ Sodium (Chloride) 500 mls @ 333.333 mls/hr IVPB 1100, 2300 [facility] Last Admin: 07/03/17 10:43 Dose: 500 mls Insulin Detemir 15 units/ (Miscellaneous Medication) 0.15 mls @ 0 mls/hr SC HS [facility] Last Admin: 07/03/17 20:58 Dose: 0.15 mls Insulin Detemir 15 units/ (Miscellaneous Medication) 0.15 mls @ 0 mls/hr SC QAM [facility] Last Admin: 07/03/17 10:43 Dose: 0.15 mls Insulin Human Lispro (Humalog) 0 units SC .MILD SLIDING SCALE PRN PRN Reason: Mild Correctional Scale Last Admin: 07/03/17 16:20 Dose: 4 unit Insulin Human Lispro (Humalog) 0 units SC .BEDTIME SLIDING SC PRN PRN Reason: Bedtime Correctional Scale Last Admin: 07/03/17 20:58 Dose: 2 unit Metoprolol Tartrate (Lopressor) 12.5 mg PO BID [facility] Last Admin: 07/03/17 20:56 Dose: 12.5 mg Discontinue Previous Narcotic Pain Medications And Benzodiazepines 1 each FS .ONE [facility] Stop: 07/31/17 12:23 Ondansetron HCl (Zofran) 4 mg IVP Q6H PRN PRN Reason: Nausea/Vomiting Last Admin: 07/01/17 13:11 Dose: 4 mg Pantoprazole Sodium (Protonix) 40 mg PO DAILY [facility] Last Admin: 07/03/17 09:00 Dose: 40 mg Prednisone (Prednisone) 20 mg PO DAILY [facility] Last Admin: 07/03/17 09:00 Dose: 20 mg Sodium Chloride (Flush - Normal Saline) 10 ml IVF Q12HR [facility] Last Admin: 07/03/17 08:52 Dose: 10 ml Sodium Chloride (Flush - Normal Saline) 10 ml IVF PRN PRN PRN Reason: Saline Flush Tramadol HCl (Ultram) 50 mg PO Q8H PRN PRN Reason: Pain Last Admin: 07/03/17 19:47 Dose: 50 mg
[2017-07-04] MEDS: Vancomycin HCl 1.75 GM in Sodium Chloride 0.9% 500 ML IVPB SCH (00:04)
[2017-07-04 04:21] LABS: #Eosinphils 0.1 thou/uL (0.0-0.7); #Lymphocytes 1.6 thou/uL (1.20-3.40); #Monocytes 0.7 thou/uL (0.11-0.59); #Neutrophils 17.6 thou/uL (1.40-6.50); %Eosinophils 0.3 % (0.0-10.0); %Monocytes 3.7 % (0.0-10.0); Hemoglobin 9.4 g/dL (12.0-16.0); Mean Corpuscular HGB CONC 32.6 g/dL (32.0-36.0); Mean Corpuscular Hemoglobin 29.5 pg (27.0-31.0); Mean Corpuscular Volume 90.3 fl (81.0-99.0); Mean Platelet Volume 7.2 fL (7.4-10.4); Platelet Count 165 thou/uL (130-400); RBC Distribution Width 13.5 % (11.5-14.5); Red Blood Cell (RBC) Count 3.19 mill/uL (4.20-5.40)
[2017-07-04 04:32] LABS: INR-International Normal Ratio 1.6; Prothrombin Time 18.9 SEC (12.0-14.7)
[2017-07-04 04:35] LABS: Anion Gap 7 mmol/L (10-20); BUN (Urea Nitrogen) 21 mg/dL (9.8-20.1); Calc. Creatinine Clearance 149 mL/min (70-130); Calcium 8.9 mg/dL (7.8-10.44); Carbon Dioxide 34 mmol/L (23-31); Chloride 102 mmol/L (98-107); Estimated GFR-MDRD 76; Glucose 205 mg/dL (80-115); Potassium 4.2 mmol/L (3.5-5.1); Sodium 139 mmol/L (136-145)
[2017-07-04] MEDS: HumaLOG 300 UNITS/3 ML VIAL SC PRN ×4 (07:06→21:07)
[2017-07-04] MEDS: traMADol HCl 50 MG TAB PO PRN ×2 (08:04→17:00)
[2017-07-04] MEDS: Insulin Detemir 100 UNITS/ML 15 UNITS in Pre-Filled Syringe 1 EACH SC SCH ×2 (08:37→21:02)
[2017-07-04] MEDS: Metoprolol Tartrate 25 MG TAB PO SCH ×2 (08:38→21:00)
[2017-07-04] MEDS: Digoxin 0.25 MG TAB PO SCH (08:38)
[2017-07-04] MEDS: Ondansetron HCl/PF 4 MG/2 ML Vial IVP PRN (08:38)
[2017-07-04] MEDS: predniSONE 20 MG TAB PO SCH (08:40)
[2017-07-04] MEDS: Enoxaparin Sodium 120 MG/0.8 ML SYRINGE SC SCH ×2 (08:40→21:03)
[2017-07-04] MEDS: Potassium Chloride 20 MEQ TAB PO SCH ×2 (09:16→16:20)
--- NOTE | 2017-07-04 09:30 | PRG ---
DATE OF SERVICE: 07/04/2017 SUBJECTIVE: Patient is having headaches, also a little bit of hemoptysis. PHYSICAL EXAMINATION: VITAL SIGNS: Temperature is 97.9, pulse 90, blood pressure 130/73, O2 sat not recorded. HEENT: Unremarkable. NECK: No JVD. LUNGS: Fairly clear. CARDIAC: S1 and S2 regular. ABDOMEN: Soft, nontender. EXTREMITIES: No edema. LABORATORY DATA: White blood cell count 20, hematocrit 28.8, platelet count 165. INR 1.6. Sodium 1 39, potassium 4.2, chloride 102, CO2 of 34, BUN 21, creatinine 0.7, glucose 205. ASSESSMENT: 1. Status post acute respiratory failure requiring mechanical ventilation. 2. Congestive heart failure secondary to mitral stenosis. 3. Elevated white count, which may be from steroids, possibly due to pneumonia. 4. Diabetes mellitus. 5. Hypertension. PLAN: 1. She is still awaiting a bed on telemetry. 2. Recheck white blood cell count tomorrow. 3. Discontinue the vancomycin. Continue Rocephin. 4. Continue diuretics per Dr. Argueta. 5. Increase activity with physical therapy.
[2017-07-04] MEDS: Torsemide 20 MG TAB PO SCH ×2 (10:06→13:52)
[2017-07-04] MEDS: cefTRIAXone\\ROCEPHIN 1 GM, Syringe 0.4 ML in Sterile Water 9.6 ML SLOW IVP SCH (11:14)
[2017-07-04] MEDS: Acetaminophen 325 MG TAB PO PRN ×2 (15:13→20:59)
[2017-07-04] MEDS ORDERED: Polyethylene Glycol 3350 17 GM Packet PO PRN (15:23)
[2017-07-04] MEDS: Warfarin Sodium 7.5 MG TAB PO SCH (16:20)
[2017-07-04] MEDS: Senokot S 8.6-50 MG TAB PO SCH (21:04)
[2017-07-05] MEDS: traMADol HCl 50 MG TAB PO PRN ×3 (00:57→19:42)
[2017-07-05 06:13] LABS: #Eosinphils 0.1 thou/uL (0.0-0.7); #Lymphocytes 2.3 thou/uL (1.20-3.40); #Monocytes 0.6 thou/uL (0.11-0.59); #Neutrophils 9.6 thou/uL (1.40-6.50); %Basophils 0.3 % (0.0-1.0); %Lymphocytes 18.4 % (21.0-51.0); %Monocytes 4.6 % (0.0-10.0); %Neutrophils 75.7 % (42.0-75.0); Mean Corpuscular HGB CONC 32.8 g/dL (32.0-36.0); Mean Corpuscular Hemoglobin 29.4 pg (27.0-31.0); Mean Corpuscular Volume 89.8 fl (81.0-99.0); Mean Platelet Volume 7.9 fL (7.4-10.4); Platelet Count 170 thou/uL (130-400); RBC Distribution Width 13.5 % (11.5-14.5); Red Blood Cell (RBC) Count 3.38 mill/uL (4.20-5.40); White Blood Cell (WBC) Count 12.7 thou/uL (4.8-10.8)
[2017-07-05 06:19] LABS: INR-International Normal Ratio 1.4; Prothrombin Time 17.2 SEC (12.0-14.7)
[2017-07-05 06:35] LABS: Anion Gap 14 mmol/L (10-20); BUN (Urea Nitrogen) 19 mg/dL (9.8-20.1); Calc. Creatinine Clearance 147 mL/min (70-130); Carbon Dioxide 33 mmol/L (23-31); Chloride 94 mmol/L (98-107); Estimated GFR-MDRD 75; Glucose 110 mg/dL (80-115); Magnesium 1.8 mg/dL (1.6-2.6); Potassium 3.6 mmol/L (3.5-5.1); Sodium 137 mmol/L (136-145)
[2017-07-05] MEDS: Acetaminophen 325 MG TAB PO PRN (06:46)
[2017-07-05] MEDS: Potassium Chloride 20 MEQ TAB PO SCH ×2 (08:21→17:33)
[2017-07-05] MEDS: Digoxin 0.25 MG TAB PO SCH (08:21)
[2017-07-05] MEDS: Enoxaparin Sodium 120 MG/0.8 ML SYRINGE SC SCH ×2 (08:22→22:01)
[2017-07-05] MEDS: predniSONE 20 MG TAB PO SCH (08:22)
[2017-07-05] MEDS: Metoprolol Tartrate 25 MG TAB PO SCH ×2 (08:22→21:59)
[2017-07-05] MEDS: Insulin Detemir 100 UNITS/ML 15 UNITS in Pre-Filled Syringe 1 EACH SC SCH ×2 (08:23→22:02)
[2017-07-05] MEDS: Senokot S 8.6-50 MG TAB PO SCH ×2 (08:23→21:59)
[2017-07-05] MEDS: Torsemide 20 MG TAB PO SCH ×2 (08:24→09:19)
--- NOTE | 2017-07-05 08:46 | PDOC.PN ---
- Subjective Encounter Start Date: 07/04/17 Encounter Start Time: 16:00 Patient seen and examined. No new complaints. No overnight events. Some SOB on exertion. - Objective Resuscitation Status: Resuscitation Status FULL:Full Resuscitation MAR Reviewed: Yes Vital Signs & Weight: Vital Signs (12 hours) Temp Pulse Resp Pulse Ox 07/05/17 08:21 84 07/05/17 08:20 97.7 F 95 07/05/17 08:02 78 17 07/05/17 05:00 98.0 F 07/05/17 02:19 68 21 H 07/05/17 00:00 98.0 F Weight Admit Weight 274 lb Weight 274 lb 11.135 oz Most Recent Monitor Data Heart Rate from ECG 80 NIBP 120/67 NIBP BP-Mean 76 Respiration from ECG 12 SpO2 99 I&O: 07/04/17 07/05/17 07/06/17 06:59 06:59 06:59 Intake Total 3179.6 2109.6 250 Output Total 1190 7305 0 Balance 1989.6 -5195.4 250 Result Diagrams: 07/05/17 04:57 07/05/17 04:57 Additional Labs: Accuchecks 07/05/17 07/04/17 07/04/17 04:54 20:38 15:54 POC Glucose 123 H 267 H 272 H 07/04/17 11:07 POC Glucose 237 H EKG Reviewed by me: Yes (Tele SR) Phys Exam - Physical Examination Constitutional: NAD Respiratory: no wheezing, no rhonchi Cardiovascular: RRR, no rub Gastrointestinal: soft, non-tender, positive bowel sounds Musculoskeletal: edema present Neurological: moves all 4 limbs Dx/Plan - Plan DVT proph w/lovenox, DVT proph w/SCDs IMPRESSION: 1. Acute hypoxic resp failure due to Acute on chronic diastolic CHF exacerbation - improving 2. Mitral stenosis 3. Morbid obesity BMI 43 4. Chronic Afib on Anticoag/HTN/DM2 5. Other issues per previous notes PLAN: * Cardio following * Warfarin restarted * Cont diuretics * Meds reviewed * Cont Nebs/Atbx/Steroids * Cont current meds as below * Cont to monitor Review of Systems - Review of Systems Cardiovascular: negative: chest pain, palpitations, orthopnea, paroxysmal nocturnal dyspnea, edema, light headedness, other Gastrointestinal: negative: Nausea, Vomiting, Abdominal Pain, Diarrhea, Constipation, Melena, Hematochezia, Other - Medications/Allergies Allergies/Adverse Reactions: Allergies Allergy/AdvReac Type Severity Reaction Status Date / Time ampicillin Allergy Verified 04/07/17 21:19 dronedarone HCl [From Multaq] Allergy Verified 07/01/16 12:32 flecainide Allergy Verified 04/07/17 21:19 Sulfa (Sulfonamide Allergy Rash Verified 04/07/17 21:19 Antibiotics) Medications: Current Medications Acetaminophen (Tylenol) 650 mg PO Q6H PRN PRN Reason: Headache Last Admin: 07/05/17 06:46 Dose: 650 mg Albuterol/Ipratropium (Duoneb) 3 ml NEB [id number] [facility] Last Admin: 07/05/17 08:02 Dose: 3 ml Dextrose/Water (Dextrose 50%) 25 gm SLOW IVP PRN PRN PRN Reason: Hypoglycemia Digoxin (Lanoxin) 0.25 mg PO DAILY [facility] Last Admin: 07/05/17 08:21 Dose: 0.25 mg Diltiazem HCl (Cardizem Cd) 120 mg PO DAILY [facility] Last Admin: 07/05/17 08:22 Dose: 120 mg Enoxaparin Sodium (Lovenox) 120 mg SC 0900,2100 [facility] Last Admin: 07/05/17 08:22 Dose: 120 mg Glucagon (Glucagon) 1 mg IM PRN PRN PRN Reason: Hypoglycemia Hydralazine HCl (Apresoline) 10 mg SLOW IVP Q4H PRN PRN Reason: Systolic BP > 180 Dextrose/Water (D5w) 1,000 mls @ 0 mls/hr IV .Q0M PRN; As Directed PRN Reason: Hypoglycemia Ceftriaxone Sodium 1 gm/ (Syringe 0.4 ml/ Sterile Water) 10 mls @ 120 mls/hr SLOW IVP 1200 [facility] Last Admin: 07/04/17 11:14 Dose: 10 mls Insulin Detemir 15 units/ (Miscellaneous Medication) 0.15 mls @ 0 mls/hr SC HS [facility] Last Admin: 07/04/17 21:02 Dose: 0.15 mls Insulin Detemir 15 units/ (Miscellaneous Medication) 0.15 mls @ 0 mls/hr SC QAM [facility] Last Admin: 07/05/17 08:23 Dose: 0.15 mls Insulin Human Lispro (Humalog) 0 units SC .MILD SLIDING SCALE PRN PRN Reason: Mild Correctional Scale Last Admin: 07/04/17 21:07 Dose: 4 unit Insulin Human Lispro (Humalog) 0 units SC .BEDTIME SLIDING SC PRN PRN Reason: Bedtime Correctional Scale Last Admin: 07/03/17 20:58 Dose: 2 unit Metoprolol Tartrate (Lopressor) 12.5 mg PO BID [facility] Last Admin: 07/05/17 08:22 Dose: 12.5 mg Miscellaneous Medication (Pharmacy To Dose) 1 each PO .WARFARIN PRN PRN Reason: DOSING Stop: 08/03/17 21:01 Discontinue Previous Narcotic Pain Medications And Benzodiazepines 1 each FS .ONE [facility] Stop: 07/31/17 12:23 Ondansetron HCl (Zofran) 4 mg IVP Q6H PRN PRN Reason: Nausea/Vomiting Last Admin: 07/04/17 08:38 Dose: 4 mg Pantoprazole Sodium (Protonix) 40 mg PO DAILY [facility] Last Admin: 07/05/17 08:21 Dose: 40 mg Polyethylene Glycol (Miralax) 17 gm PO DAILY PRN PRN Reason: Constipation Potassium Chloride (K-Dur) 20 meq PO BID-[facility] Last Admin: 07/05/17 08:21 Dose: 20 meq Prednisone (Prednisone) 20 mg PO DAILY [facility] Last Admin: 07/05/17 08:22 Dose: 20 mg Senna/Docusate Sodium (Senokot S) 1 tab PO BID [facility] Last Admin: 07/05/17 08:23 Dose: Not Given Sodium Chloride (Flush - Normal Saline) 10 ml IVF Q12HR [facility] Last Admin: 07/05/17 08:22 Dose: 10 ml Sodium Chloride (Flush - Normal Saline) 10 ml IVF PRN PRN PRN Reason: Saline Flush Torsemide (Demadex) 40 mg PO BID@0900,1400 [facility] Last Admin: 07/05/17 08:24 Dose: 40 mg Tramadol HCl (Ultram) 50 mg PO Q8H PRN PRN Reason: Pain Last Admin: 07/05/17 00:57 Dose: 50 mg Warfarin Sodium (Coumadin) 7.5 mg PO 1700 [facility] Last Admin: 07/04/17 16:20 Dose: 7.5 mg
[2017-07-05] MEDS ORDERED: Torsemide 20 MG TAB PO SCH ×2 (09:00→14:00)
[2017-07-05] MEDS ORDERED: predniSONE 20 MG TAB PO SCH (09:15)
--- NOTE | 2017-07-05 09:19 | PRG ---
DATE OF SERVICE: 07/05/2017 The patient is doing reasonably well today. She wants to be able to use the bathroom, but has been u nable to get a telemetry bed to give her more privacy. PHYSICAL EXAMINATION: VITAL SIGNS: Temperature 97.7, pulse 84, O2 sat 95% on 2 liters, blood pressure 120/67. HEENT: Unremarkable. NECK: No JVD. CHEST: Clear without wheezing or rhonchi. CARDIAC: S1 and S2 regular. ABDOMEN: Soft. EXTREMITIES: No edema. LABORATORY DATA: White blood count 12.7, hematocrit 30, platelet count 170. INR is 1.4. Sodium 137 , potassium 3.6, chloride 94, CO2 33, BUN 19, creatinine 0.7, glucose 110. ASSESSMENT: 1. Status post respiratory failure related to mitral stenosis and mitral regurgitation. 2. Status post acute congestive heart failure. 3. Diabetes mellitus. 4. Hypertension. 5. Likely steroid induced hyperglycemia which is better. PLAN: 1. From my standpoint, the patient can come off telemetry monitoring as I do not see the added benef it of that at this time. 2. Her Coumadin dose appears to be adjusted yesterday. She is also enoxaparin. 3. Decrease steroid dose and perhaps stop by tomorrow.
[2017-07-05] MEDS: HumaLOG 300 UNITS/3 ML VIAL SC PRN ×2 (11:30→17:33)
[2017-07-05] MEDS: cefTRIAXone\\ROCEPHIN 1 GM, Syringe 0.4 ML in Sterile Water 9.6 ML SLOW IVP SCH (12:11)
[2017-07-05] MEDS: Sucralfate 1 GM TAB PO SCH ×3 (13:57→21:59)
--- NOTE | 2017-07-05 16:20 | PDOC.PN ---
- Subjective Encounter Start Date: 07/05/17 Encounter Start Time: 12:30 Patient seen and examined. No new complaints. No overnight events - Objective Resuscitation Status: Resuscitation Status FULL:Full Resuscitation MAR Reviewed: Yes Vital Signs & Weight: Vital Signs (12 hours) Temp Pulse Resp BP BP BP Pulse Ox 07/05/17 16:00 98.5 F 86 19 145/82 H 98 07/05/17 14:55 98.4 F 80 18 129/76 98 07/05/17 13:17 77 17 07/05/17 12:00 98.1 F 07/05/17 11:06 138/68 147/72 H 07/05/17 08:21 84 07/05/17 08:20 97.7 F 95 07/05/17 08:02 78 17 07/05/17 08:00 97.7 F 80 12 95 07/05/17 05:00 98.0 F Pulse Ox Pulse Ox 07/05/17 16:00 07/05/17 14:55 07/05/17 13:17 07/05/17 12:00 07/05/17 11:06 95 95 07/05/17 08:21 07/05/17 08:20 07/05/17 08:02 07/05/17 08:00 07/05/17 05:00 Weight Admit Weight 274 lb Weight 274 lb 11.135 oz Most Recent Monitor Data Heart Rate from ECG 79 NIBP 124/73 NIBP BP-Mean 76 Respiration from ECG 18 SpO2 98 I&O: 07/04/17 07/05/17 07/06/17 06:59 06:59 06:59 Intake Total 3179.6 2109.6 776 Output Total 1190 7305 0 Balance 1989.6 -5195.4 776 Result Diagrams: 07/05/17 04:57 07/05/17 04:57 Additional Labs: Accuchecks 07/05/17 07/05/17 07/04/17 11:07 04:54 20:38 POC Glucose 273 H 123 H 267 H EKG Reviewed by me: Yes (Tele SR) Phys Exam - Physical Examination Constitutional: NAD Respiratory: no wheezing, no rhonchi Scat rales at bases Cardiovascular: RRR, no rub Gastrointestinal: soft, non-tender, positive bowel sounds Musculoskeletal: edema present Neurological: moves all 4 limbs Dx/Plan - Plan continue antibiotics, DVT proph w/lovenox IMPRESSION: 1. Acute hypoxic resp failure due to Acute on chronic diastolic CHF exacerbation - improving 2. Mitral stenosis 3. Morbid obesity BMI 43 4. Chronic Afib on Anticoag/HTN/DM2 5. Other issues per previous notes PLAN: * Cont Nebs/Atbx/Steroids * Cont diuretics * Cardio/Pulm following * Warfarin restarted * Resume Carafate * Cont current meds as below * Cont to monitor * AM labs Review of Systems - Review of Systems Respiratory: negative: Cough, Dry, Shortness of Breath, Hemoptysis, SOB with Excertion, Pleuritic Pain, Sputum, Wheezing Cardiovascular: negative: chest pain, palpitations, orthopnea, paroxysmal nocturnal dyspnea, edema, light headedness, other - Medications/Allergies Allergies/Adverse Reactions: Allergies Allergy/AdvReac Type Severity Reaction Status Date / Time ampicillin Allergy Verified 04/07/17 21:19 dronedarone HCl [From Multaq] Allergy Verified 07/01/16 12:32 flecainide Allergy Verified 04/07/17 21:19 Sulfa (Sulfonamide Allergy Rash Verified 04/07/17 21:19 Antibiotics) Medications: Current Medications Acetaminophen (Tylenol) 650 mg PO Q6H PRN PRN Reason: Headache Last Admin: 07/05/17 06:46 Dose: 650 mg Albuterol/Ipratropium (Duoneb) 3 ml NEB [id number] [facility] Last Admin: 07/05/17 13:17 Dose: 3 ml Dextrose/Water (Dextrose 50%) 25 gm SLOW IVP PRN PRN PRN Reason: Hypoglycemia Digoxin (Lanoxin) 0.25 mg PO DAILY [facility] Last Admin: 07/05/17 08:21 Dose: 0.25 mg Diltiazem HCl (Cardizem Cd) 120 mg PO DAILY [facility] Last Admin: 07/05/17 08:22 Dose: 120 mg Docusate Calcium (Surfak) 240 mg PO DAILY [facility] Enoxaparin Sodium (Lovenox) 120 mg SC 0900,2100 [facility] Last Admin: 07/05/17 08:22 Dose: 120 mg Glucagon (Glucagon) 1 mg IM PRN PRN PRN Reason: Hypoglycemia Glyburide (Diabeta) 10 mg PO DAILY [facility] Hydralazine HCl (Apresoline) 10 mg SLOW IVP Q4H PRN PRN Reason: Systolic BP > 180 Dextrose/Water (D5w) 1,000 mls @ 0 mls/hr IV .Q0M PRN; As Directed PRN Reason: Hypoglycemia Ceftriaxone Sodium 1 gm/ (Syringe 0.4 ml/ Sterile Water) 10 mls @ 120 mls/hr SLOW IVP 1200 [facility] Last Admin: 07/05/17 12:11 Dose: 10 mls Insulin Detemir 15 units/ (Miscellaneous Medication) 0.15 mls @ 0 mls/hr SC HS [facility] Last Admin: 07/04/17 21:02 Dose: 0.15 mls Insulin Detemir 15 units/ (Miscellaneous Medication) 0.15 mls @ 0 mls/hr SC QAM [facility] Last Admin: 07/05/17 08:23 Dose: 0.15 mls Insulin Human Lispro (Humalog) 0 units SC .MILD SLIDING SCALE PRN PRN Reason: Mild Correctional Scale Last Admin: 07/05/17 11:30 Dose: 4 unit Insulin Human Lispro (Humalog) 0 units SC .BEDTIME SLIDING SC PRN PRN Reason: Bedtime Correctional Scale Last Admin: 07/03/17 20:58 Dose: 2 unit Metoprolol Tartrate (Lopressor) 12.5 mg PO BID [facility] Last Admin: 07/05/17 08:22 Dose: 12.5 mg Miscellaneous Medication (Pharmacy To Dose) 1 each PO .WARFARIN PRN PRN Reason: DOSING Stop: 08/03/17 21:01 Ondansetron HCl (Zofran) 4 mg IVP Q6H PRN PRN Reason: Nausea/Vomiting Last Admin: 07/04/17 08:38 Dose: 4 mg Pantoprazole Sodium (Protonix) 40 mg PO DAILY [facility] Last Admin: 07/05/17 08:21 Dose: 40 mg Polyethylene Glycol (Miralax) 17 gm PO DAILY PRN PRN Reason: Constipation Potassium Chloride (K-Dur) 20 meq PO BID-[facility] Last Admin: 07/05/17 08:21 Dose: 20 meq Prednisone (Prednisone) 10 mg PO DAILY [facility] Senna/Docusate Sodium (Senokot S) 1 tab PO BID [facility] Last Admin: 07/05/17 08:23 Dose: Not Given Sodium Chloride (Flush - Normal Saline) 10 ml IVF Q12HR [facility] Last Admin: 07/05/17 08:22 Dose: 10 ml Sodium Chloride (Flush - Normal Saline) 10 ml IVF PRN PRN PRN Reason: Saline Flush Sucralfate (Carafate) 1 gm PO QID [facility] Last Admin: 07/05/17 13:57 Dose: 1 gm Torsemide (Demadex) 40 mg PO 0900 [facility] Last Admin: 07/05/17 09:19 Dose: Not Given Torsemide (Demadex) 20 mg PO 1400 [facility] Tramadol HCl (Ultram) 50 mg PO TIDPRN PRN PRN Reason: Pain Warfarin Sodium (Coumadin) 7.5 mg PO 1700 [facility] Last Admin: 07/04/17 16:20 Dose: 7.5 mg
[2017-07-05] MEDS: Warfarin Sodium 7.5 MG TAB PO SCH (17:33)
[2017-07-06] MEDS: Ondansetron HCl/PF 4 MG/2 ML Vial IVP PRN ×2 (02:30→17:28)
[2017-07-06] MEDS: Acetaminophen 325 MG TAB PO PRN (03:00)
[2017-07-06] MEDS: traMADol HCl 50 MG TAB PO PRN ×2 (06:24→17:08)
[2017-07-06 07:10] LABS: INR-International Normal Ratio 1.4; Prothrombin Time 17.5 SEC (12.0-14.7)
[2017-07-06 07:54] LABS: Anion Gap 12 mmol/L (10-20); BUN (Urea Nitrogen) 16 mg/dL (9.8-20.1); Calc. Creatinine Clearance 140 mL/min (70-130); Calcium 9.4 mg/dL (7.8-10.44); Carbon Dioxide 34 mmol/L (23-31); Chloride 93 mmol/L (98-107); Digoxin 0.77 ng/mL (0.8-2.0); Estimated GFR-MDRD 71; Glucose 182 mg/dL (80-115); Potassium 3.8 mmol/L (3.5-5.1); Sodium 135 mmol/L (136-145)
[2017-07-06] MEDS: Torsemide 20 MG TAB PO SCH ×2 (08:41→15:02)
[2017-07-06] MEDS: Potassium Chloride 20 MEQ TAB PO SCH ×2 (08:41→17:09)
[2017-07-06] MEDS: glyBURIDE 5 MG TAB PO SCH (08:41)
[2017-07-06] MEDS: Metoprolol Tartrate 25 MG TAB PO SCH ×2 (08:42→20:33)
[2017-07-06] MEDS: Sucralfate 1 GM TAB PO SCH ×4 (08:44→20:32)
[2017-07-06] MEDS: Digoxin 0.25 MG TAB PO SCH (08:44)
[2017-07-06] MEDS ORDERED: Warfarin Sodium 5 MG TAB PO SCH (08:45)
[2017-07-06] MEDS: Senokot S 8.6-50 MG TAB PO SCH ×3 (08:46→20:36)
[2017-07-06] MEDS: HumaLOG 300 UNITS/3 ML VIAL SC PRN ×3 (08:49→17:08)
[2017-07-06] MEDS: Enoxaparin Sodium 120 MG/0.8 ML SYRINGE SC SCH ×2 (08:49→20:32)
[2017-07-06] MEDS ORDERED: Docusate Calcium (SURFAK) 240 MG CAP PO SCH (09:00)
[2017-07-06] MEDS ORDERED: predniSONE 20 MG TAB PO SCH (09:00)
--- NOTE | 2017-07-06 09:18 | PRG ---
DATE OF SERVICE: 07/06/2017 The patient appears to be doing well. She will not get off of the phone to talk to me. PHYSICAL EXAMINATION: VITAL SIGNS: Temperature 98.1, pulse 68, respirations 20, O2 sat 100%, blood pressure 140/70. HEENT: Unremarkable. NECK: No JVD. CHEST: Clear without wheezing. CARDIAC: S1 and S2 regular. ABDOMEN: Soft. EXTREMITIES: No edema. LABORATORY DATA: INR is 1.4. Sodium 135, potassium 3.8, BUN 16, creatinine 0.8, glucose 182. ASSESSMENT: 1. Congestive heart failure from mitral stenosis. 2. Status post acute respiratory failure. PLAN: 1. Stop the steroids. 2. Stable from a pulmonary standpoint. 3. Continued management of other problems per Cardiology and Internal Medicine.
[2017-07-06] MEDS: cefTRIAXone\\ROCEPHIN 1 GM, Syringe 0.4 ML in Sterile Water 9.6 ML SLOW IVP SCH (11:15)
--- NOTE | 2017-07-06 13:43 | PDOC.PN ---
- Subjective Encounter Start Date: 07/06/17 Encounter Start Time: 13:00 Patient seen and examined. Mild epistaxis. No overnight events. - Objective Resuscitation Status: Resuscitation Status FULL:Full Resuscitation MAR Reviewed: Yes Vital Signs & Weight: Vital Signs (12 hours) Temp Pulse Resp BP BP Pulse Ox 07/06/17 12:04 98.4 F 74 18 139/84 97 07/06/17 08:45 144/81 H 07/06/17 08:44 83 07/06/17 08:10 98.0 F 83 17 144/81 H 96 07/06/17 04:00 98.1 F 68 20 140/78 100 Weight Admit Weight 274 lb 11.135 oz Weight 274 lb 11.135 oz Most Recent Monitor Data Heart Rate from ECG 79 NIBP 124/73 NIBP BP-Mean 76 Respiration from ECG 18 SpO2 98 I&O: 07/05/17 07/06/17 07/07/17 06:59 06:59 06:59 Intake Total 2109.6 1376 Output Total 7305 0 Balance -5195.4 1376 Result Diagrams: 07/05/17 04:57 07/06/17 06:13 Additional Labs: Accuchecks 07/06/17 07/06/17 07/05/17 12:04 06:14 22:02 POC Glucose 216 H 183 H 170 H 07/05/17 16:42 POC Glucose 340 H EKG Reviewed by me: Yes (Tele SR) Phys Exam - Physical Examination Constitutional: NAD Respiratory: no wheezing, no rhonchi Scat rales at bases Cardiovascular: RRR, no rub Gastrointestinal: soft, non-tender, positive bowel sounds Musculoskeletal: edema present (trace) Neurological: moves all 4 limbs Dx/Plan - Plan DVT proph w/lovenox IMPRESSION: 1. Acute hypoxic resp failure due to Acute on chronic diastolic CHF exacerbation /?Acute bronchitis - improving 2. Mitral stenosis 3. Morbid obesity BMI 43 4. Chronic Afib on Anticoag/HTN/DM2 / Chronic resp failure on home O2 5. Other issues per previous notes PLAN: * Steroids dced * Change Atbx to Doxycycline * Cont Nebs * Cont diuretics * Cardio/Pulm following * Warfarin restarted - INR 1.4 * Cont current meds as below * Cont to monitor * Add Lehigh nasal spray Review of Systems - Review of Systems Respiratory: negative: Cough, Dry, Shortness of Breath, Hemoptysis, SOB with Excertion, Pleuritic Pain, Sputum, Wheezing Cardiovascular: negative: chest pain, palpitations, orthopnea, paroxysmal nocturnal dyspnea, edema, light headedness, other - Medications/Allergies Allergies/Adverse Reactions: Allergies Allergy/AdvReac Type Severity Reaction Status Date / Time ampicillin Allergy Verified 04/07/17 21:19 dronedarone HCl [From Multaq] Allergy Verified 07/01/16 12:32 flecainide Allergy Verified 04/07/17 21:19 Sulfa (Sulfonamide Allergy Rash Verified 04/07/17 21:19 Antibiotics) Medications: Current Medications Acetaminophen (Tylenol) 650 mg PO Q6H PRN PRN Reason: Headache Last Admin: 07/06/17 03:00 Dose: 650 mg Albuterol/Ipratropium (Duoneb) 3 ml NEB [id number] [facility] Last Admin: 07/06/17 12:13 Dose: Not Given Dextrose/Water (Dextrose 50%) 25 gm SLOW IVP PRN PRN PRN Reason: Hypoglycemia Digoxin (Lanoxin) 0.25 mg PO DAILY [facility] Last Admin: 07/06/17 08:44 Dose: 0.25 mg Diltiazem HCl (Cardizem Cd) 120 mg PO DAILY [facility] Last Admin: 07/06/17 08:45 Dose: 120 mg Doxycycline Hyclate (Vibramycin) 100 mg PO BID [facility] Enoxaparin Sodium (Lovenox) 120 mg SC 0900,2100 [facility] Last Admin: 07/06/17 08:49 Dose: 120 mg Glucagon (Glucagon) 1 mg IM PRN PRN PRN Reason: Hypoglycemia Glyburide (Diabeta) 10 mg PO DAILY [facility] Last Admin: 07/06/17 08:41 Dose: 10 mg Hydralazine HCl (Apresoline) 10 mg SLOW IVP Q4H PRN PRN Reason: Systolic BP > 180 Dextrose/Water (D5w) 1,000 mls @ 0 mls/hr IV .Q0M PRN; As Directed PRN Reason: Hypoglycemia Insulin Detemir 30 units/ (Miscellaneous Medication) 0.3 mls @ 0 mls/hr SC [facility] Insulin Human Lispro (Humalog) 0 units SC .MILD SLIDING SCALE PRN PRN Reason: Mild Correctional Scale Last Admin: 07/06/17 12:25 Dose: 3 unit Insulin Human Lispro (Humalog) 0 units SC .BEDTIME SLIDING SC PRN PRN Reason: Bedtime Correctional Scale Last Admin: 07/03/17 20:58 Dose: 2 unit Metoprolol Tartrate (Lopressor) 12.5 mg PO BID [facility] Last Admin: 07/06/17 08:42 Dose: 12.5 mg Miscellaneous Medication (Pharmacy To Dose) 1 each PO .WARFARIN PRN PRN Reason: DOSING Stop: 08/03/17 21:01 Ondansetron HCl (Zofran) 4 mg IVP Q6H PRN PRN Reason: Nausea/Vomiting Last Admin: 07/06/17 02:30 Dose: 4 mg Pantoprazole Sodium (Protonix) 40 mg PO DAILY [facility] Last Admin: 07/06/17 08:41 Dose: 40 mg Polyethylene Glycol (Miralax) 17 gm PO DAILY PRN PRN Reason: Constipation Potassium Chloride (K-Dur) 20 meq PO BID-[facility] Last Admin: 07/06/17 08:41 Dose: 20 meq Senna/Docusate Sodium (Senokot S) 1 tab PO BID [facility] Last Admin: 07/06/17 08:46 Dose: 1 tab Sodium Chloride (Flush - Normal Saline) 10 ml IVF Q12HR [facility] Last Admin: 07/06/17 08:46 Dose: 10 ml Sodium Chloride (Flush - Normal Saline) 10 ml IVF PRN PRN PRN Reason: Saline Flush Sodium Chloride ([place] Nasal [place] 0.65%) 0 ml EA NARE TID PRN PRN Reason: Nasal Congestion Sucralfate (Carafate) 1 gm PO QID [facility] Last Admin: 07/06/17 12:24 Dose: 1 gm Torsemide (Demadex) 40 mg PO 0900 [facility] Last Admin: 07/06/17 08:41 Dose: 40 mg Torsemide (Demadex) 20 mg PO 1400 [facility] Tramadol HCl (Ultram) 50 mg PO TIDPRN PRN PRN Reason: Pain Last Admin: 07/06/17 06:24 Dose: 50 mg Warfarin Sodium (Coumadin) 7.5 mg PO 1700 [facility] Last Admin: 07/05/17 17:33 Dose: 7.5 mg
[2017-07-06] MEDS: Warfarin Sodium 7.5 MG TAB PO SCH (17:10)
[2017-07-06] MEDS: Sodium Chloride 0.65% Nasal 44 ML BOT EA NARE PRN (17:28)
[2017-07-06] MEDS: Doxycycline 100 MG CAP PO SCH (20:32)
[2017-07-06] MEDS ORDERED: Insulin Detemir 100 UNITS/ML 30 UNITS in Pre-Filled Syringe 1 EACH SC SCH (21:00)
[2017-07-07] MEDS: Insulin Detemir 100 UNITS/ML 15 UNITS in Pre-Filled Syringe 1 EACH SC SCH (02:31)
[2017-07-07] MEDS: traMADol HCl 50 MG TAB PO PRN (02:44)
[2017-07-07] MEDS: Sodium Chloride 0.65% Nasal 44 ML BOT EA NARE PRN (05:28)
[2017-07-07 06:28] LABS: Hemoglobin 10.8 g/dL (12.0-16.0); Platelet Count 199 thou/uL (130-400)
[2017-07-07 06:33] LABS: INR-International Normal Ratio 1.5; Prothrombin Time 18.8 SEC (12.0-14.7)
[2017-07-07 06:45] LABS: Anion Gap 12 mmol/L (10-20); BUN (Urea Nitrogen) 19 mg/dL (9.8-20.1); Calc. Creatinine Clearance 131 mL/min (70-130); Calcium 9.5 mg/dL (7.8-10.44); Carbon Dioxide 34 mmol/L (23-31); Chloride 92 mmol/L (98-107); Estimated GFR-MDRD 68; Glucose 221 mg/dL (80-115); Magnesium 1.9 mg/dL (1.6-2.6); Potassium 3.8 mmol/L (3.5-5.1); Sodium 134 mmol/L (136-145)
[2017-07-07] MEDS ORDERED: HumaLOG 300 UNITS/3 ML VIAL SC PRN (07:16)
[2017-07-07] MEDS: Potassium Chloride 20 MEQ TAB PO SCH (08:12)
[2017-07-07] MEDS: Digoxin 0.25 MG TAB PO SCH (08:12)
[2017-07-07] MEDS: Torsemide 20 MG TAB PO SCH ×2 (08:13→15:01)
[2017-07-07] MEDS: Senokot S 8.6-50 MG TAB PO SCH (08:13)
[2017-07-07] MEDS: Sucralfate 1 GM TAB PO SCH ×2 (08:13→12:23)
[2017-07-07] MEDS: Metoprolol Tartrate 25 MG TAB PO SCH (08:13)
[2017-07-07] MEDS: glyBURIDE 5 MG TAB PO SCH (08:13)
[2017-07-07] MEDS: Enoxaparin Sodium 120 MG/0.8 ML SYRINGE SC SCH (08:13)
[2017-07-07] MEDS: Doxycycline 100 MG CAP PO SCH (08:13)
[2017-07-07] MEDS: HumaLOG 300 UNITS/3 ML VIAL SC PRN (10:51)
[2017-07-07] MEDS ORDERED: Ondansetron ODT 4 MG TAB PO PRN ×2 (11:29→11:30)
--- NOTE | 2017-07-07 11:58 | PRG ---
DATE OF SERVICE: 07/07/2017 SUBJECTIVE: The patient is concerned that she is not ready to go home. Apparently, her pulse has be en trending towards 100 at times. I do not see that documented in the nursing records. OBJECTIVE: VITAL SIGNS: Temperature 97.2, pulse 82, respirations 18, O2 sat 99% on 2 liters, and blood pressure 158/89. HEENT: Unremarkable. NECK: Supple. No JVD. CHEST: Clear. CARDIAC: S1 and S2 regular. A 2/6 systolic murmur. ABDOMEN: Soft, nontender. EXTREMITIES: No edema. ASSESSMENT: 1. Congestive heart failure from mitral stenosis, mitral regurgitation. 2. Status post respiratory failure. PLAN: Seems stable for discharge from a pulmonary standpoint, we have no further recommendations. W e will sign off. Please recall if further assistance needed.
[2017-07-07 12:20] VITALS: TEMP 98.4
[2017-07-07 15:03] VITALS: BP 129/83
[2017-07-07] MEDS ORDERED: Insulin Detemir 100 UNITS/ML 40 UNITS in Pre-Filled Syringe 1 EACH SC SCH (21:00)
--- NOTE | 2017-07-08 11:17 | DIS ---
DATE OF ADMISSION: 07/01/2017 DATE OF DISCHARGE: 07/07/2017 DISCHARGE DISPOSITION: Home. FOLLOWUP: 1. Follow up with primary care physician, Dr. Ramos at [facility] next week as scheduled. 2. Follow up with Cardiology, Dr. Argueta. The patient was advised to resume INR checked from Monday. The patient was seen and examined on the day of discharge. Denies any new complaints, no chest pain, shortness of breath, palpitations. DISCHARGE MEDICATIONS: 1. Cardizem-CD 240 mg daily (dose increased). 2. Doxycycline 100 mg b.i.d. for the next 5 days. All other home medications were continued. INPATIENT CONSULTANTS: 1. Pulmonary, Dr. Escamilla. 2. Cardiology, Dr. Jones Argueta. BRIEF HOSPITAL COURSE: Patient is a 61-year-old female with mitral stenosis, diabetes mellitus type 2 and hypertension who presented to the emergency room with shortness of breath. Please refer to the history and physical dated 07/01/2017 for further details. The patient was admitted to the Intensive Care Unit with a diagnosis of acute on chronic respiratory failure requiring mechanical ventilation. The patient was seen by Cardiology, Dr. Jones Argueta and Pulmonary, Dr. Escamilla. She was later extubated and transferred to telemetry unit. Her medications have been optimized per Cardiology. She was placed on steroids, which have been discontinued on the day of discharge per pulmonary recommendation. She appears stable for discharge. FINAL DIAGNOSES: 1. Acute hypoxic and hypercapnic respiratory failure secondary to acute on chronic diastolic heart f ailure exacerbation, improved with diuretics. 2. Suspected acute bronchitis. 3. Chronic respiratory failure on home oxygen. 4. Mitral stenosis. 5. Chronic atrial fibrillation on anticoagulation. The patient was restarted on warfarin. 6. Morbid obesity with a BMI of 43. 7. Diabetes mellitus type 2. 8. Hypertension. SIGNIFICANT LABORATORY DATA AND X-RAY FINDINGS: 1. ABGs showed pH of 7.28 with pCO2 67.7, pO2 of 60.5, bicarbonate of 31.1. 2. INR on the day of discharge is 1.5. 3. Blood cultures and urine cultures have been negative. 4. Chest x-ray on admission showed pulmonary vascular congestion. Plan of care was discussed with the patient in detail. She stated understanding.
== END 2017-07-07 16:08 | disposition home or self-care (01) | DRG 208 ==
LOC: ERS 08:48 → CCU 10:12 → 2NO 07-05 14:52
PROVIDERS: ADMIT Emergency Medicine; ATTEND Emergency Medicine
PROC: 5A1945Z Respiratory Ventilation, 24-96 Consecutive Hours (ICD-10-PCS; principal; 2017-07-01)
DX: J96.21 Acute and chronic respiratory failure with hypoxia (principal); I50.33 Acute on chronic diastolic (congestive) heart failure; E66.01 Morbid (severe) obesity due to excess calories; I05.2 Rheumatic mitral stenosis with insufficiency; Z68.41 Body mass index [BMI] 40.0-44.9, adult; J96.22 Acute and chronic respiratory failure with hypercapnia; E11.9 Type 2 diabetes mellitus without complications; I10 Essential (primary) hypertension; J20.9 Acute bronchitis, unspecified; I48.2 Chronic atrial fibrillation; Z79.01 Long term (current) use of anticoagulants; E78.5 Hyperlipidemia, unspecified
CPT/HCPCS: 36415; 36416; 51702; 71045; 80048; 80053; 80162; 80202; 81003; 81015; 82010; 82553; 82805; 83605; 83690; 83735; 83880; 84484; 85014; 85018; 85025; 85049; 85610; 85730; 87040; 87086; 93005; 94002; 94003; 94640; 96365; 96375; A4216; C9113; G8978-GP-CI; G8979-GP-CI; G8980-GP-CI; J0456; J0696; J1100; J1650; J1815; J1940; J1956; J2060; J2270; J2405; J2920; J3010; J3370; J7050; J7506; J7611; J7620; Q0162

== ENCOUNTER 2017-07-07 21:12 | Emergency (ER) | payer BC ==
[2017-07-07 21:54] LABS: #Eosinphils 0.2 thou/uL (0.0-0.7); #Lymphocytes 1.9 thou/uL (1.20-3.40); #Monocytes 0.6 thou/uL (0.11-0.59); #Neutrophils 9.6 thou/uL (1.40-6.50); %Basophils 0.1 % (0.0-1.0); %Eosinophils 1.9 % (0.0-10.0); %Lymphocytes 15.5 % (21.0-51.0); %Monocytes 5.2 % (0.0-10.0); %Neutrophils 77.3 % (42.0-75.0); Hemoglobin 11.1 g/dL (12.0-16.0); Mean Corpuscular HGB CONC 33.5 g/dL (32.0-36.0); Mean Corpuscular Hemoglobin 29.4 pg (27.0-31.0); Mean Corpuscular Volume 87.8 fl (81.0-99.0); Mean Platelet Volume 7.3 fL (7.4-10.4); Platelet Count 209 thou/uL (130-400); RBC Distribution Width 13.2 % (11.5-14.5); Red Blood Cell (RBC) Count 3.77 mill/uL (4.20-5.40); White Blood Cell (WBC) Count 12.5 thou/uL (4.8-10.8)
[2017-07-07 22:04] LABS: Digoxin 0.76 ng/mL (0.8-2.0)
[2017-07-07 22:05] LABS: ALT (SGPT) 44 U/L (8-55); AST (SGOT) 33 U/L (5-34); Albumin 3.7 g/dL (3.4-4.8); Alkaline Phosphatase 82 U/L (40-150); Anion Gap 15 mmol/L (10-20); BUN (Urea Nitrogen) 17 mg/dL (9.8-20.1); Bilirubin, Total 0.3 mg/dL (0.2-1.2); CK (CPK) 32 U/L (29-168); Calc. Creatinine Clearance 0 mL/min (70-130); Calcium 9.4 mg/dL (7.8-10.44); Carbon Dioxide 32 mmol/L (23-31); Chloride 93 mmol/L (98-107); Estimated GFR-MDRD 56; Globulin 3.2 g/dL (2.4-3.5); Glucose 274 mg/dL (80-115); Lipase 33 U/L (8-78); Potassium 4.3 mmol/L (3.5-5.1); Protein, Total 6.9 g/dL (6.0-8.3); Sodium 136 mmol/L (136-145)
[2017-07-07 22:07] LABS: CKMB 0.5 ng/mL (0-6.6); Troponin I Less than 0.010 ng/mL (< 0.028)
--- NOTE | 2017-07-07 22:14 | RAD ---
SINGLE VIEW OF THE CHEST: 07/07/17 COMPARISON: 07/03/17 HISTORY: Palpitations and chest pain. FINDINGS: Single view of the chest shows an enlarged but stable cardiomediastinal silhouette. There is no evide nce of consolidation, mass, or pleural effusion. Degenerative changes are seen in the spine. IMPRESSION: Cardiomegaly without evidence of acute cardiopulmonary disease. POS: [facility]
== END 2017-07-07 22:37 | disposition home or self-care (01) ==
LOC: ERS 21:12
DX: R00.2 Palpitations (principal); E11.9 Type 2 diabetes mellitus without complications; I11.0 Hypertensive heart disease with heart failure; I50.9 Heart failure, unspecified; I48.91 Unspecified atrial fibrillation; J44.9 Chronic obstructive pulmonary disease, unspecified; E78.00 Pure hypercholesterolemia, unspecified; Z87.891 Personal history of nicotine dependence; Z79.01 Long term (current) use of anticoagulants; Z79.82 Long term (current) use of aspirin; Z79.4 Long term (current) use of insulin; Z79.899 Other long term (current) drug therapy; Z79.52 Long term (current) use of systemic steroids
CPT/HCPCS: 71045; 80162; 82550; 82553; 83690; 83880; 84484; 85025; 93005

== ENCOUNTER 2017-07-16 18:33 | Emergency (ER) | payer BC ==
[2017-07-16 19:20] LABS: #Eosinphils 0.2 thou/uL (0.0-0.7); #Lymphocytes 1.4 thou/uL (1.20-3.40); #Monocytes 0.7 thou/uL (0.11-0.59); #Neutrophils 5.8 thou/uL (1.40-6.50); %Basophils 0.5 % (0.0-1.0); %Eosinophils 2.7 % (0.0-10.0); %Lymphocytes 17.1 % (21.0-51.0); %Monocytes 8.5 % (0.0-10.0); %Neutrophils 71.2 % (42.0-75.0); Hemoglobin 10.2 g/dL (12.0-16.0); Mean Corpuscular HGB CONC 33.6 g/dL (32.0-36.0); Mean Corpuscular Hemoglobin 29.3 pg (27.0-31.0); Mean Corpuscular Volume 87.4 fl (81.0-99.0); Platelet Count 195 thou/uL (130-400); RBC Distribution Width 13.7 % (11.5-14.5); Red Blood Cell (RBC) Count 3.48 mill/uL (4.20-5.40); White Blood Cell (WBC) Count 8.2 thou/uL (4.8-10.8)
[2017-07-16 20:03] LABS: ALT (SGPT) 48 U/L (8-55); AST (SGOT) 35 U/L (5-34); Albumin 3.5 g/dL (3.4-4.8); Alkaline Phosphatase 74 U/L (40-150); Anion Gap 17 mmol/L (10-20); BUN (Urea Nitrogen) 18 mg/dL (9.8-20.1); Bilirubin, Total 0.3 mg/dL (0.2-1.2); Calc. Creatinine Clearance 0 mL/min (70-130); Calcium 8.9 mg/dL (7.8-10.44); Carbon Dioxide 27 mmol/L (23-31); Chloride 96 mmol/L (98-107); Estimated GFR-MDRD 61; Globulin 3.2 g/dL (2.4-3.5); Glucose 233 mg/dL (80-115); Potassium 4.7 mmol/L (3.5-5.1); Protein, Total 6.7 g/dL (6.0-8.3); Sodium 135 mmol/L (136-145)
--- NOTE | 2017-07-16 20:37 | RAD ---
PORTABLE AP CHEST X-RAY: 07/16/2017 HISTORY: Dyspnea. Shortness of breath. COMPARISON: 07/07/2017 FINDINGS: The cardiac silhouette is magnified by projection but does appear mildly enlarged. The pulmonary vas culature is within normal limits. The lungs remain clear. Vascular calcification is seen in the aor tic arch. There has been no interval change from the prior exam. IMPRESSION: 1. No acute cardiopulmonary process. 2. Cardiomegaly. POS: [facility]
[2017-07-16] MEDS ORDERED: Dexamethasone 10 MG/ML VIAL ONE (20:48)
== END 2017-07-16 21:14 | disposition home or self-care (01) ==
LOC: ERS 18:33
DX: J44.1 Chronic obstructive pulmonary disease with (acute) exacerbation (principal); E11.9 Type 2 diabetes mellitus without complications; E78.00 Pure hypercholesterolemia, unspecified; I11.0 Hypertensive heart disease with heart failure; I50.9 Heart failure, unspecified; I48.91 Unspecified atrial fibrillation; Z87.891 Personal history of nicotine dependence
CPT/HCPCS: 71045; 80053; 85025; 93005; 94760; 96374; J1100

== ENCOUNTER 2017-07-17 01:18 | Emergency (ER) | payer BC ==
[2017-07-17 01:47] LABS: #Lymphocytes 0.8 thou/uL (1.20-3.40); #Monocytes 0.1 thou/uL (0.11-0.59); #Neutrophils 7.4 thou/uL (1.40-6.50); %Basophils 0.2 % (0.0-1.0); %Eosinophils 0.6 % (0.0-10.0); %Lymphocytes 9.8 % (21.0-51.0); %Monocytes 0.7 % (0.0-10.0); %Neutrophils 88.7 % (42.0-75.0); Mean Corpuscular Hemoglobin 29.1 pg (27.0-31.0); Mean Corpuscular Volume 88.4 fl (81.0-99.0); Mean Platelet Volume 7.3 fL (7.4-10.4); Platelet Count 187 thou/uL (130-400); RBC Distribution Width 13.4 % (11.5-14.5); Red Blood Cell (RBC) Count 3.76 mill/uL (4.20-5.40); White Blood Cell (WBC) Count 8.3 thou/uL (4.8-10.8)
[2017-07-17 02:05] LABS: Anion Gap 16 mmol/L (10-20); BUN (Urea Nitrogen) 21 mg/dL (9.8-20.1); Calc. Creatinine Clearance 0 mL/min (70-130); Calcium 9.9 mg/dL (7.8-10.44); Carbon Dioxide 28 mmol/L (23-31); Chloride 94 mmol/L (98-107); Estimated GFR-MDRD 47; Glucose 469 mg/dL (80-115); Potassium 4.8 mmol/L (3.5-5.1); Sodium 133 mmol/L (136-145)
[2017-07-17] MEDS ORDERED: Insulin Regular 300 UNITS/3 ML VIAL ONE (02:22)
== END 2017-07-17 03:04 | disposition home or self-care (01) ==
LOC: ERS 01:18
DX: J44.9 Chronic obstructive pulmonary disease, unspecified (principal); E11.9 Type 2 diabetes mellitus without complications; E78.00 Pure hypercholesterolemia, unspecified; I11.0 Hypertensive heart disease with heart failure; I50.9 Heart failure, unspecified; I48.91 Unspecified atrial fibrillation; Z87.891 Personal history of nicotine dependence; Z79.4 Long term (current) use of insulin; Z79.82 Long term (current) use of aspirin; Z79.899 Other long term (current) drug therapy
CPT/HCPCS: 36415; 36416; 80048; 83880; 85025; J1815

== ENCOUNTER 2017-07-17 03:16 | Emergency (ER) | payer BC | END 2017-07-17 04:28 | disposition home or self-care (01) | LOC: ERS 03:16 | DX: J44.9 Chronic obstructive pulmonary disease, unspecified (principal); E11.9 Type 2 diabetes mellitus without complications; I11.0 Hypertensive heart disease with heart failure; I50.9 Heart failure, unspecified; I48.91 Unspecified atrial fibrillation; Z87.891 Personal history of nicotine dependence; Z79.01 Long term (current) use of anticoagulants; Z79.899 Other long term (current) drug therapy; Z79.4 Long term (current) use of insulin | CPT/HCPCS: 94640; J7620 ==

== ENCOUNTER 2017-07-17 16:08 | Observation (INO) | payer BC ==
[2017-07-17 17:14] LABS: #Lymphocytes 0.9 thou/uL (1.20-3.40); #Monocytes 0.6 thou/uL (0.11-0.59); #Neutrophils 9.4 thou/uL (1.40-6.50); %Basophils 0.1 % (0.0-1.0); %Eosinophils 0.2 % (0.0-10.0); %Lymphocytes 8.4 % (21.0-51.0); %Monocytes 5.1 % (0.0-10.0); %Neutrophils 86.4 % (42.0-75.0); Hemoglobin 10.5 g/dL (12.0-16.0); Mean Corpuscular HGB CONC 33.5 g/dL (32.0-36.0); Mean Corpuscular Hemoglobin 29.6 pg (27.0-31.0); Mean Corpuscular Volume 88.4 fl (81.0-99.0); Mean Platelet Volume 7.1 fL (7.4-10.4); Platelet Count 210 thou/uL (130-400); RBC Distribution Width 13.4 % (11.5-14.5); Red Blood Cell (RBC) Count 3.54 mill/uL (4.20-5.40); White Blood Cell (WBC) Count 10.9 thou/uL (4.8-10.8)
[2017-07-17 17:34] LABS: ALT (SGPT) 48 U/L (8-55); AST (SGOT) 25 U/L (5-34); Albumin 3.7 g/dL (3.4-4.8); Alkaline Phosphatase 74 U/L (40-150); Anion Gap 18 mmol/L (10-20); BUN (Urea Nitrogen) 23 mg/dL (9.8-20.1); Bilirubin, Total 0.2 mg/dL (0.2-1.2); CK (CPK) 84 U/L (29-168); Calc. Creatinine Clearance 0 mL/min (70-130); Calcium 9.9 mg/dL (7.8-10.44); Carbon Dioxide 22 mmol/L (23-31); Chloride 96 mmol/L (98-107); Estimated GFR-MDRD 49; Globulin 3.6 g/dL (2.4-3.5); Glucose 416 mg/dL (80-115); Potassium 4.9 mmol/L (3.5-5.1); Protein, Total 7.3 g/dL (6.0-8.3); Sodium 131 mmol/L (136-145)
[2017-07-17 17:38] LABS: CKMB 1.6 ng/mL (0-6.6); Troponin I Less than 0.010 ng/mL (< 0.028)
[2017-07-17] MEDS ORDERED: Furosemide 40 MG/4 ML VIAL ONE (19:14)
[2017-07-17 19:24] LABS: Base Excess (BEa) 3.8 mEq/L (0 (+/-) 2.5); CO2 Tension 41.1 mmHg (35.0-45.0); Hematocrit-ABG 34.4 % (36.0-47.0); O2 Tension (PaO2) 101.2 mmHg (80.0-100.0); pH, Arterial 7.45 (7.35-7.45)
[2017-07-17 19:25] LABS: ALV-art Gradient 47.065 (0-20); Calcium, Ionized 1.2 mmol/L (1.12-1.30); Puncture Site LBR
--- NOTE | 2017-07-17 19:44 | RAD ---
ONE VIEW CHEST: HISTORY: Chest pain. COMPARISON: 07/16/2017 FINDINGS: Slight elongation of the aorta. Enlarged cardiac silhouette. Pulmonary vessels are within normal li mits. Costophrenic angles are clear. Stable hyperinflation with chronic changes. No pneumothorax o r osseous abnormalities. IMPRESSION: No acute cardiopulmonary process. No significant interval change. POS: [facility]
[2017-07-17 21:24] VITALS: BMI 47.5
[2017-07-17 21:27] LABS: Troponin I Less than 0.010 ng/mL (< 0.028)
[2017-07-17] MEDS ORDERED: Ondansetron HCl/PF 4 MG/2 ML Vial IVP PRN (21:54)
[2017-07-17] MEDS ORDERED: Ondansetron ODT 4 MG TAB SL PRN (21:54)
[2017-07-17] MEDS ORDERED: traMADol HCl 50 MG TAB PO PRN (21:57)
[2017-07-17] MEDS ORDERED: Dextrose 5% in Water 1,000 ML IV PRN (21:59)
[2017-07-17] MEDS ORDERED: HumaLOG 300 UNITS/3 ML VIAL SC PRN ×2 (21:59)
[2017-07-17] MEDS ORDERED: Dextrose 50% Abboject 50 ML SYRINGE SLOW IVP PRN (21:59)
[2017-07-17] MEDS ORDERED: DULAGLUTIDE SQ SCH (22:00)
[2017-07-17] MEDS ORDERED: Digoxin 0.25 MG TAB PO SCH (22:45)
[2017-07-17] MEDS ORDERED: Insulin Detemir 100 UNITS/ML 20 UNITS in Pre-Filled Syringe 1 EACH SC SCH (22:45)
[2017-07-17] MEDS ORDERED: Warfarin Sodium 7.5 MG TAB PO SCH (22:45)
[2017-07-17] MEDS ORDERED: Atorvastatin Calcium 20 MG TAB PO SCH (22:45)
[2017-07-18 00:19] LABS: Troponin I Less than 0.010 ng/mL (< 0.028)
[2017-07-18] MEDS ORDERED: Acetaminophen 325 MG TAB PO PRN (00:22)
[2017-07-18] MEDS ORDERED: Milk Of Magnesia 30 ML UDCUP PO PRN (00:22)
[2017-07-18] MEDS ORDERED: Albuterol Sulfate 2.5 mg/3 ml Neb NEB PRN (00:24)
--- NOTE | 2017-07-18 02:13 | HP ---
PRIMARY CARE PHYSICIAN: Jassi Ramos M.D. PRESENTING COMPLAINT: Shortness of breath. HISTORY OF PRESENT ILLNESS: Ms. Steff Darling is a 61-year-old female with a past medical history of type 2 diabetes, CHF, chronic respiratory failure on home O2 , COPD, atrial fibrillation, and mitral valve dysfunction. She presented to the emergency room today with complaints of worsening shortness of breath. She reports being seen by her primary care physician who started her on a diuretic, but she felt she was not diuresing enough and primary care physician told her to report to the emergency room. She reports being in the emergency room yesterday for hyperglycemia. She was started on IV fluids, but fluids was discontinued after about 300 mL bolus already administered. She has recently been treated for pneumonia. In addition to shortness of breath, she reports a chest pressure, rated 5-7/10, which is not radiate, is left-sided and has no aggravating or relieving factors. She has no nausea, vomiting, diarrhea, constipation, abdominal pain. She has no urinary symptoms. At the emergency room, her vital signs were within normal limits. Oxygen saturation was 97% on 2 liters of oxygen. Physical examination revealed moderate respiratory distress. EKG showed nonspecific ST segment abnormalities with chest x-ray showing some vascular congestion. Labs were significant for CBC with borderline elevated WBC at 10.9, D-dimer was less than 0.27. ABG was largely unremarkable and CMP revealed hyperglycemia of 416. Initial troponin was less than 0.010. BNP was 152, which is markedly elevated. BNP that was done earlier in the day, which was just 31. She was then admitted for acute congestive heart failure exacerbation. PAST MEDICAL HISTORY: As stated in the HPI. PAST SURGICAL HISTORY: Status post ablation for atrial fibrillation, three C- sections, cholecystectomy, appendectomy, and tonsillectomy. FAMILY HISTORY: Reviewed and noncontributory. SOCIAL HISTORY: She is a former smoker. She does not drink alcohol or use illicit drugs. ALLERGIES: AMPICILLIN, DRONEDARONE, HYDROCHLORIDE, FLECAINIDE and SULFA DRUGS. HOME MEDICATIONS: Albuterol sulfate 2 puffs q.6 hours p.r.n. for shortness of breath, insulin glargine 80 units subcu q.p.m., potassium chloride 10 mEq daily , and 20 mEq as well ? p.r.n., sucralfate 1 gram q.i.d., torsemide 40 mg daily, torsemide 20 mg at noon, aspirin 81 mg daily, atorvastatin 20 mg at bedtime, digoxin 250 mcg at bedtime, diltiazem 240 mg daily, docusate 240 mg daily, [id number] mcg q.7 days, glyburide 10 mg daily, ipratropium/albuterol sulfate 3 mL nebulizer q.i.d. p.r.n. for shortness of breath, lisinopril 20 mg daily, metolazone 5 mg daily, metoprolol 12.5 mg b.i.d., tramadol 50 mg t.i.d. p.r.n. for pain, warfarin 7.5 mg on Mondays, Wednesdays, and Fridays. REVIEW OF SYSTEMS: Twelve point review of systems conducted and negative except as stated in the HPI. PHYSICAL EXAMINATION: VITAL SIGNS: Blood pressure 116/56, oxygen saturation 99% on 2 liters of oxygen , respiratory rate 16, pulse rate 84, temperature 97.8 degrees Fahrenheit. GENERAL: Not in acute distress, sleeping comfortable and easily arousable. She is not in any pain. HEENT: Normocephalic, atraumatic. No JVD, not pale, anicteric. Moist mucous membranes. NECK: Supple, full range of movement. RESPIRATORY: Vesicular breath sounds with mild bibasilar crackles bilaterally. No wheezes. CARDIOVASCULAR: S1 and S2 with systolic murmur, irregular rhythm, regular rate. No gallops or rubs. ABDOMEN: Soft, obese. Bowel sounds normoactive, nontender, nondistended, no hepatosplenomegaly. NEUROLOGIC: Alert and well oriented to time, place and person. No focal deficits. MUSCULOSKELETAL: 1+ lower extremity edema bilaterally. SKIN: Warm, dry, well-perfused. No rashes or lesions. PSYCHIATRIC: Normal mood and affect. LABORATORY DATA: As stated in HPI. EKG as stated in HPI. Chest x-ray as stated in HPI. ASSESSMENT AND PLAN: 1. Acute Diastolic Congestive heart failure exacerbation: Patient's last echocardiogram was done in 03/2017 and it showed a normal left ventricular function with thickened mitral valves and mild to moderate aortic regurgitation , mitral stenosis, mitral regurgitation, tricuspid regurgitation. The patient has been started on IV bumetanide 1 mg q.12 hours, because it seems she does not respond well to furosemide and is on torsemide at home. We will obtain Cardiology consults, monitor ins and outs, daily weights and monitor on telemetry. She might also need a repeat TTE, but will defer to Cardiology service. 2. Chronic respiratory failure: Patient is on 2 liters oxygen at home, which will continue. 3. Chronic obstructive pulmonary disease: She is not in acute exacerbation. We will resume home bronchodilator therapy and hold off on steroids or antibiotics for now. 4. Atrial fibrillation. Patient is rate controlled. We will continue her on home regimen of digoxin, metoprolol, and Coumadin. We will monitor INR daily. 5. Type 2 diabetes mellitus with hyperglycemia: We will start on long-acting insulin, sliding scale insulin, glyburide. We will also place on a diabetic diet, hyperglycemia protocol, and fingerstick glucose a.c. h.s. We will also obtain hemoglobin A1c, hyperlipidemia, continue statins. 6. Mitral valve dysfunction: Stable. The patient is scheduled for procedure? repair soon. She will follow up with her Cardiovascular surgeon on an outpatient basis. 7. Deep venous thrombosis prophylaxis: Coumadin. CODE STATUS: FULL CODE. MTDD
[2017-07-18 05:45] LABS: #Lymphocytes 1.3 thou/uL (1.20-3.40); #Monocytes 0.6 thou/uL (0.11-0.59); #Neutrophils 9.4 thou/uL (1.40-6.50); %Basophils 0.1 % (0.0-1.0); %Eosinophils 0.2 % (0.0-10.0); %Lymphocytes 11.6 % (21.0-51.0); %Monocytes 5.6 % (0.0-10.0); %Neutrophils 82.5 % (42.0-75.0); Hemoglobin 9.9 g/dL (12.0-16.0); Mean Corpuscular HGB CONC 32.7 g/dL (32.0-36.0); Mean Corpuscular Hemoglobin 28.9 pg (27.0-31.0); Mean Corpuscular Volume 88.6 fl (81.0-99.0); Mean Platelet Volume 7.2 fL (7.4-10.4); Platelet Count 204 thou/uL (130-400); RBC Distribution Width 13.4 % (11.5-14.5); White Blood Cell (WBC) Count 11.4 thou/uL (4.8-10.8)
[2017-07-18 05:46] LABS: INR-International Normal Ratio 1.7; Prothrombin Time 20.5 SEC (12.0-14.7)
[2017-07-18 05:48] LABS: Hemoglobin A1c 7.2 % (4.0-6.0)
[2017-07-18 05:51] LABS: Anion Gap 14 mmol/L (10-20); BUN (Urea Nitrogen) 24 mg/dL (9.8-20.1); Calc. Creatinine Clearance 123 mL/min (70-130); Calcium 9.7 mg/dL (7.8-10.44); Carbon Dioxide 29 mmol/L (23-31); Chloride 94 mmol/L (98-107); Estimated GFR-MDRD 63; Glucose 282 mg/dL (80-115); Potassium 4.6 mmol/L (3.5-5.1); Sodium 132 mmol/L (136-145)
[2017-07-18] MEDS ORDERED: Furosemide 40 MG/4 ML VIAL SLOW IVP SCH ×3 (06:00→14:00)
[2017-07-18] MEDS ORDERED: Bumetanide 1 MG/4 ML VIAL IVP SCH (06:00)
[2017-07-18] MEDS ORDERED: glyBURIDE 5 MG TAB PO SCH (09:00)
[2017-07-18] MEDS ORDERED: Metolazone 5 MG TAB PO SCH (09:00)
[2017-07-18] MEDS ORDERED: Lisinopril 20 MG TAB PO SCH (09:00)
[2017-07-18] MEDS ORDERED: Docusate Calcium (SURFAK) 240 MG CAP PO SCH (09:00)
[2017-07-18] MEDS ORDERED: Metoprolol Tartrate 25 MG TAB PO SCH (09:00)
[2017-07-18] MEDS ORDERED: Insulin Detemir 100 UNITS/ML 20 UNITS in Pre-Filled Syringe 1 EACH SC SCH ×2 (09:00→21:00)
[2017-07-18] MEDS ORDERED: Aspirin 81 mg Enteric Coated Tablet PO SCH (09:00)
[2017-07-18] MEDS ORDERED: Heparin 5,000 UNITS/ML VIAL SC SCH (09:00)
[2017-07-18] MEDS ORDERED: Potassium Chloride 20 MEQ TAB PO SCH (09:00)
[2017-07-18] MEDS ORDERED: Sucralfate 1 GM TAB PO SCH ×2 (09:30→13:00)
[2017-07-18 11:42] VITALS: BP 110/56; TEMP 97.9
--- NOTE | 2017-07-18 13:26 | DIS ---
PRIMARY CARE PROVIDER: Jassi Ramos M.D. DATE OFADMISSION: 07/17/2017 DATE OF DISCHARGE: 07/18/2017 DISCHARGE DIAGNOSIS: Acute diastolic congestive heart failure exacerbation ( ACC AHA Stage C). CONDITION OF PATIENT ON THE DAY OF DISCHARGE: Stable. I assessed Ms. Darling on the day of discharge. She denies any chest pain or shortness of breath. Vital signs are stable. S1 and S2 are heard, regular. Lungs are clear to auscultation bilaterally. DISCHARGE MEDICATIONS: Patient was advised to take an extra dose of metolazone if she gains more than 2 pounds in weight. Otherwise, no change was made to her preadmission home medications as dictated on history and physical note from 07/17/2017. HOSPITAL COURSE: Ms. Darling is a pleasant 61-year-old lady, who was admitted to [facility] on 07/17/2017 for acute on chronic diastolic congestive heart failure. She received intravenous diuretics. She improved clinically. She was seen by Cardiology Service and was cleared for discharge home. Cardiology Service advised her to take an extra dose of metolazone if she gains more than 2 pounds in weight. Many thanks for allowing me to participate in your patient's care. Please feel free to contact me with any questions or concerns. DISCHARGE DESTINATION: Home. MARY
[2017-07-18] MEDS ORDERED: Atorvastatin Calcium 20 MG TAB PO SCH (21:00)
[2017-07-18] MEDS ORDERED: Digoxin 0.25 MG TAB PO SCH (21:00)
[2017-07-19] MEDS ORDERED: Warfarin Sodium 7.5 MG TAB PO SCH (17:00)
== END 2017-07-18 13:51 | disposition home or self-care (01) ==
LOC: ERS 16:08 → 2SW 19:14
PROVIDERS: ADMIT Family Medicine; ATTEND Family Medicine
DX: I50.33 Acute on chronic diastolic (congestive) heart failure (principal); J96.10 Chronic respiratory failure, unspecified whether with hypoxia or hypercapnia; J44.9 Chronic obstructive pulmonary disease, unspecified; E11.65 Type 2 diabetes mellitus with hyperglycemia; I48.91 Unspecified atrial fibrillation; I34.0 Nonrheumatic mitral (valve) insufficiency; Z88.1 Allergy status to other antibiotic agents; Z88.2 Allergy status to sulfonamides; Z88.8 Allergy status to other drugs, medicaments and biological substances; Z79.01 Long term (current) use of anticoagulants; Z79.4 Long term (current) use of insulin; Z79.82 Long term (current) use of aspirin; Z79.899 Other long term (current) drug therapy; Z99.81 Dependence on supplemental oxygen; Z98.890 Other specified postprocedural states; Z87.891 Personal history of nicotine dependence
CPT/HCPCS: 36415; 36416; 71045; 80048; 82553; 82805; 83036; 83690; 83880; 84484; 85025; 85379; 85610; 93005; 94640; 94760; 96361; 96374; 96376; A4216; G0378; J1644; J1815; J1940; J7620

== ENCOUNTER 2017-07-29 20:42 | Emergency (ER) | payer BC ==
[2017-07-29 21:42] LABS: #Eosinphils 0.3 thou/uL (0.0-0.7); #Lymphocytes 2.4 thou/uL (1.20-3.40); #Monocytes 0.7 thou/uL (0.11-0.59); #Neutrophils 6.9 thou/uL (1.40-6.50); %Basophils 0.4 % (0.0-1.0); %Eosinophils 2.5 % (0.0-10.0); %Monocytes 6.6 % (0.0-10.0); %Neutrophils 67.4 % (42.0-75.0); Hemoglobin 11.5 g/dL (12.0-16.0); Mean Corpuscular HGB CONC 33.8 g/dL (32.0-36.0); Mean Corpuscular Hemoglobin 29.3 pg (27.0-31.0); Mean Corpuscular Volume 86.6 fl (81.0-99.0); Mean Platelet Volume 6.9 fL (7.4-10.4); Platelet Count 253 thou/uL (130-400); RBC Distribution Width 13.2 % (11.5-14.5); Red Blood Cell (RBC) Count 3.94 mill/uL (4.20-5.40); White Blood Cell (WBC) Count 10.3 thou/uL (4.8-10.8)
[2017-07-29 22:03] LABS: ALT (SGPT) 31 U/L (8-55); AST (SGOT) 25 U/L (5-34); Albumin 3.8 g/dL (3.4-4.8); Alkaline Phosphatase 84 U/L (40-150); Anion Gap 15 mmol/L (10-20); BUN (Urea Nitrogen) 35 mg/dL (9.8-20.1); Bilirubin, Total 0.3 mg/dL (0.2-1.2); Calc. Creatinine Clearance 0 mL/min (70-130); Carbon Dioxide 34 mmol/L (23-31); Chloride 86 mmol/L (98-107); Estimated GFR-MDRD 38; Globulin 3.7 g/dL (2.4-3.5); Glucose 251 mg/dL (80-115); Potassium 3.8 mmol/L (3.5-5.1); Protein, Total 7.5 g/dL (6.0-8.3); Sodium 131 mmol/L (136-145)
[2017-07-29 23:03] LABS: Bilirubin Negative (Negative); Clarity CLEAR (Clear); Glucose, Urine (Dipstick) 100 mg/dL (Negative); Leukocyte Small (Negative); Nitrite Negative (Negative); Protein, Urine (Dipstick) Negative (Neg-Trace); Specific Gravity, Urine 1.015 (1.002-1.036); Urobilinogen 0.2 mg/dL (0.2-1.0); pH, Urine 7.5 (5.0-9.0)
[2017-07-29 23:05] LABS: Bacteria/HPF None Seen HPF (None Seen); Hyaline Casts/LPF 0-3 HYALINE CAST LPF (0-3 Hyaline); Pathc Cast-AUWi Flag 0.29 (0-2.49); Squamous Epithelial 0-3 HPF (0-3)
[2017-07-29 23:09] LABS: Blood, Urine Negative (Negative)
[2017-07-29 23:13] LABS: RBC/HPF 0-3 HPF (0-3)
[2017-07-29 23:27] LABS: INR-International Normal Ratio 1.8; PTT 38.1 SEC (22.9-36.1); Prothrombin Time 21.7 SEC (12.0-14.7)
[2017-07-29 23:36] LABS: Troponin I 0.019 ng/mL (< 0.028)
--- NOTE | 2017-07-30 00:05 | CT ---
CT ANGIOGRAM NECK INCLUDING 3D RENDERIN07/29/17 HISTORY: 61-year-old female with history of neck pain with concern for vertebral dissection. The origins of the right and left vertebral arteries are unremarkable. Vertebral arteries demonstrate flow throughout and are normal in caliber. No evidence for stenosis or vertebral dissection. Basilar artery is unremarkable. There is calcific plaque disease involving both right and left internal car otid arteries. On the right side, there is a high grade approximately 70-80% stenosis of the proximal right ICA with what appears to be an associated ulcerating plaque. On the left side, there is some c alcified plaque but no hemodynamically significant associated stenosis. There are some left supraclav icular lymph nodes up to approximately 1.1 cm in size. Bilateral sinus mucosal disease. IMPRESSION: Unremarkable bilateral vertebral arteries and basilar artery. No evidence for vertebral artery dissec tion. Significant stenosis of the proximal right ICA at approximately 70-80% stenosis with associated prominent ulcerating plaque. Mild, less than 50% stenosis of the proximal left ICA. Minimally enlarg ed left supraclavicular lymph nodes. POS: [facility]
[2017-07-30] MEDS ORDERED: Furosemide 20 MG/2 ML VIAL ONE (00:56)
== END 2017-07-30 01:05 | disposition home or self-care (01) ==
LOC: ERS 20:42
DX: M54.2 Cervicalgia (principal); I65.21 Occlusion and stenosis of right carotid artery; E11.9 Type 2 diabetes mellitus without complications; E78.00 Pure hypercholesterolemia, unspecified; I11.0 Hypertensive heart disease with heart failure; I50.9 Heart failure, unspecified; I48.91 Unspecified atrial fibrillation; J44.9 Chronic obstructive pulmonary disease, unspecified; Z87.891 Personal history of nicotine dependence; Z79.899 Other long term (current) drug therapy; Z79.01 Long term (current) use of anticoagulants; Z79.82 Long term (current) use of aspirin; Z79.4 Long term (current) use of insulin
CPT/HCPCS: 36415; 70498; 80053; 81003; 81015; 84484; 85025; 85610; 85730; 93005; 94760; 96361; 96374; J1940

== ENCOUNTER 2017-07-30 02:34 | Emergency (ER) | payer BC | END 2017-07-30 03:20 | disposition home or self-care (01) | LOC: ERS 02:34 | DX: Z03.89 Encounter for observation for other suspected diseases and conditions ruled out (principal); E11.9 Type 2 diabetes mellitus without complications; E78.00 Pure hypercholesterolemia, unspecified; I11.0 Hypertensive heart disease with heart failure; I50.9 Heart failure, unspecified; I48.91 Unspecified atrial fibrillation; J44.9 Chronic obstructive pulmonary disease, unspecified; Z87.891 Personal history of nicotine dependence; Z79.4 Long term (current) use of insulin; Z79.82 Long term (current) use of aspirin; Z79.899 Other long term (current) drug therapy; Z79.01 Long term (current) use of anticoagulants | CPT/HCPCS: 93005 ==

== ENCOUNTER 2017-07-30 08:15 | Emergency (ER) | payer BC ==
[2017-07-30] MEDS ORDERED: Ondansetron ODT 4 MG TAB ONE (10:11)
== END 2017-07-30 10:15 | disposition home or self-care (01) ==
LOC: ERS 08:15
DX: E86.0 Dehydration (principal); E11.9 Type 2 diabetes mellitus without complications; E78.00 Pure hypercholesterolemia, unspecified; I11.0 Hypertensive heart disease with heart failure; I50.9 Heart failure, unspecified; J44.9 Chronic obstructive pulmonary disease, unspecified; I48.91 Unspecified atrial fibrillation; Z87.891 Personal history of nicotine dependence; Z79.82 Long term (current) use of aspirin; Z79.899 Other long term (current) drug therapy; Z79.4 Long term (current) use of insulin
CPT/HCPCS: 93005; 99283; Q0162

== ENCOUNTER 2017-09-04 18:37 | Emergency (ER) | payer BC ==
[2017-09-04 19:20] LABS: #Basophils 0.1 thou/uL (0.0-0.2); #Eosinphils 0.1 thou/uL (0.0-0.7); #Lymphocytes 2.3 thou/uL (1.20-3.40); #Monocytes 0.8 thou/uL (0.11-0.59); %Basophils 0.5 % (0.0-1.0); %Lymphocytes 20.4 % (21.0-51.0); %Monocytes 7.1 % (0.0-10.0); %Neutrophils 71.1 % (42.0-75.0); Hemoglobin 12.2 g/dL (12.0-16.0); Mean Corpuscular HGB CONC 34.3 g/dL (32.0-36.0); Mean Corpuscular Hemoglobin 29.3 pg (27.0-31.0); Mean Corpuscular Volume 85.6 fl (81.0-99.0); Mean Platelet Volume 7.3 fL (7.4-10.4); Platelet Count 210 thou/uL (130-400); RBC Distribution Width 13.6 % (11.5-14.5); Red Blood Cell (RBC) Count 4.17 mill/uL (4.20-5.40); White Blood Cell (WBC) Count 11.3 thou/uL (4.8-10.8)
[2017-09-04 19:33] LABS: ALT (SGPT) 30 U/L (8-55); AST (SGOT) 22 U/L (5-34); Albumin 3.9 g/dL (3.4-4.8); Alkaline Phosphatase 91 U/L (40-150); Anion Gap 16 mmol/L (10-20); BUN (Urea Nitrogen) 25 mg/dL (9.8-20.1); Bilirubin, Total 0.3 mg/dL (0.2-1.2); CK (CPK) 66 U/L (29-168); Calc. Creatinine Clearance 0 mL/min (70-130); Calcium 9.8 mg/dL (7.8-10.44); Carbon Dioxide 28 mmol/L (23-31); Chloride 91 mmol/L (98-107); Estimated GFR-MDRD 46; Glucose 333 mg/dL (80-115); Protein, Total 7.9 g/dL (6.0-8.3); Sodium 131 mmol/L (136-145)
[2017-09-04 19:37] LABS: CKMB 0.5 ng/mL (0-6.6); Troponin I Less than 0.010 ng/mL (< 0.028)
--- NOTE | 2017-09-04 19:45 | RAD ---
PORTABLE CHEST: INDICATIONS: Chest pain. COMPARISON: 07/17/2017 FINDINGS: Cardiomegaly. Mild vascular engorgement. No infiltrate or significant edema. Tiny effusions cannot be excluded. IMPRESSION: 1. Cardiomegaly. 2. Mild vascular engorgement. POS: [facility]
[2017-09-04 22:28] LABS: Troponin I Less than 0.010 ng/mL (< 0.028)
== END 2017-09-04 23:43 | disposition home or self-care (01) ==
LOC: ERS 18:37
DX: R07.9 Chest pain, unspecified (principal); Z87.891 Personal history of nicotine dependence; Z79.899 Other long term (current) drug therapy; Z79.82 Long term (current) use of aspirin; Z79.01 Long term (current) use of anticoagulants
CPT/HCPCS: 36415; 71045; 80053; 82550; 82553; 83880; 84484; 85025; 93005; 94760

== ENCOUNTER 2017-09-07 06:22 | Emergency (ER) | payer BC ==
[2017-09-07] MEDS ORDERED: Nitroglycerin 0.4 MG TAB (25 Tab Bottle) ONE (06:39)
[2017-09-07 07:22] LABS: #Basophils 0.1 thou/uL (0.0-0.2); #Eosinphils 0.1 thou/uL (0.0-0.7); #Lymphocytes 2.3 thou/uL (1.20-3.40); #Monocytes 0.9 thou/uL (0.11-0.59); #Neutrophils 6.4 thou/uL (1.40-6.50); %Basophils 0.6 % (0.0-1.0); %Eosinophils 1.3 % (0.0-10.0); %Lymphocytes 23.6 % (21.0-51.0); %Monocytes 8.8 % (0.0-10.0); %Neutrophils 65.7 % (42.0-75.0); Hemoglobin 11.7 g/dL (12.0-16.0); Mean Corpuscular HGB CONC 33.3 g/dL (32.0-36.0); Mean Corpuscular Hemoglobin 29.1 pg (27.0-31.0); Mean Corpuscular Volume 87.3 fl (81.0-99.0); Mean Platelet Volume 7.9 fL (7.4-10.4); Platelet Count 199 thou/uL (130-400); RBC Distribution Width 13.8 % (11.5-14.5); Red Blood Cell (RBC) Count 4.02 mill/uL (4.20-5.40); White Blood Cell (WBC) Count 9.7 thou/uL (4.8-10.8)
[2017-09-07 07:44] LABS: ALT (SGPT) 25 U/L (8-55); AST (SGOT) 19 U/L (5-34); Albumin 3.7 g/dL (3.4-4.8); Alkaline Phosphatase 91 U/L (40-150); Anion Gap 14 mmol/L (10-20); BUN (Urea Nitrogen) 31 mg/dL (9.8-20.1); Bilirubin, Total 0.3 mg/dL (0.2-1.2); Calc. Creatinine Clearance 0 mL/min (70-130); Calcium 9.9 mg/dL (7.8-10.44); Carbon Dioxide 31 mmol/L (23-31); Chloride 87 mmol/L (98-107); Estimated GFR-MDRD 44; Globulin 3.7 g/dL (2.4-3.5); Glucose 360 mg/dL (80-115); Potassium 4.2 mmol/L (3.5-5.1); Protein, Total 7.4 g/dL (6.0-8.3); Sodium 128 mmol/L (136-145)
[2017-09-07 07:47] LABS: CKMB 0.7 ng/mL (0-6.6); Troponin I Less than 0.010 ng/mL (< 0.028)
[2017-09-07] MEDS ORDERED: Insulin Regular 300 UNITS/3 ML VIAL ONE (08:28)
[2017-09-07] MEDS ORDERED: Famotidine 20 MG TAB ONE (08:28)
== END 2017-09-07 08:46 | disposition home or self-care (01) ==
LOC: ERS 06:22
DX: R00.1 Bradycardia, unspecified (principal); E11.9 Type 2 diabetes mellitus without complications; E78.00 Pure hypercholesterolemia, unspecified; I11.0 Hypertensive heart disease with heart failure; I50.9 Heart failure, unspecified; I48.91 Unspecified atrial fibrillation; J44.9 Chronic obstructive pulmonary disease, unspecified; Z87.891 Personal history of nicotine dependence; Z79.899 Other long term (current) drug therapy; Z79.82 Long term (current) use of aspirin; Z79.4 Long term (current) use of insulin
CPT/HCPCS: 36415; 80053; 82553; 84484; 85025; 93005; J1815

== ENCOUNTER 2017-09-13 07:26 | Emergency (ER) | payer BC ==
[2017-09-13 08:08] LABS: #Eosinphils 0.1 thou/uL (0.0-0.7); #Lymphocytes 2.1 thou/uL (1.20-3.40); #Monocytes 0.7 thou/uL (0.11-0.59); %Basophils 0.2 % (0.0-1.0); %Eosinophils 1.5 % (0.0-10.0); %Lymphocytes 20.7 % (21.0-51.0); %Neutrophils 70.6 % (42.0-75.0); Hemoglobin 11.4 g/dL (12.0-16.0); Mean Corpuscular HGB CONC 35.4 g/dL (32.0-36.0); Mean Corpuscular Hemoglobin 30.8 pg (27.0-31.0); Mean Corpuscular Volume 87.2 fL (78.0-98.0); Mean Platelet Volume 7.5 fL (7.4-10.4); Platelet Count 184 thou/uL (130-400); RBC Distribution Width 13.5 % (11.5-14.5); Red Blood Cell (RBC) Count 3.71 mill/uL (4.20-5.40); White Blood Cell (WBC) Count 9.9 thou/uL (4.8-10.8)
[2017-09-13 08:27] LABS: ALT (SGPT) 27 U/L (8-55); AST (SGOT) 24 U/L (5-34); Albumin 3.5 g/dL (3.4-4.8); Alkaline Phosphatase 79 U/L (40-150); Anion Gap 14 mmol/L (10-20); BUN (Urea Nitrogen) 25 mg/dL (9.8-20.1); Bilirubin, Total 0.4 mg/dL (0.2-1.2); Calc. Creatinine Clearance 0 mL/min (70-130); Calcium 9.3 mg/dL (7.8-10.44); Carbon Dioxide 30 mmol/L (23-31); Chloride 92 mmol/L (98-107); Estimated GFR-MDRD 46; Globulin 3.1 g/dL (2.4-3.5); Glucose 363 mg/dL (80-115); Potassium 4.1 mmol/L (3.5-5.1); Protein, Total 6.6 g/dL (6.0-8.3); Sodium 132 mmol/L (136-145)
[2017-09-13 08:29] LABS: CKMB 1.3 ng/mL (0-6.6); Troponin I Less than 0.010 ng/mL (< 0.028)
--- NOTE | 2017-09-13 08:56 | RAD ---
PORTABLE CHEST 1 VIEW: Date: 09/13/17 Time: 0806 hours HISTORY: Shortness of breath. FINDINGS/IMPRESSION: Comparison made with exam of 09/04/17. The heart is enlarged. The lungs are expanded without focal areas of consolidation, pneumothoraces, f rank pulmonary edema, or pleural effusions. There is mild prominence of the pulmonary vascularity. POS: [facility]
[2017-09-13 11:41] LABS: Troponin I Less than 0.010 ng/mL (< 0.028)
== END 2017-09-13 12:01 | disposition home or self-care (01) ==
LOC: ERS 07:26
DX: J44.1 Chronic obstructive pulmonary disease with (acute) exacerbation (principal); E11.9 Type 2 diabetes mellitus without complications; E78.00 Pure hypercholesterolemia, unspecified; I48.91 Unspecified atrial fibrillation; I11.0 Hypertensive heart disease with heart failure; I50.9 Heart failure, unspecified; Z99.81 Dependence on supplemental oxygen; Z87.891 Personal history of nicotine dependence; Z79.84 Long term (current) use of oral hypoglycemic drugs; Z79.82 Long term (current) use of aspirin; Z79.4 Long term (current) use of insulin; Z79.899 Other long term (current) drug therapy; Z79.01 Long term (current) use of anticoagulants; Z79.51 Long term (current) use of inhaled steroids
CPT/HCPCS: 36415; 71045; 80053; 82553; 83880; 84484; 85025; 93005; 94640; J7620

== ENCOUNTER 2017-10-18 01:18 | Emergency (ER) | payer BC ==
[2017-10-18 02:27] LABS: #Basophils 0.1 thou/uL (0.0-0.2); #Eosinphils 0.1 thou/uL (0.0-0.7); #Lymphocytes 2.3 thou/uL (1.20-3.40); #Monocytes 0.7 thou/uL (0.11-0.59); #Neutrophils 7.8 thou/uL (1.40-6.50); %Basophils 0.6 % (0.0-1.0); %Eosinophils 1.1 % (0.0-10.0); %Monocytes 6.6 % (0.0-10.0); %Neutrophils 70.6 % (42.0-75.0); Hemoglobin 11.8 g/dL (12.0-16.0); Mean Corpuscular HGB CONC 33.8 g/dL (32.0-36.0); Mean Corpuscular Hemoglobin 29.3 pg (27.0-31.0); Mean Corpuscular Volume 86.4 fL (78.0-98.0); Mean Platelet Volume 7.2 fL (7.4-10.4); Platelet Count 213 thou/uL (130-400); RBC Distribution Width 13.7 % (11.5-14.5); Red Blood Cell (RBC) Count 4.04 mill/uL (4.20-5.40); White Blood Cell (WBC) Count 11.1 thou/uL (4.8-10.8)
[2017-10-18 02:47] LABS: ALT (SGPT) 26 U/L (8-55); AST (SGOT) 22 U/L (5-34); Albumin 3.7 g/dL (3.4-4.8); Alkaline Phosphatase 97 U/L (40-150); Anion Gap 17 mmol/L (10-20); BUN (Urea Nitrogen) 29 mg/dL (9.8-20.1); Bilirubin, Total 0.4 mg/dL (0.2-1.2); Calc. Creatinine Clearance 0 mL/min (70-130); Calcium 9.4 mg/dL (7.8-10.44); Carbon Dioxide 29 mmol/L (23-31); Chloride 88 mmol/L (98-107); Estimated GFR-MDRD 42; Globulin 3.7 g/dL (2.4-3.5); Glucose 356 mg/dL (80-115); Magnesium 1.8 mg/dL (1.6-2.6); Phosphorus 3.3 mg/dL (2.3-4.7); Potassium 3.7 mmol/L (3.5-5.1); Protein, Total 7.4 g/dL (6.0-8.3); Sodium 130 mmol/L (136-145)
== END 2017-10-18 03:47 | disposition home or self-care (01) ==
LOC: ERS 01:18
DX: E11.65 Type 2 diabetes mellitus with hyperglycemia (principal); E78.5 Hyperlipidemia, unspecified; I11.0 Hypertensive heart disease with heart failure; I50.9 Heart failure, unspecified; I48.91 Unspecified atrial fibrillation; J44.9 Chronic obstructive pulmonary disease, unspecified; Z87.891 Personal history of nicotine dependence
CPT/HCPCS: 36415; 36416; 80053; 82010; 83735; 84100; 85025; 99284

== ENCOUNTER 2018-03-03 21:20 | Emergency (ER) | payer BC | END 2018-03-03 22:30 | disposition home or self-care (01) | LOC: ERS 21:20 | DX: J40 Bronchitis, not specified as acute or chronic (principal); R10.13 Epigastric pain; E11.9 Type 2 diabetes mellitus without complications; E78.00 Pure hypercholesterolemia, unspecified; I11.0 Hypertensive heart disease with heart failure; I50.9 Heart failure, unspecified; J44.9 Chronic obstructive pulmonary disease, unspecified; Z87.891 Personal history of nicotine dependence | CPT/HCPCS: 99283 ==

== ENCOUNTER 2018-06-15 09:58 | Outpatient (CLI) | payer BC ==
--- NOTE | 2018-06-15 11:26 | ULT ---
LIMITED LEFT BREAST ULTRASOUND: DATE: 06/15/2018. PROVIDED CLINICAL HISTORY: Left breast palpable abnormality. FINDINGS: Limited sonographic interrogation was performed of the left breast in the region of palpable concern. Fat necrosis is demonstrated in this region mammographically. Sonographic findings compatible with fat necrosis are seen. No additional abnormality is evident. IMPRESSION: BIRADS category 2 - benign findings. No concerning mammographic or sonographic abnormalities in the region of palpable concern. Negative or benign imaging findings should not preclude further evaluati on of a clinically suspicious area. The patient is referred back to her clinician. POS: [facility]
--- NOTE | 2018-07-04 15:53 | MMO ---
Bilateral MAMMO Bilat Diag DDI+LIZZ. CLINICAL HISTORY: Patient is 62 years old and is seen for diagnostic exam and lump or thickening in the left breast. The patient has the following family history of breast cancer: mother, at age 34, malignant (generic). The patient has no personal history of cancer. VIEWS: The views performed were: bilateral craniocaudal with tomosynthesis; bilateral mediolateral oblique with tomosynthesis; bilateral mediolateral; and left mediolateral oblique. FILMS COMPARED: The present examination has been compared to a prior imaging study performed at [facility] on 06/15/2018. MAMMOGRAM FINDINGS: There are scattered fibroglandular densities. Finding 1: There are benign appearing calcifications seen in both breasts. Finding 2: There is a fat containing, lobular mass with circumscribed margins seen in the left breast. This is in the region of palpable concern, and is compatible with fat necrosis. There are no concerning mammographic or sonographic abnormalities in the area of palpable concern. The patient is referred back to her clinician. Negative or benign imaging findings should not preclude biopsy if clinical findings are suspicious. IMPRESSION: FINDING 2: THERE ARE NO CONCERNING MAMMOGRAPHIC ABNORMALITIES IN THE AREA OF PALPABLE CONCERN. A ROUTINE FOLLOW-UP MAMMOGRAM IN 1 YEAR IS RECOMMENDED. ANY DECISION TO BIOPSY SHOULD BE BASED ON CLINICAL ASSESSMENT. THE RESULTS OF THIS EXAM WERE SENT TO THE PATIENT. ACR BI-RADS Category 2 - Benign finding MAMMOGRAPHY NOTE: 1. A negative mammogram report should not delay a biopsy if a dominant of clinically suspicious mass is present. 2. Approximately 10% to 15% of breast cancers are not detected by mammography. 3. Adenosis and dense breasts may obscure an underlying neoplasm.
== END 2018-06-15 09:59 | disposition home or self-care (01) ==
LOC: BICMAMMO 09:58
PROVIDERS: ATTEND Family Medicine
DX: N63.20 Unspecified lump in the left breast, unspecified quadrant (principal)
CPT/HCPCS: 77066; G0279

== ENCOUNTER 2018-08-30 09:09 | Observation (INO) | payer BC ==
[2018-08-30 09:55] LABS: #Eosinphils 0.2 thou/uL (0.0-0.7); #Lymphocytes 1.5 thou/uL (1.20-3.40); #Monocytes 0.5 thou/uL (0.11-0.59); #Neutrophils 5.7 thou/uL (1.40-6.50); %Basophils 0.3 % (0.0-1.0); %Lymphocytes 19.2 % (21.0-51.0); %Monocytes 6.2 % (0.0-10.0); %Neutrophils 72.2 % (42.0-75.0); Hemoglobin 11.8 g/dL (12.0-16.0); Mean Corpuscular HGB CONC 32.6 g/dL (32.0-36.0); Mean Corpuscular Hemoglobin 28.7 pg (27.0-31.0); Mean Platelet Volume 7.6 fL (7.4-10.4); Platelet Count 163 thou/uL (130-400); RBC Distribution Width 13.7 % (11.5-14.5); White Blood Cell (WBC) Count 7.8 thou/uL (4.8-10.8)
--- NOTE | 2018-08-30 10:27 | RAD ---
SINGLE VIEW CHEST: Date: 08/30/18 COMPARISON: 09/13/17. HISTORY: Left arm pain and tingling. Chest discomfort. FINDINGS: Single view of the chest shows an enlarged but stable cardiomediastinal silhouette. There is no evide nce of consolidation, mass, or pleural effusion. Degenerative changes are seen in the spine. IMPRESSION: Cardiomegaly without evidence of acute cardiopulmonary disease. POS: [facility]
[2018-08-30 10:29] LABS: ALT (SGPT) 20 U/L (8-55); AST (SGOT) 19 U/L (5-34); Alkaline Phosphatase 86 U/L (40-150); Anion Gap 14 mmol/L (10-20); BUN (Urea Nitrogen) 13 mg/dL (9.8-20.1); Bilirubin, Total 0.4 mg/dL (0.2-1.2); Calc. Creatinine Clearance 0 mL/min (70-130); Calcium 9.4 mg/dL (7.8-10.44); Carbon Dioxide 28 mmol/L (23-31); Chloride 100 mmol/L (98-107); Estimated GFR-MDRD 70; Globulin 3.2 g/dL (2.4-3.5); Glucose 155 mg/dL (80-115); Lipase 11 U/L (8-78); Potassium 3.7 mmol/L (3.5-5.1); Protein, Total 7.2 g/dL (6.0-8.3); Sodium 138 mmol/L (136-145)
[2018-08-30] MEDS ORDERED: Aspirin Chewable 81 MG TAB ONE (11:19)
[2018-08-30] MEDS ORDERED: Nitroglycerin 2% Ointment 1 INCH/1 GM Packet ONE (11:19)
[2018-08-30] MEDS ORDERED: Acetaminophen 325 MG TAB PO PRN (11:39)
[2018-08-30] MEDS ORDERED: Dextrose 50% Abboject 50 ML SYRINGE SLOW IVP PRN (11:39)
[2018-08-30] MEDS ORDERED: Nitroglycerin 0.4 MG TAB (25 Tab Bottle) PO PRN (11:39)
[2018-08-30] MEDS ORDERED: Guaifenesin DM 100-10/5 ML UDCUP PO PRN (11:39)
[2018-08-30] MEDS ORDERED: Bisacodyl 10 MG SUPP PR PRN (11:39)
[2018-08-30] MEDS ORDERED: Dextrose 5% in Water 1,000 ML IV PRN (11:39)
[2018-08-30] MEDS ORDERED: HumaLOG 300 UNITS/3 ML VIAL SC PRN ×2 (11:39)
[2018-08-30 12:07] LABS: INR-International Normal Ratio 3.6; PTT 60.1 SEC (22.9-36.1); Prothrombin Time 35.9 SEC (12.0-14.7)
[2018-08-30] MEDS ORDERED: PROVENTIL INHALER 6.7 G (200 INHALATIONS) INH PRN (13:00)
--- NOTE | 2018-08-30 13:49 | HP ---
REASON FOR ADMISSION: Chest pain. HISTORY OF PRESENTING ILLNESS: The patient gives history of having left-sided chest pain radiating to left upper extremity. The patient states her left upper extremity became cold and was numb. This started aching bad. This started out when she was in the christianity yesterday evening where the temperature was 62 degrees. This morning, the pain and the chest wall discomfort and left upper extremity coldness and numbness were still there and she called her primary care physician's office ( Dr. Ramos). They asked her to go to the emergency room. Currently, has no complaints of cough or expectoration. No history of fever. The patient has known history of cervical radiculopathy and has had three shots for her spine done, the last one was 2 months back. She follows up with pain specialist at [facility]. She has a followup to see him in September. The patient says her radiculopathy pain starts in the neck and radiates to her left upper extremity, but yesterday's pain was in the chest radiating to left upper extremity. No fever, cough, or expectoration. PAST MEDICAL AND SURGICAL HISTORY: History of diabetes mellitus type 2, hypertension, dyslipidemia, has had nearly 5 cardioversions and 3 ablations for atrial fibrillation, COPD, uses home oxygen at times, appendectomy, cholecystectomy, tonsillectomy, x3. Last stress test was 3 years back, which was normal as far as she knows with Dr. Argueta. CURRENT MEDICATIONS: The patient takes 1. Lisinopril 10 mg daily. 2. Glipizide extended release 10 mg daily. 3. Cardizem CD 240 mg daily. 4. Torsemide 20 mg at noon time. 5. Lopressor 25 mg twice daily. 6. Ultram 50 mg p.o. q.8 hourly p.r.n. 7. Tizanidine 4 mg p.o. q.8 hourly p.r.n. 8. Lipitor 20 mg p.o. daily. 9. K-Dur extended release 10 mEq p.o. daily. 10. Coumadin 7.5 mg five times a week and 5 mg on and Sundays. 11. Digoxin 0.25 mg p.o. daily. 12. Lantus subcu twice daily. 13. Multivitamin one tablet once daily. ALLERGIES: ALLERGIC TO AMPICILLIN, FLECAINIDE, MULTAQ, AND SULFA. PERSONAL HISTORY: Quit smoking in 2008. Does not abuse alcohol or drugs. She lives alone. FAMILY HISTORY: Mother is living, but has dementia. Father at the age of 80 years. He has had history of colon cancer. CODE STATUS: Full. Power of admitted attorneys is her daughter, Ms. Gunjan Zhang. REVIEW OF SYSTEMS: CONSTITUTIONAL: Negative for weight loss or gain, ability to conduct usual activities. SKIN: Negative for rash, itching. EYES: Negative for double vision, pain. ENT/MOUTH: Negative for nose bleeding, neck stiffness, pain, tenderness. CARDIOVASCULAR: Negative for palpitations, dyspnea on exertion, orthopnea. RESPIRATORY: Negative for shortness of breath, wheezing, cough, hemoptysis, fever or night sweats. GASTROINTESTINAL: Negative for poor appetite, abdominal pain, heartburn, nausea , vomiting, constipation, or diarrhea. GENITOURINARY: Negative for urgency, frequency, dysuria, nocturia. MUSCULOSKELETAL: Negative for pain, swelling. NEUROLOGIC/PSYCHIATRIC: Negative for anxiety, depression. ALLERGY/IMMUNOLOGIC: Negative for skin rash, bleeding tendency. PHYSICAL EXAMINATION: GENERAL: The patient is a 62-year-old female, who is currently not in any acute distress. VITAL SIGNS: Blood pressure 176/84, pulse 74 per minute, respiratory rate 18 per minute, temperature 98.2 degrees Fahrenheit, saturating 94% on room air. NECK: Supple. No elevated JVD. HEENT: Eyes; extraocular muscles intact. Pupils reacting to light. Oral cavity, mucous membranes are moist. No exudates or congestion. CARDIOVASCULAR SYSTEM: S1 and S2 heard, regular rhythm. RESPIRATORY SYSTEM: Air entry 1+ bilateral. No rales or rhonchi. ABDOMEN: Soft. Bowel sounds heard. No tenderness, rigidity, or guarding. EXTREMITIES: No peripheral edema or calf tenderness. VASCULAR SYSTEM: Peripheral pulses 2+ bilateral. No ischemic ulcerations or gangrene. CENTRAL NERVOUS SYSTEM: No gross focal deficits noted. The patient is alert, awake, and oriented well. PSYCHIATRIC SYSTEM: The patient's mood is euthymic. No hallucinations or delusions. LABORATORY DATA: EKG done shows normal sinus rhythm at 74 beats per minute. No gross ST-T wave changes. White count of 7, H and H of 11 and 36, platelet count 163, MCV is 88 with 72% neutrophils. PT/INR 35 and 3.6, PTT 60, electrolytes stable. BUN 13, creatinine 0.8, serum glucose 155. Liver enzymes within normal limits. Cardiac enzymes are negative. BNP is 13.9. Albumin is 4.0. Lipase is 11. Chest x-ray done shows cardiomegaly with no acute infiltrate. CLINICAL IMPRESSION AND PLAN: The patient will be under observation on telemetry for chest pain, rule out acute coronary syndrome. The patient has multiple risk factors for acute coronary syndrome. We will obtain 2 more sets of troponin, and a nuclear stress test will be obtained. We will continue her on aspirin, Lipitor, Cardizem CD, digoxin, Lopressor, lisinopril, and Lantus subcu twice daily. We will continue to closely monitor her for any hemodynamic compromise. If the patient's stress test is normal, she can be safely discharged home. Job ID: [id number] MTDD
[2018-08-30 14:24] VITALS: BMI 45.8
[2018-08-30] MEDS: traMADol HCl 50 MG TAB PO PRN ×2 (15:29→23:11)
[2018-08-30] MEDS: tiZANidine HCl 4 MG TAB PO PRN (18:29)
[2018-08-30] MEDS ORDERED: Senokot S 8.6-50 MG TAB PO PRN (21:00)
[2018-08-30] MEDS ORDERED: Digoxin 0.25 MG TAB PO SCH (21:00)
[2018-08-30] MEDS ORDERED: Non-Formulary Item 1 EACH (Insulin Glargine,Hum.Rec.Anlog [Lantus Solostar] 40 UNIT) SQ SCH (21:00)
[2018-08-30] MEDS ORDERED: Atorvastatin Calcium 20 MG TAB PO SCH (21:00)
[2018-08-30] MEDS: Metoprolol Tartrate 25 MG TAB PO SCH (21:15)
[2018-08-30] MEDS: Insulin Glargine 40 UNITS in Pre-Filled Syringe 1 EACH SC SCH (21:16)
[2018-08-31 03:52] VITALS: TEMP 98.4
[2018-08-31] MEDS: tiZANidine HCl 4 MG TAB PO PRN ×2 (03:54→12:06)
[2018-08-31] MEDS ORDERED: Ondansetron ODT 4 MG TAB PO PRN (04:23)
[2018-08-31] MEDS ORDERED: Ketorolac Tromethamine 30 MG/ML VIAL IVP SCH (04:45)
[2018-08-31 06:01] LABS: Anion Gap 10 mmol/L (10-20); BUN (Urea Nitrogen) 13 mg/dL (9.8-20.1); Calc. Creatinine Clearance 139 mL/min (70-130); Calcium 9.5 mg/dL (7.8-10.44); Carbon Dioxide 30 mmol/L (23-31); Cardiac Risk 4.1 (Less than 4.5); Chloride 100 mmol/L (98-107); Cholesterol 107 mg/dl (< 200 Desired); Estimated GFR-MDRD 76; Glucose 158 mg/dL (80-115); HDL Cholesterol 26 mg/dL (>60 Neg Risk); LDL Cholesterol, Calculated 52 mg/dL; Potassium 4.1 mmol/L (3.5-5.1); Sodium 136 mmol/L (136-145); Triglycerides 147 mg/dL (Less than 150)
[2018-08-31 08:10] VITALS: BP 116/63
[2018-08-31] MEDS: traMADol HCl 50 MG TAB PO PRN (08:39)
[2018-08-31] MEDS ORDERED: Lisinopril 20 MG TAB PO SCH (09:00)
[2018-08-31] MEDS ORDERED: Enoxaparin Sodium 40 MG/0.4 ML SYRINGE SC SCH (09:00)
[2018-08-31] MEDS ORDERED: Aspirin 81 mg Enteric Coated Tablet PO SCH (09:00)
[2018-08-31] MEDS ORDERED: Docusate Calcium (SURFAK) 240 MG CAP PO SCH (09:00)
[2018-08-31] MEDS ORDERED: Lisinopril 5 MG TAB PO SCH (09:00)
--- NOTE | 2018-08-31 11:22 | NM ---
NM Cardiac Stress W EF WF History: [Chest pain] Comparison: None. Findings: Stress and rest performed after the intravenous administration of 31.6 and 27 mCi technetiu m 99 sestamibi, intravenously. Adequate left ventricular uptake of radiotracer. No scar or ischemia. Normal wall motion. Calculated ejection fraction is 68 % Impression: Normal nuclear medicine cardiac stress test and ejection fraction.
[2018-08-31] MEDS: Metoprolol Tartrate 25 MG TAB PO SCH (11:58)
[2018-08-31] MEDS: Insulin Glargine 40 UNITS in Pre-Filled Syringe 1 EACH SC SCH (11:58)
[2018-08-31] MEDS ORDERED: Regadenoson 0.4 MG/5 ML SYRINGE ONE (20:05)
--- NOTE | 2018-09-01 04:26 | DIS ---
DATE OF ADMISSION: 08/30/2018 DATE OF DISCHARGE: 08/31/2018 PRIMARY CARE PROVIDER: Dr. Jassi Ramos. DISCHARGE DIAGNOSIS: Chest pain, most likely secondary to musculoskeletal etiology. CONDITION OF PATIENT ON THE DAY OF DISCHARGE: Stable. I assessed Ms. Darling on the day of discharge. She denies any chest pain or shortness of breath. Vital signs are stable. S1 and S2 are heard, regular. Lungs are clear to auscultation bilaterally. DISCHARGE MEDICATIONS: Her INR was supratherapeutic at 3.6. She is advised to resume her warfarin on September 01, 2018 and follow up with her primary care provider for warfarin management. Otherwise, no change was made to her pre-admission home medications as dictated by Dr. Lanza's in his history and physical note dated August 30, 2018. HOSPITAL COURSE: Ms. Darling is a pleasant 62-year-old lady, who was admitted to [facility] on August 30, 2018. Her chest pain resolved shortly after admission. It is most likely musculoskeletal in etiology. She had a nuclear stress test, which was normal. Left ventricular ejection fraction was 68%. She is being discharged home in a stable condition. Many thanks for allowing me to participate in your patient's care. Please feel free to contact me with any questions or concerns. DISCHARGE DESTINATION: Home. Job ID: [id number]
== END 2018-08-31 14:56 | disposition home or self-care (01) ==
LOC: ERS 09:09 → ERHOLD 11:54 → 2SW 14:22
PROVIDERS: ADMIT Internal Medicine; ATTEND Internal Medicine
DX: R07.89 Other chest pain (principal); E11.9 Type 2 diabetes mellitus without complications; I10 Essential (primary) hypertension; I48.91 Unspecified atrial fibrillation; J44.9 Chronic obstructive pulmonary disease, unspecified; E78.5 Hyperlipidemia, unspecified; R79.1 Abnormal coagulation profile; Z87.891 Personal history of nicotine dependence; Z79.01 Long term (current) use of anticoagulants; Z79.4 Long term (current) use of insulin; Z79.899 Other long term (current) drug therapy; Z88.2 Allergy status to sulfonamides; Z88.8 Allergy status to other drugs, medicaments and biological substances; Z98.890 Other specified postprocedural states; Z99.81 Dependence on supplemental oxygen
CPT/HCPCS: 36415; 36416; 71045; 78452; 80048; 80053; 80061; 83690; 83880; 84484; 85025; 85610; 85730; 93005; 93017; 94760; 96374; A9500; G0378; J1825; J1885; J2785; Q0162

== ENCOUNTER 2018-11-03 19:09 | Inpatient (IN) | payer BC ==
[2018-11-03 19:43] LABS: #Eosinphils 0.3 thou/uL (0.0-0.7); #Lymphocytes 3.5 thou/uL (1.20-3.40); %Basophils 0.2 % (0.0-1.0); %Eosinophils 2.1 % (0.0-10.0); %Lymphocytes 25.5 % (21.0-51.0); %Neutrophils 65.2 % (42.0-75.0); Hemoglobin 13.8 g/dL (12.0-16.0); Mean Corpuscular HGB CONC 33.2 g/dL (32.0-36.0); Mean Corpuscular Hemoglobin 29.8 pg (27.0-31.0); Mean Corpuscular Volume 89.6 fL (78.0-98.0); Mean Platelet Volume 7.8 fL (7.4-10.4); Platelet Count 210 thou/uL (130-400); RBC Distribution Width 13.5 % (11.5-14.5); Red Blood Cell (RBC) Count 4.63 mill/uL (4.20-5.40); White Blood Cell (WBC) Count 13.7 thou/uL (4.8-10.8)
--- NOTE | 2018-11-03 19:48 | RAD ---
XR Chest 1 View Portable History: Dizziness Comparison: Radiograph August 2018 Findings: Heart size is enlarged. Low-grade pulmonary venous congestion. No pneumothorax. Very small effusions. No acute osseous abnormality. Impression: Cardiomegaly small effusions and mild pulmonary venous congestion, all similar. No acute intrathoracic abnormality.
[2018-11-03 20:08] LABS: ALT (SGPT) 42 U/L (8-55); AST (SGOT) 33 U/L (5-34); Albumin 3.8 g/dL (3.4-4.8); Alkaline Phosphatase 93 U/L (40-150); Anion Gap 15 mmol/L (10-20); BUN (Urea Nitrogen) 21 mg/dL (9.8-20.1); Bilirubin, Total 0.3 mg/dL (0.2-1.2); CK (CPK) 27 U/L (29-168); Calc. Creatinine Clearance 0 mL/min (70-130); Calcium 9.2 mg/dL (7.8-10.44); Carbon Dioxide 29 mmol/L (23-31); Chloride 98 mmol/L (98-107); Estimated GFR-MDRD 59; Globulin 3.5 g/dL (2.4-3.5); Glucose 236 mg/dL (80-115); Potassium 4.4 mmol/L (3.5-5.1); Protein, Total 7.3 g/dL (6.0-8.3); Sodium 138 mmol/L (136-145)
[2018-11-03 20:46] LABS: INR-International Normal Ratio 3.1; PTT 44.7 SEC (22.9-36.1); Prothrombin Time 31.5 SEC (12.0-14.7)
[2018-11-03] MEDS ORDERED: Aspirin Chewable 81 MG TAB ONE (20:58)
[2018-11-03] MEDS ORDERED: Nitroglycerin 2% Ointment 1 INCH/1 GM Packet ONE (20:58)
[2018-11-03 22:54] VITALS: BMI 44.6
[2018-11-03] MEDS ORDERED: PROVENTIL INHALER 6.7 G (200 INHALATIONS) INH PRN (22:57)
[2018-11-03] MEDS ORDERED: Ondansetron ODT 4 MG TAB PO PRN (22:57)
[2018-11-03] MEDS ORDERED: Acetaminophen 325 MG TAB PO PRN (23:13)
[2018-11-03] MEDS ORDERED: Acetaminophen 650 MG Suppository PR PRN (23:13)
[2018-11-03] MEDS ORDERED: Dextrose 50% Abboject 50 ML SYRINGE SLOW IVP PRN (23:14)
[2018-11-03] MEDS ORDERED: Dextrose 5% in Water 1,000 ML IV PRN (23:14)
[2018-11-03] MEDS ORDERED: HumaLOG 300 UNITS/3 ML VIAL SC PRN (23:14)
[2018-11-03] MEDS ORDERED: Digoxin 0.25 MG TAB PO SCH (23:45)
[2018-11-03] MEDS ORDERED: Atorvastatin Calcium 20 MG TAB PO SCH (23:45)
[2018-11-03] MEDS ORDERED: Sucralfate 1 GM TAB PO SCH (23:45)
[2018-11-03] MEDS ORDERED: Metoprolol Tartrate 25 MG TAB PO SCH (23:45)
[2018-11-03] MEDS ORDERED: traZODone HCl 50 MG TAB PO SCH (23:45)
[2018-11-03] MEDS: tiZANidine HCl 4 MG TAB PO PRN (23:54)
[2018-11-03] MEDS: traMADol HCl 50 MG TAB PO PRN (23:55)
[2018-11-03] MEDS ORDERED: Insulin Glargine 45 UNITS in Pre-Filled Syringe 1 EACH SC SCH (23:59)
--- NOTE | 2018-11-03 23:59 | HP ---
PRIMARY CARE DOCTOR: Dr. Jassi Ramos. PHONOGRAPH CARTRIDGE ASSEMBLER: Dr. Eason. CODE STATUS: Full code. TIME OF EVALUATION: 11:15 p.m. CHIEF COMPLAINT: My heart is racing. HISTORY OF PRESENT ILLNESS: This is a 63-year-old female patient with past medical history of atrial flutter, diabetes, high cholesterol, congestive heart failure, cardioversion x5 for atrial fibrillation, COPD with chronic respiratory failure, on home oxygen 2 L nasal cannula. The patient came to the hospital after having an episode of palpitations associated with dizziness. The symptoms have been on and off for several days with no clear triggers, no alleviating factors. The patient was seen by Dr. Argueta a few months ago for followup when she had been doing well. The only thing that has been new to her is weaning some of the steroid injections that she had for arthritis. REVIEW OF SYSTEMS: CONSTITUTIONAL: No fever, chills, or generalized weakness. RESPIRATORY: No cough, sputum production, or shortness of breath. CARDIOVASCULAR: The patient has no chest pain. The patient has palpitation. GASTROINTESTINAL: No nausea, vomiting, diarrhea, or abdominal pain. LORRY WEIGHER: The patient has some dizziness. No headache or feeling lightheaded. GENITOURINARY: No burning on urination. EXTREMITIES: No leg swelling. All other systems were reviewed and negative except for the findings mentioned above. PAST MEDICAL HISTORY: As mentioned in the HPI. PAST SURGICAL HISTORY: Tonsillectomy, appendectomy, cholecystectomy, x3, 3 cardiac ablations. PSYCHIATRIC HISTORY: No previous psych history. SOCIAL HISTORY: No alcohol. No drugs. Former smoker; patient quit smoking more than 10 years ago. FAMILY HISTORY: Reviewed, noncontributory for current presentation. KNOWN ALLERGIES: Ampicillin, flecainide, dronedarone (Multaq). REPORTED MEDICATIONS: 1. Lisinopril. 2. Glipizide. 3. Diltiazem. 4. Torsemide. 5. Potassium chloride. 6. Tramadol. 7. Sucralfate. 8. Metoprolol. 9. Atorvastatin. 10. Warfarin. 11. Digoxin. 12. Tizanidine. 13. Lantus. PHYSICAL EXAMINATION: VITAL SIGNS: Blood pressure 165/99 with heart rate 94, respiratory rate was 18, pain was 4/10, oxygen saturation 95% on 2 L oxygen. GENERAL APPEARANCE: The patient is alert, oriented, no acute distress. HEENT: Eyes; normal conjunctivae. Moist oral mucosa. Anicteric. No JVD. RESPIRATORY: Bilateral air entry. No rales. No wheezes. Symmetric expansion. CARDIOVASCULAR: Normal rate, regular rhythm. No murmurs. No gallop. No edema. ABDOMEN: Soft. Normal bowel sounds. MUSCULOSKELETAL: Baseline range of motion and strength. SKIN: Warm, intact. No pallor. No rash. No redness. Capillary refill seems to be intact. NEUROLOGIC: No evidence of any new focal weakness. Cranial nerves seem to be intact. PSYCH: The patient is in good mood. No anxiety. Optimal judgment. LABORATORY AND DIAGNOSTIC FINDINGS: EKG was reviewed, which shows atrial flutter at the rate of 94 with 2:1 AV conduction, ST depression in the inferior leads, no ST elevations. Chest x-ray was done. The patient has cardiomegaly, small pleural effusion, mild pulmonary venous congestion, all similar. No acute intrathoracic abnormalities. Labs are reviewed. The patient has a white count 13.7, hemoglobin 13.8, hematocrit 41.5, MCV 89.6, platelet count 210. PT 31.5, INR 3.1, PTT 44.7. Chemistry; sodium 138, potassium 4.4, chloride 98, carbon dioxide 29, anion gap 15, BUN 21, creatinine 0.96, GFR 59, glucose 236, calcium 9.2, total bilirubin 0.3. LFTs were negative. CK 27. Troponin was negative x2. Serum total protein 7.3, albumin 3.8, globulin 3.5, albumin-globulin ratio is 1.1. ASSESSMENT AND PLAN: The patient will be placed in the hospital with following medical problems: 1. Episode of paroxysmal flutter/atrial fibrillation. We will consult Dr. Eason for any further recommendation. The patient has been compliant with the medications but still having these episodes. We will follow recommendation from Cardiology. We will monitor on tele, reconcile home medications. 2. Chronic anticoagulation for atrial fibrillation. Pharmacy to dose warfarin. 3. Leukocytosis. No evidence of infection. This is mild, we will monitor. We will treat accordingly. 4. Uncontrolled diabetes with blood sugar of 236. Reconcile home medications and place the patient on sliding scale for optimal control. 5. Deep vein thrombosis prophylaxis. 6. Uncontrolled blood pressure. The patient presented with systolic blood pressure of 165. We will reconcile home medications and give IV p.r.n. medication if needed for optimal control. 7. Chronic hypoxic respiratory failure, on home oxygen, we will reconcile, we will restart home oxygen by nasal cannula here. 8. Hyperlipidemia. We will reconcile home medications. Low-cholesterol diet is advised. 9. History of congestive heart failure reported. This is chronic, seems to be stable, reconcile home medications. 10. History of chronic obstructive pulmonary disease, we will reconcile home medications. This is chronic, seems to be stable. Job ID: [id number]
[2018-11-04 01:49] LABS: #Eosinphils 0.3 thou/uL (0.0-0.7); #Lymphocytes 3.1 thou/uL (1.20-3.40); #Monocytes 0.8 thou/uL (0.11-0.59); #Neutrophils 7.6 thou/uL (1.40-6.50); %Basophils 0.3 % (0.0-1.0); %Eosinophils 2.2 % (0.0-10.0); %Lymphocytes 26.2 % (21.0-51.0); %Monocytes 7.1 % (0.0-10.0); %Neutrophils 64.2 % (42.0-75.0); Hemoglobin 12.5 g/dL (12.0-16.0); Mean Corpuscular HGB CONC 32.8 g/dL (32.0-36.0); Mean Corpuscular Hemoglobin 29.9 pg (27.0-31.0); Mean Platelet Volume 7.7 fL (7.4-10.4); Platelet Count 184 thou/uL (130-400); RBC Distribution Width 13.4 % (11.5-14.5); Red Blood Cell (RBC) Count 4.19 mill/uL (4.20-5.40); White Blood Cell (WBC) Count 11.8 thou/uL (4.8-10.8)
[2018-11-04 01:56] LABS: Prothrombin Time 31.1 SEC (12.0-14.7)
[2018-11-04 02:13] LABS: Troponin I Less than 0.010 ng/mL (< 0.028)
[2018-11-04 02:19] LABS: Anion Gap 15 mmol/L (10-20); BUN (Urea Nitrogen) 19 mg/dL (9.8-20.1); Calc. Creatinine Clearance 119 mL/min (70-130); Carbon Dioxide 23 mmol/L (23-31); Chloride 100 mmol/L (98-107); Estimated GFR-MDRD 66; Glucose 237 mg/dL (80-115); Potassium 4.7 mmol/L (3.5-5.1); Sodium 133 mmol/L (136-145)
[2018-11-04 05:41] LABS: Platelet Count 174 thou/uL (130-400)
[2018-11-04] MEDS: Albuterol Sulfate 2.5 mg/3 ml Neb NEB SCH ×2 (06:57→12:12)
[2018-11-04] MEDS: Prenatal Vitamin 1 TAB PO SCH (08:41)
[2018-11-04] MEDS: Metolazone 2.5 MG TAB PO SCH (08:41)
[2018-11-04] MEDS: Aspirin 81 mg Enteric Coated Tablet PO SCH (08:42)
[2018-11-04] MEDS: Potassium Chloride 20 MEQ TAB PO SCH (08:42)
[2018-11-04] MEDS: Metoprolol Tartrate 25 MG TAB PO SCH ×2 (08:42→21:49)
[2018-11-04] MEDS: Lisinopril 10 MG TAB PO SCH (08:42)
[2018-11-04] MEDS: Sucralfate 1 GM TAB PO SCH ×4 (08:42→21:49)
[2018-11-04] MEDS: Torsemide 20 MG TAB PO SCH ×2 (08:42→08:53)
[2018-11-04] MEDS: traMADol HCl 50 MG TAB PO PRN ×2 (08:45→17:33)
[2018-11-04] MEDS: tiZANidine HCl 4 MG TAB PO PRN ×2 (08:45→17:41)
[2018-11-04] MEDS ORDERED: Enoxaparin Sodium 40 MG/0.4 ML SYRINGE SC SCH (09:00)
[2018-11-04] MEDS ORDERED: Non-Formulary Item 1 EACH (Insulin Glargine,Hum.Rec.Anlog [Lantus Solostar] 45 UNIT) SQ SCH (09:00)
[2018-11-04] MEDS: Insulin Glargine 45 UNITS in Pre-Filled Syringe 1 EACH SC SCH ×2 (09:53→21:45)
--- NOTE | 2018-11-04 12:43 | CON ---
DATE OF CONSULTATION: 11/04/2018 PRIMARY ANIMAL SCIENCE INSTRUCTOR: Jones Argueta MD REASON FOR CONSULTATION: Atrial flutter. HISTORY OF PRESENT ILLNESS: Ms. Darling is a very pleasant 63-year-old white female, who comes to the hospital for tachycardia. She received a back injection with steroids just a few days back and she noticed ever since, her heart rate is in the 90s or 80s and then, she is stands up and walks around and her heart rate goes up to the 140s. She called our Answering Service last night and she was advised to go to the ER as this is not a normal response for a heart. She has a history of atrial fibrillation and has had several cardioversions and ablations in the past for this. She also has COPD and chronic oxygen supplementation. She was seen in the ER and EKG was done, found she was in atrial flutter with variable AV block, so she was admitted for further evaluation and care. On my evaluation, Ms. Darling feels well. Denies any chest pain, tightness, or pressure. Her breathing is at baseline. PAST MEDICAL HISTORY: 1. Type 2 diabetes. 2. Hypertension. 3. Hyperlipidemia. 4. Atrial fibrillation. She has been cardioverted five times in the past and has a total of three atrial fibrillation ablations. 5. COPD on home O2. PAST SURGICAL HISTORY: 1. Appendectomy. 2. Cholecystectomy. 3. Tonsillectomy. 4. C-sections x3. OUTPATIENT MEDICATIONS: Include; 1. Zofran. 2. Ventolin inhaler. 3. Albuterol inhaler. 4. Trazodone 50 mg at bedtime. 5. Metolazone 2.5 mg a day. 6. Insulin Lantus. 7. Humalog KwikPen. 8. Lipitor 20 mg at bedtime. 9. Aspirin 81 a day. 10. Diltiazem 240 mg a day. 11. Digoxin 250 mcg a day. 12. Potassium chloride 20 mEq a day. 13. vitamins. 14. Metoprolol 25 mg b.i.d. 15. Lisinopril 10 mg a day. 16. Sucralfate. 17. Torsemide 40 mg a day. 18. Tizanidine. 19. Glipizide. 20. Warfarin. 21. Tramadol. ALLERGIES: 1. AMPICILLIN. 2. MULTAQ. 3. FLECAINIDE. 4. SULFA DRUGS. SOCIAL HISTORY: Quit smoking in 2008. No alcohol or drugs. FAMILY HISTORY: Noncontributory. REVIEW OF SYSTEMS: A 12-point review of systems was done and was all negative unless stated in the history of present illness. PHYSICAL EXAMINATION: VITAL SIGNS: Temperature 97.6, pulse 80, respiratory rate 16, saturating 98% on 2 L, and blood pressure 127/66, down to 93/52. GENERAL: Awake, alert, and oriented x3. No distress. HEENT: Normocephalic and atraumatic. NECK: Supple. LUNGS: Have crackles at the bases with reduced breath sounds. CARDIOVASCULAR: Irregularly irregular heart rate in the 70s to 80s, grade 2/6 systolic murmur at the right upper sternal border. ABDOMEN: Soft. Positive bowel sounds. EXTREMITIES: Trace edema. SKIN: Warm and dry. LABORATORY DATA: Laboratory work was reviewed. White count of 13, hemoglobin of 13, hematocrit 41, and platelet count of 210. Coags, INR are 3.0. Chemistries were reviewed. Troponin is negative x3. Chest x-ray showed cardiomegaly with small effusions and mild pulmonary venous congestion, unchanged from last imaging. Last stress test was back in August of this year and it was negative for ischemia. EF at 68% at that time. ASSESSMENT: 1. Atypical atrial flutter. 2. History of atrial fibrillation with multiple ablation in the past. 3. Chronic obstructive pulmonary disease. 4. Type 2 diabetes. 5. Hypertension. PLAN: 1. Continue warfarin for stroke prophylaxis. We will plan on consulting Electrophysiology. She may need a flutter ablation. She is amenable to this. 2. Continue current regimen. She is rate controlled on current medications. 3. Further recommendations per Electrophysiology consultation. Thank you for letting us to participate in the care of your patient. Dr. Argueta, her primary metal casting trades worker, will follow up in the morning. Job ID: [id number]
[2018-11-04] MEDS: Levalbuterol HCl 0.63 MG/3 ML NEB NEB SCH ×2 (14:33→19:35)
--- NOTE | 2018-11-04 16:47 | PDOC.HOSPP ---
- Subjective Encounter Date: 11/04/18 Encounter Time: 16:40 Subjective: f/u for A-flutter RVR on current Cardizem/Digoxin with variable rate. No new complaints. - Objective Vital Signs & Weight: Vital Signs (12 hours) Temp Pulse Resp BP BP BP Pulse Ox 11/04/18 16:21 97.7 F 84 16 134/69 98 11/04/18 14:33 71 14 98 11/04/18 11:00 97.6 F 80 16 93/52 L 11/04/18 08:42 127/66 11/04/18 08:41 140 H 127/66 11/04/18 08:00 98 11/04/18 07:00 97.6 F 92 18 127/66 98 11/04/18 06:57 78 16 99 Weight Weight 253 lb I&O: 11/03/18 11/04/18 11/05/18 06:59 06:59 06:59 Intake Total 350 Balance 350 Result Diagrams: 11/04/18 04:58 11/04/18 01:41 Additional Labs: Accuchecks 11/04/18 11/04/18 13:27 06:41 POC Glucose 197 H 158 H Laboratory Tests 11/03/18 11/03/18 11/04/18 19:31 20:31 01:41 WBC 13.7 H INR 3.1 3.0 Radiology Reviewed by me: Yes (PCXR - mild pulm vasc prominence) EKG Reviewed by me: Yes (Tele - A-flutter in 90's) ROS - Medication Medications: Active Medications Generic Name Dose Route Start Last Admin Trade Name Alia PRN Reason Stop Dose Admin Aspirin 81 mg 11/04/18 09:00 11/04/18 08:42 Ecotrin PO 81 mg DAILY TWILA Administration Diltiazem HCl 240 mg 11/04/18 09:00 11/04/18 08:41 Cardizem Cd PO 240 mg DAILY TWILA Administration Insulin Glargine 45 units/ 0.45 mls @ 0 mls/hr 11/04/18 09:00 11/04/18 09:53 Miscellaneous Medication SC 0.45 mls BID TWILA Administration Levalbuterol HCl 0.63 mg 11/04/18 15:00 11/04/18 14:33 Xopenex NEB 0.63 mg QID-RT TWILA Administration Lisinopril 10 mg 11/04/18 09:00 11/04/18 08:42 Zestril PO 10 mg DAILY TWILA Administration Metolazone 2.5 mg 11/04/18 09:00 11/04/18 08:41 Zaroxolyn PO 2.5 mg DAILY TWILA Administration Metoprolol Tartrate 25 mg 11/04/18 09:00 11/04/18 08:42 Lopressor PO 25 mg BID TWILA Administration Potassium Chloride 20 meq 11/04/18 09:00 11/04/18 08:42 K-Dur PO 20 meq DAILY TWILA Administration Multivit/Folic Acid/Iron 1 tab 11/04/18 09:00 11/04/18 08:41 Vitamin PO 1 tab DAILY TWILA Administration Sucralfate 1 gm 11/04/18 09:00 11/04/18 14:05 Carafate PO 1 gm QID TWILA Administration Tizanidine HCl 4 mg 11/03/18 22:57 11/04/18 08:45 Zanaflex PO 4 mg Q8HR PRN Administration Muscle spasms Torsemide 40 mg 11/04/18 09:00 11/04/18 08:53 Demadex PO Not Given DAILY TWILA Tramadol HCl 50 mg 11/03/18 22:57 11/04/18 08:45 Ultram PO 50 mg TID PRN Administration Pain - Exam NAD, awake alert Eye: PERRL, anicteric sclera ENT: normocephalic atraumatic, no oropharyngeal lesions Neck: supple, symmetric, no JVD, no thyromegaly, no lymphadenopathy Heart: no murmur, no gallops, normal peripheral pulses, irregular Respiratory: CTAB, no rales, no ronchi Respiratory - other findings: diminished in bases bilat Gastrointestinal: soft, non-tender, non-distended, normal bowel sounds, no palpable masses Extremities: no cyanosis, no edema Skin: normal turgor, no lesions Neurological: CN's grossly intact, no focal deficits, no new deficit Musculoskeletal: normal tone, normal strength, no muscle wasting Psychiatric: normal affect, normal behavior, A&O x 3 Hosp A/P (1) Atrial flutter with rapid ventricular response Code(s): I48.92 - UNSPECIFIED ATRIAL FLUTTER Status: Acute Plan: Rate improved currently, plan for EP evaluation and consideration for ablation, continue Coumadin pending evaluation, continue Cardizem/Digoxin/Metoprolol (2) Chronic respiratory failure with hypoxia Code(s): J96.11 - CHRONIC RESPIRATORY FAILURE WITH HYPOXIA Status: Chronic Plan: Continue O2 supplementation, change to Xopenex due to tachycardia (3) Chronic anticoagulation Code(s): Z79.01 - NURSING HOME (CURRENT) USE OF ANTICOAGULANTS Status: Chronic Plan: Continue Coumadin, INR therapeutic currently (4) Diastolic congestive heart failure Code(s): I50.30 - UNSPECIFIED DIASTOLIC (CONGESTIVE) HEART FAILURE Status: Chronic Qualifiers: Qualified Code(s): I50.32 - Chronic diastolic (congestive) heart failure Plan: Appears compensated, continue med mgmt - Plan respiratory therapy, DVT proph w/SCDs Stable currently Continue Diltiazem/Digoxin/Metoprolol Continue Coumadin EP consult pending AM lab: PT/INR
[2018-11-04] MEDS ORDERED: Warfarin Sodium 5 MG TAB PO SCH (17:00)
[2018-11-04] MEDS: Digoxin 0.25 MG TAB PO SCH (21:46)
[2018-11-04] MEDS: Atorvastatin Calcium 20 MG TAB PO SCH (21:46)
[2018-11-04] MEDS: traZODone HCl 50 MG TAB PO SCH (21:46)
[2018-11-05] MEDS: tiZANidine HCl 4 MG TAB PO PRN ×3 (01:52→17:43)
[2018-11-05] MEDS: traMADol HCl 50 MG TAB PO PRN ×3 (01:52→17:42)
[2018-11-05 06:23] LABS: INR-International Normal Ratio 2.4; Prothrombin Time 25.8 SEC (12.0-14.7)
[2018-11-05] MEDS: Levalbuterol HCl 0.63 MG/3 ML NEB NEB SCH ×4 (06:55→18:56)
[2018-11-05] MEDS: Sucralfate 1 GM TAB PO SCH ×4 (08:02→20:12)
[2018-11-05] MEDS: Prenatal Vitamin 1 TAB PO SCH (08:02)
[2018-11-05] MEDS: Metolazone 2.5 MG TAB PO SCH (08:02)
[2018-11-05] MEDS: Metoprolol Tartrate 25 MG TAB PO SCH ×2 (08:02→20:13)
[2018-11-05] MEDS: Potassium Chloride 20 MEQ TAB PO SCH (08:02)
[2018-11-05] MEDS: Aspirin 81 mg Enteric Coated Tablet PO SCH (08:02)
[2018-11-05] MEDS: Lisinopril 10 MG TAB PO SCH (08:10)
[2018-11-05] MEDS: Insulin Glargine 45 UNITS in Pre-Filled Syringe 1 EACH SC SCH ×2 (08:45→21:23)
[2018-11-05] MEDS ORDERED: Senokot S 8.6-50 MG TAB PO SCH ×2 (10:15→10:45)
[2018-11-05] MEDS ORDERED: Torsemide 20 MG TAB PO SCH (10:45)
[2018-11-05] MEDS: Torsemide 20 MG TAB PO SCH (10:49)
[2018-11-05] MEDS ORDERED: Aggrastat 12.5 MG/250 ML 0 ML ONE (16:16)
[2018-11-05] MEDS ORDERED: PROPOFOL 20 ML ONE (16:16)
--- NOTE | 2018-11-05 16:39 | CON ---
DATE OF CONSULTATION: 11/05/2018 HISTORY OF PRESENT ILLNESS: I am seeing Ms. 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 Her problems are; 1. Recurrent atrial arrhythmias. a. Prior history of persistent atrial fibrillation, prompting repeated left atrial ablation procedures, most recently on , which included also left atrial appendage isolation. 2. History of diabetes, hypertension, gender with CHADS-VASc score of 3, on warfarin anticoagulation. 3. History of mitral valve disease, OC from April 11, 2017, shows mild to moderate mitral stenosis, mild to moderate mitral regurgitation, mild to moderate aortic regurgitation, mild to moderate tricuspid regurgitation, normal LVEF. 4. Risk factors including hypertension, diabetes, morbid obesity. 5. History of GERD. 6. History of COPD, on home O2. ALLERGIES: AMPICILLIN, DRONEDARONE, FLECAINIDE, SULFA. MEDICATIONS: At home included; 1. Warfarin. 2. Sucralfate. 3. PNV. 4. Lisinopril. 5. Digoxin. 6. Aspirin. 7. Tramadol. 8. Insulin. 9. Atorvastatin. 10. Metoprolol. 11. Potassium. 12. Diltiazem CD. 13. Torsemide. 14. Glipizide. 15. Tizanidine. 16. Ventolin. 17. Albuterol. 18. Trazodone. 19. Metolazone. 20. Insulin. 21. Ondansetron. SUBJECTIVE: Ms. Darling was admitted on with symptoms of palpitations. She was found to be in atrial flutter with atypical morphology. She has mild dizziness, did not pass out. No obvious triggers or aggravating or alleviating factors were found. Currently, she is feeling better. She has no dizziness/no stroke-like symptoms. No neurological deficits. No fever, chills, or cough. Rest of 12-point review of system is otherwise unremarkable. PAST MEDICAL HISTORY: As above. SOCIAL HISTORY: The patient denies smoking, EtOH, or drug abuse. FAMILY HISTORY: Noncontributory. DIAGNOSTIC STUDIES: EKG is reviewed, revealing an atrial flutter with controlled ventricular rates. LABORATORY DATA: Hemoglobin today is 12, yesterday 12. White count initially 13.7, then 11.8. Platelet count is 210, then 184. Sodium 133, potassium 4.7, BUN is 19, and creatinine 0.86. Troponin levels are 0.01 x3. Chest x-ray shows cardiomegaly with small effusions. ASSESSMENT AND PLAN: Ms. Darling is a pleasant 63-year-old woman with prior history of recurrent atrial arrhythmias, 3 extensive left atrial ablation procedures by Dr. Larson, most recently in May 2018 was performed. She is here with recurrence, she thinks the episode might have been triggered by recent steroid injections for her back, which seems to have effected her diabetes as well. Currently, rates are reasonably controlled. We discussed treatment options. She is well anticoagulated with INR at 3.1 on admission, currently 2.4, and previous INR is also 2.7. We discussed the option of repeat cardioversion plus-minus restarting her only antiarrythmic she has much tolerated, sotalol. I voiced my preference of her starting this in the hospital, but she prefers at this point not to undergo sotalol loading, it is reasonable to undergo cardioversion and monitor for recurrence. Next time if recurrence seen, sotalol loading versus repeat ablation could be considered. Dr. Argueta is planning a cardioversion later today. We will see her in or outpatient. Thank you again for letting me participating in the care of the patient. Job ID: [id number]
[2018-11-05] MEDS ORDERED: Warfarin Sodium 7.5 MG TAB PO SCH (17:00)
[2018-11-05] MEDS: Senokot S 8.6-50 MG TAB PO SCH (20:13)
[2018-11-05] MEDS: Digoxin 0.25 MG TAB PO SCH (20:13)
[2018-11-05] MEDS: Atorvastatin Calcium 20 MG TAB PO SCH (20:13)
[2018-11-05] MEDS: traZODone HCl 50 MG TAB PO SCH (20:13)
--- NOTE | 2018-11-05 21:03 | PDOC.HOSPP ---
- Subjective Encounter Date: 11/05/18 Encounter Time: 19:40 Subjective: f/u for A-flutter/fibrillation s/p OC with cardioversion today. SR currently and pt feels ok. - Objective Vital Signs & Weight: Vital Signs (12 hours) Temp Pulse Resp BP Pulse Ox 11/05/18 20:13 73 11/05/18 17:35 98.4 F 74 18 121/71 99 11/05/18 12:45 97.6 F 47 L 18 94/52 L 97 Weight Weight 254 lb 8 oz I&O: 11/04/18 11/05/18 11/06/18 06:59 06:59 06:59 Intake Total 350 1160 120 Balance 350 1160 120 Result Diagrams: 11/04/18 04:58 11/04/18 01:41 Additional Labs: Accuchecks 11/05/18 11/05/18 11/05/18 18:32 11:20 05:42 POC Glucose 156 H 170 H 208 H Laboratory Tests 11/03/18 11/03/18 11/04/18 19:31 20:31 01:41 WBC 13.7 H INR 3.1 3.0 11/05/18 05:52 WBC INR 2.4 EKG Reviewed by me: Yes (Tele - SR) ROS - Medication Medications: Active Medications Generic Name Dose Route Start Last Admin Trade Name Freq PRN Reason Stop Dose Admin Acetaminophen 650 mg 11/03/18 23:13 11/05/18 08:03 Tylenol PO 650 mg Q4H PRN Administration Headache/Fever/Mild Pain (1-3) Aspirin 81 mg 11/04/18 09:00 11/05/18 08:02 Ecotrin PO 81 mg DAILY TWILA Administration Atorvastatin Calcium 20 mg 11/04/18 21:00 11/05/18 20:13 Lipitor PO 20 mg HS TWILA Administration Digoxin 0.25 mg 11/04/18 21:00 11/05/18 20:13 Lanoxin PO 0.25 mg HS TWILA Administration Diltiazem HCl 240 mg 11/04/18 09:00 11/05/18 08:02 Cardizem Cd PO 240 mg DAILY TWILA Administration Insulin Glargine 45 units/ 0.45 mls @ 0 mls/hr 11/04/18 09:00 11/05/18 08:45 Miscellaneous Medication SC Not Given BID TWILA Insulin Human Lispro 0 units 11/03/18 23:14 11/04/18 17:46 Humalog SC 3 unit .MILD SLIDING SCALE PRN Administration Mild Correctional Scale Levalbuterol HCl 0.63 mg 11/04/18 15:00 11/05/18 18:56 Xopenex NEB Not Given QID-RT TWILA Lisinopril 10 mg 11/04/18 09:00 11/05/18 08:10 Zestril PO 10 mg DAILY TWILA Administration Metolazone 2.5 mg 11/04/18 09:00 11/05/18 08:02 Zaroxolyn PO 2.5 mg DAILY [facility] Administration Metoprolol Tartrate 25 mg 11/04/18 09:00 11/05/18 20:13 Lopressor PO 25 mg BID [facility] Administration Potassium Chloride 20 meq 11/04/18 09:00 11/05/18 08:02 K-Dur PO 20 meq DAILY TWILA Administration Multivit/Folic Acid/Iron 1 tab 11/04/18 09:00 11/05/18 08:02 Vitamin PO 1 tab DAILY TWILA Administration Senna/Docusate Sodium 2 tab 11/05/18 21:00 11/05/18 20:13 Senokot S PO 2 tab BID [facility] Administration Sucralfate 1 gm 11/04/18 09:00 11/05/18 20:12 Carafate PO 1 gm QID [facility] Administration Tizanidine HCl 4 mg 11/05/18 10:04 11/05/18 17:43 Zanaflex PO 4 mg Q6H PRN Administration Muscle spasms Tramadol HCl 50 mg 11/03/18 22:57 11/05/18 17:42 Ultram PO 50 mg TID PRN Administration Pain Trazodone HCl 50 mg 11/04/18 21:00 11/05/18 20:13 Desyrel PO 50 mg HS [facility] Administration Warfarin Sodium 5 mg 11/04/18 17:00 11/04/18 17:32 Coumadin PO 5 mg [id number] [facility] Administration Warfarin Sodium 7.5 mg 11/05/18 17:00 11/05/18 17:41 Coumadin PO 7.5 mg [id number] [facility] Administration - Exam NAD, awake alert Eye: PERRL, anicteric sclera ENT: normocephalic atraumatic, no oropharyngeal lesions Neck: supple, symmetric, no JVD, no thyromegaly, no lymphadenopathy Heart: RRR, no murmur, no gallops, no rubs, normal peripheral pulses Respiratory: CTAB, no wheezes, no rales, no ronchi, normal chest expansion Gastrointestinal: soft, non-tender, non-distended, normal bowel sounds, no palpable masses Extremities: no cyanosis, no clubbing, no edema Skin: normal turgor, no lesions Neurological: CN's grossly intact, no focal deficits, no new deficit Musculoskeletal: normal tone, normal strength Psychiatric: normal affect, A&O x 3 Hosp A/P (1) Atrial flutter with rapid ventricular response Code(s): I48.92 - UNSPECIFIED ATRIAL FLUTTER Status: Acute Plan: s/p OC with Cardioversion now SR, continue Metoprolol, Diltiazem and Digoxin for rate control, continue Coumadin (2) Chronic respiratory failure with hypoxia Code(s): J96.11 - CHRONIC RESPIRATORY FAILURE WITH HYPOXIA Status: Chronic Plan: Stable, continue O2 at current baseline rate (3) Chronic anticoagulation Code(s): Z79.01 - SNF (CURRENT) USE OF ANTICOAGULANTS Status: Chronic Plan: INR 2.4, continue Coumadin (4) Diastolic congestive heart failure Code(s): I50.30 - UNSPECIFIED DIASTOLIC (CONGESTIVE) HEART FAILURE Status: Chronic Qualifiers: Qualified Code(s): I50.32 - Chronic diastolic (congestive) heart failure Plan: Compensated currently - Plan Stable currently Continue Diltiazem/Digoxin/Metoprolol Continue Coumadin s/p OC/CV with SR AM lab: PT/INR Home in am 11/06/18
[2018-11-06] MEDS: traMADol HCl 50 MG TAB PO PRN (03:43)
[2018-11-06] MEDS: tiZANidine HCl 4 MG TAB PO PRN (03:45)
[2018-11-06 05:40] LABS: INR-International Normal Ratio 2.3
[2018-11-06] MEDS: Levalbuterol HCl 0.63 MG/3 ML NEB NEB SCH ×2 (06:53→10:23)
[2018-11-06] MEDS ORDERED: Torsemide 20 MG TAB PO SCH (09:00)
[2018-11-06] MEDS: Prenatal Vitamin 1 TAB PO SCH (09:05)
[2018-11-06] MEDS: Potassium Chloride 20 MEQ TAB PO SCH (09:05)
[2018-11-06] MEDS: Metolazone 2.5 MG TAB PO SCH (09:06)
[2018-11-06] MEDS: Metoprolol Tartrate 25 MG TAB PO SCH (09:06)
[2018-11-06] MEDS: Insulin Glargine 45 UNITS in Pre-Filled Syringe 1 EACH SC SCH (09:06)
[2018-11-06] MEDS: Aspirin 81 mg Enteric Coated Tablet PO SCH (09:06)
[2018-11-06] MEDS: Sucralfate 1 GM TAB PO SCH (09:06)
[2018-11-06] MEDS: Senokot S 8.6-50 MG TAB PO SCH (09:06)
[2018-11-06] MEDS: Lisinopril 10 MG TAB PO SCH (09:09)
[2018-11-06 09:42] VITALS: BP 121/67; TEMP 98.5
--- NOTE | 2018-11-06 09:52 | DIS ---
DATE OF ADMISSION: 11/03/2018 DATE OF DISCHARGE: 11/06/2018 PRIMARY CARE PHYSICIAN: Dr. Jassi Ramos. DISCHARGE DIAGNOSES: 1. Atrial flutter/fibrillation with rapid ventricular response, status post cardioversion, with return to sinus mechanism. 2. Chronic hypoxic respiratory failure with oxygen supplementation at 2 to 3 L/minute by nasal cannula. 3. Chronic anticoagulation with Coumadin. 4. Diastolic congestive heart failure with estimated ejection fraction 68%. 5. Diabetes mellitus type 2, insulin requiring. CONSULTATIONS: 1. Dr. Montaño with Electrophysiology Service. 2. Dr. Argueta with Cardiology Service. PERTINENT LAB AND X-RAY FINDINGS: Troponin I negative x3. CBC showed a white blood cell count ranged between 11.8 to 13.7. INR ranged between 2.3 to 3.1. Portable chest x-ray dated 11/03/2018 showed cardiomegaly with mild pulmonary vascular prominence. HOSPITAL COURSE: The patient was initially admitted to the telemetry unit after presenting with palpitations with associated shortness of breath. The patient's history is with significant chronic atrial fibrillation/atrial flutter, status post cardioversion and ablation previously. The patient was initially treated with Cardizem and evaluated by the Cardiology Service. The patient underwent Electrophysiology consultation as well with recommendations to attempt cardioversion with potential addition of antiarrhythmic agents. The patient underwent cardioversion successfully after transesophageal echocardiogram revealed no evidence for mural thrombus. The patient returned to sinus mechanism and remained in sinus mechanism for the remainder of the hospital course. The patient continued on anticoagulation with Coumadin and rate control measures with digoxin and diltiazem. Overall, the patient did remain clinically stable during the hospital course. Current vital signs remained stable, and I have examined and discussed followup instructions with the patient at the time of discharge. The patient verbalized understanding and agreement, ready for discharge on 11/06/2018. DISCHARGE MEDICATIONS: 1. Albuterol sulfate 3 mL nebulized q.i.d. p.r.n. 2. Enteric-coated aspirin 81 mg p.o. daily. 3. Lipitor 20 mg p.o. at bedtime. 4. Digoxin 250 mcg p.o. at bedtime. 5. Glipizide XL 10 mg p.o. daily. 6. Humalog KwikPen 5 units subcutaneously b.i.d. p.r.n. 7. Lisinopril 10 mg p.o. daily. 8. Zaroxolyn 2.5 mg p.o. daily. 9. Metoprolol tartrate 25 mg p.o. b.i.d. 10. Multivitamin with iron two tablets p.o. daily. 11. Potassium chloride 20 mEq p.o. daily. 12. Carafate 1 g p.o. q.i.d. 13. Zanaflex 4 mg p.o. q.8 hours p.r.n. 14. Tramadol 50 mg 1 to 2 tablets p.o. t.i.d. p.r.n. pain. 15. Trazodone 50 mg p.o. at bedtime. 16. Ventolin HFA 90 mcg inhaled q.4 hours p.r.n. 17. Coumadin 5 mg p.o. daily on and Monday with 7.5 mg on Monday, Monday, Monday, Monday, and Monday. 18. Cardizem CD 240 mg p.o. daily. 19. Torsemide 20 mg p.o. daily. FOLLOWUP: The patient may follow up with her primary care provider, Dr. Jassi Ramos within 7 days of discharge. The patient will follow up with Dr. Jones Argueta, with [facility] Cardiology Service in 2 to 3 weeks after discharge. CONDITION ON DISCHARGE: Stable. ACTIVITY: Ad-ting. DIET: ADA, heart healthy, and Coumadin prudent. CODE STATUS: Full. DISPOSITION: To home 11/06/2018. TIME SPENT: Total time preparing and coordinating discharge is 32 minutes. Job ID: [id number]
--- NOTE | 2018-11-06 10:33 | OP ---
DATE OF PROCEDURE: 11/05/2018 PROCEDURE PERFORMED: Transesophageal echocardiogram. INDICATION: Paroxysmal atrial fibrillation and mitral stenosis. DESCRIPTION OF PROCEDURE: The patient was taken to the PACU. The patient was sedated by Anesthesiology. A transesophageal probe was placed into the distal esophagus and stomach. Echocardiographic images were obtained. The transesophageal probe was removed. FINDINGS: 1. Normal left ventricular systolic function. 2. Left atrial enlargement. 3. The mitral valve leaflets are thickened with a mild reduction in leaflet excursion. 4. Mild mitral stenosis. 5. Mild mitral regurgitation. 6. Mild aortic regurgitation. 7. Mild tricuspid regurgitation. 8. No thrombus noted in left atrium or left atrial appendage. 9. Atherosclerotic debris in the descending aorta. IMPRESSION: No formed thrombus in the left atrium or left atrial appendage. Please call my office. Job ID: [id number]
--- NOTE | 2018-11-06 10:35 | OP ---
DATE OF PROCEDURE: 11/05/2018 PROCEDURE PERFORMED: Electrical cardioversion. INDICATION: Atypical atrial flutter. DESCRIPTION OF PROCEDURE: The patient was taken to the PACU. The patient was sedated by Anesthesiology. The patient was shocked with 50 joules of synchronized electricity. The patient converted to normal sinus rhythm. IMPRESSION: Successful electrical cardioversion. Job ID: [id number]
== END 2018-11-06 10:31 | disposition home or self-care (01) | DRG 309 ==
LOC: ERS 19:09 → 2NO 20:42
PROVIDERS: ADMIT Hospitalist; ATTEND Hospitalist
PROC: 5A2204Z Restoration of Cardiac Rhythm, Single (ICD-10-PCS; principal; 2018-11-05)
PROC: B24BZZ4 Ultrasonography of Heart with Aorta, Transesophageal (ICD-10-PCS; 2018-11-05)
DX: I48.92 Unspecified atrial flutter (principal); J96.11 Chronic respiratory failure with hypoxia; I50.32 Chronic diastolic (congestive) heart failure; Z68.42 Body mass index [BMI] 45.0-49.9, adult; E78.00 Pure hypercholesterolemia, unspecified; I11.0 Hypertensive heart disease with heart failure; I48.0 Paroxysmal atrial fibrillation; I05.0 Rheumatic mitral stenosis; E11.65 Type 2 diabetes mellitus with hyperglycemia; E78.5 Hyperlipidemia, unspecified; J44.9 Chronic obstructive pulmonary disease, unspecified; K21.9 Gastro-esophageal reflux disease without esophagitis; E66.01 Morbid (severe) obesity due to excess calories; Z99.81 Dependence on supplemental oxygen; Z90.49 Acquired absence of other specified parts of digestive tract; Z87.891 Personal history of nicotine dependence; Z79.82 Long term (current) use of aspirin; Z88.2 Allergy status to sulfonamides; Z88.8 Allergy status to other drugs, medicaments and biological substances; Z79.84 Long term (current) use of oral hypoglycemic drugs; Z79.01 Long term (current) use of anticoagulants; Z79.899 Other long term (current) drug therapy; Z79.4 Long term (current) use of insulin; Z88.0 Allergy status to penicillin
CPT/HCPCS: 36415; 36416; 71045; 80048; 80053; 82550; 84484; 85025; 85610; 85730; 92960; 93005; 93306; 93312; 94640; J1815; J2704; J3246; J7611; J7614

== ENCOUNTER 2018-11-21 07:41 | Emergency (ER) | payer BC ==
[2018-11-21 08:34] LABS: #Eosinphils 0.2 thou/uL (0.0-0.7); #Lymphocytes 1.8 thou/uL (1.20-3.40); #Monocytes 0.6 thou/uL (0.11-0.59); #Neutrophils 5.3 thou/uL (1.40-6.50); %Basophils 0.3 % (0.0-1.0); %Eosinophils 1.9 % (0.0-10.0); %Lymphocytes 22.8 % (21.0-51.0); %Monocytes 7.6 % (0.0-10.0); %Neutrophils 67.5 % (42.0-75.0); Hemoglobin 12.9 g/dL (12.0-16.0); Mean Corpuscular HGB CONC 33.8 g/dL (32.0-36.0); Mean Corpuscular Hemoglobin 29.6 pg (27.0-31.0); Mean Corpuscular Volume 87.7 fL (78.0-98.0); Mean Platelet Volume 7.8 fL (7.4-10.4); Platelet Count 194 thou/uL (130-400); Red Blood Cell (RBC) Count 4.36 mill/uL (4.20-5.40); White Blood Cell (WBC) Count 7.9 thou/uL (4.8-10.8)
[2018-11-21 08:50] LABS: ALT (SGPT) 24 U/L (8-55); AST (SGOT) 19 U/L (5-34); Alkaline Phosphatase 106 U/L (40-150); Anion Gap 16 mmol/L (10-20); BUN (Urea Nitrogen) 19 mg/dL (9.8-20.1); Bilirubin, Total 0.4 mg/dL (0.2-1.2); Calc. Creatinine Clearance 0 mL/min (70-130); Calcium 9.4 mg/dL (7.8-10.44); Carbon Dioxide 31 mmol/L (23-31); Chloride 93 mmol/L (98-107); Estimated GFR-MDRD 58; Globulin 3.2 g/dL (2.4-3.5); Glucose 275 mg/dL (80-115); Potassium 3.5 mmol/L (3.5-5.1); Protein, Total 7.2 g/dL (6.0-8.3); Sodium 136 mmol/L (136-145)
--- NOTE | 2018-11-21 09:05 | RAD ---
FRONTAL VIEW CHEST: COMPARISON: 11/03/2018. INDICATION: Chest pain. FINDINGS: There is enlargement of the cardiac silhouette. No lobar consolidation, effusion, or pneumothorax. Prominence of the pulmonary vasculature and interstitial prominence is seen bilaterally. IMPRESSION: Findings indicate congestive heart failure, with decompensation. Correlate clinically. POS: CET
[2018-11-21 11:07] LABS: Troponin I Less than 0.010 ng/mL (< 0.028)
== END 2018-11-21 12:13 | disposition home or self-care (01) ==
LOC: ERS 07:41
DX: R07.89 Other chest pain (principal); E11.9 Type 2 diabetes mellitus without complications; I11.0 Hypertensive heart disease with heart failure; E78.5 Hyperlipidemia, unspecified; I50.9 Heart failure, unspecified; I48.91 Unspecified atrial fibrillation; Z87.891 Personal history of nicotine dependence; Z79.899 Other long term (current) drug therapy; Z79.01 Long term (current) use of anticoagulants; Z79.4 Long term (current) use of insulin
CPT/HCPCS: 36415; 71045; 80053; 83880; 84484; 85025; 93005

== ENCOUNTER 2018-12-13 07:12 | Inpatient (IN) | payer BC ==
[2018-12-13 07:46] LABS: #Basophils 0.1 thou/uL (0.0-0.2); #Eosinphils 0.2 thou/uL (0.0-0.7); #Lymphocytes 1.9 thou/uL (1.20-3.40); #Monocytes 0.7 thou/uL (0.11-0.59); %Basophils 0.7 % (0.0-1.0); %Eosinophils 2.6 % (0.0-10.0); %Lymphocytes 21.5 % (21.0-51.0); %Monocytes 7.8 % (0.0-10.0); %Neutrophils 67.5 % (42.0-75.0); Hemoglobin 13.6 g/dL (12.0-16.0); Mean Corpuscular Hemoglobin 30.4 pg (27.0-31.0); Mean Corpuscular Volume 89.4 fL (78.0-98.0); Mean Platelet Volume 7.9 fL (7.4-10.4); Platelet Count 184 thou/uL (130-400); RBC Distribution Width 13.2 % (11.5-14.5); Red Blood Cell (RBC) Count 4.48 mill/uL (4.20-5.40); White Blood Cell (WBC) Count 8.9 thou/uL (4.8-10.8)
[2018-12-13] MEDS ORDERED: Metoprolol Tartrate 5 MG/5 ML VIAL ONE (08:01)
[2018-12-13] MEDS ORDERED: Nitroglycerin 2% Ointment 1 INCH/1 GM Packet ONE (08:09)
[2018-12-13 08:11] LABS: ALT (SGPT) 22 U/L (8-55); AST (SGOT) 25 U/L (5-34); Alkaline Phosphatase 96 U/L (40-150); Anion Gap 12 mmol/L (10-20); BUN (Urea Nitrogen) 14 mg/dL (9.8-20.1); Bilirubin, Total 0.4 mg/dL (0.2-1.2); Calc. Creatinine Clearance 0 mL/min (70-130); Calcium 9.5 mg/dL (7.8-10.44); Carbon Dioxide 30 mmol/L (23-31); Chloride 97 mmol/L (98-107); Estimated GFR-MDRD 56; Globulin 3.9 g/dL (2.4-3.5); Glucose 158 mg/dL (80-115); Lipase 13 U/L (8-78); Potassium 4.2 mmol/L (3.5-5.1); Protein, Total 7.9 g/dL (6.0-8.3); Sodium 135 mmol/L (136-145)
[2018-12-13 08:17] LABS: Prothrombin Time 30.7 SEC (12.0-14.7)
[2018-12-13 08:24] LABS: PTT 53.4 SEC (22.9-36.1)
--- NOTE | 2018-12-13 09:52 | PDOC.FPRHP ---
- History of Present Illness Chief Complaint: Chest Pain History of Present Illness: Mrs. Darling is a 63 y/o female with a history of multiple ablations and cardioversions, CHF, CAD, HTN, HLD, and DM who presents to the ED after she was awoken from sleep this AM from left-sided chest pain. She states that the pain has lessened since her presentation to the ED, feels like a "heaviness", does not radiate and is made worse with with exertion. She admits to associated symptoms of a recent 10 LBS weight gain, nausea and uneasiness, but denies any vomiting, syncope, palpitations, PND, LE edema, recent illness, sick contacts, worsening cough, SOB, diarrhea, constipation, fevers, chills or night sweats. In the ED, initial EKG showed A-Fib with 2:1 AV conduction. She received Nitro paste and a 5 mg IVP of Metoprolol. After the push, repeat EKG showed sinus tachycardia with 2nd Degree AV Block (Mobitz Type I.) ED Course: See HPI - Allergies/Adverse Reactions Allergies Allergy/AdvReac Type Severity Reaction Status Date / Time ampicillin Allergy Verified 08/30/18 15:45 dronedarone HCl [From Multaq] Allergy Verified 08/30/18 15:45 flecainide Allergy Verified 08/30/18 15:45 Sulfa (Sulfonamide Allergy Rash Verified 08/30/18 15:45 Antibiotics) - Home Medications Medication Instructions Recorded Confirmed Type Aspirin [Aspirin EC] 81 mg PO DAILY 09/29/15 12/13/18 History Digoxin 250 mcg PO HS 09/29/15 12/13/18 History Lisinopril 10 mg PO DAILY 09/29/15 12/13/18 History PNV No.118/Iron Fumarate/FA 2 tab PO DAILY 09/29/15 12/13/18 History [ 19 Chewable Tablet] Sucralfate [Carafate] 1 gm PO QID 09/29/15 12/13/18 History Warfarin Sodium 7.5 mg PO ASDIR 09/29/15 12/13/18 History traMADol HCl [Tramadol HCl] 1 - 2 tab PO Q6HR PRN 01/28/16 12/13/18 History Atorvastatin Calcium [Lipitor] 20 mg PO HS 06/18/17 12/13/18 History Metoprolol Tartrate [Lopressor] 25 mg PO BID 06/18/17 12/13/18 History Potassium Chloride 20 meq PO DAILY 07/02/17 12/13/18 History Diltiazem HCl [Cardizem CD] 240 mg PO DAILY #30 cap 07/07/17 12/13/18 Rx Warfarin Sodium [Coumadin] 5 mg PO ASDIR 08/30/18 12/13/18 History glipiZIDE [Glucotrol XL] 10 mg PO DAILY 08/30/18 12/13/18 History tiZANidine HCl [Zanaflex] 4 mg PO Q6HR PRN 08/30/18 12/13/18 History Albuterol Sulfate [Albuterol 3 ml NEB QID 11/03/18 12/13/18 History Sulfate Neb] Insulin Glargine,Hum.Rec.Anlog 50 units SC BID 11/03/18 12/13/18 History [Lantus Solostar] Insulin Lispro [Humalog Kwikpen 5 unit SQ BID PRN 11/03/18 12/13/18 History U-100] Metolazone [Zaroxolyn] 2.5 mg PO DAILY PRN 11/03/18 12/13/18 History Ondansetron [Zofran ODT] 4 mg PO Q8HR PRN 11/03/18 12/13/18 History Ventolin HFA Inhaler 90 mcg INH Q4HR PRN 11/03/18 12/13/18 History traZODone HCl [Trazodone HCl] 50 mg PO HS 11/03/18 12/13/18 History Torsemide [Demadex] 20 mg PO DAILY tab 11/06/18 12/13/18 Rx Pantoprazole [Protonix] 40 mg PO DAILY 12/13/18 12/13/18 History - History PMHx: CHF, COPD on 2 L O2 at home, DM2, HTN, HLD, Hx of A-Fib PSHx: Cardiac Ablation X3, Multiple Cardioversions, Tonsillectomy, Appendectomy , Cholecystectomy, Section X3 FHx: Non-Contributory Social: Denies EtOH and drug abuse. Former tobacco abuse (+10 PY) - Review of Systems General: denies: fever/chills, weight/appetite/sleep changes, night sweats Eyes: denies: eye pain, vision changes ENT: reports: other (seasonal allergies). denies: nasal congestion, rhinorrhea Respiratory: denies: cough, congestion, shortness of breath Cardiovascular: reports: chest pain. denies: palpitation, edema Gastrointestinal: reports: nausea. denies: vomiting, diarrhea, abdominal pain Genitourinary: denies: incontinence, dysuria Skin: denies: rashes, lesions Musculoskeletal: reports: pain (chronic back pain) Neurological: reports: weakness. denies: numbness, syncope Psychological: denies: anxiety, depression - Vital signs BP: 93/63 HR: 81 RR: 14 Tmax: 98.3 Pox: 98% on RA Wt: 121 kg - Physical Exam Constitutional: NAD, awake, alert and oriented HEENT: normocephalic and atraumatic, PERRLA, EOMI, conjunctiva clear, grossly normal vision, grossly normal hearing, MMM Neck: supple, FROM Chest: no-tender to palpation, no lesions Heart: normal S1/S2, no murmurs/rubs/gallops -Heart: regular rate, irregular rhythm Lungs: CTAB, no respiratory distress, good air movement, no rales/rhonchi Abdomen: soft, non-tender, bowel sounds present Musculoskeletal: normal structure, normal tone, ROM grossly normal Neurological: no focal deficit, CN II-XII intact, normal sensation Skin: no rash/lesions, capillary refill <2 seconds Heme/Lymphatic: no unusual bruising or bleeding, no purpura, no petechia Psychiatric: normal mood and affect, good judgment and insight, intact recent and remote memory FMR H&P: Results - Labs Result Diagrams: 12/14/18 05:00 12/14/18 05:00 Lab results: WBC 8.9 thou/uL (4.8-10.8) 12/13/18 07:20 Hgb 13.6 g/dL (12.0-16.0) 12/13/18 07:20 Hct 40.1 % (36.0-47.0) 12/13/18 07:20 MCV 89.4 fL (78.0-98.0) 12/13/18 07:20 Plt Count 184 thou/uL (130-400) 12/13/18 07:20 Neutrophils % 67.5 % (42.0-75.0) 12/13/18 07:20 Sodium 135 mmol/L (136-145) L 12/13/18 07:20 Potassium 4.2 mmol/L (3.5-5.1) 12/13/18 07:20 Chloride 97 mmol/L (98-107) L 12/13/18 07:20 Carbon Dioxide 30 mmol/L (23-31) 12/13/18 07:20 BUN 14 mg/dL (9.8-20.1) 12/13/18 07:20 Creatinine 0.99 mg/dL (0.6-1.1) 12/13/18 07:20 Glucose 158 mg/dL (80-115) H 12/13/18 07:20 Calcium 9.5 mg/dL (7.8-10.44) 12/13/18 07:20 Total Bilirubin 0.4 mg/dL (0.2-1.2) 12/13/18 07:20 AST 25 U/L (5-34) 12/13/18 07:20 ALT 22 U/L (8-55) 12/13/18 07:20 Alkaline Phosphatase 96 U/L (40-150) 12/13/18 07:20 B-Natriuretic Peptide 26.0 pg/mL (0-100) 12/13/18 07:20 Serum Total Protein 7.9 g/dL (6.0-8.3) 12/13/18 07:20 Albumin 4.0 g/dL (3.4-4.8) 12/13/18 07:20 Lipase 13 U/L (8-78) 12/13/18 07:20 - EKG Interpretation EKG: Initial EKG: Atrial flutter with 2:1 conduction Repeat EKG: Mobitz type 1 - Radiology Interpretation Chest x-ray Status: image reviewed by me (cardiomegaly, no effusions or consolidations) FMR H&P: A/P - Problem List (1) Chest pain, rule out acute myocardial infarction Current Visit: Yes Status: Acute Code(s): R07.9 - CHEST PAIN, UNSPECIFIED (2) Atrial fibrillation, persistent Current Visit: No Status: Acute Code(s): I48.1 - PERSISTENT ATRIAL FIBRILLATION (3) Diabetes type 2, controlled Current Visit: No Status: Chronic Code(s): E11.9 - TYPE 2 DIABETES MELLITUS WITHOUT COMPLICATIONS (4) Diastolic congestive heart failure Current Visit: No Status: Chronic Code(s): I50.30 - UNSPECIFIED DIASTOLIC ( CONGESTIVE) HEART FAILURE (5) Dyslipidemia Current Visit: No Status: Chronic Code(s): E78.5 - HYPERLIPIDEMIA, UNSPECIFIED (6) Hypertension Current Visit: No Status: Chronic Code(s): I10 - ESSENTIAL (PRIMARY) HYPERTENSION - Plan 1. Chest Pain r/o -Typical chest pain symptoms in light of complex cardiac history and smoking history -Physical exam unremarkable -Trops: < 0.01 x2 -BNP: 26 -CXR: NAF -EKG: A-Fib > 2nd Degree AV Block (Mobitz Type I) -Continue to monitor trops -Admit to Telemetry Floor for continuous observation -Consult Cardiology - previously followed by Dr. Argueta 2. HTN -BP was measured at 93/63 in ED -Hold home medication regimen 3. HLD -Triglycerides (147), Cholesterol (107), LDL (52), HDL (26) -Well controlled -Continue home medication regimen 4. DM2 -POC Glucose: 153 -HgA1c: 7.2 -Currently well controlled in light of comorbidities 5. COPD -Patient quit smoking +10 years ago -Currently denies significant respiratory symptoms -Uses 2L O2 via nasal canula at home -Continue O2 supplementation -Administer DuoNeb treatments if needed Dispo: Admit patient to Telemetry Floor for observation and consult Cardiology for additional recommendations. Recent EKGs due not show ST-Elevations and troponins have been negative x2 with a minimal BMP. Expected LOS < 48H FMR H&P: Upper Level - Plan Date/Time: 12/13/18 0950 ILupillo MD, have evaluated this patient and agree with findings/plan as outlined by commercial intern resident. Pertinent changes/additions are listed here. Steff Darling is a 63 year old F with a PMH of Afib s/p cardiac ablation X3, CHF, CAD, HTN, HLD and DM who presents to the ED after she woke up with chest pain morning of arrival. Pain located on the left side of chest, described as heavy sensation, no radiation. Pain is worsened by exertion. Pain started to improve in the ED after getting nitro paste and a 5 mg IVP of metoprolol Denies any dyspnea, PND, orthopnea, fevers, chills. Initial EKG showed A flutter with 2:1 AV conduction. After nitro and Metoprolol 5 mg IVP, repeat EKG showed sinus tachycardia with 2nd degree AV block (Mobitz type I). Initial trop was negative. CXR pending but appears to show cardiomegaly without other abnormalities. Will admit patient to tele/obs to r/o ACS. Checking stress and Echo. Consulting cardiology due to long hx of arrhythmias and ablations, may need to have EP evaluate patient. Trending troponins. Continue ASA and Statin. Continue Diltiazem and Digoxin. Will follow Cardiology recs. Continuing coumadin for VTE ppx. Please see commercial intern note above for full H&P, which I have reviewed and agree with. Addendum - Attending - Attending Attestation Date/Time: 12/14/18 6618 I personally evaluated the patient and discussed the management with Dr. Coffey and team on 12/13. I agree with the History, Examination, Assessment and Plan documented above with any addition or exceptions noted below.
[2018-12-13 11:19] LABS: Troponin I Less than 0.010 ng/mL (< 0.028)
[2018-12-13] MEDS ORDERED: Ondansetron ODT 4 MG TAB SL PRN (12:06)
[2018-12-13] MEDS ORDERED: Acetaminophen 325 MG TAB PO PRN ×2 (12:06→12:20)
[2018-12-13] MEDS ORDERED: Ondansetron PF 4 MG/2 ML Vial IVP PRN (12:06)
[2018-12-13] MEDS ORDERED: Ondansetron ODT 4 MG TAB PO PRN (12:20)
[2018-12-13 12:28] VITALS: BMI 44.9
[2018-12-13] MEDS ORDERED: Dextrose 5% in Water 1,000 ML IV PRN (12:50)
[2018-12-13] MEDS ORDERED: HumaLOG 300 UNITS/3 ML VIAL SC PRN ×2 (12:50)
[2018-12-13] MEDS ORDERED: Dextrose 50% Abboject 50 ML SYRINGE SLOW IVP PRN (12:50)
[2018-12-13] MEDS: Nitroglycerin 2% Ointment 1 INCH/1 GM Packet TOP SCH ×2 (13:11→20:45)
[2018-12-13 15:10] LABS: Troponin I Less than 0.010 ng/mL (< 0.028)
[2018-12-13] MEDS: traMADol HCl 50 MG TAB PO PRN ×2 (16:47→22:18)
[2018-12-13] MEDS: Warfarin Sodium 5 MG TAB PO SCH ×2 (16:49→17:42)
[2018-12-13] MEDS ORDERED: Sotalol HCl 80 MG TAB PO SCH (18:00)
--- NOTE | 2018-12-13 18:03 | CON ---
DATE OF CONSULTATION: 12/13/2018 REASON FOR CONSULTATION: Atrial flutter. PRIMARY TOW TRUCK DISPATCHER: Dr. Jones Argueta. HISTORY OF PRESENT ILLNESS: Mrs. Darling is a very pleasant 63-year-old white female, who comes to the hospital for chest pain. She was seen in the ER and was found to be in atrial flutter with variable AV block. She was given adenosine and she only slowed down, but she remained in atrial flutter. Cardiology is being consulted for further evaluation and care. Her troponins have been negative so far. Currently, she continues to have just mild chest discomfort. She was here last month for atrial flutter. She underwent OC and cardioversion and EP evaluated and had advised to either start sotalol versus an ablation and she decided to just wait to see if this would recur. PAST MEDICAL HISTORY: 1. Normal heart catheterization in 2015. 2. Type 2 diabetes. 3. Hypertension. 4. Hyperlipidemia. 5. Atrial fibrillation, status post multiple cardioversions and three ablations total. 6. Atrial flutter, status post cardioversion recently. 7. COPD, on home O2. SURGICAL HISTORY: 1. Appendectomy. 2. Cholecystectomy. 3. Tonsillectomy. 4. x3. OUTPATIENT MEDICATIONS: Include, 1. Warfarin. 2. Ventolin inhaler. 3. Torsemide 20 mg a day. 4. Sucralfate. 5. vitamins. 6. Albuterol inhaler. 7. Trazodone. 8. Tramadol p.r.n. 9. Zanaflex. 10. Glipizide 10 mg a day. 11. Potassium chloride 20 mEq a day. 12. Protonix 40 mg a day. 13. Ondansetron 4 mg q.8 hours p.r.n. 14. Metoprolol 25 mg b.i.d. 15. Metolazone 2.5 mg a day. 16. Lisinopril 10 mg a day. 17. Insulin lispro. 18. Lantus. 19. Diltiazem 240 mg a day. 20. Digoxin 250 mcg a day. 21. Atorvastatin 10 mg at bedtime. 22. Aspirin 81 a day. ALLERGIES: 1. AMPICILLIN. 2. MULTAQ. 3. FLECAINIDE. 4. SULFA DRUGS. SOCIAL HISTORY: Quit smoking in 2008. No alcohol or drugs. FAMILY HISTORY: Noncontributory. REVIEW OF SYSTEMS: A 12-point review of systems was done and was all negative unless stated in history of present illness. PHYSICAL EXAMINATION: VITAL SIGNS: Temperature 98.1, pulse 74, respiratory rate 18, saturating 94% on 2 L nasal cannula, and blood pressure 113/60. GENERAL: Awake, alert, and oriented x3. No distress. HEENT: Normocephalic and atraumatic. NECK: Supple. LUNGS: Reduced breath sounds. CARDIOVASCULAR: S1 and S2. No S3 or S4. No murmurs. ABDOMEN: Soft. Positive bowel sounds. EXTREMITIES: Trace edema. SKIN: Warm and dry. LABORATORY DATA: Laboratory work was reviewed. White count of 8.9, hemoglobin of 13.6, hematocrit of 40.1, platelet count of 184. Coags, INR of 3.0. Chemistries were reviewed, unremarkable. Troponin is negative x3. BNP was 26. EKGs were reviewed. Most recent echocardiogram was done in October, just a month ago and the EF was 50% to 55% with mild to moderate MR, mild TR, mild AI. ASSESSMENT: Atrial flutter, atypical. PLAN: 1. I spoke with her about possibly starting her on sotalol versus just calling the Physiology for a planned ablation and she would prefer to undergo an ablation to get rid of this atrial flutter. We will talk to EP and see how they want to proceed either inpatient versus outpatient. 2. Her chest pain is more likely related to her atrial flutter. She had a normal heart catheterization just 3 years ago and normal stress test within the last year and completely negative troponins. 3. Thank you for letting us to participate in the care of your patient. We will follow. Job ID: [id number]
[2018-12-13] MEDS ORDERED: Atorvastatin Calcium 20 MG TAB PO SCH (21:00)
[2018-12-13] MEDS ORDERED: Metoprolol Tartrate 25 MG TAB PO SCH (21:00)
[2018-12-13] MEDS ORDERED: Insulin Glargine 45 UNITS in Pre-Filled Syringe SC SCH (21:00)
[2018-12-13] MEDS ORDERED: Famotidine 20 MG TAB PO SCH (21:00)
[2018-12-13] MEDS ORDERED: Non-Formulary Item 1 EACH (Insulin Glargine,Hum.Rec.Anlog [Lantus Solostar] 50 UNITS) SC SCH (21:00)
[2018-12-13] MEDS ORDERED: Digoxin 0.25 MG TAB PO SCH (21:00)
[2018-12-13] MEDS: Atorvastatin Calcium 20 MG TAB PO SCH (21:09)
[2018-12-13] MEDS: Insulin Glargine 50 UNITS in Pre-Filled Syringe SC SCH (21:09)
[2018-12-13] MEDS ORDERED: Sodium Chloride 0.9% 500 ML IV SCH (21:15)
[2018-12-13] MEDS: traZODone HCl 50 MG TAB PO SCH (22:18)
[2018-12-13] MEDS: tiZANidine HCl 4 MG TAB PO PRN (22:18)
[2018-12-14] MEDS: Nitroglycerin 2% Ointment 1 INCH/1 GM Packet TOP SCH ×3 (04:23→22:28)
[2018-12-14 05:13] LABS: #Eosinphils 0.3 thou/uL (0.0-0.7); #Lymphocytes 2.3 thou/uL (1.20-3.40); #Monocytes 0.7 thou/uL (0.11-0.59); #Neutrophils 4.5 thou/uL (1.40-6.50); %Basophils 0.6 % (0.0-1.0); %Lymphocytes 28.9 % (21.0-51.0); %Monocytes 8.5 % (0.0-10.0); %Neutrophils 58.1 % (42.0-75.0); Hemoglobin 11.9 g/dL (12.0-16.0); Mean Corpuscular HGB CONC 33.3 g/dL (32.0-36.0); Mean Corpuscular Hemoglobin 30.1 pg (27.0-31.0); Mean Corpuscular Volume 90.4 fL (78.0-98.0); Mean Platelet Volume 7.7 fL (7.4-10.4); Platelet Count 166 thou/uL (130-400); RBC Distribution Width 13.1 % (11.5-14.5); Red Blood Cell (RBC) Count 3.97 mill/uL (4.20-5.40); White Blood Cell (WBC) Count 7.8 thou/uL (4.8-10.8)
[2018-12-14 05:33] LABS: ALT (SGPT) 16 U/L (8-55); AST (SGOT) 15 U/L (5-34); Albumin 3.4 g/dL (3.4-4.8); Alkaline Phosphatase 83 U/L (40-150); Anion Gap 9 mmol/L (10-20); BUN (Urea Nitrogen) 17 mg/dL (9.8-20.1); Bilirubin, Total 0.3 mg/dL (0.2-1.2); Calc. Creatinine Clearance 119 mL/min (70-130); Calcium 8.8 mg/dL (7.8-10.44); Carbon Dioxide 32 mmol/L (23-31); Chloride 98 mmol/L (98-107); Estimated GFR-MDRD 66; Glucose 131 mg/dL (80-115); Potassium 3.7 mmol/L (3.5-5.1); Protein, Total 6.4 g/dL (6.0-8.3); Sodium 135 mmol/L (136-145)
--- NOTE | 2018-12-14 05:49 | PDOC.FM ---
- Subjective Subjective: Mrs. Darling was resting comfortably in her bed at the time of the evaluation and complained of no overnight events, specifically repeat occurrences of chest pain or shortness of breath. She met with both Dr. Lopez and Dr. Montaño yesterday , and is optimistic about her treatment modifications and plan of care. - Objective Vital Signs & Weight: Vital Signs (12 hours) Temp Pulse Resp BP Pulse Ox 12/14/18 03:59 97.6 F 69 19 151/73 H 97 12/13/18 23:50 63 123/78 12/13/18 22:00 56 L 133/76 12/13/18 21:00 97.8 F 56 L 18 83/53 L 99 12/13/18 20:00 99 12/13/18 19:51 98.4 F 53 L 18 85/48 L 97 Weight Weight 114.986 kg I&O: 12/12/18 12/13/18 12/14/18 06:59 06:59 06:59 Intake Total 240 Balance 240 Result Diagrams: 12/14/18 05:00 12/14/18 05:00 Phys Exam - Physical Examination Constitutional: NAD HEENT: PERRLA, moist MMs, sclera anicteric, oral pharynx no lesions Neck: supple, full ROM Respiratory: no wheezing, no rales, no rhonchi, clear to auscultation bilateral Poor air movement Cardiovascular: no significant murmur, no rub Irregularly irregular Gastrointestinal: soft, non-tender, no distention Musculoskeletal: no edema, pulses present Neurological: non-focal, moves all 4 limbs Psychiatric: normal affect Skin: no rash Dx/Plan (1) Chest pain, rule out acute myocardial infarction Code(s): R07.9 - CHEST PAIN, UNSPECIFIED Status: Acute (2) Atrial fibrillation, persistent Code(s): I48.1 - PERSISTENT ATRIAL FIBRILLATION Status: Acute (3) Diabetes type 2, controlled Code(s): E11.9 - TYPE 2 DIABETES MELLITUS WITHOUT COMPLICATIONS Status: Chronic (4) Diastolic congestive heart failure Code(s): I50.30 - UNSPECIFIED DIASTOLIC (CONGESTIVE) HEART FAILURE Status: Chronic (5) Dyslipidemia Code(s): E78.5 - HYPERLIPIDEMIA, UNSPECIFIED Status: Chronic (6) Hypertension Code(s): I10 - ESSENTIAL (PRIMARY) HYPERTENSION Status: Chronic - Plan Plan: 1. Typical Chest Pain, r/o ACS -Typical chest pain symptoms in light of complex cardiac history and smoking history -Physical exam unremarkable -Trops: < 0.01 x3 -BNP: 26 -CXR: NAF -EKG: A-Fib > 2nd Degree AV Block (Mobitz Type I) -Admit to Telemetry Floor for continuous observation -Dr. Lopez (Cardiology) consulted - initiated Sotolol 120 mg PO BID -Dr. Montaño (EP) consulted - planning for cardioversion on 12/14 -Digoxin currently held, per EP 2. HTN -BP was 151/73 on 12/14 -Restart home medication regimen -Beta-chayo currently held, per EP 3. HLD -Triglycerides (147), Cholesterol (107), LDL (52), HDL (26) -Well controlled -Continue home medication regimen 4. DM2 -POC Glucose: 127 -HgA1c: 7.2 -Currently well controlled in light of comorbidities 5. COPD -Patient quit smoking +10 years ago -Currently denies significant respiratory symptoms -Uses 2L O2 via nasal canula at home -Continue O2 supplementation -Administer DuoNeb treatments if needed Dispo: Patient currently admitted to Telemetry Floor for observation. Cardiology recently initiated Sotalol regimen while EP plans to perform a cardioversion later this AM, with an ablation scheduled for the near future in an outpatient setting. Expected LOS <48H Addendum - Attending - Attending Attestation Date/Time: 12/14/18 1309 I personally evaluated the patient and discussed the management with Dr. Hamm. I agree with the History, Examination, Assessment and Plan documented above with any addition or exceptions noted below. Sotalol started, ECG's 2h post AM dose, await cards for CV.
[2018-12-14] MEDS: traMADol HCl 50 MG TAB PO PRN ×3 (05:57→22:30)
--- NOTE | 2018-12-14 07:25 | RAD ---
Portable upright frontal chest radiograph: 12/13/2018 COMPARISON: 11/21/2018 HISTORY: Chest pain FINDINGS: Heart and mediastinal contours are stable. No pneumothorax or pleural fluid. No focal conso lidation or alveolar edema. IMPRESSION: No acute findings.
--- NOTE | 2018-12-14 08:19 | CON ---
DATE OF CONSULTATION: 12/13/2018 HISTORY OF PRESENT ILLNESS: I am seeing Ms. Darling at our [facility] telemetry floor as an Electrophysiology pci security consultant. Her problems are: 1. Persistent atrial fibrillation and atypical atrial flutter. a. Status post 3 ablations, most recently on 05/30/[address] Larson which included left atrial appendage isolation. b. Recurrent atrial flutters, prompting repeat cardioversions, most recently on November 06 in this hospital. At that time, a OC was also performed delivering no intracardiac clots. Normal LV systolic function. c. History of mitral valve disease, yviu-ey-pwiibesz mitral stenosis, tinl-ud-aufvermp mitral regurgitation, fgmy-dc-jlelpwpq aortic regurgitation, [id number]-[id number] tricuspid regurgitation. Normal LVEF in prior OC in March 2018. d. Riwn-ue-aqdwswnq mitral stenosis on the most recent OC. 2. History of diabetes, hypertension, with her gender, her CHADS-VASc score is 3, on warfarin for anticoagulation. 3. History of GERD. 4. History of morbid obesity. 5. History of COPD, on home O2. ALLERGIES: AMPICILLIN, DRONEDARONE, FLECAINIDE, SULFA MEDICATION. MEDICATIONS: At home included: 1. Warfarin 7.5 mg as directed. 2. Sucralfate . 3. daily. 4. Digoxin 250 mcg daily. 5. Aspirin 81 mg daily. 6. Tramadol. 7. Lipitor. 8. Metoprolol 25 mg twice a day. 9. Potassium chloride 20 mEq daily. 10. Diltiazem CD 240 mg daily. 11. Warfarin 5 mg as directed. 12. Glipizide. 13. Tizanidine. 14. Ventolin. 15. Albuterol. 16. Trazodone. 17. Metolazone. 18. Insulin. 19. Ondansetron. 20. Torsemide. 21. Pantoprazole. SUBJECTIVE: Ms. Darling is readmitted with recurrent palpitations and chest pains. The episodes started this morning. Prior to that, she felt okay. Her heart rate was mildly elevated in the ER. She continues to feel heaviness throughout the day. She denies any PND, orthopnea, lower extremity fluid overload. No stroke-like symptoms. No neurological deficits. No fever, chills, or cough. No bleeding issues. Rest of 12-point system otherwise unremarkable except for shoulder aches which are chronic. PAST MEDICAL HISTORY: As above. PAST SURGICAL HISTORY: Significant for x3, cholecystectomy, appendectomy, tonsillectomy, multiple cardioversions. SOCIAL HISTORY: The patient denies EtOH or drug abuse. She used to smoke about 10 pack-year smoking. OBJECTIVE DATA: VITAL SIGNS: Blood pressure currently 111/59, heart rate 57, respirations 14, and temperature 97.6 degrees Fahrenheit. GENERAL: Alert and oriented woman, in no apparent distress. NECK: Supple. Jugular veins not distended. CHEST: Coarse without crackles. HEART: Heart sounds are irregularly irregular; S1, S2 is variable. No murmur or gallop. ABDOMEN: Benign. Bowel sounds positive. EXTREMITIES: Lower extremities without edema, clubbing, or cyanosis. Pulses are adequate. NEUROLOGIC: The patient is nonfocal. MUSCULOSKELETAL: Without joint swelling or deformity. SKIN: Without rash. DATABASE: EKG is reviewed revealing an atypical atrial flutter with controlled ventricular rates about 78 beats per minute. LABORATORY DATA: White cell count 8.9, hemoglobin 13.6, and platelet count is 184. Sodium 135, potassium 4.2, BUN is 14, and creatinine 0.99. AST and ALT 25 and 22. Troponin I is 0.01 x3. BNP is 26. ASSESSMENT AND PLAN: Ms. Darling is a pleasant 63-year-old woman with a history of persistent atrial fibrillation and now recurrent episodes of atrial flutter are noted. She was here about a month ago cardioverted but at that point, she preferred no antiarrhythmic loading. Now, she is here with recurrence and she is highly symptomatic, even though her ventricular rates are well controlled. She underwent a stress test in August this year that showed no ischemia and LVEF of 68%. We have discussed the treatment options. She voiced preference for repeat ablation. This will be arranged as an outpatient. In the interim, we will initiate sotalol loading and possibly cardioversion in the morning. Her INR levels are sufficiently high at 3, she recently had negative OC as well. I will hold her beta blockers and digoxin to avoid excessive bradycardia. The pros and cons of the anticoagulation regimen and stroke-like risks were discussed regarding cardioversion. She understands and willing to proceed. We will schedule her for tomorrow. Thank you again for allowing me to participate in the care of this patient. Job ID: [id number]
[2018-12-14] MEDS ORDERED: Enoxaparin Sodium 40 MG/0.4 ML SYRINGE SC SCH (09:00)
[2018-12-14] MEDS ORDERED: Digoxin 0.25 MG TAB PO SCH (09:00)
[2018-12-14] MEDS ORDERED: Aspirin 325 mg Enteric Coated Tablet PO SCH (09:00)
[2018-12-14] MEDS: tiZANidine HCl 4 MG TAB PO PRN ×2 (09:18→22:30)
[2018-12-14] MEDS: Sucralfate 1 GM TAB PO SCH ×4 (09:23→21:05)
[2018-12-14] MEDS: Sotalol HCl 80 MG TAB PO SCH ×2 (09:23→21:05)
[2018-12-14] MEDS ORDERED: PROPOFOL 20 ML ONE (11:41)
--- NOTE | 2018-12-14 12:45 | PDOC.CPN ---
- Subjective Date: 12/14/18 Time: 12:44 Interval history: She is doing well. She had a DCCV and is back in sinus. She has tolerated 120 mg BID of sotalol well. - Review of Systems General: denies: fever/chills, weight/appetite/sleep changes, night sweats, fatigue Respiratory: denies: cough, congestion, shortness of breath, exercise intolerance Cardiovascular: denies: chest pain, palpitation, edema, paroxysmal nocturnal dyspnea, orthopnea Gastrointestinal: denies: nausea, vomiting, diarrhea, constipation, abd pain, GI bleeding Musculoskeletal: denies: pain, tenderness, stiffness, swelling, arthritis/ arthralgias Neurological: denies: numbness, syncope, seizure, weakness - Objective Allergies/Adverse Reactions: Allergies Allergy/AdvReac Type Severity Reaction Status Date / Time ampicillin Allergy Verified 08/30/18 15:45 dronedarone HCl [From Multaq] Allergy Verified 08/30/18 15:45 flecainide Allergy Verified 08/30/18 15:45 Sulfa (Sulfonamide Allergy Rash Verified 08/30/18 15:45 Antibiotics) Visit Medications: Current Medications Acetaminophen (Tylenol) 650 mg PO Q4H PRN PRN Reason: Headache/Fever/Mild Pain (1-3) Last Admin: 12/13/18 13:10 Dose: 650 mg Aspirin (Ecotrin) 81 mg PO DAILY [facility] Atorvastatin Calcium (Lipitor) 20 mg PO HS [facility] Last Admin: 12/13/18 21:09 Dose: 20 mg Dextrose/Water (Dextrose 50%) 25 gm SLOW IVP PRN PRN PRN Reason: Hypoglycemia Diltiazem HCl (Cardizem Cd) 240 mg PO DAILY [facility] Last Admin: 12/14/18 09:23 Dose: 240 mg Glucagon (Glucagon) 1 mg IM PRN PRN PRN Reason: Hypoglycemia Dextrose/Water (D5w) 1,000 mls @ 0 mls/hr IV .Q0M PRN PRN Reason: Hypoglycemia Insulin Glargine 50 units/ (Miscellaneous Medication) 0.5 mls @ 0 mls/hr SC BID [facility] Last Admin: 12/13/18 21:09 Dose: 0.5 mls Insulin Human Lispro (Humalog) 0 units SC .MILD SLIDING SCALE PRN PRN Reason: Mild Correctional Scale Insulin Human Lispro (Humalog) 0 units SC .BEDTIME SLIDING SC PRN PRN Reason: Bedtime Correctional Scale Lisinopril (Zestril) 10 mg PO DAILY [facility] Nitroglycerin (Nitro-Bid 2% Ointment) 0.5 inch TOP Q8HR [facility] Last Admin: 12/14/18 04:23 Dose: Not Given Ondansetron HCl (Zofran Odt) 4 mg PO Q6H PRN PRN Reason: Nausea/Vomiting Pantoprazole Sodium (Protonix) 40 mg PO DAILY [facility] Last Admin: 12/14/18 09:24 Dose: 40 mg Sotalol HCl (Betapace) 120 mg PO BID [facility] Last Admin: 12/14/18 09:23 Dose: 120 mg Sucralfate (Carafate) 1 gm PO QID [facility] Last Admin: 12/14/18 09:23 Dose: 1 gm Tizanidine HCl (Zanaflex) 4 mg PO Q6H PRN PRN Reason: Muscle Spasm Last Admin: 12/14/18 09:18 Dose: 4 mg Torsemide (Demadex) 20 mg PO DAILY [facility] Tramadol HCl (Ultram) 50 mg PO Q6H PRN PRN Reason: Pain Last Admin: 12/14/18 05:57 Dose: 50 mg Trazodone HCl (Desyrel) 50 mg PO HS [facility] Last Admin: 12/13/18 22:18 Dose: 50 mg Warfarin Sodium (Coumadin) 5 mg PO SuTh@1700 [facility] Last Admin: 12/13/18 17:42 Dose: 5 mg Warfarin Sodium (Coumadin) 7.5 mg PO MoTuWeFrSa@1700 [facility] Vital Signs & Weight: Vital Signs Temp Pulse Resp BP Pulse Ox 12/14/18 09:23 98 12/14/18 07:25 97.8 F 98 18 139/72 96 12/14/18 03:59 97.6 F 69 19 151/73 H 97 Weight 253 lb 8 oz - Physical Exam General: alert & oriented x3, no apparent distress HEENT: mucus membranes moist Neck: supple neck, midline trachea Cardiac: regular rate and rhythm, no murmur Lungs: clear to auscultation, no wheeze, rales, rhonchi Neuro: grossly intact, coordination normal Abdomen: active bowel sounds, soft, non-tender Skin: clear Musculoskeletal: normal range of motion, no pain - Labs Result Diagrams: 12/14/18 05:00 12/14/18 05:00 Troponin/CKMB Troponin I Less than 0.010 ng/mL (< 0.028) 12/13/18 14:00 - Telemetry Sinus rhythms and dysrhythmias: sinus rhythm - Assessment/Plan Assessment/Plan: 1. Atypical atrial flutter. PLAN: - Continue Sotalolo 120 mg BID. - EKG tomorrow morning to look at QTc - Home tomorrow if stable. - Plan to set up for outpatient ablation.
[2018-12-14] MEDS ORDERED: PROPOFOL 200 MG/20 ML VIAL ONE (14:45)
[2018-12-14] MEDS: Torsemide 20 MG TAB PO SCH (14:54)
[2018-12-14] MEDS: Aspirin 81 mg Enteric Coated Tablet PO SCH (14:54)
[2018-12-14] MEDS: Insulin Glargine 50 UNITS in Pre-Filled Syringe SC SCH ×2 (14:55→21:08)
[2018-12-14] MEDS: Lisinopril 10 MG TAB PO SCH (15:01)
--- NOTE | 2018-12-14 16:11 | OP ---
DATE OF PROCEDURE: 12/14/2018 PROCEDURE PERFORMED: Electrical cardioversion. REASON FOR PROCEDURE: Ms. Darling is a 63-year-old woman with history of recurrent atrial arrhythmias, now presenting with atypical sustained atrial flutter with mild RVR, now well rate controlled, but with significant symptom. She is here for cardioversion. Her anticoagulation is adequate with warfarin. INR is 3. She has not had an interruption on that. DESCRIPTION OF PROCEDURE: The patient received propofol by Anesthesia specialist. After adequate level of sedation achieved, a synchronized 100-joule shock promptly converted the patient back to sinus rhythm. CONCLUSION: Successful cardioversion. PLAN: The patient after sotalol loading, we will continue to monitor her for an extra day. If no proarrhythmia is seen, she may be able to go home tomorrow. Continue oral anticoagulation as well with warfarin. redo ablation procedure is tentatively made. I will see her back in the office in 2 to 4 weeks. Job ID: [id number]
[2018-12-14] MEDS ORDERED: Warfarin Sodium 7.5 MG TAB PO SCH (17:00)
[2018-12-14] MEDS: Atorvastatin Calcium 20 MG TAB PO SCH (21:05)
[2018-12-14] MEDS: traZODone HCl 50 MG TAB PO SCH (21:05)
[2018-12-14] MEDS ORDERED: Loratadine 10 MG TAB PO SCH (22:15)
[2018-12-14] MEDS ORDERED: Fluticasone Propionate Nasal Spray 16 gm Bottle NASAL SCH (22:15)
--- NOTE | 2018-12-15 04:42 | PDOC.FM ---
- Subjective Subjective: Mrs. Darling appeared well at the time of evaluation and denied any overnight events. Specifically, she denied any headaches, changes in vision, chest pain or shortness of breath. - Objective Vital Signs & Weight: Vital Signs (12 hours) Temp Pulse Resp BP BP Pulse Ox 12/15/18 04:00 97.6 F 76 16 123/64 98 12/15/18 00:00 73 114/57 L 12/14/18 21:05 75 138/72 12/14/18 20:00 98.2 F 75 20 138/72 97 Weight Weight 114.986 kg I&O: 12/13/18 12/14/18 12/15/18 06:59 06:59 06:59 Intake Total 440 Balance 440 Result Diagrams: 12/14/18 05:00 12/14/18 05:00 Phys Exam - Physical Examination Constitutional: NAD HEENT: PERRLA, sclera anicteric, oral pharynx no lesions Neck: supple, full ROM Respiratory: no wheezing, no rales, no rhonchi, clear to auscultation bilateral Cardiovascular: RRR, no significant murmur, no rub Gastrointestinal: soft, non-tender, no distention Musculoskeletal: no edema, pulses present Neurological: non-focal, moves all 4 limbs Psychiatric: normal affect Skin: no rash Dx/Plan (1) Chest pain, rule out acute myocardial infarction Code(s): R07.9 - CHEST PAIN, UNSPECIFIED Status: Acute (2) Atrial fibrillation, persistent Code(s): I48.1 - PERSISTENT ATRIAL FIBRILLATION Status: Acute (3) Diabetes type 2, controlled Code(s): E11.9 - TYPE 2 DIABETES MELLITUS WITHOUT COMPLICATIONS Status: Chronic (4) Diastolic congestive heart failure Code(s): I50.30 - UNSPECIFIED DIASTOLIC (CONGESTIVE) HEART FAILURE Status: Chronic (5) Dyslipidemia Code(s): E78.5 - HYPERLIPIDEMIA, UNSPECIFIED Status: Chronic (6) Hypertension Code(s): I10 - ESSENTIAL (PRIMARY) HYPERTENSION Status: Chronic - Plan Plan: 1. Typical Chest Pain, r/o ACS -Typical chest pain symptoms in light of complex cardiac history and smoking history -Physical exam unremarkable -Trops: < 0.01 x3 -BNP: 26 -CXR: NAF -EKG on 12/13 showed A-Fib > 2nd Degree AV Block (Mobitz Type I) following B- Shazia administration -Admitted to Telemetry Floor for continuous observation -Dr. Lopez (Cardiology) consulted - initiated Sotalol 120 mg PO BID -Dr. Montaño (EP) consulted - performed cardioversion on 12/14 2. HTN -BP was 123/64 on 12/15 -Restart home medication regimen upon DC 3. HLD -Triglycerides (147), Cholesterol (107), LDL (52), HDL (26) -Well controlled in light of age and comorbidities -Continue home medication regimen upon DC 4. DM2 -POC Glucose: 127 -HgA1c: 7.2 -Currently well controlled in light of age and comorbidities 5. COPD -Patient quit smoking +10 years ago -Currently denies significant respiratory symptoms -Uses 2L O2 via nasal canula at home -Continue O2 supplementation -Administer DuoNeb treatments if needed prior to DC Dispo: Patient has tolerated both the medical management and the electrical intervention of her dysrhythmia well. Ablation scheduled for the near future in an outpatient setting. Plan for DC with Cardiology and EP follow-up. Expected LOS < 12H Addendum - Attending - Attending Attestation Date/Time: 12/15/18 1246 I personally evaluated the patient and discussed the management with Dr. Cfofey at 0700. I agree with the History, Examination, Assessment and Plan documented above with any addition or exceptions noted below. Stable for d/c home with close o/p followup
[2018-12-15] MEDS: Nitroglycerin 2% Ointment 1 INCH/1 GM Packet TOP SCH (05:59)
[2018-12-15 08:58] LABS: Prothrombin Time 31.1 SEC (12.0-14.7)
[2018-12-15 08:59] LABS: PTT 55.1 SEC (22.9-36.1)
[2018-12-15] MEDS ORDERED: Loratadine 10 MG TAB PO SCH (09:00)
[2018-12-15] MEDS ORDERED: Fluticasone Propionate Nasal Spray 16 gm Bottle NASAL SCH (09:00)
[2018-12-15] MEDS: traMADol HCl 50 MG TAB PO PRN (09:14)
[2018-12-15] MEDS: Torsemide 20 MG TAB PO SCH (09:15)
[2018-12-15] MEDS: Sotalol HCl 80 MG TAB PO SCH (09:15)
[2018-12-15] MEDS: tiZANidine HCl 4 MG TAB PO PRN (09:15)
[2018-12-15] MEDS: Sucralfate 1 GM TAB PO SCH (09:15)
[2018-12-15] MEDS: Aspirin 81 mg Enteric Coated Tablet PO SCH (09:16)
[2018-12-15] MEDS: Insulin Glargine 50 UNITS in Pre-Filled Syringe SC SCH (09:17)
[2018-12-15] MEDS: Lisinopril 10 MG TAB PO SCH (09:17)
[2018-12-15 11:30] VITALS: BP 127/83; TEMP 97.8
--- NOTE | 2018-12-15 12:12 | PDOC.CPN ---
- Subjective Date: 12/15/18 Time: 12:21 Interval history: The pt seen and examined. No overnight events. No cardiac complaints. - Objective Allergies/Adverse Reactions: Allergies Allergy/AdvReac Type Severity Reaction Status Date / Time ampicillin Allergy Verified 08/30/18 15:45 dronedarone HCl [From Multaq] Allergy Verified 08/30/18 15:45 flecainide Allergy Verified 08/30/18 15:45 Sulfa (Sulfonamide Allergy Rash Verified 08/30/18 15:45 Antibiotics) Visit Medications: Current Medications Acetaminophen (Tylenol) 650 mg PO Q4H PRN PRN Reason: Headache/Fever/Mild Pain (1-3) Last Admin: 12/13/18 13:10 Dose: 650 mg Aspirin (Ecotrin) 81 mg PO DAILY [facility] Last Admin: 12/15/18 09:16 Dose: 81 mg Atorvastatin Calcium (Lipitor) 20 mg PO HS [facility] Last Admin: 12/14/18 21:05 Dose: 20 mg Dextrose/Water (Dextrose 50%) 25 gm SLOW IVP PRN PRN PRN Reason: Hypoglycemia Diltiazem HCl (Cardizem Cd) 240 mg PO DAILY [facility] Last Admin: 12/15/18 09:16 Dose: 240 mg Fluticasone Propionate (Flonase Nasal Dora) 0 gm NASAL DAILY [facility] Last Admin: 12/15/18 09:17 Dose: 1 spr Glucagon (Glucagon) 1 mg IM PRN PRN PRN Reason: Hypoglycemia Dextrose/Water (D5w) 1,000 mls @ 0 mls/hr IV .Q0M PRN PRN Reason: Hypoglycemia Insulin Glargine 50 units/ (Miscellaneous Medication) 0.5 mls @ 0 mls/hr SC BID [facility] Last Admin: 12/15/18 09:17 Dose: 0.5 mls Insulin Human Lispro (Humalog) 0 units SC .MILD SLIDING SCALE PRN PRN Reason: Mild Correctional Scale Insulin Human Lispro (Humalog) 0 units SC .BEDTIME SLIDING SC PRN PRN Reason: Bedtime Correctional Scale Lisinopril (Zestril) 10 mg PO DAILY [facility] Last Admin: 12/15/18 09:17 Dose: 10 mg Loratadine (Claritin) 10 mg PO DAILY [facility] Last Admin: 12/15/18 09:17 Dose: 10 mg Nitroglycerin (Nitro-Bid 2% Ointment) 0.5 inch TOP Q8HR [facility] Last Admin: 12/15/18 05:59 Dose: Not Given Ondansetron HCl (Zofran Odt) 4 mg PO Q6H PRN PRN Reason: Nausea/Vomiting Pantoprazole Sodium (Protonix) 40 mg PO DAILY [facility] Last Admin: 12/15/18 09:17 Dose: 40 mg Sotalol HCl (Betapace) 120 mg PO BID [facility] Last Admin: 12/15/18 09:15 Dose: 120 mg Sucralfate (Carafate) 1 gm PO QID [facility] Last Admin: 12/15/18 09:15 Dose: 1 gm Tizanidine HCl (Zanaflex) 4 mg PO Q6H PRN PRN Reason: Muscle Spasm Last Admin: 12/15/18 09:15 Dose: 4 mg Torsemide (Demadex) 20 mg PO DAILY [facility] Last Admin: 12/15/18 09:15 Dose: 20 mg Tramadol HCl (Ultram) 50 mg PO Q6H PRN PRN Reason: Pain Last Admin: 12/15/18 09:14 Dose: 50 mg Trazodone HCl (Desyrel) 50 mg PO HS [facility] Last Admin: 12/14/18 21:05 Dose: 50 mg Warfarin Sodium (Coumadin) 5 mg PO SuTh@1700 [facility] Last Admin: 12/13/18 17:42 Dose: 5 mg Warfarin Sodium (Coumadin) 7.5 mg PO MoTuWeFrSa@1700 [facility] Last Admin: 12/14/18 17:49 Dose: 7.5 mg Vital Signs & Weight: Vital Signs Temp Pulse Resp BP BP Pulse Ox 12/15/18 11:28 97.8 F 79 20 127/83 97 12/15/18 09:17 138/72 12/15/18 09:16 75 12/15/18 09:15 75 12/15/18 07:50 97.3 F L 75 16 110/63 98 12/15/18 04:00 97.6 F 76 16 123/64 98 Weight 253 lb 8 oz - Physical Exam General: alert & oriented x3 HEENT: mucus membranes moist Neck: supple neck Cardiac: regular rate and rhythm Lungs: clear to auscultation Skin: clear Musculoskeletal: normal range of motion - Labs Result Diagrams: 12/14/18 05:00 12/14/18 05:00 Troponin/CKMB Troponin I Less than 0.010 ng/mL (< 0.028) 12/13/18 14:00 - Telemetry Sinus rhythms and dysrhythmias: sinus rhythm - Assessment/Plan Assessment/Plan: 1. Atypical atrial flutter with s/p DCCV on 12/14/2018 - remains in SR. Sotalol 120mg BID, Diltiazem and Coumadin. Plan for outpt ablation 2. HTN - stable 3. DM type 2 - 4. HLD - On statin MAR reviewed * from Cardiac standpoint, the pt is stable to d/c home. * The pt will f/u with Dr Argueta office within 1-2wks. * The pt will f/u with Dr Montaño's office for future ablation schedule.
--- NOTE | 2018-12-15 21:46 | DIS ---
DATE OF ADMISSION: 12/13/2018 DATE OF DISCHARGE: 12/15/2018 RESIDENT: Clint Coffey MD. ADMITTING ATTENDING: Mahendra Garza MD. DISCHARGE ATTENDING: Loretta Anderson MD. CONSULTS: Dr. Lopez, Cardiology; Dr. Montaño, terminal manager. PROCEDURES: Cardioversion, EKG performed on 12/13/2018 initially showing atrial flutter converted to Mobitz type 1 block, EKG performed on 12/15/2018 showed first-degree AV block, otherwise normal sinus rhythm. Chest x-ray performed on 12/13/2018 showed no acute findings. PRIMARY DIAGNOSIS: Chest pain secondary to cardiac dysrhythmia (atrial flutter) . SECONDARY DIAGNOSES: Chronic obstructive pulmonary disease, diabetes type 2, hypertension, dyslipidemia, morbid obesity, history of multiple radiofrequency ablations, asthma, congestive heart failure, atrial fibrillation, mitral stenosis, pulmonary edema. NEW MEDICATIONS: Sotalol 120 mg p.o. b.i.d. DISCHARGE MEDICATIONS: 1. Acetaminophen 650 mg. 2. Aspirin 81 mg. 3. Atorvastatin 20 mg. 4. Diltiazem 240 mg. 5. Fluticasone propionate. 6. Lisinopril 10 mg. 7. Loratadine 10 mg. 8. Nitroglycerin ointment 0.5 inch. 9. Pantoprazole 40 mg. 10. Carafate 1 g. 11. Zanaflex 4 mg. 12. Torsemide 20 mg. 13. Tramadol 50 mg. 14. Trazodone 50 mg. 15. Warfarin 5 mg. HISTORY OF PRESENT ILLNESS/HOSPITAL COURSE: Ms. Darling is a 63-year-old female with a complex cardiac history consisting of multiple ablations and cardioversions, CHF, coronary artery disease, hypertension, hyperlipidemia, as well as diabetes type 2 and COPD, who presented to the ED on 12/13/2018 after awakening from sleep with chest pain. She felt a heaviness on her chest, noting that it did not radiate and was made worse with exertion. She admitted to associated symptoms of a 10- pound weight gain, nausea, and uneasiness, but denied any vomiting, syncope, palpitations, paroxysmal nocturnal dyspnea, or lower extremity edema, recent illness, sick contacts, worsening cough, shortness of breath, diarrhea, constipation, fevers, chills, or night sweats. In the ED, an EKG performed initially showed atrial flutter. Following the administration of a beta chayo, a second EKG showed 2nd Degree Mobitz Type 1 heart block. She received nitroglycerin paste and 5 mg IVP of metoprolol in the aforementioned scenario. The patient was admitted to the telemetry floor to [facility], and Dr. Lopez, Cardiology, was consulted. Sotalol 120 mg p.o. b.i.d. was added to her medication regimen. Later in her hospital stay, Dr. Montaño, terminal manager, performed a cardioversion on 12/14/2018 with moderate success. EKG performed at that time indicated first- degree AV block with otherwise normal sinus rhythm. The patient was monitored overnight and discharged on 12/15/2018, with no symptoms at that time. Repeat EKG on the day of her discharge showed first-degree AV block with otherwise normal sinus rhythm. During her hospital stay, her troponins were negative x3. BNP was measured at 26. Sodium 135, potassium 3.7, chloride 98, carbon dioxide 32, BUN 17, creatinine 0.87, glucose 131, AST 15, ALT 16, alkaline phosphatase 83. Coagulation panels were performed twice on 12/13/2018 and 12/15/2018 showing a PT of 30.7 and 31.1 respectively and INR of 3.0 both times and APTT of 53.4 and 55.1 respectively. White blood cell count was measured at 7.8, hemoglobin 11.9, hematocrit 35.9, and platelet count 166. DISPOSITION: Stable. DISCHARGE INSTRUCTIONS: 1. Location: Home. 2. Diet: Heart healthy and carbohydrate conscious. 3. Activity: As tolerated. 4. Followup: The patient was advised to follow up with her application technical designer, Dr. Argueta in 1 to 2 weeks and arranged to meet with Dr. Montaño, her terminal manager, at her convenience in order to plan for an additional ablation. Job ID: [id number] [facility]
--- NOTE | 2018-12-18 04:11 | PQF ---
[employer] Supervisor Crystal Reports Winform ViewerWALImer,YOVANY LORETTA NASSAR MD [id number] [facility]283 [id number] CLINICAL DOCUMENTATION CLARIFICATION FORM: POST DISCHARGE Addendum to original discharge summary date: ____ Late entry note date: __ DATE: 12/18/18 ATTN: Loretta Stock Please exercise your independent, professional judgment in responding to the clarification form. Clinical indicators are provided on the bottom of this form for your review Can you please further specify if Acute Myocardial Infarction is ruled in or ruled out? [ ] Ruled in diagnosis [ ] Continue to treat [ ] Resolved [X] Ruled out diagnosis [ ] Cannot rule out diagnosis [ ] Other diagnosis please specify [ ] Unable to determine In addition, please specify: Present on Admission (POA): [X ] Yes [ ] No [ ] Unable to determine For continuity of documentation, please document condition throughout progress notes and discharge summary. Thank You. CLINICAL INDICATORS - SIGNS / SYMPTOMS / LABS Family H and P 12/13 pg.1- Chief complaint: Chest pain Family H and P 12/13 pg.1- In ED Initial EKG showed A-fib with 2:1 AV Conduction Family H and P 12/13 pg.1- Repeat EKG showed sinus tachycardia with 2nd degree AV Block (Mobitz Type 1) Family H and P 12/13 pg.4- Chest pain, rule out acute myocardial infarction Family H and P 12/13 pg.4-Chest pain r/o -typical chest pain in light of complex cardiac history ans smoking history Family H and P 12/13 pg.5- Troponin < 0.01x2 Cardiology PN 12/15 pg.3- Atypical atrial flutter s/p DCCV on 11/2018 RISK FACTORS CHF-Family H and P 12/13 pg.2 COPD-Family H and P 12/13 pg.1 DM2-Family H and P 12/13 pg.1 HTN-Family H and P 12/13 pg.1 Hx of [id number] H and P 12/13 pg.1 TREATMENTS Sotalol 120mg BID-JUN 02 Diltiazem- JUN 02 Coumadin-JUN 02 Cardiology Consult 12/13 Dr. Montaño Cardioversion- -Op Report 12/14 Dr. Montaño (This form is maintained as a part of the permanent medical record) 2014 [employer]. All Rights Reserved [email or web address] [not provided] MTDD
== END 2018-12-15 14:09 | disposition home or self-care (01) | DRG 309 ==
LOC: ERS 07:12 → ERHOLD 09:20 → OBSVTOIN 09:20 → 2SW 11:45 → 2NO 20:18
PROVIDERS: ADMIT Emergency Medicine; ATTEND Emergency Medicine
PROC: 5A2204Z Restoration of Cardiac Rhythm, Single (ICD-10-PCS; principal; 2018-12-14)
DX: I48.4 Atypical atrial flutter (principal); I50.32 Chronic diastolic (congestive) heart failure; Z68.41 Body mass index [BMI] 40.0-44.9, adult; I48.1 Persistent atrial fibrillation; I11.0 Hypertensive heart disease with heart failure; I25.10 Atherosclerotic heart disease of native coronary artery without angina pectoris; E78.5 Hyperlipidemia, unspecified; J44.9 Chronic obstructive pulmonary disease, unspecified; I44.1 Atrioventricular block, second degree; E11.9 Type 2 diabetes mellitus without complications; I08.3 Combined rheumatic disorders of mitral, aortic and tricuspid valves; K21.9 Gastro-esophageal reflux disease without esophagitis; E66.01 Morbid (severe) obesity due to excess calories; Z88.1 Allergy status to other antibiotic agents; Z88.2 Allergy status to sulfonamides; Z79.02 Long term (current) use of antithrombotics/antiplatelets; Z79.82 Long term (current) use of aspirin; Z79.899 Other long term (current) drug therapy; Z79.4 Long term (current) use of insulin; Z79.51 Long term (current) use of inhaled steroids; Z99.81 Dependence on supplemental oxygen; Z87.891 Personal history of nicotine dependence; Z88.8 Allergy status to other drugs, medicaments and biological substances; Z90.49 Acquired absence of other specified parts of digestive tract
CPT/HCPCS: 36415; 36416; 71045; 80053; 83690; 83880; 84484; 85025; 85610; 85730; 92960; 93005; 93010; 94760; 96374; J1815; J2704

== ENCOUNTER 2018-12-19 10:19 | Emergency (ER) | payer BC ==
--- NOTE | 2018-12-19 10:58 | RAD ---
EXAM: Chest one view: HISTORY: Chest pain COMPARISON: 12/13/2018 FINDINGS: Heart size: Stable cardiomegaly. Lungs: Clear of acute process. No evidence for pneumonia, pleural effusion, acute edema, or pneumothorax, or other significant acute process. IMPRESSION: No significant acute intrathoracic disease.
[2018-12-19 11:02] LABS: #Eosinphils 0.1 thou/uL (0.0-0.7); #Lymphocytes 1.6 thou/uL (1.20-3.40); #Monocytes 0.5 thou/uL (0.11-0.59); #Neutrophils 8.4 thou/uL (1.40-6.50); %Basophils 0.2 % (0.0-1.0); %Eosinophils 0.8 % (0.0-10.0); %Lymphocytes 15.2 % (21.0-51.0); %Neutrophils 78.8 % (42.0-75.0); Hemoglobin 11.8 g/dL (12.0-16.0); Mean Corpuscular HGB CONC 33.7 g/dL (32.0-36.0); Mean Corpuscular Hemoglobin 29.8 pg (27.0-31.0); Mean Corpuscular Volume 88.4 fL (78.0-98.0); Mean Platelet Volume 7.8 fL (7.4-10.4); Platelet Count 191 thou/uL (130-400); Red Blood Cell (RBC) Count 3.96 mill/uL (4.20-5.40); White Blood Cell (WBC) Count 10.6 thou/uL (4.8-10.8)
[2018-12-19 11:32] LABS: ALT (SGPT) 30 U/L (8-55); AST (SGOT) 22 U/L (5-34); Albumin 3.8 g/dL (3.4-4.8); Alkaline Phosphatase 94 U/L (40-110); Anion Gap 16 mmol/L (10-20); BUN (Urea Nitrogen) 13 mg/dL (9.8-20.1); Bilirubin, Total 0.6 mg/dL (0.2-1.2); CK (CPK) 48 U/L (29-168); Calc. Creatinine Clearance 0 mL/min (70-130); Calcium 9.5 mg/dL (7.8-10.44); Carbon Dioxide 29 mmol/L (23-31); Chloride 97 mmol/L (98-107); Estimated GFR-MDRD 58; Globulin 3.1 g/dL (2.4-3.5); Glucose 237 mg/dL (80-115); Potassium 3.9 mmol/L (3.5-5.1); Protein, Total 6.9 g/dL (6.0-8.3); Sodium 138 mmol/L (136-145)
== END 2018-12-19 12:20 | disposition home or self-care (01) ==
LOC: ERS 10:19
DX: R07.9 Chest pain, unspecified (principal); I11.0 Hypertensive heart disease with heart failure; I50.9 Heart failure, unspecified; E11.9 Type 2 diabetes mellitus without complications; E78.00 Pure hypercholesterolemia, unspecified; J44.9 Chronic obstructive pulmonary disease, unspecified; Z87.891 Personal history of nicotine dependence; Z79.899 Other long term (current) drug therapy; Z79.84 Long term (current) use of oral hypoglycemic drugs
CPT/HCPCS: 36415; 71045; 80053; 82550; 84484; 85025; 93005

== ENCOUNTER 2019-01-14 19:36 | Emergency (ER) | payer BC ==
[2019-01-14 20:19] LABS: #Eosinphils 0.1 thou/uL (0.0-0.7); #Lymphocytes 1.8 thou/uL (1.20-3.40); #Monocytes 0.6 thou/uL (0.11-0.59); #Neutrophils 6.3 thou/uL (1.40-6.50); %Basophils 0.6 % (0.0-1.0); %Eosinophils 1.1 % (0.0-10.0); %Lymphocytes 20.3 % (21.0-51.0); %Monocytes 6.3 % (0.0-10.0); %Neutrophils 71.7 % (42.0-75.0); Hemoglobin 11.3 g/dL (12.0-16.0); Mean Corpuscular HGB CONC 33.7 g/dL (32.0-36.0); Mean Corpuscular Hemoglobin 30.6 pg (27.0-31.0); Mean Corpuscular Volume 90.9 fL (78.0-98.0); Mean Platelet Volume 7.5 fL (7.4-10.4); Platelet Count 190 thou/uL (130-400); RBC Distribution Width 12.8 % (11.5-14.5); White Blood Cell (WBC) Count 8.8 thou/uL (4.8-10.8)
[2019-01-14 20:49] LABS: ALT (SGPT) 21 U/L (8-55); AST (SGOT) 15 U/L (5-34); Albumin 3.6 g/dL (3.4-4.8); Alkaline Phosphatase 92 U/L (40-110); Anion Gap 9 mmol/L (10-20); BUN (Urea Nitrogen) 13 mg/dL (9.8-20.1); Bilirubin, Total 0.6 mg/dL (0.2-1.2); CK (CPK) 52 U/L (29-168); Calc. Creatinine Clearance 0 mL/min (70-130); Carbon Dioxide 31 mmol/L (23-31); Chloride 97 mmol/L (98-107); Estimated GFR-MDRD 61; Globulin 3.5 g/dL (2.4-3.5); Glucose 214 mg/dL (80-115); Potassium 4.1 mmol/L (3.5-5.1); Protein, Total 7.1 g/dL (6.0-8.3); Sodium 133 mmol/L (136-145)
[2019-01-14 21:08] LABS: Digoxin 0.67 ng/mL (0.8-2.0)
== END 2019-01-14 21:44 | disposition home or self-care (01) ==
LOC: ERS 19:36
DX: R00.1 Bradycardia, unspecified (principal); F41.9 Anxiety disorder, unspecified; I11.0 Hypertensive heart disease with heart failure; I50.9 Heart failure, unspecified; I48.91 Unspecified atrial fibrillation; E11.9 Type 2 diabetes mellitus without complications; E78.00 Pure hypercholesterolemia, unspecified; J44.9 Chronic obstructive pulmonary disease, unspecified; Z87.891 Personal history of nicotine dependence; Z79.899 Other long term (current) drug therapy; Z79.4 Long term (current) use of insulin
CPT/HCPCS: 36415; 80053; 80162; 82550; 84484; 85025; 93005

== ENCOUNTER 2019-01-16 09:51 | Observation (INO) | payer BC ==
--- NOTE | 2019-01-16 10:25 | RAD ---
Exam: Chest one view HISTORY:Chest pain Comparison: 12/19/2018 FINDINGS: Cardiac silhouette:Enlarged cardiac silhouette Aorta: Unremarkable Pulmonary vessels: Prominent Costophrenic angles: Clear LUNGS: Patchy interstitial opacities. Pneumothorax: None Osseous abnormalities: None IMPRESSION: Congestive heart failure.
[2019-01-16] MEDS ORDERED: Aspirin Chewable 81 MG TAB ONE (10:29)
[2019-01-16] MEDS ORDERED: Nitroglycerin 2% Ointment 1 INCH/1 GM Packet ONE (10:29)
[2019-01-16 10:31] LABS: #Eosinphils 0.1 thou/uL (0.0-0.7); #Lymphocytes 2.2 thou/uL (1.20-3.40); #Monocytes 0.5 thou/uL (0.11-0.59); #Neutrophils 6.7 thou/uL (1.40-6.50); %Basophils 0.4 % (0.0-1.0); %Eosinophils 1.4 % (0.0-10.0); %Lymphocytes 22.8 % (21.0-51.0); %Monocytes 5.5 % (0.0-10.0); %Neutrophils 69.9 % (42.0-75.0); Mean Corpuscular HGB CONC 32.9 g/dL (32.0-36.0); Mean Corpuscular Hemoglobin 30.2 pg (27.0-31.0); Mean Corpuscular Volume 91.9 fL (78.0-98.0); Mean Platelet Volume 7.5 fL (7.4-10.4); Platelet Count 206 thou/uL (130-400); RBC Distribution Width 12.9 % (11.5-14.5); Red Blood Cell (RBC) Count 3.98 mill/uL (4.20-5.40); White Blood Cell (WBC) Count 9.6 thou/uL (4.8-10.8)
[2019-01-16 10:52] LABS: ALT (SGPT) 23 U/L (8-55); AST (SGOT) 17 U/L (5-34); Albumin 3.9 g/dL (3.4-4.8); Alkaline Phosphatase 102 U/L (40-110); Anion Gap 11 mmol/L (10-20); BUN (Urea Nitrogen) 11 mg/dL (9.8-20.1); Bilirubin, Total 0.6 mg/dL (0.2-1.2); Calc. Creatinine Clearance 0 mL/min (70-130); Calcium 9.7 mg/dL (7.8-10.44); Carbon Dioxide 32 mmol/L (23-31); Chloride 96 mmol/L (98-107); Estimated GFR-MDRD 66; Globulin 3.7 g/dL (2.4-3.5); Glucose 160 mg/dL (80-115); Lipase 10 U/L (8-78); Potassium 4.3 mmol/L (3.5-5.1); Protein, Total 7.6 g/dL (6.0-8.3); Sodium 135 mmol/L (136-145)
[2019-01-16 11:44] LABS: INR-International Normal Ratio 2.1; PTT 42.8 SEC (22.9-36.1); Prothrombin Time 23.7 SEC (12.0-14.7)
[2019-01-16] MEDS ORDERED: Ondansetron ODT 4 MG TAB SL PRN (12:40)
[2019-01-16] MEDS ORDERED: Ondansetron PF 4 MG/2 ML Vial IVP PRN (12:40)
[2019-01-16 14:37] LABS: Troponin I Less than 0.010 ng/mL (< 0.028)
[2019-01-16] MEDS ORDERED: Acetaminophen 325 MG TAB PO PRN (15:03)
[2019-01-16] MEDS ORDERED: Senokot S 8.6-50 MG TAB PO PRN (15:03)
[2019-01-16] MEDS ORDERED: Metolazone 2.5 MG TAB PO PRN (15:05)
[2019-01-16] MEDS ORDERED: tiZANidine HCl 4 MG TAB PO PRN (15:05)
[2019-01-16] MEDS ORDERED: Dextrose 50% Abboject 50 ML SYRINGE SLOW IVP PRN (15:08)
[2019-01-16] MEDS ORDERED: HumaLOG 300 UNITS/3 ML VIAL SC PRN (15:08)
[2019-01-16] MEDS ORDERED: Dextrose 5% in Water 1,000 ML IV PRN (15:08)
[2019-01-16] MEDS ORDERED: Warfarin Sodium 7.5 MG TAB PO SCH (17:00)
[2019-01-16] MEDS: Sucralfate 1 GM TAB PO SCH ×2 (17:22→21:15)
[2019-01-16] MEDS: HumaLOG 300 UNITS/3 ML VIAL SC PRN (17:23)
[2019-01-16 17:59] LABS: Troponin I Less than 0.010 ng/mL (< 0.028)
--- NOTE | 2019-01-16 18:06 | HP ---
PRIMARY CARE PHYSICIAN: Dr. Jassi Ramos. CHIEF COMPLAINT: Shortness of breath and palpitations. HISTORY OF PRESENT ILLNESS: Ms. Darling is a 63-year-old female, who reported to the emergency room today with a chief complaint of shortness of breath, chest pressure, and also some nausea. The patient reports that she has been undergoing some medication changes by her doctors. Yesterday, Dr. Montaño's office told her to stop some of her cardiac medications and go back on her sotalol 80 mg, which she started last night. She reports that she felt some chest pressure, shortness of breath, and palpitations overnight. Stated that her heart rate was anywhere from in the 50s to 140, and she came to the emergency room for further management. PAST MEDICAL HISTORY: Pertinent for diabetes type 2, hypertension, high cholesterol, congestive heart failure, atrial fibrillation, cardioversion x7, COPD and does use oxygen at home at 2 L, which is normal for her. She has also had 3 cardiac ablations. She was hospitalized in November of this year for atrial flutter, underwent cardioversion. Her jet handler is Dr. Argueta. Dr. Montaño is her EP jet handler. She has been following with Dr. Montaño, who has been managing her medications and recent change as noted above. In the emergency room today, EKG showed normal sinus rhythm, beats per minute 71 with unifocal premature ventricular complexes, ST depression in the lateral leads, which is new and no longer has a first-degree AV block. She is admitted to the observation unit for further management and consultation with Dr. Montaño. REVIEW OF SYSTEMS: The patient reports chest pressure, palpitations, shortness of breath, and nausea. Denies abdominal pain or constipation. Denies diarrhea. Denies vomiting. Denies fever or chills. All other systems reviewed and are negative unless mentioned in the HPI. PAST MEDICAL HISTORY: Please see HPI. SURGICAL HISTORY: Tonsillectomy, appendectomy, cholecystectomy, section x3, three cardiac ablations. PSYCHIATRIC HISTORY: None. SOCIAL HISTORY: Denies any alcohol or drug use. Former smoker, quit smoking in 2008. FAMILY HISTORY: Reviewed, noncontributory for current presentation. KNOWN ALLERGIES: 1. Ampicillin. 2. Flecainide. 3. Dronedarone. 4. Sulfa antibiotics. HOME MEDICATIONS: 1. Albuterol neb 3 mL q.i.d. 2. Aspirin 81 mg p.o. daily. 3. Lipitor 20 mg p.o. h.s. 4. Glipizide 10 mg p.o. daily. 5. Insulin Lantus 50 units subcu b.i.d. 6. Lispro Humalog 5 units subcu b.i.d. p.r.n. 7. Lisinopril 10 mg p.o. daily. 8. Zaroxolyn 2.5 mg p.o. daily. 9. Ondansetron 4 mg p.o. q.8 hours as needed. 10. Protonix 40 mg p.o. daily. 11. Multivitamin with iron two tablets p.o. daily. 12. Potassium chloride 20 mEq p.o. daily. 13. Sotalol 80 mg p.o. b.i.d. 14. Carafate 1 g p.o. q.i.d. 15. Zanaflex 4 mg p.o. q.6 hours as needed. 16. Tramadol 1 to 2 tablets p.o. q.6 hours "50 mg.". 17. Trazodone 50 mg p.o. h.s. 18. Ventolin 90 INH q.4. 19. Coumadin, the patient takes 7.5 on Monday, Monday, and Monday and then takes 5 mg every other day of the week. 20. Demadex 20 mg p.o. daily. PHYSICAL EXAMINATION: VITAL SIGNS: Blood pressure 125/68, pulse is 62, respirations 18, temperature is 97.5, pO2 sats are 98% on 1 L. GENERAL: The patient is nontoxic appearing. She is alert and oriented to person, place, and time. HEENT: Head is atraumatic and normocephalic. Eyes; eyelids are normal to inspection. Pupils are equally round and reactive to light. ENT; mouth exam is normal. Mucous membranes are moist. NECK: Normal range of motion. Trachea is midline. RESPIRATORY/CHEST: Breath sounds are clear. Chest expansion is equal. CARDIOVASCULAR: Regular heart rate and rhythm. A systolic murmur present, 2/6. ABDOMEN: Nontender, bowel sounds are heard. BACK: Normal range of motion. No tenderness. EXTREMITIES: Upper extremity, normal range of motion. Motor strength is normal. Radial pulses are normal. Lower extremity, normal range of motion. Motor strength is normal. Sensation intact. Pedal pulse is normal. NEURO: The patient is oriented to person, place, and time. Speech is normal. SKIN: Warm, dry, normal in color. PSYCH: Has a normal affect. LABORATORY DATA: INR 2.1. Sodium 135, chloride 96, carbon dioxide 32, glucose is 160. Troponin x2 is undetectable. BNP is 25.6. ASSESSMENT AND PLAN: 1. Palpitations, tachycardia, shortness of breath in context of cardioversion recently and changing her medications. We will ask Dr. Montaño to see patient, make any recommendations. So far, troponin x2 has been negative. We will continue to trend. 2. Chronic obstructive pulmonary disease. We will add nebs as needed p.r.n. Restart home medications. 3. Diabetes, type 2. A.c. and h.s. Accu-Cheks sliding scale for coverage. We will restart her long-acting insulin. 4. Hypertension. Restart home medications. We will also take recommendations from Dr. Montaño. 5. Hyperlipidemia. We will restart home medications. 6. Congestive heart failure. We will restart diuretics, gently diurese. 7. Chronic anticoagulation. We will restart the Coumadin. We will check a PT/INR in the morning. 8. The patient is already on deep venous thrombosis and gastrointestinal prophylaxes. These will be restarted. 9. Hospital course dependent on clinical findings. Job ID: [id number]
[2019-01-16] MEDS ORDERED: Albuterol Sulfate 2.5 mg/3 ml Neb ONE (18:20)
[2019-01-16] MEDS: Albuterol Sulfate 2.5 mg/3 ml Neb NEB SCH ×2 (18:33→23:17)
[2019-01-16] MEDS ORDERED: Albuterol Sulfate 2.5 mg/3 ml Neb NEB SCH (19:00)
[2019-01-16] MEDS ORDERED: Non-Formulary Item 1 EACH (Insulin Glargine,Hum.Rec.Anlog [Lantus Solostar] 50 UNITS) SC SCH (21:00)
[2019-01-16] MEDS ORDERED: Atorvastatin Calcium 20 MG TAB PO SCH (21:00)
[2019-01-16] MEDS ORDERED: traZODone HCl 50 MG TAB PO SCH (21:00)
[2019-01-16] MEDS: Famotidine 20 MG TAB PO SCH (21:15)
[2019-01-16] MEDS: traMADol HCl 50 MG TAB PO PRN (21:17)
[2019-01-16] MEDS: Sotalol HCl 80 MG TAB PO SCH (21:17)
[2019-01-16] MEDS: Insulin Glargine 50 UNITS in Pre-Filled Syringe SC SCH (21:18)
--- NOTE | 2019-01-16 23:19 | CON ---
DATE OF CONSULTATION: REASON FOR CONSULTATION: Heart racing and palpitations, atrial fibrillation. HISTORY OF PRESENT ILLNESS: Ms. Darling is a lady, known to our practice for history of atrial fibrillation and atypical atrial flutter. She was seen a few weeks prior in our clinic after a recent hospital stay. She is currently scheduled for an atrial fibrillation ablation and was loaded on sotalol in November. At that time, she was taking 120 mg p.o. b.i.d., but unfortunately had GI upset and nausea at this dose and her dose is reduced to 80 mg b.i.d. She also was on Cartia at time of discharge approximately 1 month ago. She at some point started taking metoprolol and digoxin in addition to her sotalol and Cartia, but cannot recall when these were started, however, was not by our guidance. She went to the emergency room on Monday with reportedly low heart rates and her sotalol was cut in a half, though her other AV shantal blocking agents were not decreased at all. She contacted our office and we gave her instructions to stop her metoprolol, her diltiazem, and digoxin and resumed her sotalol at 80 mg b.i.d. She did so and reports feeling palpitations and heart racing this morning prompting her to go to the emergency room for further evaluation. Ms. Darling is currently feeling well, but reported that her heart was beating quite quickly and her heart rate was over 100 beats per minute when she went to the emergency room. According to ER notes, she also reported chest pressure and she was admitted for further evaluation. EP consult is for managing her atrial fibrillation medications. She currently denies any heart racing, palpitations, chest pain, pressure, syncope, near syncope, stroke, or stroke-like symptoms. She is continuing to have nausea with her sotalol. REVIEW OF SYSTEMS: 12-point review of systems was conducted, is negative except that listed above in the HPI. PAST MEDICAL HISTORY: 1. Persistent atrial fibrillation and atypical atrial flutter. a. Three prior ablations, most recently 05/30/[address] Larson for left atrial appendage isolation. b. Frequent atrial flutters prompting a repeat cardioversion, most recently on November 08, 2018, while hospitalized. 2. Normal LVEF with [id number]-kd-bteacsrd MR, ozuc-[id number]-gdcgtlct TR and mitral stenosis by OC in March 2018. 3. Hypertension. 4. Diabetes. 5. CHADS VASC score of 5, including gender hypertension and diabetes. 6. Obesity. 7. Gastroesophageal reflux disease. 8. Chronic obstructive pulmonary disease. ALLERGIES: FLECAINIDE, MULTAQ, SODIUM, SULFAMETHOXAZOLE, AND TRIMETHOPRIM. HOME MEDICATIONS: Lisinopril, glipizide, sotalol 80 mg b.i.d., torsemide, potassium, Carafate, tramadol, Lipitor, warfarin as directed, vitamins, Aleve as needed, aspirin, Lantus as directed, Trulicity, metolazone, albuterol, and tizanidine. FAMILY HISTORY: Noncontributory. SOCIAL HISTORY: Denies alcohol, tobacco, or illicit drug use. OBJECTIVE: VITAL SIGNS: Temperature 98 degrees, pulse 69, blood pressure 142/67, respirations 18, oxygen is 94% on 2 L via nasal cannula. GENERAL: The patient is alert and oriented. Speech is clear. Affect is appropriate. She is morbidly obese. She is in no apparent distress, sitting upright in bed at the time of exam. NECK: Supple without jugular venous distention. HEART: Heart rate is irregularly irregular with crisp S1, S2. LUNGS: Clear to auscultation bilaterally. Respirations even and unlabored. ABDOMEN: Obese, soft, and nontender without palpable masses. EXTREMITIES: Warm and dry to touch without clubbing, cyanosis, or edema. NEUROLOGIC: Exam is grossly intact and nonfocal. LABORATORY AND DIAGNOSTIC STUDIES: EKG shows sinus rhythm at a rate of 76 beats per minute with normal intervals. Telemetry shows sinus rhythm. Laboratory: Hematology is unremarkable. Chemistry is unremarkable. Creatinine is 0.86. Serial troponins are negative. IMPRESSION: 1. Persistent atrial arrhythmias with multiple flutters requiring sotalol for suppression and scheduled for redo ablation in the next month to month and a half. 2. CHADS VASC score of 3, currently on warfarin for stroke prophylaxis and INR is 2.1. 3. Palpitations. RECOMMENDATIONS: I am resuming Ms. Darling's sotalol 80 mg p.o. b.i.d. We will monitor heart rate through telemetry, though for now I will hold off on resuming any of her previously taken AV shantal blocking agents, including metoprolol, Cartia, and digoxin. If tachycardia is seen, we will slowly introduce these medications starting with metoprolol or digoxin and Cartia only if needed. She is anticipated to have an ablation in mid January, though we may move this date up to ease her medical management for her atrial arrhythmias. We will continue her warfarin, which [facility] goal INR of 2 to 3. Thank you for allowing me to participate in the care of this patient. Job ID: [id number]
[2019-01-17] MEDS: HumaLOG 300 UNITS/3 ML VIAL SC PRN ×2 (06:10→11:54)
[2019-01-17] MEDS: Albuterol Sulfate 2.5 mg/3 ml Neb NEB SCH (07:31)
[2019-01-17 08:13] LABS: #Eosinphils 0.1 thou/uL (0.0-0.7); #Lymphocytes 1.9 thou/uL (1.20-3.40); #Monocytes 0.6 thou/uL (0.11-0.59); #Neutrophils 6.4 thou/uL (1.40-6.50); %Basophils 0.2 % (0.0-1.0); %Eosinophils 1.4 % (0.0-10.0); %Monocytes 6.5 % (0.0-10.0); %Neutrophils 70.9 % (42.0-75.0); Mean Corpuscular HGB CONC 33.2 g/dL (32.0-36.0); Mean Corpuscular Hemoglobin 30.6 pg (27.0-31.0); Mean Corpuscular Volume 92.1 fL (78.0-98.0); Mean Platelet Volume 7.6 fL (7.4-10.4); Platelet Count 181 thou/uL (130-400)
[2019-01-17 08:18] LABS: INR-International Normal Ratio 2.2; Prothrombin Time 24.5 SEC (12.0-14.7)
[2019-01-17 08:28] LABS: ALT (SGPT) 17 U/L (8-55); AST (SGOT) 12 U/L (5-34); Albumin 3.4 g/dL (3.4-4.8); Alkaline Phosphatase 91 U/L (40-110); Anion Gap 8 mmol/L (10-20); BUN (Urea Nitrogen) 12 mg/dL (9.8-20.1); Bilirubin, Total 0.6 mg/dL (0.2-1.2); Calc. Creatinine Clearance 128 mL/min (70-130); Calcium 9.1 mg/dL (7.8-10.44); Carbon Dioxide 33 mmol/L (23-31); Chloride 100 mmol/L (98-107); Estimated GFR-MDRD 70; Globulin 3.2 g/dL (2.4-3.5); Glucose 150 mg/dL (80-115); Potassium 4.1 mmol/L (3.5-5.1); Protein, Total 6.6 g/dL (6.0-8.3); Sodium 137 mmol/L (136-145)
[2019-01-17] MEDS: Insulin Glargine 50 UNITS in Pre-Filled Syringe SC SCH (08:28)
[2019-01-17] MEDS: Famotidine 20 MG TAB PO SCH (08:28)
[2019-01-17] MEDS: Sotalol HCl 80 MG TAB PO SCH (08:28)
[2019-01-17] MEDS: traMADol HCl 50 MG TAB PO PRN (08:33)
[2019-01-17] MEDS: Sucralfate 1 GM TAB PO SCH ×2 (08:35→12:46)
[2019-01-17] MEDS ORDERED: Aspirin 81 mg Enteric Coated Tablet PO SCH (09:00)
[2019-01-17] MEDS ORDERED: Lisinopril 10 MG TAB PO SCH (09:00)
--- NOTE | 2019-01-17 10:45 | PDOC.CPN ---
- Subjective Date: 01/17/19 Time: 08:00 Interval history: EP PROGRESS NOTE: 01/16/19 Follow up for AFib and sotalol management. no more heart racing. - Review of Systems General: denies: fever/chills, weight/appetite/sleep changes, night sweats, fatigue Respiratory: denies: cough, congestion, shortness of breath, exercise intolerance Cardiovascular: denies: chest pain, palpitation, edema, paroxysmal nocturnal dyspnea, orthopnea Gastrointestinal: denies: nausea, vomiting, diarrhea, constipation, abd pain, GI bleeding Musculoskeletal: denies: pain, tenderness, stiffness, swelling, arthritis/ arthralgias Neurological: denies: numbness, syncope, seizure, weakness - Objective Allergies/Adverse Reactions: Allergies Allergy/AdvReac Type Severity Reaction Status Date / Time ampicillin Allergy Verified 01/16/19 13:00 dronedarone HCl [From Multaq] Allergy Verified 01/16/19 13:00 flecainide Allergy Verified 01/16/19 13:00 Sulfa (Sulfonamide Allergy Rash Verified 01/16/19 13:00 Antibiotics) Visit Medications: Current Medications Acetaminophen (Tylenol) 650 mg PO Q4H PRN PRN Reason: Headache/Fever/Mild Pain (1-3) Last Admin: 01/17/19 01:35 Dose: 650 mg Albuterol Sulfate (Ventolin) 2.5 mg NEB [id number] [facility] Last Admin: 01/17/19 07:31 Dose: 2.5 mg Aspirin (Ecotrin) 81 mg PO DAILY [facility] Last Admin: 01/17/19 08:28 Dose: 81 mg Atorvastatin Calcium (Lipitor) 20 mg PO HS [facility] Last Admin: 01/16/19 21:15 Dose: 20 mg Dextrose/Water (Dextrose 50%) 25 gm SLOW IVP PRN PRN PRN Reason: Hypoglycemia Famotidine (Pepcid) 20 mg PO BID [facility] Last Admin: 01/17/19 08:28 Dose: 20 mg Glucagon (Glucagon) 1 mg IM PRN PRN PRN Reason: Hypoglycemia Insulin Glargine 50 units/ (Miscellaneous Medication) 0.5 mls @ 0 mls/hr SC BID [facility] Last Admin: 01/17/19 08:28 Dose: 0.5 mls Dextrose/Water (D5w) 1,000 mls @ 0 mls/hr IV .Q0M PRN PRN Reason: Hypoglycemia Insulin Human Lispro (Humalog) 0 units SC .MILD SLIDING SCALE PRN PRN Reason: Mild Correctional Scale Last Admin: 01/17/19 06:10 Dose: 2 unit Insulin Human Lispro (Humalog) 0 units SC .BEDTIME SLIDING SC PRN PRN Reason: Bedtime Correctional Scale Lisinopril (Zestril) 10 mg PO DAILY [facility] Last Admin: 01/17/19 08:28 Dose: 10 mg Metolazone (Zaroxolyn) 2.5 mg PO DAILY PRN PRN Reason: WEIGHT GAIN >10 LBS Senna/Docusate Sodium (Senokot S) 2 tab PO BID PRN PRN Reason: Constipation Sotalol HCl (Betapace) 80 mg PO BID [facility] Last Admin: 01/17/19 08:28 Dose: 80 mg Sucralfate (Carafate) 1 gm PO QID [facility] Last Admin: 01/17/19 08:35 Dose: 1 gm Tizanidine HCl (Zanaflex) 4 mg PO Q6H PRN PRN Reason: Muscle Spasm Last Admin: 01/17/19 01:35 Dose: 4 mg Tramadol HCl (Ultram) 50 mg PO Q6H PRN PRN Reason: Pain 4-6 Last Admin: 01/17/19 08:33 Dose: 50 mg Trazodone HCl (Desyrel) 50 mg PO [facility] Last Admin: 01/16/19 21:16 Dose: 50 mg Warfarin Sodium (Coumadin) 5 mg PO SuTuThSa@1700 [facility] Warfarin Sodium (Coumadin) 7.5 mg PO MWF@1700 [facility] Last Admin: 01/16/19 17:22 Dose: 7.5 mg Vital Signs & Weight: Vital Signs Temp Pulse Resp BP Pulse Ox 01/17/19 08:28 60 01/17/19 07:31 60 12 01/17/19 07:20 97.5 F L 59 L 18 119/61 98 01/17/19 04:06 97.9 F 64 13 141/67 H 97 01/17/19 01:35 64 138/68 01/16/19 23:17 65 16 99 Weight 258 lb 9.6 oz - Physical Exam General: alert & oriented x3, appears well, no apparent distress HEENT: mucus membranes moist, normocephaly Neck: supple neck, midline trachea, no JVD/HJR, no masses, no bruit, no lymphadenopathy, no thromegaly Cardiac: regular rate and rhythm, no murmur, regular rate, regular rhythm Lungs: clear to auscultation, normal breath sounds, normal exam, no wheeze, rales, rhonchi Neuro: cranial nerve 2-12 intact, grossly intact Abdomen: soft Extremities: no edema - Labs Result Diagrams: 01/17/19 07:53 01/17/19 07:53 Troponin/CKMB Troponin I Less than 0.010 ng/mL (< 0.028) 01/16/19 Unknown - Telemetry Sinus rhythms and dysrhythmias: sinus rhythm - Assessment/Plan Assessment/Plan: 1. Atrial arrhythmias - resumed sotalol 80mg PO BID. Continue - if RVR recurrences seen or tachy episodes begin will add metoprolol or dig , depending on BP. - scheduled for ablation next month 2. Chronic anticoagulation - continue NOAC. Stable from EP perspective. NO sue or tachy episodes. May DC home.
[2019-01-17 10:48] VITALS: BMI 45.8
[2019-01-17 12:10] VITALS: BP 114/64; TEMP 98.4
[2019-01-17] MEDS ORDERED: Warfarin Sodium 5 MG TAB PO SCH (17:00)
--- NOTE | 2019-01-17 19:02 | DIS ---
DATE OF ADMISSION: 01/16/2019 DATE OF DISCHARGE: 01/17/2019 DISCHARGE DISPOSITION: To home. PRIMARY DISCHARGE DIAGNOSIS: Atrial fibrillation with rapid ventricular response, rate controlled. SECONDARY DISCHARGE DIAGNOSES: Diabetes mellitus, type 2; hypertension; chronic obstructive pulmonary disease; dyslipidemia; obesity with BMI of 45. PROCEDURES DONE DURING HOSPITALIZATION: Chest x-ray done showed mild pulmonary vascular congestion. H and H 11 and 33, platelet count 181, MCV is 92. PT and INR 24 and 2.2, PTT 45. BUN 12, creatinine 0.8. BNP is 25. Troponin x1 negative. DISCHARGE MEDICATIONS: 1. Albuterol nebulizer q.i.d. p.r.n. 2. Aspirin 81 mg p.o. daily. 3. Lipitor 20 mg p.o. q.h.s. 4. Glipizide extended release 10 mg daily. 5. Lantus 50 units subcu twice daily. 6. Humalog 5 units subcu before meals twice daily. 7. Lisinopril 10 mg p.o. daily. 8. Protonix 40 mg p.o. daily. 9. Potassium chloride 20 mEq p.o. daily. 10. Sotalol 80 mg twice daily. 11. Sucralfate 1 g four times daily. 12. Ultram p.r.n. for pain. 13. Trazodone 50 mg p.o. q.h.s. 14. Coumadin 5 and 7.5 mg as before, 7.5 mg on Monday, Monday, and Monday and 5 mg on Monday, Monday, , and Monday. 15. Demadex 20 mg p.o. daily. ALLERGIES: TO AMPICILLIN, MULTAQ, FLECAINIDE, AND SULFA. INPATIENT CONSULT: Dr. Betito Montaño for Electrophysiology. BRIEF COURSE DURING HOSPITALIZATION: The patient initially came in with complaints of palpitations and shortness of breath. The patient was found to be in atrial fibrillation with RVR. She has had multiple prior ablations and cardioversions done for atrial fibrillation and flutter. She was seen by Dr. Betito Montaño for Electrophysiology. The plan is for ablation at [facility] in [place] in the following month. Her atrial fibrillation was rate controlled with sotalol 80 mg twice daily. All other rate limiting medications were discontinued. She is hemodynamically stable, ambulating and eating well prior to discharge. In fact, the patient converted back to sinus rhythm on the tele monitor. She has been cleared for discharge by Dr. Betito Montaño. Please note, the patient needs to follow up with her primary care physician Dr. Jassi Ramos, in 1 week. I have seen and examined the patient on the day of discharge. Job ID: [id number]
== END 2019-01-17 13:23 | disposition home or self-care (01) ==
LOC: ERS 09:51 → 2SW 11:27
PROVIDERS: ADMIT Family Medicine; ATTEND Family Medicine
DX: I48.19 Other persistent atrial fibrillation (principal); I48.4 Atypical atrial flutter; R07.89 Other chest pain; E11.9 Type 2 diabetes mellitus without complications; E78.00 Pure hypercholesterolemia, unspecified; J44.9 Chronic obstructive pulmonary disease, unspecified; I11.0 Hypertensive heart disease with heart failure; I50.9 Heart failure, unspecified; K21.9 Gastro-esophageal reflux disease without esophagitis; E66.9 Obesity, unspecified; Z68.42 Body mass index [BMI] 45.0-49.9, adult; Z79.01 Long term (current) use of anticoagulants; Z79.4 Long term (current) use of insulin; Z79.82 Long term (current) use of aspirin; Z79.899 Other long term (current) drug therapy; Z88.0 Allergy status to penicillin; Z88.2 Allergy status to sulfonamides; Z88.8 Allergy status to other drugs, medicaments and biological substances; Z99.81 Dependence on supplemental oxygen; Z87.891 Personal history of nicotine dependence; Z98.890 Other specified postprocedural states
CPT/HCPCS: 36415; 36416; 71045; 80053; 83690; 83880; 84484; 85025; 85610; 85730; 93005; 94640; G0378; J1815; J7611; Q0162

== ENCOUNTER 2019-01-17 18:53 | Emergency (ER) | payer BC ==
[2019-01-17] MEDS ORDERED: Nitroglycerin 2% Ointment 1 INCH/1 GM Packet ONE (20:25)
[2019-01-17] MEDS ORDERED: Furosemide 40 MG/4 ML VIAL ONE (20:25)
[2019-01-17 20:35] LABS: #Eosinphils 0.1 thou/uL (0.0-0.7); #Lymphocytes 1.7 thou/uL (1.20-3.40); #Monocytes 0.6 thou/uL (0.11-0.59); #Neutrophils 7.8 thou/uL (1.40-6.50); %Basophils 0.1 % (0.0-1.0); %Eosinophils 0.9 % (0.0-10.0); %Lymphocytes 16.7 % (21.0-51.0); %Monocytes 5.4 % (0.0-10.0); %Neutrophils 76.9 % (42.0-75.0); Hemoglobin 11.4 g/dL (12.0-16.0); Mean Corpuscular HGB CONC 32.5 g/dL (32.0-36.0); Mean Corpuscular Hemoglobin 29.8 pg (27.0-31.0); Mean Corpuscular Volume 91.6 fL (78.0-98.0); Mean Platelet Volume 7.5 fL (7.4-10.4); Platelet Count 194 thou/uL (130-400); RBC Distribution Width 12.8 % (11.5-14.5); Red Blood Cell (RBC) Count 3.82 mill/uL (4.20-5.40); White Blood Cell (WBC) Count 10.2 thou/uL (4.8-10.8)
[2019-01-17 20:49] LABS: Phosphorus 2.7 mg/dL (2.3-4.7)
--- NOTE | 2019-01-17 20:50 | RAD ---
EXAM: Two views chest PROVIDED CLINICAL HISTORY: Dyspnea. Shortness of breath and dizziness. COMPARISON: 01/16/2019 FINDINGS: Cardiac silhouette remains in enlarged. Pulmonary vasculature appears to be within normal limits and unchanged from prior study. No consolidation or pleural fluid is seen. There is minimal linear atelectasis at the left lung base. Degenerative changes are seen in the spine. Vascular calcification s are seen in the thoracic aorta. There has been no interval change when compared to the prior study. IMPRESSION: 1. Cardiomegaly. 2. No acute cardiopulmonary process..
[2019-01-17 20:55] LABS: ALT (SGPT) 19 U/L (8-55); AST (SGOT) 17 U/L (5-34); Albumin 3.7 g/dL (3.4-4.8); Alkaline Phosphatase 99 U/L (40-110); Anion Gap 13 mmol/L (10-20); BUN (Urea Nitrogen) 12 mg/dL (9.8-20.1); Bilirubin, Total 0.5 mg/dL (0.2-1.2); Calc. Creatinine Clearance 0 mL/min (70-130); Carbon Dioxide 28 mmol/L (23-31); Chloride 100 mmol/L (98-107); Estimated GFR-MDRD 66; Globulin 3.3 g/dL (2.4-3.5); Glucose 229 mg/dL (80-115); Magnesium 1.9 mg/dL (1.6-2.6); Potassium 4.6 mmol/L (3.5-5.1); Sodium 136 mmol/L (136-145)
[2019-01-17] MEDS ORDERED: Acetaminophen 325 MG TAB ONE (22:17)
== END 2019-01-17 22:33 | disposition home or self-care (01) ==
LOC: ERS 18:53
DX: I11.0 Hypertensive heart disease with heart failure (principal); I50.9 Heart failure, unspecified; E11.9 Type 2 diabetes mellitus without complications; E78.00 Pure hypercholesterolemia, unspecified; I48.91 Unspecified atrial fibrillation; J44.9 Chronic obstructive pulmonary disease, unspecified; Z87.891 Personal history of nicotine dependence; Z79.84 Long term (current) use of oral hypoglycemic drugs; Z79.01 Long term (current) use of anticoagulants; Z79.4 Long term (current) use of insulin; Z79.82 Long term (current) use of aspirin
CPT/HCPCS: 71046; 83735; 83880; 84100; 84484; 93005; 96374; J1940

== ENCOUNTER 2019-02-23 05:10 | Emergency (ER) | payer BC ==
[2019-02-23 05:41] LABS: #Eosinphils 0.1 thou/uL (0.0-0.7); #Monocytes 0.5 thou/uL (0.11-0.59); #Neutrophils 5.7 thou/uL (1.40-6.50); %Basophils 0.5 % (0.0-1.0); %Eosinophils 1.6 % (0.0-10.0); %Lymphocytes 23.6 % (21.0-51.0); %Monocytes 6.5 % (0.0-10.0); %Neutrophils 67.7 % (42.0-75.0); Hemoglobin 11.6 g/dL (12.0-16.0); Mean Corpuscular HGB CONC 33.7 g/dL (32.0-36.0); Mean Corpuscular Hemoglobin 30.3 pg (27.0-31.0); Mean Corpuscular Volume 89.8 fL (78.0-98.0); Mean Platelet Volume 7.3 fL (7.4-10.4); Platelet Count 193 thou/uL (130-400); RBC Distribution Width 12.4 % (11.5-14.5); Red Blood Cell (RBC) Count 3.82 mill/uL (4.20-5.40); White Blood Cell (WBC) Count 8.4 thou/uL (4.8-10.8)
[2019-02-23 06:05] LABS: ALT (SGPT) 19 U/L (8-55); AST (SGOT) 15 U/L (5-34); Albumin 3.5 g/dL (3.4-4.8); Alkaline Phosphatase 96 U/L (40-110); Anion Gap 11 mmol/L (10-20); BUN (Urea Nitrogen) 13 mg/dL (9.8-20.1); Bilirubin, Total 0.3 mg/dL (0.2-1.2); Calc. Creatinine Clearance 0 mL/min (70-130); Calcium 9.5 mg/dL (7.8-10.44); Carbon Dioxide 30 mmol/L (23-31); Chloride 100 mmol/L (98-107); Estimated GFR-MDRD 61; Globulin 3.7 g/dL (2.4-3.5); Glucose 260 mg/dL (80-115); Magnesium 1.7 mg/dL (1.6-2.6); Potassium 3.8 mmol/L (3.5-5.1); Protein, Total 7.2 g/dL (6.0-8.3); Sodium 137 mmol/L (136-145)
[2019-02-23 06:27] LABS: CKMB 0.5 ng/mL (0-6.6)
--- NOTE | 2019-02-23 07:56 | RAD ---
CHEST 1 VIEW: INDICATION: Palpitations. COMPARISON: Prior exam dated 01/17/2019. FINDINGS: There is moderate cardiomegaly with mild pulmonary vascular congestion. There are small bilateral pl eural effusions. No acute osseous abnormality is evident. IMPRESSION: Findings of mild congestive heart failure. POS: BH
== END 2019-02-23 06:53 | disposition home or self-care (01) ==
LOC: ERS 05:10
DX: R00.2 Palpitations (principal); E11.9 Type 2 diabetes mellitus without complications; E78.00 Pure hypercholesterolemia, unspecified; I11.0 Hypertensive heart disease with heart failure; I50.9 Heart failure, unspecified; I48.91 Unspecified atrial fibrillation; J44.9 Chronic obstructive pulmonary disease, unspecified; Z87.891 Personal history of nicotine dependence; Z79.899 Other long term (current) drug therapy; Z79.01 Long term (current) use of anticoagulants; Z79.4 Long term (current) use of insulin; Z79.82 Long term (current) use of aspirin
CPT/HCPCS: 36415; 71045; 80053; 82553; 83735; 83880; 84484; 85025; 93005

== ENCOUNTER 2019-02-23 22:17 | Emergency (ER) | payer BC ==
--- NOTE | 2019-02-24 00:09 | ULT ---
Ultrasound Doppler duplex right groin: DATE: 02/23/2019 Time: 11:58 PM HISTORY: 63-year-old female status post cardiac catheterization 2 weeks ago presents with right groin pain. FINDINGS: Grayscale, color-flow, and spectral analysis, of right groin. FINDINGS: Blood flow is demonstrated in the common femoral vein and common femoral artery. There is no pseudoan eurysm or hematoma. IMPRESSION: Negative.
== END 2019-02-24 00:25 | disposition home or self-care (01) ==
LOC: ERS 22:17
DX: T85.848A Pain due to other internal prosthetic devices, implants and grafts, initial encounter (principal); I11.0 Hypertensive heart disease with heart failure; I50.9 Heart failure, unspecified; E11.9 Type 2 diabetes mellitus without complications; E78.00 Pure hypercholesterolemia, unspecified; I48.91 Unspecified atrial fibrillation; Z79.4 Long term (current) use of insulin; Z87.891 Personal history of nicotine dependence; Z79.891 Long term (current) use of opiate analgesic; Z79.899 Other long term (current) drug therapy; Z79.01 Long term (current) use of anticoagulants
CPT/HCPCS: 76936

== ENCOUNTER 2019-03-08 17:07 | Emergency (ER) | payer BC ==
[2019-03-08 17:39] LABS: #Eosinphils 0.2 thou/uL (0.0-0.7); #Lymphocytes 2.2 thou/uL (1.20-3.40); #Monocytes 0.6 thou/uL (0.11-0.59); #Neutrophils 7.5 thou/uL (1.40-6.50); %Basophils 0.3 % (0.0-1.0); %Eosinophils 1.7 % (0.0-10.0); %Lymphocytes 21.1 % (21.0-51.0); %Monocytes 5.4 % (0.0-10.0); %Neutrophils 71.5 % (42.0-75.0); Hemoglobin 11.8 g/dL (12.0-16.0); Mean Corpuscular HGB CONC 33.6 g/dL (32.0-36.0); Mean Corpuscular Hemoglobin 30.3 pg (27.0-31.0); Mean Corpuscular Volume 90.3 fL (78.0-98.0); Mean Platelet Volume 7.2 fL (7.4-10.4); Platelet Count 190 thou/uL (130-400); RBC Distribution Width 12.5 % (11.5-14.5); Red Blood Cell (RBC) Count 3.88 mill/uL (4.20-5.40); White Blood Cell (WBC) Count 10.5 thou/uL (4.8-10.8)
--- NOTE | 2019-03-08 17:56 | RAD ---
Chest AP view INDICATION: Chest pain COMPARISON: February 23, 2019 FINDINGS: Lungs:The lungs are clear Cardiac silhouette:Stable moderate cardiomegaly Pulmonary vasculature:Stable mild pulmonary vascular congestion. Pleural spaces:No pleural effusion or pneumothorax is demonstrated. Upper abdomen:No abnormality seen. Osseous structures: No acute osseous abnormality. Additional findings:None. IMPRESSION: Stable moderate cardiomegaly and mild pulmonary vascular congestion
[2019-03-08 18:01] LABS: ALT (SGPT) 24 U/L (8-55); AST (SGOT) 18 U/L (5-34); Albumin 3.9 g/dL (3.4-4.8); Alkaline Phosphatase 101 U/L (40-110); Anion Gap 9 mmol/L (10-20); BUN (Urea Nitrogen) 17 mg/dL (9.8-20.1); Bilirubin, Total 0.4 mg/dL (0.2-1.2); Calc. Creatinine Clearance 0 mL/min (70-130); Calcium 9.4 mg/dL (7.8-10.44); Carbon Dioxide 35 mmol/L (23-31); Chloride 98 mmol/L (98-107); Estimated GFR-MDRD 53; Globulin 3.8 g/dL (2.4-3.5); Glucose 253 mg/dL (80-115); Protein, Total 7.7 g/dL (6.0-8.3); Sodium 138 mmol/L (136-145)
[2019-03-08 18:55] LABS: Digoxin 0.17 ng/mL (0.8-2.0)
== END 2019-03-08 20:24 | disposition home or self-care (01) ==
LOC: ERS 17:07
DX: R00.1 Bradycardia, unspecified (principal); E11.9 Type 2 diabetes mellitus without complications; E78.00 Pure hypercholesterolemia, unspecified; I11.0 Hypertensive heart disease with heart failure; I50.9 Heart failure, unspecified; Z87.891 Personal history of nicotine dependence; Z79.899 Other long term (current) drug therapy; Z79.01 Long term (current) use of anticoagulants; Z79.891 Long term (current) use of opiate analgesic; Z79.82 Long term (current) use of aspirin
CPT/HCPCS: 71045; 80053; 80162; 84484; 85025; 93005

== ENCOUNTER 2019-03-29 09:40 | Day surgery (SDC) | payer BC ==
[2019-03-28 09:16] VITALS: BMI 45.1
[2019-03-29 10:54] LABS: #Eosinphils 0.1 thou/uL (0.0-0.7); #Lymphocytes 1.9 thou/uL (1.20-3.40); #Monocytes 0.6 thou/uL (0.11-0.59); #Neutrophils 6.3 thou/uL (1.40-6.50); %Basophils 0.2 % (0.0-1.0); %Eosinophils 1.6 % (0.0-10.0); %Monocytes 6.5 % (0.0-10.0); %Neutrophils 70.7 % (42.0-75.0); Hemoglobin 11.1 g/dL (12.0-16.0); Mean Corpuscular Hemoglobin 29.6 pg (27.0-31.0); Mean Corpuscular Volume 89.7 fL (78.0-98.0); Mean Platelet Volume 7.7 fL (7.4-10.4); Platelet Count 182 thou/uL (130-400); RBC Distribution Width 12.2 % (11.5-14.5); Red Blood Cell (RBC) Count 3.76 mill/uL (4.20-5.40); White Blood Cell (WBC) Count 8.9 thou/uL (4.8-10.8)
[2019-03-29] MEDS ORDERED: PROPOFOL 40 ML ONE (10:59)
[2019-03-29 11:00] LABS: INR-International Normal Ratio 2.1; PTT 43.9 SEC (22.9-36.1); Prothrombin Time 23.2 SEC (12.0-14.7)
[2019-03-29 11:10] LABS: Anion Gap 11 mmol/L (10-20); BUN (Urea Nitrogen) 17 mg/dL (9.8-20.1); Calc. Creatinine Clearance 125 mL/min (70-130); Calcium 9.1 mg/dL (7.8-10.44); Carbon Dioxide 31 mmol/L (23-31); Chloride 100 mmol/L (98-107); Estimated GFR-MDRD 69; Glucose 190 mg/dL (80-115); Potassium 4.1 mmol/L (3.5-5.1); Sodium 138 mmol/L (136-145)
--- NOTE | 2019-03-29 16:37 | EKG ---
Test Reason : PREOP Blood Pressure : / mmHG Vent. Rate : 066 BPM Atrial Rate : 066 BPM P-R Int : 204 ms QRS Dur : 090 ms QT Int : 398 ms P-R-T Axes : -14 048 032 degrees QTc Int : 417 ms Normal sinus rhythm Normal ECG When compared with ECG of 08-MAR-2019 17:20, (Unconfirmed) Premature atrial complexes are no longer Present Confirmed by DR. Grover MILLER ([id number]) on 03/29/2019 4:37:30 PM Referred By: NIALL Confirmed By:DR. Grover MILLER
--- NOTE | 2019-03-30 16:57 | ECHO ---
DATE OF SERVICE: 03/29/19 REFERRING PHYSICIAN: Dr. Praful Larson; Dr. Jones Argueta REASON FOR PROCEDURE: The patient is a 63-year-old woman with history of atrial arrhythmias status post ablation about six weeks ago followed by a Watchman device placement. Here for OC to evaluate Watchman device position and function. PROCEDURE: The patient received propofol by Anesthesia specialist. After adequate level of sedation achieved, a standard transesophageal echocardiogram probe was passed into the esophagus without difficulty. Patient tolerated the procedure well, no complications noted. RESULTS: Left atrium is moderately enlarged, about 4.9 cm in horizontal diameter. The left atrial appendage well visualized with an adequately seated Watchman device noted. Color interrogation of Watchman device reveals two residual flow by the annular and the pulmonary venous side and there is suboptimal opacification of the left atrial appendage seen behind the Watchman device. Four out of four pulmonary veins were well seen without stenosis. The interatrial septum is with some bowing from left to right consistent with elevated left atrial pressures. There is also residual flow noted at the transseptal puncture site with left to right directed jet only. The mitral valve is thickened. Mixed cannot rule out traumatic involvement. Mild mitral stenosis is seen and mild to moderate mitral regurgitation noted. The left atrial size is about 4.9 cm in horizontal diameter suggestive of moderate enlargement. Left ventricular systolic function is preserved. Left ventricular chamber size is normal. Right sided chamber size also normal. Mild tricuspid regurgitation seen. The pulmonary valve is not regurgitant. Aortic valve has three leaflets without regurgitation or stenosis. well visualized and appears to be without significant regurgitation. Pericardial space without significant effusion. The visualized portion of ascending and descending aorta without aneurysm, dissection or significant atheroma. CONCLUSION: 1. Adequately seated Watchman device but with residual leaks noted and suboptimal opacification of the left atrial appendage behind the Watchman device is seen. 2. 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 3. Normal LV systolic function. 4. Moderate left atrial enlargement. 5. Residual PFO flow is seen with left to right directed jet. 6. Mild tricuspid regurgitation. PLAN: Continue oral anticoagulation. We will send CD for evaluation to [place]. HERNANDEZ
== END 2019-03-29 13:25 | disposition home or self-care (01) ==
LOC: CCL 09:40
PROVIDERS: ATTEND Internal Medicine Cardiovascular Disease
DX: I48.19 Other persistent atrial fibrillation (principal); I48.4 Atypical atrial flutter; I10 Essential (primary) hypertension; E11.9 Type 2 diabetes mellitus without complications; E66.01 Morbid (severe) obesity due to excess calories; J44.9 Chronic obstructive pulmonary disease, unspecified; K21.9 Gastro-esophageal reflux disease without esophagitis; Z68.42 Body mass index [BMI] 45.0-49.9, adult; Z79.01 Long term (current) use of anticoagulants; Z79.4 Long term (current) use of insulin; Z79.82 Long term (current) use of aspirin; Z79.899 Other long term (current) drug therapy; Z88.0 Allergy status to penicillin; Z88.1 Allergy status to other antibiotic agents; Z88.2 Allergy status to sulfonamides; Z88.8 Allergy status to other drugs, medicaments and biological substances
CPT/HCPCS: 80048; 85025; 85610; 85730; 93005; 93010; 93312; J2704

== ENCOUNTER 2019-04-11 09:12 | Outpatient (CLI) | payer BC ==
--- NOTE | 2019-04-11 10:17 | MMO ---
Bilateral MAMMO Bilat Diag DDI+LIZZ. CLINICAL HISTORY: Patient is 63 years old and is seen for diagnostic exam and palpable abnormality in the left breast. The patient has the following family history of breast cancer: mother, at age 34, malignant (generic). The patient has no personal history of cancer. VIEWS: The views performed were: bilateral craniocaudal with tomosynthesis; bilateral mediolateral oblique with tomosynthesis; and bilateral mediolateral with tomosynthesis. FILMS COMPARED: The present examination has been compared to prior imaging studies performed at [facility] on 06/15/2018 and 04/11/2019. This study has been interpreted with the assistance of computer-aided detection. MAMMOGRAM FINDINGS: There are scattered fibroglandular densities. Finding 1: There is a stable global asymmetry seen in the left breast. Associated fat necrosis in this region is again noted. Finding 2: Sonographic interrogation of the left breast in the region of palpable concern demonstrates a vague area of altered echogenecity with possible associated shadowing. Please see that report. Finding 3: There are stable benign appearing calcifications seen in both breasts. There are also vascular calcifications. IMPRESSION: FINDING 2: FINDING IN THE LEFT BREAST IS SUSPICIOUS. AN ULTRASOUND-GUIDED BREAST BIOPSY IS RECOMMENDED. RESULTS AND RECOMMENDATIONS DISCUSSED WITH THE PATIENT AND QUESTIONS ANSWERED. THE RESULTS OF THIS EXAM WERE SENT TO THE PATIENT. ACR BI-RADS Category 4 - Suspicious abnormality - biopsy should be considered MAMMOGRAPHY NOTE: 1. A negative mammogram report should not delay a biopsy if a dominant of clinically suspicious mass is present. 2. Approximately 10% to 15% of breast cancers are not detected by mammography. 3. Adenosis and dense breasts may obscure an underlying neoplasm. Reported by: ANANTH PICHARDO MD Electonically Signed: [id number]
--- NOTE | 2019-04-11 10:29 | ULT ---
LIMITED LEFT BREAST ULTRASOUND: DATE: 04/11/2019. PROVIDED CLINICAL HISTORY: Left breast palpable abnormality. FINDINGS: Limited sonographic interrogation of the left breast was performed in the region of palpable concern. There is a somewhat circumscribed area of altered echogenicity which appears somewhat mass-like in the region of palpable concern. This measures bout 3 cm in greatest dimension and is associated with shadowing. IMPRESSION: BIRADS category 4 - suspicious abnormality. Ultrasound-guided biopsy is recommended. Results and recommendations discussed with the patient and questions answered. POS: OFF
== END 2019-04-11 09:13 | disposition home or self-care (01) ==
LOC: BICMAMMO 09:12
PROVIDERS: ATTEND Family Medicine
DX: N63.21 Unspecified lump in the left breast, upper outer quadrant (principal)
CPT/HCPCS: 77066; G0279

== ENCOUNTER → 2019-04-29 | Day surgery (SDC) | payer BC ==
--- NOTE | 2019-04-29 14:00 | MMO ---
Left Breast MAMMO Unilat Diag DDI LT. CLINICAL HISTORY: Patient is 63 years old and is seen for diagnostic exam. The patient has the following family history of breast cancer: mother, at age 34, malignant (generic). The patient has no personal history of cancer. The patient has a history of left Ultrasound Guided Core Biopsy in April,. VIEWS: The views performed were: left craniocaudal and left mediolateral oblique. FILMS COMPARED: The present examination has been compared to prior imaging studies performed at [facility] on 06/15/2018 and 04/11/2019. This study has been interpreted with the assistance of computer-aided detection. MAMMOGRAM FINDINGS: There is a biopsy clip seen in the left breast. IMPRESSION: BIOPSY CLIP IN THE LEFT BREAST IS CONFIRMED UTILIZING POST PROCEDURE MAMMOGRAM. THE RESULTS OF THIS EXAM WERE SENT TO THE PATIENT. MAMMOGRAPHY NOTE: 1. A negative mammogram report should not delay a biopsy if a dominant of clinically suspicious mass is present. 2. Approximately 10% to 15% of breast cancers are not detected by mammography. 3. Adenosis and dense breasts may obscure an underlying neoplasm. Reported by: JOSESITO CALERO MD Electonically Signed: [id number]
--- NOTE | 2019-04-29 14:14 | ULT ---
LEFT AXILLARY ULTRASOUND: HISTORY: Left breast mass. TECHNIQUE: Targeted sonographic imaging of the left axilla was performed. Static images are reviewed. FINDINGS: There is a single left axillary lymph node with a well preserved hilum and a thinned cortex measuring 1.1 x 2.0 cm. IMPRESSION: Slightly prominent left axillary lymph node with preserved fatty hilum. Transcribed Date/Time: 04/29/2019 2:22 PM
--- NOTE | 2019-04-29 14:50 | ULT ---
LEFT BREAST BIOPSY WITH ULTRASOUND GUIDANCE: HISTORY: Shadowing mass in the left breast. COMPARISON: Left breast ultrasound 04/11/2019. FINDINGS: Successful left breast biopsy with ultrasound guidance. A total of two 14-gauge core biopsy samples w ere placed. Lesion was placed directly in formalin. TECHNIQUE: Consent obtained to perform an ultrasound-guided biopsy of the left breast. Left breast was prepped a nd draped in a sterile fashion. 1% lidocaine, buffered with sodium bicarbonate was used for local anesthesia. Under ultrasound guidance, 14-gauge biopsy needle was advanced such that the tip was stephan cent to the area of altered echogenicity with shadowing. Total of 2 biopsies samples were obtained and placed directly in formalin. Postbiopsy clip was placed. Patient tolerated the procedure well. No immediate or postprocedure complication. Postprocedure mammogram was performed to document the clip placement. Post procedure mammogram does demonstrate a linear metallic density in the mass. The linear metallic density is felt to be the clip. However, the shape is not typical for a clip. Shape is likely altered due to the overall firmness of the mass not allowing the clip to form appropriately . IMPRESSION: Successful left breast biopsy with ultrasound guidance. Final pathologic diagnosis pending. Transcribed Date/Time: 04/29/2019 2:54 PM
== END ==
LOC: BICULT 12:21
PROVIDERS: ATTEND Family Medicine
PROC: 0H9U3ZX Drainage of Left Breast, Percutaneous Approach, Diagnostic (ICD-10-PCS; principal; 2019-04-29)
DX: C50.412 Malignant neoplasm of upper-outer quadrant of left female breast (principal); Z88.0 Allergy status to penicillin; Z88.2 Allergy status to sulfonamides; Z88.8 Allergy status to other drugs, medicaments and biological substances
CPT/HCPCS: 19083; 76999; 88305; 88342

== ENCOUNTER 2019-06-06 14:05 | Emergency (ER) | payer BC ==
[2019-06-06 15:07] LABS: #Eosinphils 0.1 thou/uL (0.0-0.7); #Lymphocytes 1.4 thou/uL (1.20-3.40); #Monocytes 0.5 thou/uL (0.11-0.59); #Neutrophils 7.3 thou/uL (1.40-6.50); %Basophils 0.4 % (0.0-1.0); %Eosinophils 1.5 % (0.0-10.0); %Lymphocytes 14.7 % (21.0-51.0); %Monocytes 5.5 % (0.0-10.0); %Neutrophils 77.9 % (42.0-75.0); Hemoglobin 11.3 g/dL (12.0-16.0); Mean Corpuscular HGB CONC 32.6 g/dL (32.0-36.0); Mean Corpuscular Hemoglobin 29.4 pg (27.0-31.0); Mean Corpuscular Volume 90.1 fL (78.0-98.0); Mean Platelet Volume 7.4 fL (7.4-10.4); Platelet Count 176 thou/uL (130-400); RBC Distribution Width 12.8 % (11.5-14.5); Red Blood Cell (RBC) Count 3.86 mill/uL (4.20-5.40); White Blood Cell (WBC) Count 9.4 thou/uL (4.8-10.8)
[2019-06-06 15:30] LABS: ALT (SGPT) 18 U/L (8-55); AST (SGOT) 16 U/L (5-34); Albumin 3.7 g/dL (3.4-4.8); Alkaline Phosphatase 96 U/L (40-110); Anion Gap 9 mmol/L (10-20); BUN (Urea Nitrogen) 12 mg/dL (9.8-20.1); Bilirubin, Total 0.5 mg/dL (0.2-1.2); Calc. Creatinine Clearance 0 mL/min (70-130); Calcium 9.3 mg/dL (7.8-10.44); Carbon Dioxide 32 mmol/L (23-31); Chloride 103 mmol/L (98-107); Estimated GFR-MDRD 74; Globulin 3.6 g/dL (2.4-3.5); Glucose 164 mg/dL (80-115); Protein, Total 7.3 g/dL (6.0-8.3); Sodium 140 mmol/L (136-145)
--- NOTE | 2019-06-06 15:31 | RAD ---
XR Chest 1 View Portable HISTORY: Palpitations, breast cancer COMPARISON: 03/08/2019 FINDINGS: The heart is enlarged but stable. The aorta is tortuous. The lungs are expanded without lob ar consolidation, pneumothoraces, anthony pulmonary edema or pleural effusions. IMPRESSION: No radiographic evidence of acute cardiopulmonary process.
--- NOTE | 2019-06-06 16:35 | CT ---
CT PULMONARY ANGIOGRAM WITH IV CONTRAST AND 3-D POSTPROCESSING: HISTORY:Palpitations, breast cancer FINDINGS: There is good contrast opacification of the pulmonary arterial vasculature without filling defects to suggest pulmonary embolism. The thoracic aorta is opacified without aneurysm or dissection. No pleural or pericardial effusions are seen. There is mediastinal lymphadenopathy. There are postop changes of left mastectomy. No pneumothoraces, focal areas of consolidation or lung nodules are noted. There are mild patchy grou ndglass infiltrates bilaterally. There are degenerative changes in the spine. Upper abdominal tomograms demonstrate changes of cholecystectomy. IMPRESSION: No CT evidence of pulmonary embolism.
== END 2019-06-06 19:47 | disposition home or self-care (01) ==
LOC: ERS 14:05
DX: J18.9 Pneumonia, unspecified organism (principal); E11.9 Type 2 diabetes mellitus without complications; E78.00 Pure hypercholesterolemia, unspecified; I50.9 Heart failure, unspecified; I48.91 Unspecified atrial fibrillation; J44.9 Chronic obstructive pulmonary disease, unspecified; Z87.891 Personal history of nicotine dependence; Z79.899 Other long term (current) drug therapy; Z79.82 Long term (current) use of aspirin; Z79.4 Long term (current) use of insulin
CPT/HCPCS: 71045; 71275; 80053; 83880; 84484; 85025; 93005; 96360

== ENCOUNTER 2019-09-22 07:33 | Observation (INO) | payer BC ==
[2019-09-22 08:27] LABS: #Eosinphils 0.1 thou/uL (0.0-0.7); #Monocytes 0.5 thou/uL (0.11-0.59); #Neutrophils 6.9 thou/uL (1.40-6.50); %Basophils 0.2 % (0.0-1.0); %Eosinophils 0.7 % (0.0-10.0); %Lymphocytes 11.9 % (21.0-51.0); %Monocytes 5.6 % (0.0-10.0); %Neutrophils 81.6 % (42.0-75.0); Hemoglobin 11.5 g/dL (12.0-16.0); Mean Corpuscular HGB CONC 32.7 g/dL (32.0-36.0); Mean Corpuscular Hemoglobin 29.2 pg (27.0-31.0); Mean Corpuscular Volume 89.4 fL (78.0-98.0); Mean Platelet Volume 7.7 fL (7.4-10.4); Platelet Count 171 thou/uL (130-400); RBC Distribution Width 13.4 % (11.5-14.5); Red Blood Cell (RBC) Count 3.94 mill/uL (4.20-5.40); White Blood Cell (WBC) Count 8.4 thou/uL (4.8-10.8)
[2019-09-22 08:51] LABS: ALT (SGPT) 17 U/L (8-55); AST (SGOT) 14 U/L (5-34); Albumin 3.7 g/dL (3.4-4.8); Alkaline Phosphatase 100 U/L (40-110); Anion Gap 15 mmol/L (10-20); BUN (Urea Nitrogen) 16 mg/dL (9.8-20.1); Bilirubin, Total 0.4 mg/dL (0.2-1.2); CK (CPK) 42 U/L (29-168); Calc. Creatinine Clearance 0 mL/min (70-130); Calcium 9.3 mg/dL (7.8-10.44); Carbon Dioxide 27 mmol/L (23-31); Chloride 98 mmol/L (98-107); Estimated GFR-MDRD 55; Globulin 3.6 g/dL (2.4-3.5); Glucose 294 mg/dL (80-115); Lipase 15 U/L (8-78); Potassium 4.1 mmol/L (3.5-5.1); Protein, Total 7.3 g/dL (6.0-8.3); Sodium 136 mmol/L (136-145)
[2019-09-22] MEDS ORDERED: Nitroglycerin 2% Ointment 1 INCH/1 GM Packet ONE (09:20)
[2019-09-22] MEDS ORDERED: Ondansetron PF 4 MG/2 ML Vial IVP PRN (09:36)
[2019-09-22] MEDS ORDERED: Senokot S 8.6-50 MG TAB PO PRN (09:36)
[2019-09-22] MEDS ORDERED: Bisacodyl 5 MG TAB PO PRN (09:36)
--- NOTE | 2019-09-22 10:20 | RAD ---
PORTABLE CHEST: HISTORY: Chest pain. COMPARISON: 06/06/19 FINDINGS: Cardiomegaly. Mild vascular congestion. No focal infiltrate. No interval change. IMPRESSION: Cardiomegaly with mild vascular congestion, unchanged. POS: AGW
[2019-09-22 10:31] LABS: Hemoglobin A1c 7.5 % (4.0-6.0)
--- NOTE | 2019-09-22 10:33 | PDOC.HHP ---
Hospitalist HPI - History of Present Illness Chest pain History of Present Illness: The patient is a 63-year-old female who has an extensive history of issues related to her heart but primarily related to rhythm issues. She reports that she had a negative stress test in December. She is followed by Dr. Argueta and Dr. Montaño. She had a watchman device placed in February. Apparently it is not closed. Therefore she continues on anticoagulation. The patient also has breast cancer. She had a 5 cm tumor in her left breast. She had a mastectomy on May 26 along with lymph node dissection. She had one positive lymph node. Follow-up PET scans have revealed no evidence of residual cancer. She did subsequently undergo external beam radiation therapy. She suffered significant second-degree collins to the skin on the left chest area. She reports that Dr. Montaño has wanted to do a follow-up heart monitor but has been unable to because of the collins to the chest. This patient presented to the emergency department today. The patient reports that she has chronic stomach issues. She takes multiple medications for that including a PPI, Carafate, Zofran and Tums. Her oncologist recently started her on an estrogen chayo. This bothered her stomach and gave her a metallic taste in her mouth. She called the hospital at [facility] and her oncologist happened to be on-call. Her oncologist stopped the estrogen chayo. This morning the patient awoke early and felt diaphoretic. She checked her blood sugar and it was 60. She subsequently drank some orange juice and went back to sleep. When she awoke again she was shaking but her blood sugar was 240. She was experiencing some pain in her left chest. She describes it as a moderate squeezing sensation. She checked her heart rate and it was 110. She has a home oxygen saturation monitor and says her number was below 90. She did not feel short of breath. She felt dizzy. She checked her temperature and she was afebrile. She says she has some pain in her left arm but believes that is more due to radiation issues. She also reported some palpitations but reports that is chronic as well. ED Course: EKG was nonischemic. Cardiac enzymes are negative. She received nitroglycerin paste in the ER. Hospitalist ROS - Review of Systems Constitutional: denies: fever, chills, sweats, malaise Respiratory: denies: cough, shortness of breath Cardiovascular: reports: chest pain. denies: palpitations, orthopnea Gastrointestinal: denies: nausea, vomiting Genitourinary: denies: dysuria, frequency Musculoskeletal: reports: arm pain All other systems reviewed; all pertinent +/- noted in HPI/Subj - Medication Medications: Lisinopril TABLET : Strength - 10 mg : ORAL Patient Dose: 1 tab(s) Oral once a day. glipiZIDE MonSep 22, 2019 07:49 JOSE Finley Katelyn TABLET : Strength - 10 mg : ORAL Patient Dose: 1 tab(s) Oral once a day. torsemide oral MonSep 22, 2019 07:49 JOSE Finley Katelyn TABLET : Strength - 20 mg : ORAL Patient Dose: 1 tab(s) Oral once a day.2 TABS AM, 1 TAB NOON. potassium chloride oral MonSep 22, 2019 07:49 JOSE Finley Katelyn TABLET, EXTENDED RELEASE : Strength - 10 mEq : ORAL Patient Dose: 1 tab(s) Oral once a day. traMADol MonSep 22, 2019 07:49 JOSE Finley Katelyn TABLET : Strength - 50 mg : ORAL Patient Dose: 1-2 tab(s) Oral every 8 hours PRN. sucralfate MonSep 22, 2019 07:49 JOSE Finley Katelyn TABLET : Strength - 1 gram : ORAL Patient Dose: 1 tab(s) Oral 4 times a day. atorvastatin MonSep 22, 2019 07:49 JOSE Finley Katelyn TABLET : Strength - 20 mg : ORAL Patient Dose: 1 tab(s) Oral once a day. tiZANidine MonSep 22, 2019 07:49 JOSE Finley Katelyn CAPSULE : Strength - 4 mg : ORAL Patient Dose: 1 cap(s) Oral every 8 hours PRN. Lantus U-100 Insulin MonSep 22, 2019 07:49 JOSE Finley Katelyn CARTRIDGE (ML) : Strength - 100 unit/mL : SUBCUTANEOUS Patient Dose: 30 units Oral 2 times a day. aspirin oral MonSep 22, 2019 07:49 JOSE Finley Katelyn TABLET : Strength - 81 mg : ORAL Patient Dose: 1 tab(s) Oral once a day. pantoprazole oral MonSep 22, 2019 07:49 JOSE Finley Katelyn TABLET, DELAYED RELEASE (ENTERIC COATED) : Strength - 40 mg : ORAL Patient Dose: 1 tab(s) Oral once a day. Zofran oral Sun Sep 22, 2019 07:50 JOSE Finley Katelyn tablet : Strength - 4 mg : ORAL Patient Dose: Unknown. Hospitalist History - Past Medical History Source: patient Cardiac: reports: AFIB, CHF, HTN, Hyperlipidemia Pulmonary: reports: COPD Endocrine: reports: Diabetes - Past Surgical History Past Surgical History: reports: Mastectomy (left, with node dissection.), Other (Multiple cardiac rhythm ablations. Watchman device placed.) - Family History Family History: reports: no pertinent history - Social History Smoking Status: Former smoker Tobacco Type: cigarettes Alcohol: reports: None Drugs: reports: none Activity level: independent ambulation Other Social History: She is a . She is full code. Her daughter Gunjan or her friend Chery would be her surrogate decision maker should that be necessary. - Exam General Appearance: NAD, awake alert General - other findings: Morbidly obese Neck: supple, symmetric, no JVD, no thyromegaly, no lymphadenopathy, no carotid bruit Heart: RRR, no murmur, no gallops, no rubs, normal peripheral pulses Respiratory: CTAB, no wheezes, no rales, no ronchi, normal chest expansion, no tachypnea, normal percussion Gastrointestinal: soft, non-tender, non-distended, no palpable masses, no hepatomegaly, no splenomegaly, no bruit Gastrointestinal - other findings: Hyperactive bowel sounds. Extremities: no cyanosis, no clubbing, no edema Skin: normal turgor Skin - other findings: Faint erythema to left mastectomy area. Neurological: cranial nerve grossly intact, normal sensation to touch, no weakness, no focal deficits, no new deficit Musculoskeletal: normal tone, normal strength, no muscle wasting Psychiatric: normal affect, normal behavior, A&O x 3 Hospitalist Results - Labs Result Diagrams: 09/22/19 07:58 09/22/19 07:58 Lab results: WBC 8.4 thou/uL (4.8-10.8) 09/22/19 07:58 Hgb 11.5 g/dL (12.0-16.0) L 09/22/19 07:58 Hct 35.2 % (36.0-47.0) L 09/22/19 07:58 MCV 89.4 fL (78.0-98.0) 09/22/19 07:58 Plt Count 171 thou/uL (130-400) 09/22/19 07:58 Neutrophils % 81.6 % (42.0-75.0) H 09/22/19 07:58 Sodium 136 mmol/L (136-145) 09/22/19 07:58 Potassium 4.1 mmol/L (3.5-5.1) 09/22/19 07:58 Chloride 98 mmol/L (98-107) 09/22/19 07:58 Carbon Dioxide 27 mmol/L (23-31) 09/22/19 07:58 BUN 16 mg/dL (9.8-20.1) 09/22/19 07:58 Creatinine 1.01 mg/dL (0.6-1.1) 09/22/19 07:58 Glucose 294 mg/dL (80-115) H 09/22/19 07:58 Calcium 9.3 mg/dL (7.8-10.44) 09/22/19 07:58 Total Bilirubin 0.4 mg/dL (0.2-1.2) 09/22/19 07:58 AST 14 U/L (5-34) 09/22/19 07:58 ALT 17 U/L (8-55) 09/22/19 07:58 Alkaline Phosphatase 100 U/L (40-110) 09/22/19 07:58 Creatine Kinase 42 U/L (29-168) 09/22/19 07:58 Troponin I 0.020 ng/mL (< 0.028) 09/22/19 07:58 B-Natriuretic Peptide 36.6 pg/mL (0-100) 09/22/19 07:58 Serum Total Protein 7.3 g/dL (6.0-8.3) 09/22/19 07:58 Albumin 3.7 g/dL (3.4-4.8) 09/22/19 07:58 Lipase 15 U/L (8-78) 09/22/19 07:58 - Radiology Interpretation Chest x-ray Status: image reviewed by me, report reviewed by me Additional Comment: Cardiomegaly with mild vascular congestion, unchanged. Hospitalist H&P A/P - Problem (1) Chest pain, rule out acute myocardial infarction Code(s): R07.9 - CHEST PAIN, UNSPECIFIED Status: Acute (2) Cardiomyopathy Code(s): I42.9 - CARDIOMYOPATHY, UNSPECIFIED Status: Acute (3) Chronic anticoagulation Code(s): Z79.01 - LONG-TERM (CURRENT) USE OF ANTICOAGULANTS Status: Chronic (4) Chronic respiratory failure with hypoxia Code(s): J96.11 - CHRONIC RESPIRATORY FAILURE WITH HYPOXIA Status: Chronic (5) Diabetes type 2, controlled Code(s): E11.9 - TYPE 2 DIABETES MELLITUS WITHOUT COMPLICATIONS Status: Chronic (6) Dyslipidemia Code(s): E78.5 - HYPERLIPIDEMIA, UNSPECIFIED Status: Chronic (7) H/O radiofrequency ablation for complex left atrial arrhythmia Code(s): Z98.890 - OTHER SPECIFIED POSTPROCEDURAL STATES; Z86.79 - PERSONAL HISTORY OF OTHER DISEASES OF THE CIRCULATORY SYSTEM Status: Chronic (8) Hypertension Code(s): I10 - ESSENTIAL (PRIMARY) HYPERTENSION Status: Chronic (9) Morbid obesity with BMI of 45.0-49.9, adult Code(s): E66.01 - MORBID (SEVERE) OBESITY DUE TO EXCESS CALORIES; Z68.42 - BODY MASS INDEX (BMI) 45.0-49.9, ADULT Status: Chronic - Plan Plan: Chest Pain: This patient has a significant history of multiple cardiac ablations with a watchman device placed. She also has a history of left breast cancer status post mastectomy. She had external beam radiation with subsequent radiation collins in the recent past. She presents today with pain in the left chest. She had a stress test reportedly done in December 2018 that was normal. She certainly has multiple risk factors for coronary disease but given that and the atypical nature of her presentation I suspect this is likely noncardiac. However she will be placed in observation on telemetry. Serial cardiac isoenzymes. Will consult Dr. Argueta. Continue Nitropaste. Continue with her home dose of aspirin. She is currently pain-free. Hypoglycemia: Appears to be resolved and she now has some hyperglycemia. Hyperglycemia: Patient reports her blood sugar is highly variable. She drank orange juice this morning in response to hypoglycemia and is been running high since. Diabetes mellitus: As above. Will use sliding scale insulin while she is here. Hypertension: Continue with her home medications. History of atrial fibrillation with RVR: She is status post ablation and has a watchman. However is believe that the watchman is not closed and therefore she remains on warfarin. We will continue with her usual home medications for this. She also reports that she is taking diltiazem. We will continue with that. COPD with history of chronic hypoxic respiratory failure and home oxygen dependence: Patient appears to be stable at this point. We will continue to monitor her O2 saturations. Chronic anticoagulation on warfarin: We will check INR level. Cardiomyopathy: Patient is unaware of ever having had a heart cath. We will continue with her home meds for afterload reduction.
[2019-09-22 10:51] LABS: Cardiac Risk 3.9 (Less than 4.5)
[2019-09-22 11:05] VITALS: BMI 47.0
[2019-09-22] MEDS ORDERED: Ondansetron ODT 4 MG TAB PO PRN (11:35)
[2019-09-22] MEDS ORDERED: Albuterol Sulfate 2.5 mg/3 ml Neb NEB PRN (11:35)
[2019-09-22] MEDS ORDERED: VENTOLIN 90 MCG INH PRN (11:38)
[2019-09-22] MEDS ORDERED: Dextrose 50% Abboject 50 ML SYRINGE SLOW IVP PRN (11:42)
[2019-09-22] MEDS ORDERED: Dextrose 5% in Water 1,000 ML IV PRN (11:42)
[2019-09-22] MEDS ORDERED: Warfarin Sodium 7.5 MG TAB PO SCH (11:45)
[2019-09-22] MEDS ORDERED: Warfarin Sodium 5 MG TAB PO SCH ×2 (11:45→17:00)
[2019-09-22] MEDS ORDERED: Lisinopril 10 MG TAB PO SCH (11:45)
[2019-09-22] MEDS ORDERED: PROVENTIL INHALER 6.7 G (200 INHALATIONS) INH PRN (12:07)
[2019-09-22] MEDS: Sucralfate 1 GM TAB PO SCH ×3 (12:17→20:57)
[2019-09-22] MEDS: HumaLOG 300 UNITS/3 ML VIAL SC PRN (12:17)
[2019-09-22] MEDS: traMADol HCl 50 MG TAB PO PRN ×2 (15:19→20:57)
[2019-09-22 15:21] LABS: Troponin I 0.019 ng/mL (< 0.028)
--- NOTE | 2019-09-22 17:02 | CON ---
DATE OF CONSULTATION: 09/22/2019 REASON FOR CONSULTATION: Chest pain. PRIMARY WIRE DRAWING SETTER: Dr. Jones Argueta. HISTORY OF PRESENT ILLNESS: Ms. Darling is a very pleasant 63-year-old white female, who comes to the hospital for chest pain. She has a significant history of cardiac dysrhythmias. She has had atrial fibrillation and atypical flutter ablations in the past, followed by Dr. Montaño. She has also had significant history of breast cancer. She underwent radiation to her left breast and removal. She is having a lot of issues with pain on the left side due to the burn. She states that today the pain felt a little deeper. It felt more like indigestion. This is in the setting of her medication for her breast cancer. She feels this is giving her problems, so she was guided to stop the medicine. She has a lot a reflux issues. She came in today for many other issues. Cardiology is being consulted for this pain. So far, she has been ruled out with undetectable troponins. On my evaluation, she is pain free. PAST MEDICAL HISTORY: 1. Type 2 diabetes. 2. Hypertension. 3. Hyperlipidemia. 4. Atrial fibrillation, status post multiple cardioversions and ablations. 5. Atypical atrial flutter, status post cardioversion. 6. COPD, on home O2. 7. Normal heart catheterization in 2016. PAST SURGICAL HISTORY: 1. Appendectomy. 2. Cholecystectomy. 3. Tonsillectomy. 4. . 5. Multiple ablation as above. OUTPATIENT MEDICATIONS: Include, 1. Diltiazem. 2. Atorvastatin 20 mg at bedtime. 3. Aspirin 81 a day. 4. Albuterol. 5. Insulin lispro. 6. Insulin glargine. 7. Metoprolol succinate 12.5 mg b.i.d. 8. Lisinopril 10 mg a day. 9. Pantoprazole 40 mg a day. 10. vitamins. 11. Zofran 4 mg p.r.n. 12. Torsemide 20 mg a day. 13. Potassium chloride 20 mEq a day. 14. Glipizide 10 mg a day. 15. Coumadin as directed. 16. Ventolin inhaler. 17. Tramadol p.r.n. 18. Tizanidine p.r.n. ALLERGIES: AMPICILLIN, ANASTROZOLE, DRONEDARONE WHICH IS MULTAQ, FLECAINIDE, IODINE, AND SULFA DRUGS. SOCIAL HISTORY: Quit smoking in 2008. No alcohol or drugs. FAMILY HISTORY: Noncontributory. REVIEW OF SYSTEMS: A 12-point review of systems was done and was all negative unless stated in the history of present illness. PHYSICAL EXAMINATION: VITAL SIGNS: Temperature 98.7, pulse 75, respiratory rate 16, sat 97% on room air, blood pressure 115/63. GENERAL: Awake, alert, oriented x3, in no distress. HEENT: Normocephalic, atraumatic. NECK: Supple. LUNGS: Clear. CARDIOVASCULAR: S1 and S2. No S3 or S4. No murmurs. There is exquisite tenderness to palpation in the left chest area, left mastectomy. ABDOMEN: Soft. Positive bowel sounds. EXTREMITIES: Trace edema. SKIN: Warm and dry. LABORATORY DATA: Laboratory work was reviewed. CBC with a white count of 8, hemoglobin 11.5, hematocrit of 35, platelet count of 171. D-dimer was 0.4, which is normal. Chemistries with sodium of 136, potassium was 4.1, normal BUN and creatinine, GFR 55, glucose of 294. Troponin is negative x3 at 0.02 0.01. Triglycerides of 143, cholesterol 112, LDL of 54, HDL of 29. TSH is normal. Lipase is normal. EKG was reviewed. Chest x-ray, cardiomegaly, mild vascular congestion, but unchanged from previous x-rays. ASSESSMENT: 1. Chest pain. 2. History of breast cancer, status post left mastectomy and radiation to the left breast area with multiple collins and much discomfort in the area. 3. History of reflux. 4. History of normal heart catheterization in 2016. 5. Multiple atrial dysrhythmias, currently in sinus. PLAN: 1. I doubt that this is an acute coronary syndrome. Pain is atypical and she is already ruled out with negative enzymes and negative EKG. 2. We will get echocardiogram. If this is unremarkable, no further evaluation will be prompted. She did have a normal stress test back in December of last year in the office. 3. Dr. Argueta will follow up in the morning. Thank you for letting us participate in the care of your patient. Job ID: [id number]
[2019-09-22 18:00] LABS: Troponin I 0.023 ng/mL (< 0.028)
[2019-09-22] MEDS: tiZANidine HCl 4 MG TAB PO PRN (20:58)
[2019-09-22] MEDS ORDERED: Atorvastatin Calcium 20 MG TAB PO SCH (21:00)
[2019-09-22] MEDS ORDERED: Metoprolol Tartrate 25 MG TAB PO SCH (21:00)
[2019-09-22] MEDS: Acetaminophen 325 MG TAB PO PRN (23:14)
[2019-09-23] MEDS ORDERED: Aquaphor 10 GM TUBE TOP PRN (01:34)
[2019-09-23] MEDS: Acetaminophen 325 MG TAB PO PRN (02:43)
[2019-09-23 04:35] LABS: #Basophils 0.1 thou/uL (0.0-0.2); #Eosinphils 0.1 thou/uL (0.0-0.7); #Lymphocytes 1.2 thou/uL (1.20-3.40); #Monocytes 0.5 thou/uL (0.11-0.59); #Neutrophils 5.9 thou/uL (1.40-6.50); %Basophils 0.7 % (0.0-1.0); %Eosinophils 1.7 % (0.0-10.0); %Lymphocytes 15.2 % (21.0-51.0); %Monocytes 6.5 % (0.0-10.0); %Neutrophils 75.9 % (42.0-75.0); Hemoglobin 11.2 g/dL (12.0-16.0); Mean Corpuscular HGB CONC 32.5 g/dL (32.0-36.0); Mean Corpuscular Hemoglobin 29.2 pg (27.0-31.0); Mean Corpuscular Volume 89.8 fL (78.0-98.0); Mean Platelet Volume 7.9 fL (7.4-10.4); Platelet Count 172 thou/uL (130-400); RBC Distribution Width 13.4 % (11.5-14.5); Red Blood Cell (RBC) Count 3.85 mill/uL (4.20-5.40); White Blood Cell (WBC) Count 7.7 thou/uL (4.8-10.8)
[2019-09-23 04:51] LABS: Anion Gap 11 mmol/L (10-20); BUN (Urea Nitrogen) 13 mg/dL (9.8-20.1); Calc. Creatinine Clearance 121 mL/min (70-130); Calcium 9.1 mg/dL (7.8-10.44); Carbon Dioxide 30 mmol/L (23-31); Chloride 101 mmol/L (98-107); Estimated GFR-MDRD 64; Glucose 141 mg/dL (80-115); Potassium 3.7 mmol/L (3.5-5.1); Sodium 138 mmol/L (136-145)
[2019-09-23] MEDS: traMADol HCl 50 MG TAB PO PRN (07:36)
[2019-09-23] MEDS: tiZANidine HCl 4 MG TAB PO PRN (07:36)
[2019-09-23] MEDS ORDERED: Potassium Chloride 10 MEQ TAB PO SCH (09:00)
[2019-09-23] MEDS ORDERED: Aspirin 81 mg Enteric Coated Tablet PO SCH (09:00)
[2019-09-23] MEDS ORDERED: Lisinopril 10 MG TAB PO SCH (09:00)
[2019-09-23] MEDS ORDERED: Torsemide 20 MG TAB PO SCH (09:00)
[2019-09-23 09:06] LABS: Hemoglobin 11.5 g/dL (12.0-16.0); Platelet Count 163 thou/uL (130-400)
[2019-09-23 09:15] LABS: INR-International Normal Ratio 3.1
[2019-09-23] MEDS: Sucralfate 1 GM TAB PO SCH ×2 (10:10→11:29)
[2019-09-23 11:25] VITALS: BP 116/71; TEMP 98
[2019-09-23] MEDS: HumaLOG 300 UNITS/3 ML VIAL SC PRN (11:30)
--- NOTE | 2019-09-23 12:01 | EKG ---
Test Reason : Blood Pressure : / mmHG Vent. Rate : 085 BPM Atrial Rate : 085 BPM P-R Int : 170 ms QRS Dur : 078 ms QT Int : 364 ms P-R-T Axes : 063 023 048 degrees QTc Int : 433 ms Normal sinus rhythm Normal ECG Confirmed by AMANDA MARIE, AMAN ([id number]), publishing editor MARIEL ALANIS ([id number]) on 09/23/2019 12:01:18 PM Referred By: Confirmed By:AMAN PATEL MD
[2019-09-23] MEDS ORDERED: Warfarin Sodium 7.5 MG TAB PO SCH (17:00)
--- NOTE | 2019-09-23 17:15 | DIS ---
DATE OF ADMISSION: 09/22/2019 DATE OF DISCHARGE: 09/23/2019 DISCHARGE DISPOSITION: Home. PRIMARY DISCHARGE DIAGNOSIS: Chest pain, which is noncardiac. SECONDARY DISCHARGE DIAGNOSES: Diabetes mellitus type 2; history of left breast cancer, which is estrogen and progesterone receptor positive; history of atrial fibrillation which is paroxysmal; hypertension; chronic obstructive pulmonary disease on home oxygen. PROCEDURES DONE DURING HOSPITALIZATION: Echocardiogram with 2D Doppler done showed EF of 50% to 55%. Left atrium was moderately dilated. Chest x-ray done showed cardiomegaly. H and H 11 and 36, platelet count 163. PT/INR 32 and 3.1. BUN 13, creatinine 0.8. Troponin x4 is negative. Total cholesterol 112, triglycerides 143, LDL 54, HDL 29, TSH 1.1. DISCHARGE MEDICATIONS: 1. Aspirin 81 mg p.o. daily. 2. Atorvastatin 20 mg p.o. at bedtime. 3. Cardizem CD 240 mg p.o. daily. 4. Glucotrol extended release 10 mg daily. 5. Lantus 40 units subcu twice daily. 6. Insulin lispro prior to meals. 7. Lisinopril 10 mg daily. 8. Toprol-XL 12.5 mg twice daily. 9. Protonix 40 mg daily. 10. K-Dur 20 mEq p.o. daily. 11. Sucralfate 1 g four times daily. 12. Tizanidine 4 mg p.o. q.8 hourly p.r.n. 13. Coumadin 5 and 7.5 mg as before. 14. Demadex 20 mg daily. ALLERGIES: ALLERGIC TO AMPICILLIN; INTOLERANT TO ANASTROZOLE. SHE IS ALLERGIC TO DRONEDARONE, FLECAINIDE, IODINE, SULFA. DISCHARGE PLAN: The patient to follow up with her oncologist, Dr. Spenser Knight in 1 week. She needs to follow up with her primary care physician, Dr. Jassi Ramos in 1 week. BRIEF COURSE DURING HOSPITAL DURING HOSPITALIZATION: The patient initially got admitted on the with complaints of chest pain. She has had a stress test done in December, which was negative. She has history of atrial arrhythmias and follows up with Dr. Montaño. The patient also was recently diagnosed with breast cancer and has had radiation therapy for the same. In view of above-mentioned factors, the patient was placed under observation on telemetry. Four sets of troponin were negative. She has remained hemodynamically stable with complete resolution of her chest discomfort. She will follow up with her primary care physician in 1 week. She has remained in sinus rhythm on the telemetry floor. Echo showed normal ejection fraction. Please note, I have seen and examined the patient on the day of discharge. She was also evaluated by Dr. Lopez of Cardiology during her brief stay here. Please note, I have seen and examined the patient on the day of discharge. Job ID: [id number]
== END 2019-09-23 14:30 | disposition home or self-care (01) ==
LOC: ERS 07:33 → 2NO 10:52
PROVIDERS: ADMIT Internal Medicine; ATTEND Internal Medicine
DX: R07.89 Other chest pain (principal); E11.65 Type 2 diabetes mellitus with hyperglycemia; I48.0 Paroxysmal atrial fibrillation; I11.0 Hypertensive heart disease with heart failure; I50.9 Heart failure, unspecified; J44.9 Chronic obstructive pulmonary disease, unspecified; J96.11 Chronic respiratory failure with hypoxia; E78.5 Hyperlipidemia, unspecified; I42.9 Cardiomyopathy, unspecified; I25.10 Atherosclerotic heart disease of native coronary artery without angina pectoris; I48.4 Atypical atrial flutter; K21.9 Gastro-esophageal reflux disease without esophagitis; E66.01 Morbid (severe) obesity due to excess calories; Z68.42 Body mass index [BMI] 45.0-49.9, adult; Z85.3 Personal history of malignant neoplasm of breast; Z87.891 Personal history of nicotine dependence; Z79.4 Long term (current) use of insulin; Z79.82 Long term (current) use of aspirin; Z79.899 Other long term (current) drug therapy; Z88.0 Allergy status to penicillin; Z88.2 Allergy status to sulfonamides; Z88.8 Allergy status to other drugs, medicaments and biological substances; Z91.041 Radiographic dye allergy status; Z95.818 Presence of other cardiac implants and grafts; Z99.81 Dependence on supplemental oxygen; Z98.890 Other specified postprocedural states
CPT/HCPCS: 36415; 36416; 71045; 80048; 80053; 80061; 82550; 83036; 83690; 83880; 84443; 84484; 85025; 85379; 85610; 93005; 93306; G0378

== ENCOUNTER 2019-12-12 09:06 | Observation (INO) | payer MEDICARE, OTHER ==
[2019-12-12 10:05] LABS: #Eosinphils 0.1 thou/uL (0.0-0.7); #Lymphocytes 1.1 thou/uL (1.20-3.40); #Monocytes 0.3 thou/uL (0.11-0.59); #Neutrophils 6.7 thou/uL (1.40-6.50); %Basophils 0.3 % (0.0-1.0); %Eosinophils 1.7 % (0.0-10.0); %Lymphocytes 13.2 % (21.0-51.0); %Neutrophils 80.9 % (42.0-75.0); Hemoglobin 11.4 g/dL (12.0-16.0); Mean Corpuscular HGB CONC 32.8 g/dL (32.0-36.0); Mean Corpuscular Hemoglobin 29.8 pg (27.0-31.0); Mean Corpuscular Volume 90.8 fL (78.0-98.0); Mean Platelet Volume 7.7 fL (7.4-10.4); Platelet Count 175 thou/uL (130-400); RBC Distribution Width 13.2 % (11.5-14.5); Red Blood Cell (RBC) Count 3.85 mill/uL (4.20-5.40); White Blood Cell (WBC) Count 8.3 thou/uL (4.8-10.8)
--- NOTE | 2019-12-12 10:10 | RAD ---
XR Chest 1 View Portable HISTORY: CHF, shortness of breath, COPD COMPARISON: 11/10/2019 FINDINGS: The heart is enlarged. The aorta is tortuous. There is mild prominence of the pulmonary vas cularity. No lobar consolidation, pneumothoraces or pleural effusions are seen. There are degenerative changes in the spine. IMPRESSION: Stable exam.
[2019-12-12] MEDS ORDERED: methylPREDNISolone Sod Succ/PF 125 MG/2 ML VIAL ONE (10:51)
[2019-12-12] MEDS ORDERED: Magnesium 2 GM/50 ML BAG (IN WATER) ONE (10:51)
[2019-12-12] MEDS ORDERED: Furosemide 40 MG/4 ML VIAL ONE (10:51)
[2019-12-12 10:58] LABS: Anion Gap 13 mmol/L (10-20); BUN (Urea Nitrogen) 15 mg/dL (9.8-20.1); Calc. Creatinine Clearance 0 mL/min (70-130); Carbon Dioxide 29 mmol/L (23-31); Chloride 101 mmol/L (98-107); Estimated GFR-MDRD 68; Potassium 3.9 mmol/L (3.5-5.1); Sodium 139 mmol/L (136-145)
[2019-12-12 10:59] LABS: ALT (SGPT) 17 U/L (8-55); AST (SGOT) 14 U/L (5-34); Albumin 3.7 g/dL (3.4-4.8); Alkaline Phosphatase 101 U/L (40-110); Bilirubin, Total 0.5 mg/dL (0.2-1.2); CK (CPK) 56 U/L (29-168); Calcium 9.2 mg/dL (7.8-10.44); Globulin 3.7 g/dL (2.4-3.5); Glucose 175 mg/dL (80-115); Lipase 15 U/L (8-78); Protein, Total 7.4 g/dL (6.0-8.3)
[2019-12-12 11:02] LABS: SARS-CoV-2 NAA Rapid Test Not Detected (NotDetected)
[2019-12-12] MEDS ORDERED: Aspirin Chewable 81 MG TAB ONE (11:57)
--- NOTE | 2019-12-12 13:13 | PDOC.HHP ---
Hospitalist HPI - History of Present Illness Dyspnea History of Present Illness: PCP: Jassi Ramos Patient is a 64-year-old female with a past medical history significant for COPD (2.5 L at home), CHF, CAD, atrial fibrillation (on Coumadin), breast cancer, diabetes type 2 that presents to the ER for the above complaint. The patient reports worsening dyspnea for the past 4 days. This morning it became severe, so much so, that she could not get up to take her home medications. Reports associated chest pain, located left-sided chest, described as "I think it is possibly from my surgery", referring to her left mastectomy she had several months ago. Her chest pain has no exacerbating or relieving factors. She denies any recent fever or chills or cough. No COVID contacts. Denies any heart palpitations or swelling to her lower extremities. She has no other complaints at this time. She called EMS. Upon arrival, the patient was satting 91% on 2 L nasal cannula. She was placed on 3 L nasal cannula and her O2 sats improved to 98%. Blood pressure 165/100, HR 100. ED Course: VITAL SIGNS [facility] Dec 12, 2019 09:12 JOSE Casey Luke BP: 178/105, Pulse: 103, Temp: 98.6 (Oral), O2 sat: 96 on (3L Oxygen), Time: 12/12/2019 09:12. VITAL SIGNS [facility] Dec 12, 2019 09:29 JOSE Casey Luke Resp: 28, Pain: 0, Time: 12/12/2019 09:29. VITAL SIGNS [facility] Dec 12, 2019 10:15 JOSE Fisher Ashleigh BP: 140/113, Pulse: 92, Resp: 24, Pain: 0, O2 sat: 100 on (3L Oxygen), Time: 12/12/2019 10:15. VITAL SIGNS [facility] Dec 12, 2019 11:30 JOSE Fisher Ashleigh BP: 151/104, Pulse: 93, Resp: 20, Pain: 0, O2 sat: 97 on (3L Oxygen), Time: 12/12/2019 11:30. VITAL SIGNS [facility] Dec 12, 2019 11:46 JOSE Fisher Ashleigh BP: 143/83, Time: 12/12/2019 11:46. VITAL SIGNS [facility] Dec 12, 2019 13:02 JOSE Fisher, [facility] BP: 137/98, Pulse: 100, Resp: 18 (Non-Labored), Temp: 98.2 (Oral), Pain: 0, O2 sat: 98 on (3L Oxygen), Time: 12/12/2019 13:02. Medication Administration: DuoNeb 3 mL Nebulize Acknowledged 11:17 12/12/2019 aspirin oral 324 mg Oral Given 11:51 12/12/2019 methylPREDNISolone sodium succinate inje 125 mg IV Push Given 11:10 12/12/2019 magnesium sulfate injection 2 g IV Piggy Back Given 11:10 12/12/2019 furosemide injection 80 mg IV Push Given 11:12/12/2019 Hospitalist ROS - Review of Systems Constitutional: denies: fever, chills Cardiovascular: reports: chest pain (Mild). denies: palpitations, edema, light headedness Gastrointestinal: denies: nausea, vomiting, abdominal pain, diarrhea Genitourinary: denies: dysuria, incontinence, hematuria Skin: denies: rash, bruising Neurological: denies: incoordination, change in speech, confusion All other systems reviewed; all pertinent +/- noted in HPI/Subj - Medication Medications: Warfarin 5 mg p.o. Monday 7.5 mg p.o. Monday lisinopril TABLET : Strength - 10 mg : ORAL Patient Dose: 1 tab(s) Oral once a day. glipiZIDE TABLET : Strength - 10 mg : ORAL Patient Dose: 1 tab(s) Oral once a day. torsemide oral TABLET : Strength - 20 mg : ORAL Patient Dose: 1 tab(s) Oral once a day.2 TABS AM, 1 TAB NOON. potassium chloride oral TABLET, EXTENDED RELEASE : Strength - 10 mEq : ORAL Patient Dose: 1 tab(s) Oral once a day. traMADol TABLET : Strength - 50 mg : ORAL Patient Dose: 1-2 tab(s) Oral every 8 hours PRN. sucralfate TABLET : Strength - 1 gram : ORAL Patient Dose: 1 tab(s) Oral 4 times a day. atorvastatin TABLET : Strength - 20 mg : ORAL Patient Dose: 1 tab(s) Oral once a day. tiZANidine CAPSULE : Strength - 4 mg : ORAL Patient Dose: 1 cap(s) Oral every 8 hours PRN. Lantus U-100 Insulin CARTRIDGE (ML) : Strength - 100 unit/mL : SUBCUTANEOUS Patient Dose: 30 units Oral 2 times a day. aspirin oral TABLET : Strength - 81 mg : ORAL Patient Dose: 1 tab(s) Oral once a day. pantoprazole oral TABLET, DELAYED RELEASE (ENTERIC COATED) : Strength - 40 mg : ORAL Patient Dose: 1 tab(s) Oral once a day. Zofran oral tablet : Strength - 4 mg : ORAL Patient Dose: Unknown. Cepacol Sore Throat (jasper-men) 15 mg-2.6 mg : Strength - lozenge : MUCOUS MEMBRANE Patient Dose: 1 lozenge MUCOUS MEMBRANE every 6 hours PRN. Allergies: ampicillin, anastrozole, dronedarone HCl (Unconfirmed), flecainide, Iodides, iodine (severe), Multaq, Sulfa (Sulfonamide Antibiotics) Hospitalist History - Past Medical History Source: patient, RN notes reviewed Cardiac: reports: AFIB (Takes home Coumadin Coumadin), CAD, CHF, HTN, Hyperlipidemia Pulmonary: reports: COPD (2.5 L nasal cannula at home) Gastrointestinal: reports: GERD Heme/Onc: reports: Cancer (Left breast cancer) Endocrine: reports: Diabetes - Past Surgical History Past Surgical History: reports: Mastectomy (left, with node dissection. (May/2019)/radiation (last treated 09/13), Other (Multiple cardiac rhythm ablations. Watchman device placed.) - Family History Family History: reports: cancer, cardiac disorder - Social History Smoking Status: Former smoker (Quit 2008) Alcohol: reports: None Drugs: reports: none Living Situation: Alone Occupation: Retired. Activity level: independent ambulation - Exam General Appearance: NAD, awake alert Eye: anicteric sclera ENT: normocephalic atraumatic Neck: supple, symmetric, no JVD Heart: RRR, no murmur, no gallops, no rubs, normal peripheral pulses Respiratory: no wheezes, no rales, rhonchi, tachypneic (Improved) Gastrointestinal: soft, non-tender, normal bowel sounds, no bruit, no guarding, no rigidity Extremities: no cyanosis, no edema (Difficult to assess secondary to body habitus) Skin: no rashes Neurological: normal sensation to touch, no weakness, no focal deficits Musculoskeletal: normal tone, normal strength Psychiatric: normal affect, A&O x 3 Hospitalist Results - Labs Result Diagrams: 12/12/19 09:46 12/12/19 09:46 Lab results: WBC 8.3 thou/uL (4.8-10.8) 12/12/19 09:46 Hgb 11.4 g/dL (12.0-16.0) L 12/12/19 09:46 Hct 35.0 % (36.0-47.0) L 12/12/19 09:46 MCV 90.8 fL (78.0-98.0) 12/12/19 09:46 Plt Count 175 thou/uL (130-400) 12/12/19 09:46 Neutrophils % 80.9 % (42.0-75.0) H 12/12/19 09:46 Sodium 139 mmol/L (136-145) 12/12/19 09:46 Potassium 3.9 mmol/L (3.5-5.1) 12/12/19 09:46 Chloride 101 mmol/L (98-107) 12/12/19 09:46 Carbon Dioxide 29 mmol/L (23-31) 12/12/19 09:46 BUN 15 mg/dL (9.8-20.1) 12/12/19 09:46 Creatinine 0.84 mg/dL (0.6-1.1) 12/12/19 09:46 Glucose 175 mg/dL (80-115) H 12/12/19 09:46 Calcium 9.2 mg/dL (7.8-10.44) 12/12/19 09:46 Total Bilirubin 0.5 mg/dL (0.2-1.2) 12/12/19 09:46 AST 14 U/L (5-34) 12/12/19 09:46 ALT 17 U/L (8-55) 12/12/19 09:46 Alkaline Phosphatase 101 U/L (40-110) 12/12/19 09:46 Creatine Kinase 56 U/L (29-168) 12/12/19 09:46 Troponin I Less than 0.010 ng/mL (< 0.028) 12/12/19 09:46 B-Natriuretic Peptide 47.4 pg/mL (0-100) 12/12/19 09:20 Serum Total Protein 7.4 g/dL (6.0-8.3) 12/12/19 09:46 Albumin 3.7 g/dL (3.4-4.8) 12/12/19 09:46 Lipase 15 U/L (8-78) 12/12/19 09:46 - EKG Interpretation EK lead EKG interpreted by Emergency Department Physician at time of study, 12 lead EKG shows normal sinus rhythm, Rate (beats per minute): 99, with unifocal premature ventricular complexes, Conduction normal, ST segments normal, T waves normal, [place] normal, Other findings include:, BASELINE ARTIFACT, Clinical impression: Normal EKG. - Radiology Interpretation Chest x-ray Status: report reviewed by me Additional Comment: IMPRESSION: Stable exam. Hospitalist H&P A/P - Problem (1) Dyspnea Code(s): R06.00 - DYSPNEA, UNSPECIFIED Status: Acute (2) COPD (chronic obstructive pulmonary disease) Status: Chronic (3) Chest pain Code(s): R07.9 - CHEST PAIN, UNSPECIFIED Status: Acute (4) CAD (coronary artery disease) Code(s): I25.10 - ATHSCL HEART DISEASE OF [place] CORONARY ARTERY W/O ANG PCTRS Status: Chronic (5) DM type 2 (diabetes mellitus, type 2) Status: Chronic (6) CHF (congestive heart failure) Code(s): I50.9 - HEART FAILURE, UNSPECIFIED Status: Chronic (7) A-fib Code(s): I48.91 - UNSPECIFIED ATRIAL FIBRILLATION Status: Resolved (8) History of breast cancer Code(s): Z85.3 - PERSONAL HISTORY OF MALIGNANT NEOPLASM OF BREAST Status: Chronic (9) Hyperlipidemia Code(s): E78.5 - HYPERLIPIDEMIA, UNSPECIFIED Status: Chronic (10) GERD (gastroesophageal reflux disease) Code(s): K21.9 - GASTRO-ESOPHAGEAL REFLUX DISEASE WITHOUT ESOPHAGITIS Status: Chronic - Plan Plan: 64/F with PMH of COPD, CHF, CAD, A. fib and breast cancer presents for dyspnea. Admit to telemetry floor, observation status. Expected length of stay less than 2 midnights. #Dyspnea Presented hypertensive, tachycardic, tachypneic, 96% 3 L nasal cannula, afebrile Chest x-ray negative for acute process. EKG normal sinus rhythm with occasional PVC. Troponin negative, BNP 47, SARS negative [place] PE score 2.5, moderate risk. Patient anticoagulated on Coumadin due to history A. fib. Lasix 80 mg IVP with 2.2 L UOP from the ER. DuoNeb, Solu-Medrol, mag IVP given in ER. Continue duo nebs, Solu-Medrol. Start Levaquin. Continue oxygen support. Patient takes coumadin, therapeurtic INR. #COPD exacerbation Suspected. Symptoms have improved from ER. Continue duo nebs, steroids, oxygen support. Add Levaquin IVP. #Chest pain Likely secondary to recent mastectomy. EKG normal sinus rhythm with PVCs. Initial troponin negative. Trend troponins. Continue aspirin. #CAD Continue aspirin. #DM type II Takes Lantus 40 units every morning at home. Takes glipizide 10 mg p.o. daily at home. Restart home dose of Lantus. Hold home dose of glipizide. Moderate ISS. AC/at bedtime checks. #CHF Chest x-ray negative for acute process. BNP 47, patient has large body habitus. Takes torsemide 40 every morning and 20 q. noon at home. Given Lasix 80 mg IVP with 2.2 L UOP. Continue Lasix 40 IVP twice daily. Consult heart failure clinic, daily weights, fluid restriction. Had echo 09/13 EF 50 to 55% LV normal size Mild to moderate mitral stenosis. Mild mitral regurg. Mild aortic regurg. Mild tricuspid regurg. #Atrial fibrillation EKG normal sinus rhythm. History ablations x9 (last 03/14) Takes Coumadin at home. We will get PT/INR. We will restart Coumadin as appropriate. #History of breast cancer Left mastectomy 06/13. Last radiation treatment 09/13. No pharmacological DVT prophylaxis. Protonix for GI prophylaxis. Full code. Designated medical decision-maker is her daughter Gunjan Zhang at unknown number. Discussed case with Dr. Larson.
[2019-12-12 13:38] LABS: Troponin I 0.017 ng/mL (< 0.028)
[2019-12-12] MEDS ORDERED: Ondansetron PF 4 MG/2 ML Vial IVP PRN (14:15)
[2019-12-12] MEDS ORDERED: Ondansetron ODT 4 MG TAB SL PRN (14:15)
[2019-12-12] MEDS ORDERED: Dextrose 5% in Water 1,000 ML IV PRN (14:29)
[2019-12-12] MEDS ORDERED: HumaLOG 300 UNITS/3 ML VIAL SC PRN (14:29)
[2019-12-12] MEDS ORDERED: Dextrose 50% Abboject 50 ML SYRINGE SLOW IVP PRN (14:29)
[2019-12-12 15:13] LABS: Prothrombin Time 22.8 sec (12.0-14.7)
[2019-12-12 15:14] LABS: PTT 47.6 sec (22.9-36.1)
[2019-12-12 15:51] VITALS: BMI 47.7
[2019-12-12 16:27] LABS: Bacteria/HPF None Seen HPF (None Seen); Bilirubin Negative (Negative); Blood, Urine Negative (Negative); Clarity Clear (Clear); Glucose, Urine (Dipstick) Normal (Negative); Ketone, Urine Negative (Negative); Leukocyte Negative Leu/uL (Negative); Mucous/LPF Rare LPF (<2+); Nitrite Negative (Negative); Protein, Urine (Dipstick) Negative (Neg-Trace); RBC/HPF 0-3 HPF (0-3); Specific Gravity, Urine 1.009 (1.002-1.036); Squamous Epithelial None Seen HPF (0-3); Urobilinogen Normal mg/dL (Less than 2); WBC/HPF 0-3 HPF (0-3)
[2019-12-12] MEDS ORDERED: Warfarin Sodium 5 MG TAB PO SCH (17:00)
[2019-12-12 17:11] LABS: Troponin I Less than 0.010 ng/mL (< 0.028)
[2019-12-12] MEDS: methylPREDNISolone Sod Succ 40 MG VIAL IVP SCH (17:37)
[2019-12-12] MEDS: HumaLOG 300 UNITS/3 ML VIAL SC PRN (17:44)
[2019-12-12] MEDS ORDERED: Albuterol Sulfate 2.5 mg/3 ml Neb NEB PRN (19:15)
[2019-12-12] MEDS: traMADol HCl 50 MG TAB PO PRN (19:16)
[2019-12-12] MEDS: Sucralfate 1 GM TAB PO SCH (20:51)
[2019-12-12] MEDS ORDERED: Insulin Glargine 40 UNITS in Pre-Filled Syringe 1 EACH SC SCH (21:00)
[2019-12-12] MEDS ORDERED: diphenhydrAMINE 25 MG CAP PO ONE (22:00)
[2019-12-13] MEDS: methylPREDNISolone Sod Succ 40 MG VIAL IVP SCH (02:20)
[2019-12-13] MEDS: traMADol HCl 50 MG TAB PO PRN (05:28)
[2019-12-13] MEDS ORDERED: Furosemide 40 MG/4 ML VIAL SLOW IVP SCH (06:00)
[2019-12-13] MEDS: HumaLOG 300 UNITS/3 ML VIAL SC PRN ×2 (06:59→11:38)
[2019-12-13] MEDS ORDERED: methylPREDNISolone Sod Succ 40 MG VIAL IVP SCH (08:00)
[2019-12-13] MEDS: Sucralfate 1 GM TAB PO SCH ×2 (08:33→13:06)
[2019-12-13] MEDS ORDERED: INSULIN GLARGINE HUM REC ANLOG SC SCH (09:00)
[2019-12-13] MEDS ORDERED: Lisinopril 20 MG TAB PO SCH (09:00)
[2019-12-13] MEDS ORDERED: Aspirin Chewable 81 MG TAB PO SCH (09:00)
[2019-12-13] MEDS ORDERED: Potassium Chloride 10 MEQ TAB PO SCH (09:00)
[2019-12-13] MEDS ORDERED: Insulin Glargine 40 UNITS in Pre-Filled Syringe 1 EACH SC SCH (09:00)
[2019-12-13] MEDS ORDERED: [UNRECOGNIZED DRUG - OTHER] SC SCH (09:00)
[2019-12-13] MEDS ORDERED: Prenatal Vitamin 1 TAB PO SCH (09:00)
--- NOTE | 2019-12-13 10:43 | NM ---
VQ SCAN: HISTORY: Elevated d-dimer, shortness of breath, tachycardia TECHNIQUE: A perfusion scan was performed using the intravenous administration of 5.7 mCi technetium 99m-MAA. CORRELATION: Chest radiograph from previous day. FINDINGS: Homogeneous tracer distribution to the lung velez bilaterally on perfusion scans. No pleural-based, wedge-shaped, segmental or subsegmental perfusion defects are identified. IMPRESSION: No evidence of pulmonary embolism.
[2019-12-13 11:52] VITALS: BP 117/64; TEMP 98
[2019-12-13 12:01] LABS: INR-International Normal Ratio 2.3; Prothrombin Time 25.2 sec (12.0-14.7)
[2019-12-13] MEDS ORDERED: Acetaminophen 325 MG TAB PO SCH (13:00)
[2019-12-13] MEDS ORDERED: Warfarin Sodium 7.5 MG TAB PO SCH (17:00)
--- NOTE | 2019-12-14 04:53 | DIS ---
DATE OF ADMISSION: 12/12/2019 DATE OF DISCHARGE: 12/13/2019 DISCHARGE DIAGNOSES: 1. Chronic obstructive pulmonary disease exacerbation. 2. Acute on chronic heart failure exacerbation. HOSPITAL COURSE: Ms. Darling is a 64-year-old female with past medical history of COPD, on 2.5 L nasal cannula at home, CHF, coronary artery disease, atrial fibrillation on Coumadin, breast cancer status post mastectomy, diabetes type 2, who presented to the emergency department for shortness of breath. The patient reports she had experiencing worsening dyspnea for the past 4 days prior to arrival. On the morning of presentation, the patient reports that she was so short of breath that she could not get up to take her medications. She reports associated chest pain localized on the left side. She denies any heart palpitations or edema in her lower extremities. Upon arrival to the emergency department, the patient was saturating at 91% on 2 L nasal cannula. She was placed on 3 L and her O2 sats improved to 98%, but in the emergency department she received a DuoNeb treatment, methylprednisolone, and also Lasix 80 mg. Chest x-ray was negative for any acute processes. Her D-dimer was elevated at 1.26. She was admitted for COPD exacerbation, maintained on prednisone and Levaquin. She also continued to receive Lasix for acute exacerbation of heart failure with appropriate diuresis. The patient received a V/Q scan due to the elevated D-Dimer, which was found to be normal and no concern for the pulmonary embolism was found. The patient also received an echo with an ejection fraction of 50% to 55%. Left atrium was moderately dilated. PHYSICAL EXAMINATION: GENERAL: On day of discharge, the patient was resting comfortably in bed. She was on 2.5 L nasal cannula. HEENT: Normocephalic and atraumatic. HEART: irrregular rate and rhythm LUNGS: Clear to auscultation bilaterally. No wheezes or rhonchi ABDOMEN: Soft, nontender, and nondistended. EXTREMITIES: She had no edema of bilateral lower extremities. NEUROLOGIC: She had no focal neuro deficits. ACTIVITY: As tolerated. DIET: Coumadin diabetic heart healthy fluid restricted diet. DISCHARGE MEDICATIONS: She was discharged with: 1. Prednisone 40 mg daily for 3 days. 2. Azithromycin 250 mg daily for 3 days. All other home medications including aspirin, Lipitor, glargine and Lispro, ondansetron, Protonix, Zanaflex, glipizide, and torsemide were continued FOLLOWUP: The patient was instructed to follow up with her PCP within 3 days and also cardiac rehab. CONDITION ON DISCHARGE: The patient was stable for discharge and discharged to home. Return precautions were given. TIME SPENT: Time spent on discharge this patient was greater than 30 minutes. Job ID: [id number] MTDD
== END 2019-12-13 14:36 | disposition home or self-care (01) ==
LOC: ERS 09:06 → 2SW 14:24
PROVIDERS: ADMIT Family Medicine; ATTEND Family Medicine
DX: J44.1 Chronic obstructive pulmonary disease with (acute) exacerbation (principal); I11.0 Hypertensive heart disease with heart failure; I50.9 Heart failure, unspecified; I48.91 Unspecified atrial fibrillation; I25.10 Atherosclerotic heart disease of native coronary artery without angina pectoris; E11.9 Type 2 diabetes mellitus without complications; K21.9 Gastro-esophageal reflux disease without esophagitis; I08.3 Combined rheumatic disorders of mitral, aortic and tricuspid valves; Z85.3 Personal history of malignant neoplasm of breast; Z87.891 Personal history of nicotine dependence; Z79.01 Long term (current) use of anticoagulants; Z79.4 Long term (current) use of insulin; Z79.82 Long term (current) use of aspirin; Z79.899 Other long term (current) drug therapy; Z88.0 Allergy status to penicillin; Z88.1 Allergy status to other antibiotic agents; Z88.2 Allergy status to sulfonamides; Z88.8 Allergy status to other drugs, medicaments and biological substances; Z91.041 Radiographic dye allergy status; Z99.81 Dependence on supplemental oxygen; Z20.828 Contact with and (suspected) exposure to other viral communicable diseases
CPT/HCPCS: 36600; 71045; 78451; 81001; 82550; 82962 ×2; 83690; 83735; 83880; 84484 ×2; 85379; 85610 ×2; 85730; 93005; 93306; 94640; 96365; 96375; 97139; 99285; A9540; U0002; 36415; 36416; 80053; 84443; 85025; 96376; G0378; J1815; J1940; J1956; J2920; J2930; J3475; J7620; Q0162; Q0163

== ENCOUNTER 2019-12-29 20:05 | Inpatient (IN) | payer MEDICARE, BC, OTHER ==
[2019-12-29 21:06] LABS: #Lymphocytes 0.8 thou/uL (1.20-3.40); #Monocytes 0.5 thou/uL (0.11-0.59); #Neutrophils 4.4 thou/uL (1.40-6.50); %Basophils 0.1 % (0.0-1.0); %Eosinophils 0.4 % (0.0-10.0); %Neutrophils 76.6 % (42.0-75.0); Hemoglobin 12.4 g/dL (12.0-16.0); Mean Corpuscular Hemoglobin 29.7 pg (27.0-31.0); Platelet Count 116 thou/uL (130-400); RBC Distribution Width 13.5 % (11.5-14.5); Red Blood Cell (RBC) Count 4.19 mill/uL (4.20-5.40); White Blood Cell (WBC) Count 5.7 thou/uL (4.8-10.8)
--- NOTE | 2019-12-29 21:27 | RAD ---
PORTABLE CHEST: History: Sepsis Comparison: 12-28-2019 FINDINGS: Cardiomegaly with mild vascular engorgement, similar to prior exam. Question hazy ground glass type i nfiltrate in the right lung base today. No other interval change. IMPRESSION: As above. POS: AGW
[2019-12-29 21:32] LABS: ALT (SGPT) 30 U/L (8-55); AST (SGOT) 24 U/L (5-34); Albumin 3.6 g/dL (3.4-4.8); Alkaline Phosphatase 93 U/L (40-110); Anion Gap 15 mmol/L (10-20); BUN (Urea Nitrogen) 15 mg/dL (9.8-20.1); Bilirubin, Total 0.5 mg/dL (0.2-1.2); Calc. Creatinine Clearance 0 mL/min (70-130); Calcium 8.7 mg/dL (7.8-10.44); Carbon Dioxide 23 mmol/L (23-31); Chloride 100 mmol/L (98-107); Estimated GFR-MDRD 65; Globulin 3.5 g/dL (2.4-3.5); Glucose 179 mg/dL (80-115); Potassium 4.4 mmol/L (3.5-5.1); Protein, Total 7.1 g/dL (6.0-8.3); Sodium 134 mmol/L (136-145)
[2019-12-29 21:33] LABS: INR-International Normal Ratio 2.2; Prothrombin Time 25.1 sec (12.0-14.7)
[2019-12-29] MEDS ORDERED: Acetaminophen 500 MG TAB ONE (21:37)
[2019-12-29] MEDS ORDERED: Azithromycin 500 MG VIAL ONE (21:37)
[2019-12-29] MEDS ORDERED: cefTRIAXone\\ROCEPHIN 2 GM VIAL ONE (21:37)
[2019-12-29] MEDS ORDERED: Aspirin Chewable 81 MG TAB ONE (22:15)
--- NOTE | 2019-12-29 23:49 | PDOC.HHP ---
Hospitalist HPI - History of Present Illness Shortness of breath History of Present Illness: 64-year-old woman with a history of coronary artery disease, congestive heart failure, atrial fibrillation status post ablation therapy on Coumadin anticoagulation presented to the emergency department with a complaint of 3-day history of shortness of breath and cough. They report that coughing up streaks of blood stained sputum. She also reports chest pain in the sternal area. She denied any fever or nausea or vomiting or diarrhea. Patient was tested for COVID yesterday. Her COVID-19 test came back today positive. She was maintained on 2 L of oxygen by nasal cannula in the ER. She states that she is on 2 L of oxygen by nasal cannula at baseline. Noted she was hospitalized here for COPD exacerbation and heart failure exacerbation and discharged about 2 weeks ago. chest x-ray demonstrated mild vascular congestion and questionable hazy ground glass opacity in the right lung base. Her INR is therapeutic. Given patient has COVID-19 pneumonia with hemoptysis, she is hospitalized for further management. Hospitalist ROS - Review of Systems Other: Except as documented, all other systems reviewed and negative. - Medication Medications: Medication Instructions Recorded Confirmed Type Aspirin [Aspirin EC] 81 mg PO DAILY 09/29/15 12/12/19 History Atorvastatin Calcium [Lipitor] 20 mg PO HS 06/18/17 12/12/19 History glipiZIDE [Glucotrol XL] 10 mg PO DAILY 08/30/18 12/12/19 History tiZANidine HCl [Zanaflex] 4 mg PO Q8H PRN 08/30/18 12/12/19 History Albuterol Sulfate [Albuterol 3 ml NEB QID PRN 11/03/18 12/12/19 History Sulfate Neb] Insulin Glargine,Hum.Rec.Anlog 40 units SC DAILY 11/03/18 12/12/19 History [Lantus Solostar] Insulin Lispro [Humalog Kwikpen 5 unit SQ BID PRN 11/03/18 12/12/19 History U-100] Ondansetron [Zofran ODT] 4 mg PO Q8HR PRN 11/03/18 12/12/19 History Torsemide [Demadex] 20 mg PO DAILY tab 11/06/18 12/12/19 Rx Pantoprazole [Protonix] 40 mg PO DAILY 12/13/18 12/12/19 History ALButerol Sulfate [Ventolin Neb] 2.5 mg NEB Q4H PRN neb 12/13/19 Rx Aspirin Chewable [Aspirin Chewable 81 mg PO DAILY tab 12/13/19 Rx Tablet] Azithromycin [Zithromax] 250 mg PO DAILY #3 tab 12/13/19 Rx Diltiazem HCl [Cardizem CD] 240 mg PO DAILY cap 12/13/19 Rx Lisinopril [Zestril] 40 mg PO DAILY tab 12/13/19 Rx Metoprolol Succinate [Toprol XL] 12.5 mg PO BID tab 12/13/19 Rx Ondansetron [Zofran ODT] 4 mg SL Q6H PRN tab 12/13/19 Rx Pantoprazole [Protonix] 40 mg PO DAILY tab 12/13/19 Rx Potassium Chloride [Klor-Con 10] 10 meq PO DAILY tab 12/13/19 Rx Vitamin 2 tab PO DAILY tab 12/13/19 Rx Sucralfate [Carafate] 1 gm PO QID tab 12/13/19 Rx Warfarin Sodium [Coumadin] 5 mg PO SuTuThSa tab 12/13/19 Rx Warfarin Sodium [Coumadin] 7.5 mg PO MoWeFr tab 12/13/19 Rx predniSONE [Prednisone] 40 mg PO DAILY 3 Days #12 tablet 12/13/19 Rx traMADol HCl [Ultram] 50 mg PO Q8H PRN tab 12/13/19 Rx Hospitalist History - Past Medical History Heme/Onc: reports: Cancer (Left breast cancer) Endocrine: reports: Diabetes - Past Surgical History Past Surgical History: reports: Mastectomy (left, with node dissection. (May/2019)/radiation (last treated 09/13), Other (Multiple cardiac rhythm ablations. Watchman device placed.) - Family History Other Family History: Reviewed and noncontributory. - Social History Smoking Status: Former smoker Alcohol: reports: None Drugs: reports: none Occupation: Retired. - Exam General Appearance: NAD, awake alert Eye: PERRL, anicteric sclera ENT: normocephalic atraumatic, no oropharyngeal lesions Neck: supple, symmetric, no JVD Heart: no murmur, no rubs Heart - other findings: Irregular Respiratory: CTAB, no wheezes, no rales Gastrointestinal: soft, non-tender, non-distended, normal bowel sounds Extremities: no cyanosis, no edema Skin: normal turgor Neurological: cranial nerve grossly intact, no weakness, no focal deficits Musculoskeletal: normal tone, normal strength Psychiatric: normal affect, normal behavior, A&O x 3 Hospitalist Results - Labs Result Diagrams: 12/30/19 02:47 12/30/19 02:47 Lab results: WBC 5.7 thou/uL (4.8-10.8) 12/29/19 20:41 Hgb 12.4 g/dL (12.0-16.0) 12/29/19 20:41 Hct 37.7 % (36.0-47.0) 12/29/19 20:41 MCV 90.0 fL (78.0-98.0) 12/29/19 20:41 Plt Count 116 thou/uL (130-400) L 12/29/19 20:41 Neutrophils % 76.6 % (42.0-75.0) H 12/29/19 20:41 Sodium 134 mmol/L (136-145) L 12/29/19 20:41 Potassium 4.4 mmol/L (3.5-5.1) 12/29/19 20:41 Chloride 100 mmol/L (98-107) 12/29/19 20:41 Carbon Dioxide 23 mmol/L (23-31) 12/29/19 20:41 BUN 15 mg/dL (9.8-20.1) 12/29/19 20:41 Creatinine 0.87 mg/dL (0.6-1.1) 12/29/19 20:41 Glucose 179 mg/dL (80-115) H 12/29/19 20:41 Lactic Acid 1.5 mmol/L (0.5-2.2) 12/29/19 20:41 Calcium 8.7 mg/dL (7.8-10.44) 12/29/19 20:41 Total Bilirubin 0.5 mg/dL (0.2-1.2) 12/29/19 20:41 AST 24 U/L (5-34) 12/29/19 20:41 ALT 30 U/L (8-55) 12/29/19 20:41 Alkaline Phosphatase 93 U/L (40-110) 10/04/20 20:41 Troponin I 0.013 ng/mL (< 0.028) 12/29/19 20:41 Serum Total Protein 7.1 g/dL (6.0-8.3) 12/29/19 20:41 Albumin 3.6 g/dL (3.4-4.8) 12/29/19 20:41 - Radiology Interpretation Chest x-ray Status: report reviewed by me (Cardiomegaly with mild vascular congestion. Questionable hazy ground glass type infiltrate in the right lung base.) Hospitalist H&P A/P - Problem (1) Pneumonia due to COVID-19 virus Code(s): U07.1 - COVID-19; J12.89 - OTHER VIRAL PNEUMONIA Status: Acute (2) Hemoptysis Code(s): R04.2 - HEMOPTYSIS Status: Acute (3) Acute on chronic diastolic (congestive) heart failure Code(s): I50.33 - ACUTE ON CHRONIC DIASTOLIC (CONGESTIVE) HEART FAILURE Status: Acute (4) Atrial fibrillation, persistent Code(s): I48.1 - PERSISTENT ATRIAL FIBRILLATION * DO NOT USE * Status: Chronic (5) Chronic anticoagulation Code(s): Z79.01 - SKILLED NURSING (CURRENT) USE OF ANTICOAGULANTS Status: Chronic (6) Diabetes type 2, controlled Code(s): E11.9 - TYPE 2 DIABETES MELLITUS WITHOUT COMPLICATIONS Status: Chronic (7) Hypertension Code(s): I10 - ESSENTIAL (PRIMARY) HYPERTENSION Status: Chronic (8) Morbid obesity with BMI of 45.0-49.9, adult Code(s): E66.01 - MORBID (SEVERE) OBESITY DUE TO EXCESS CALORIES; Z68.42 - BODY MASS INDEX (BMI) 45.0-49.9, ADULT Status: Chronic - Plan Plan: Admit to the medical floor. Titrate oxygen. Trial of IV Lasix for vascular congestion Start oral dexamethasone. Watch for steroid-induced hyperglycemia given baseline DM type II. It appears hemoptysis is minimal, INR was therapeutic. We will hold Coumadin today but may have to continue along the line given hypercoagulability with COVID-19 infection. Continue A. fib rate control medications.
[2019-12-30] MEDS ORDERED: Dextrose 50% Abboject 50 ML SYRINGE SLOW IVP PRN (00:04)
[2019-12-30] MEDS ORDERED: Dextrose 5% in Water 1,000 ML IV PRN (00:04)
[2019-12-30 00:24] LABS: Troponin I 0.011 ng/mL (< 0.028)
[2019-12-30 00:44] VITALS: BMI 48.6
[2019-12-30 02:59] LABS: #Lymphocytes 1.1 thou/uL (1.20-3.40); #Monocytes 0.3 thou/uL (0.11-0.59); #Neutrophils 2.3 thou/uL (1.40-6.50); %Basophils 0.1 % (0.0-1.0); %Eosinophils 0.2 % (0.0-10.0); %Neutrophils 60.7 % (42.0-75.0); Hemoglobin 10.8 g/dL (12.0-16.0); Mean Corpuscular HGB CONC 33.4 g/dL (32.0-36.0); Mean Corpuscular Hemoglobin 30.2 pg (27.0-31.0); Mean Corpuscular Volume 90.2 fL (78.0-98.0); Mean Platelet Volume 7.8 fL (7.4-10.4); Platelet Count 115 thou/uL (130-400); RBC Distribution Width 13.5 % (11.5-14.5); Red Blood Cell (RBC) Count 3.59 mill/uL (4.20-5.40); White Blood Cell (WBC) Count 3.7 thou/uL (4.8-10.8)
[2019-12-30 03:21] LABS: Troponin I Less than 0.010 ng/mL (< 0.028)
[2019-12-30 03:32] LABS: Anion Gap 14 mmol/L (10-20); BUN (Urea Nitrogen) 15 mg/dL (9.8-20.1); Calc. Creatinine Clearance 125 mL/min (70-130); Calcium 8.2 mg/dL (7.8-10.44); Carbon Dioxide 24 mmol/L (23-31); Chloride 103 mmol/L (98-107); Estimated GFR-MDRD 64; Glucose 266 mg/dL (80-115); Potassium 3.9 mmol/L (3.5-5.1); Sodium 137 mmol/L (136-145)
--- NOTE | 2019-12-30 05:58 | PDOC.FMACP ---
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 The diagnosis, prognosis and goals of care were discussed. Appropriate forms and documentation to accomplish the goals of care were discussed. All questions were answered. Patient wishes to remain full code. Time Spent (mins): 17
[2019-12-30] MEDS: Insulin Regular 300 UNITS/3 ML VIAL SC PRN ×3 (06:16→17:45)
[2019-12-30] MEDS: Furosemide 100 MG/10 ML VIAL SLOW IVP SCH ×2 (06:16→14:50)
[2019-12-30 06:22] LABS: INR-International Normal Ratio 2.2; Prothrombin Time 24.7 sec (12.0-14.7)
[2019-12-30] MEDS: Zinc Sulfate 220 MG CAP PO SCH (08:28)
[2019-12-30] MEDS: Dexamethasone 4 MG TAB PO SCH (08:29)
[2019-12-30] MEDS: Cholecalciferol 1,000 UNITS (25 MCG) TAB PO SCH (08:29)
[2019-12-30] MEDS: Ascorbic Acid 500 mg Chewable Tablet PO SCH (08:29)
[2019-12-30] MEDS ORDERED: Non-Formulary Item 1 EACH (Insulin Lispro [Humalog Kwikpen U-100] 100 UNIT/ML Insuln.Pen) SQ PRN (09:45)
[2019-12-30] MEDS ORDERED: Ondansetron ODT 4 MG TAB SL PRN (09:45)
[2019-12-30] MEDS ORDERED: HumaLOG 300 UNITS/3 ML VIAL SC PRN (10:00)
[2019-12-30] MEDS ORDERED: Lisinopril 10 MG TAB PO SCH (10:00)
[2019-12-30] MEDS: tiZANidine HCl 4 MG TAB PO PRN ×2 (11:04→22:07)
[2019-12-30] MEDS: traMADol HCl 50 MG TAB PO PRN ×2 (11:05→22:07)
[2019-12-30] MEDS ORDERED: REMDESIVIR (EUA) 200 MG in Sodium Chloride 0.9% 250 ML 210 ML IV SCH (14:00)
[2019-12-30] MEDS: Sucralfate 1 GM TAB PO SCH ×3 (14:51→21:56)
--- NOTE | 2019-12-30 15:09 | PDOC.HOSPP ---
- Subjective Encounter Date: 12/30/19 Encounter Time: 15:07 Subjective: Patient seen for follow-up regarding COVID-19 pneumonia. Reports cough. Denies any nausea or vomiting. - Objective Vital Signs & Weight: Vital Signs (12 hours) Temp Pulse Resp BP BP Pulse Ox 12/30/19 11:20 97.7 F 104 H 20 165/88 H 99 12/30/19 11:05 179/100 H 12/30/19 11:04 100 179/100 H 12/30/19 09:00 96.7 F L 100 20 179/100 H 99 12/30/19 08:29 99 12/30/19 04:00 98.3 F 82 15 116/67 95 12/30/19 03:45 98.5 F 81 18 132/84 100 Weight Weight 274 lb 7.608 oz Result Diagrams: 12/30/19 02:47 12/30/19 02:47 Additional Labs: Accuchecks 12/30/19 12:38 POC Glucose 279 H I reviewed patient's labs and MAR EKG Reviewed by me: Yes (Telemetry: NSR) Hospitalist ROS - Review of Systems Constitutional: reports: weakness. denies: fever, chills, sweats, malaise Respiratory: reports: cough, hemoptysis, SOB with excertion. denies: dry, shortness of breath, pleuritic pain, sputum, wheezing Cardiovascular: denies: chest pain, palpitations, orthopnea, paroxysmal noc. dyspnea, edema, light headedness Gastrointestinal: denies: nausea, vomiting, abdominal pain, diarrhea, constipation, melena, hematochezia Genitourinary: denies: dysuria, frequency, incontinence, hematuria, retention Skin: denies: rash, lesions, robin, bruising - Medication Medications: Active Medications Generic Name Dose Route Start Last Admin Trade Name Freq PRN Reason Stop Dose Admin Ascorbic Acid 1,000 mg 12/30/19 09:00 12/30/19 08:29 Ascorbic Acid 500 Mg Chewable Tablet PO 1,000 mg DAILY TWILA Administration Cholecalciferol 1,000 units 12/30/19 09:00 12/30/19 08:29 Cholecalciferol 1,000 Units (25 Mcg) Tab PO 1,000 units DAILY TWILA Administration Dexamethasone 6 mg 12/30/19 08:00 12/30/19 08:29 Dexamethasone 4 Mg Tab PO 6 mg QAM-WM TWILA Administration Insulin Human Regular 0 units 12/30/19 00:04 12/30/19 06:16 Insulin Regular 300 Units/3 Ml Vial SC 6 unit .MODERATE SLIDING SC PRN Administration Moderate Correctional Scale Sucralfate 1 gm 12/30/19 13:00 12/30/19 14:51 Sucralfate 1 Gm Tab PO 1 gm QID TWILA Administration Tizanidine HCl 4 mg 12/30/19 09:45 12/30/19 11:04 Tizanidine Hcl 4 Mg Tab PO 4 mg Q8H PRN Administration Muscle Spasm Tramadol HCl 50 mg 12/30/19 09:45 12/30/19 11:05 Tramadol Hcl 50 Mg Tab PO 50 mg Q8H PRN Administration Pain Zinc Sulfate 220 mg 12/30/19 09:00 12/30/19 08:28 Zinc Sulfate 220 Mg Cap PO 220 mg DAILY TWILA Administration - Exam General Appearance: awake alert Eye: anicteric sclera ENT: moist mucosa Neck: supple, symmetric, no thyromegaly, no lymphadenopathy Heart: RRR, no gallops, no rubs, normal peripheral pulses Respiratory: CTAB, no wheezes, no rales, no ronchi Gastrointestinal: soft, non-tender, non-distended, normal bowel sounds Extremities: no cyanosis Psychiatric: normal affect, normal behavior, oriented to person, oriented to place Hosp A/P (1) Pneumonia due to COVID-19 virus Code(s): U07.1 - COVID-19; J12.89 - OTHER VIRAL PNEUMONIA Status: Acute (2) Hemoptysis Code(s): R04.2 - HEMOPTYSIS Status: Acute (3) Paroxysmal A-fib Code(s): I48.0 - PAROXYSMAL ATRIAL FIBRILLATION Status: Chronic (4) CAD (coronary artery disease) Code(s): I25.10 - ATHSCL HEART DISEASE OF [place] CORONARY ARTERY W/O ANG PCTRS Status: Chronic (5) COPD (chronic obstructive pulmonary disease) Status: Chronic (6) DM type 2 (diabetes mellitus, type 2) Status: Chronic (7) GERD (gastroesophageal reflux disease) Code(s): K21.9 - GASTRO-ESOPHAGEAL REFLUX DISEASE WITHOUT ESOPHAGITIS Status: Chronic (8) Hyperlipidemia Code(s): E78.5 - HYPERLIPIDEMIA, UNSPECIFIED Status: Chronic (9) Hypertension Code(s): I10 - ESSENTIAL (PRIMARY) HYPERTENSION Status: Chronic - Plan Patient has been started on remdesivir and convalescent plasma. Continue dexamethasone, vitamin C and zinc. Monitor H&H, small-volume hemoptysis. Warfarin management by pharmacy. Resume home medications, monitor vital signs and titrate antihypertensives as needed. Continue Accu-Cheks and insulin sliding scale. Administer one-time dose of Lantus 10 units. Patient's home dose of 40 needs daily will be resumed in the morning.
[2019-12-30] MEDS ORDERED: Insulin Glargine 10 UNITS in Pre-Filled Syringe 1 EACH SC SCH (15:15)
[2019-12-30] MEDS: Warfarin Sodium 7.5 MG TAB PO SCH (17:46)
--- NOTE | 2019-12-30 19:09 | CON ---
DATE OF CONSULTATION: REASON FOR CONSULT: COVID infection. HISTORY OF PRESENT ILLNESS: A 64-year-old, history of obesity; COPD; coronary artery disease; CHF; and AFib, on warfarin, who developed worsening cough for the past 3 to 4 days before admission, some hemoptysis, worsening dyspnea, some fever. No headaches. No visual symptoms. No chest pain. No abdominal pain or diarrhea. No genitourinary symptoms. PAST MEDICAL HISTORY: Coronary artery disease; CHF; arrhythmia; AFib with ablations, warfarin; type 2 diabetes; GERD; hypertension; breast cancer with recent treatment with mastectomy and radiation therapy, in remission, no chemotherapy; COPD with O2 at home, uses it more on a p.r.n. basis. SURGICAL HISTORY: Appendectomy, cholecystectomy, , cardiac ablation multiple times, and left mastectomy. SOCIAL HISTORY: Former smoker, quit in 2008. No alcoholic beverage use. Lives in [place]. ALLERGIES: AMPICILLIN, ANASTROZOLE, DRONEDARONE, FLECAINIDE, IODINE, LEVOFLOXACIN, MULTAQ, AND SULFA DRUGS. CURRENT MEDICATIONS: 1. Vitamin C. 2. Ecotrin. 3. Lipitor. 4. Vitamin D. 5. Decadron. 6. Cardizem. 7. Lasix. 8. Glucotrol. 9. Insulin. 10. Toprol. 11. Torsemide. 12. Zanaflex. I do not see warfarin listed here. I guess it has not been started yet. PHYSICAL EXAMINATION: VITAL SIGNS: T-max 98.8, blood pressure 160/80, pulse 104, respirations 20, and O2 saturation 99 on 2 L nasal cannula. GENERAL: Does not appear in distress. Oriented. SKIN: With no findings of significance. Mastectomy site is healed. No lymphadenopathy. Peripheral IV access voiding in the toilet. No lymphadenopathy. HEENT: Ocular movements conjugate. Oral cavity unremarkable. NECK: Supple. LUNGS: Symmetric. Clear breath sounds. HEART: S1, S2. Regular rate without murmurs. No S3 or S4. ABDOMEN: Soft. Not distended or tender. No ascites. No bladder distention. EXTREMITIES: No joint inflammatory activity. No edema. Pulses 1+ in dorsalis pedis. Moves extremities equally. NEUROLOGIC: Cognitive function appears to be intact. LABORATORY DATA: White cell count 5.7 and 3.7, hemoglobin down to 10.8, MCV 90, and platelets 115. Total lymphocyte count 1.1. INR 2.2. Ferritin was normal at 216. CRP was 2.3. Creatinine 0.88. Liver profile is normal. Chest x-ray with cardiomegaly; mild vascular engorgement; hazy ground-glass infiltrate, right lung base. Echo with EF 55%, moderate mitral regurg, moderate aortic regurg. ASSESSMENT: 1. Obesity. 2. Type 2 diabetes. 3. Breast cancer, in remission after mastectomy and radiation. 4. Chronic obstructive pulmonary disease, on inhalers. Recent admission for management of chronic obstructive pulmonary disease exacerbation and now COVID positive serology with worsening cough and other symptoms suggestive of COVID pneumonia. The date of the test was December 27 and she has been sick now for 3 to 4 days. She is eligible for Remdesivir. I will give her plasma too and continue Decadron. She is at high risk for progression. Continue monitoring inflammatory markers, D-dimer, liver panel, and basic metabolic panel. Job ID: [id number]
[2019-12-30] MEDS ORDERED: FLU VACC QS2020-21(65YR UP)/PF 240 MCG/0.7 ML SYRINGE IM ONE (21:00)
[2019-12-30] MEDS: Atorvastatin Calcium 20 MG TAB PO SCH (21:56)
[2019-12-30] MEDS: HumaLOG 300 UNITS/3 ML VIAL SC PRN (22:10)
[2019-12-31] MEDS: Acetaminophen 325 MG TAB PO PRN ×2 (03:37→21:27)
[2019-12-31 05:07] LABS: Hemoglobin 10.3 g/dL (12.0-16.0); Platelet Count 120 thou/uL (130-400)
[2019-12-31 05:16] LABS: INR-International Normal Ratio 1.8; Prothrombin Time 21.6 sec (12.0-14.7)
[2019-12-31 05:18] LABS: D-Dimer Test 0.35 *mcg/mL (0.27-0.43)
[2019-12-31 05:33] LABS: ALT (SGPT) 24 U/L (8-55); AST (SGOT) 18 U/L (5-34); Albumin 3.3 g/dL (3.4-4.8); Alkaline Phosphatase 84 U/L (40-110); Anion Gap 13 mmol/L (10-20); BUN (Urea Nitrogen) 21 mg/dL (9.8-20.1); Bilirubin, Direct 0.2 mg/dL (0.1-0.3); Bilirubin, Total 0.4 mg/dL (0.2-1.2); CRP (Inflammatory) 5.01 mg/dL (= or < 0.5); Calc. Creatinine Clearance 109 mL/min (70-130); Calcium 8.4 mg/dL (7.8-10.44); Carbon Dioxide 28 mmol/L (23-31); Chloride 97 mmol/L (98-107); Estimated GFR-MDRD 55; Glucose 331 mg/dL (80-115); Potassium 3.8 mmol/L (3.5-5.1); Protein, Total 6.5 g/dL (6.0-8.3); Sodium 134 mmol/L (136-145)
[2019-12-31] MEDS: Insulin Regular 300 UNITS/3 ML VIAL SC PRN ×3 (06:39→16:33)
[2019-12-31] MEDS: Prenatal Vitamin 1 TAB PO SCH (08:46)
[2019-12-31] MEDS: Potassium Chloride 10 MEQ TAB PO SCH (08:46)
[2019-12-31] MEDS: tiZANidine HCl 4 MG TAB PO PRN ×2 (08:46→16:24)
[2019-12-31] MEDS: Sucralfate 1 GM TAB PO SCH ×4 (08:46→21:42)
[2019-12-31] MEDS: traMADol HCl 50 MG TAB PO PRN ×2 (08:46→16:24)
[2019-12-31] MEDS: Insulin Glargine 40 UNITS in Pre-Filled Syringe 1 EACH SC SCH (08:47)
[2019-12-31] MEDS: Lisinopril 10 MG TAB PO SCH (08:47)
[2019-12-31] MEDS: Torsemide 20 MG TAB PO SCH (08:47)
[2019-12-31] MEDS: Cholecalciferol 1,000 UNITS (25 MCG) TAB PO SCH (08:47)
[2019-12-31] MEDS: Zinc Sulfate 220 MG CAP PO SCH (08:47)
[2019-12-31] MEDS: Dexamethasone 4 MG TAB PO SCH (08:47)
[2019-12-31] MEDS: Aspirin 81 mg Enteric Coated Tablet PO SCH (08:47)
[2019-12-31] MEDS: Ascorbic Acid 500 mg Chewable Tablet PO SCH (08:47)
[2019-12-31] MEDS ORDERED: INSULIN GLARGINE HUM REC ANLOG SC SCH (09:00)
[2019-12-31] MEDS ORDERED: Lisinopril 20 MG TAB PO SCH (09:00)
[2019-12-31] MEDS ORDERED: [UNRECOGNIZED DRUG - OTHER] SC SCH (09:00)
--- NOTE | 2019-12-31 13:30 | PDOC.HOSPP ---
- Subjective Encounter Date: 12/31/19 Encounter Time: 09:20 Subjective: Patient seen for follow-up regarding COVID-19 pneumonia. Reports feeling well. Denies cough. - Objective Vital Signs & Weight: Vital Signs (12 hours) Temp Pulse Resp BP BP Pulse Ox 12/31/19 11:33 97.6 F 68 20 110/63 100 12/31/19 08:55 98.1 F 96 20 146/98 H 99 12/31/19 03:37 97.8 F 78 16 124/76 100 Weight Weight 274 lb 7.608 oz I&O: 12/30/19 12/31/19 01/01/20 06:59 06:59 06:59 Intake Total 2145 Output Total 3400 Balance -1255 Result Diagrams: 12/31/19 04:34 12/31/19 04:34 Additional Labs: Accuchecks 12/31/19 12/31/19 12/30/19 11:17 06:16 19:48 POC Glucose 282 H 287 H 338 H 12/30/19 17:19 POC Glucose 367 H I reviewed patient's labs and MAR EKG Reviewed by me: Yes (Telemetry: Normal sinus rhythm) Hospitalist ROS - Review of Systems Respiratory: denies: cough, shortness of breath, SOB with excertion, pleuritic pain, wheezing Cardiovascular: denies: chest pain, palpitations, orthopnea, paroxysmal noc. dyspnea, edema, light headedness - Medication Medications: Active Medications Generic Name Dose Route Start Last Admin Trade Name Freq PRN Reason Stop Dose Admin Acetaminophen 650 mg 12/29/19 23:43 12/31/19 03:37 Acetaminophen 325 Mg Tab PO 650 mg Q4H PRN Administration Headache/Fever/Mild Pain (1-3) Ascorbic Acid 1,000 mg 12/30/19 09:00 12/31/19 08:47 Ascorbic Acid 500 Mg Chewable Tablet PO 1,000 mg DAILY TWILA Administration Aspirin 81 mg 12/31/19 09:00 12/31/19 08:47 Aspirin 81 Mg Enteric Coated Tablet PO 81 mg DAILY TWILA Administration Atorvastatin Calcium 20 mg 12/30/19 21:00 12/30/19 21:56 Atorvastatin Calcium 20 Mg Tab PO 20 mg HS TWILA Administration Cholecalciferol 1,000 units 12/30/19 09:00 12/31/19 08:47 Cholecalciferol 1,000 Units (25 Mcg) Tab PO 1,000 units DAILY TWILA Administration Dexamethasone 6 mg 12/30/19 08:00 12/31/19 08:47 Dexamethasone 4 Mg Tab PO 6 mg QAM-WM TWILA Administration Diltiazem HCl 240 mg 12/31/19 09:00 12/31/19 08:46 Diltiazem Hcl Cd 240 Mg Capsule PO 240 mg DAILY TWILA Administration Glipizide 10 mg 12/31/19 09:00 12/31/19 08:46 Glipizide Xl 10 Mg Tablet PO 10 mg DAILY TWILA Administration Insulin Glargine 40 units/ 0.4 mls @ 0 mls/hr 12/31/19 09:00 12/31/19 08:47 Miscellaneous Medication SC 0.4 mls DAILY TWILA Administration Insulin Human Lispro 0 units 12/30/19 21:55 12/30/19 22:10 Humalog 300 Units/3 Ml Vial SC 4 unit .BEDTIME SLIDING SC PRN Administration Bedtime Correctional Scale Insulin Human Regular 0 units 12/30/19 00:04 12/31/19 11:22 Insulin Regular 300 Units/3 Ml Vial SC 6 unit .MODERATE SLIDING SC PRN Administration Moderate Correctional Scale Lisinopril 10 mg 12/31/19 09:00 12/31/19 08:47 Lisinopril 10 Mg Tab PO 10 mg DAILY TWILA Administration Metoprolol Succinate 12.5 mg 12/30/19 21:00 12/31/19 08:47 Metoprolol Succinate Xl 25 Mg Tab PO 12.5 mg BID TWILA Administration Pantoprazole Sodium 40 mg 12/31/19 09:00 12/31/19 08:47 Pantoprazole 40 Mg Tab PO 40 mg DAILY TWILA Administration Potassium Chloride 10 meq 12/31/19 09:00 12/31/19 08:46 Potassium Chloride 10 Meq Tab PO 10 meq DAILY TWILA Administration Multivit/Folic Acid/Iron 2 tab 12/31/19 09:00 12/31/19 08:46 Vitamin 1 Tab PO 2 tab DAILY TWILA Administration Sucralfate 1 gm 12/30/19 13:00 12/31/19 12:07 Sucralfate 1 Gm Tab PO 1 gm QID TWILA Administration Tizanidine HCl 4 mg 12/30/19 09:45 12/31/19 08:46 Tizanidine Hcl 4 Mg Tab PO 4 mg Q8H PRN Administration Muscle Spasm Torsemide 20 mg 12/31/19 09:00 12/31/19 08:47 Torsemide 20 Mg Tab PO 20 mg DAILY TWILA Administration Tramadol HCl 50 mg 12/30/19 09:45 12/31/19 08:46 Tramadol Hcl 50 Mg Tab PO 50 mg Q8H PRN Administration Pain Warfarin Sodium 7.5 mg 12/30/19 17:00 12/30/19 17:46 Warfarin Sodium 7.5 Mg Tab PO 7.5 mg MWF@1700 TWILA Administration Zinc Sulfate 220 mg 12/30/19 09:00 12/31/19 08:47 Zinc Sulfate 220 Mg Cap PO 220 mg DAILY TWILA Administration - Exam General Appearance: awake alert General - other findings: Morbid obesity Eye: anicteric sclera ENT: moist mucosa Neck: supple Heart: RRR Respiratory: CTAB Gastrointestinal: soft Skin: no rashes Psychiatric: normal affect, normal behavior Hosp A/P (1) Pneumonia due to COVID-19 virus Code(s): U07.1 - COVID-19; J12.89 - OTHER VIRAL PNEUMONIA Status: Acute (2) Paroxysmal A-fib Code(s): I48.0 - PAROXYSMAL ATRIAL FIBRILLATION Status: Chronic (3) CAD (coronary artery disease) Code(s): I25.10 - ATHSCL HEART DISEASE OF [place] CORONARY ARTERY W/O ANG PCTRS Status: Chronic (4) COPD (chronic obstructive pulmonary disease) Status: Chronic (5) DM type 2 (diabetes mellitus, type 2) Status: Chronic (6) GERD (gastroesophageal reflux disease) Code(s): K21.9 - GASTRO-ESOPHAGEAL REFLUX DISEASE WITHOUT ESOPHAGITIS Status: Chronic (7) Hyperlipidemia Code(s): E78.5 - HYPERLIPIDEMIA, UNSPECIFIED Status: Chronic (8) Hypertension Code(s): I10 - ESSENTIAL (PRIMARY) HYPERTENSION Status: Chronic (9) Morbid obesity with BMI of 45.0-49.9, adult Code(s): E66.01 - MORBID (SEVERE) OBESITY DUE TO EXCESS CALORIES; Z68.42 - BODY MASS INDEX [BMI] 45.0-49.9, ADULT Status: Chronic (10) Hemoptysis Code(s): R04.2 - HEMOPTYSIS Status: Resolved - Plan Patient received convalescent plasma. Intravenous Remdesivir until January 03, 2020. Continue dexamethasone, vitamin C and zinc. Hemoglobin relatively stable. Warfarin management by pharmacy. Resume home medications, monitor vital signs and titrate antihypertensives as needed. Patient's home dose of Lantus was started this morning, follow Accu-Cheks.
[2019-12-31] MEDS: Warfarin Sodium 5 MG TAB PO SCH (16:24)
[2019-12-31] MEDS: REMDESIVIR (EUA) 100 MG in Sodium Chloride 0.9% 250 ML 230 ML IV SCH (16:24)
[2019-12-31] MEDS: Atorvastatin Calcium 20 MG TAB PO SCH (21:27)
[2019-12-31] MEDS: HumaLOG 300 UNITS/3 ML VIAL SC PRN (21:38)
[2020-01-01] MEDS: traMADol HCl 50 MG TAB PO PRN ×2 (01:41→20:37)
[2020-01-01] MEDS: tiZANidine HCl 4 MG TAB PO PRN ×2 (01:41→20:37)
[2020-01-01 04:56] LABS: INR-International Normal Ratio 2.2; Prothrombin Time 24.9 sec (12.0-14.7)
[2020-01-01] MEDS: HumaLOG 300 UNITS/3 ML VIAL SC PRN ×2 (06:01→20:23)
[2020-01-01] MEDS: Cholecalciferol 1,000 UNITS (25 MCG) TAB PO SCH (08:18)
[2020-01-01] MEDS: Sucralfate 1 GM TAB PO SCH ×4 (08:18→20:26)
[2020-01-01] MEDS: Prenatal Vitamin 1 TAB PO SCH (08:18)
[2020-01-01] MEDS: Aspirin 81 mg Enteric Coated Tablet PO SCH (08:19)
[2020-01-01] MEDS: Potassium Chloride 10 MEQ TAB PO SCH (08:20)
[2020-01-01] MEDS: Dexamethasone 4 MG TAB PO SCH (08:20)
[2020-01-01] MEDS: Ascorbic Acid 500 mg Chewable Tablet PO SCH (08:20)
[2020-01-01] MEDS: Torsemide 20 MG TAB PO SCH (08:21)
[2020-01-01] MEDS: Zinc Sulfate 220 MG CAP PO SCH (08:21)
[2020-01-01] MEDS: Lisinopril 10 MG TAB PO SCH (08:21)
[2020-01-01] MEDS: Insulin Glargine 40 UNITS in Pre-Filled Syringe 1 EACH SC SCH (10:23)
[2020-01-01] MEDS: Insulin Regular 300 UNITS/3 ML VIAL SC PRN ×2 (12:17→17:31)
[2020-01-01 13:25] LABS: ALT (SGPT) 24 U/L (8-55); AST (SGOT) 21 U/L (5-34); Albumin 3.4 g/dL (3.4-4.8); Alkaline Phosphatase 91 U/L (40-110); Bilirubin, Direct 0.2 mg/dL (0.1-0.3); Bilirubin, Total 0.5 mg/dL (0.2-1.2); Protein, Total 7.1 g/dL (6.0-8.3)
[2020-01-01] MEDS: REMDESIVIR (EUA) 100 MG in Sodium Chloride 0.9% 250 ML 230 ML IV SCH (14:06)
--- NOTE | 2020-01-01 17:18 | PDOC.HOSPP ---
- Subjective Encounter Date: 01/01/20 Encounter Time: 09:20 Subjective: Patient seen for follow-up regarding COVID-19 pneumonia. Reports feeling well. - Objective Vital Signs & Weight: Vital Signs (12 hours) Temp Pulse Resp BP BP BP Pulse Ox 01/01/20 15:25 98.4 F 68 18 119/74 99 01/01/20 11:13 98.1 F 72 18 115/63 100 01/01/20 08:21 179/100 H 01/01/20 08:20 73 01/01/20 08:00 98.2 F 78 18 130/83 99 Weight Weight 274 lb 7.608 oz I&O: 12/31/19 01/01/20 01/02/20 06:59 06:59 06:59 Intake Total 2145 310 Output Total 3400 1250 Balance -1254 -560 Result Diagrams: 12/31/19 04:34 12/31/19 04:34 Additional Labs: Accuchecks 01/01/20 01/01/20 01/01/20 16:39 11:03 06:03 POC Glucose 324 H 217 H 238 H 12/31/19 21:42 POC Glucose 326 H I reviewed patient's labs and MAR EKG Reviewed by me: Yes (NSR on telemetry) Hospitalist ROS - Review of Systems Constitutional: denies: fever, chills, sweats, weakness, malaise Respiratory: denies: cough, dry, shortness of breath, hemoptysis, SOB with excertion, pleuritic pain, sputum, wheezing - Medication Medications: Active Medications Generic Name Dose Route Start Last Admin Trade Name Alia PRN Reason Stop Dose Admin Acetaminophen 650 mg 12/29/19 23:43 12/31/19 21:27 Acetaminophen 325 Mg Tab PO 650 mg Q4H PRN Administration Headache/Fever/Mild Pain (1-3) Ascorbic Acid 1,000 mg 12/30/19 09:00 01/01/20 08:20 Ascorbic Acid 500 Mg Chewable Tablet PO 1,000 mg DAILY TWILA Administration Aspirin 81 mg 12/31/19 09:00 01/01/20 08:19 Aspirin 81 Mg Enteric Coated Tablet PO 81 mg DAILY TWILA Administration Atorvastatin Calcium 20 mg 12/30/19 21:00 12/31/19 21:27 Atorvastatin Calcium 20 Mg Tab PO 20 mg HS TWILA Administration Cholecalciferol 1,000 units 12/30/19 09:00 01/01/20 08:18 Cholecalciferol 1,000 Units (25 Mcg) Tab PO 1,000 units DAILY TWILA Administration Dexamethasone 6 mg 12/30/19 08:00 01/01/20 08:20 Dexamethasone 4 Mg Tab PO 6 mg QAM-WM TWILA Administration Diltiazem HCl 240 mg 12/31/19 09:00 01/01/20 08:20 Diltiazem Hcl Cd 240 Mg Capsule PO 240 mg DAILY TWILA Administration Glipizide 10 mg 12/31/19 09:00 01/01/20 08:18 Glipizide Xl 10 Mg Tablet PO 10 mg DAILY TWILA Administration Insulin Glargine 40 units/ 0.4 mls @ 0 mls/hr 12/31/19 09:00 01/01/20 10:23 Miscellaneous Medication SC 0.4 mls DAILY TWILA Administration Remdesivir 100 mg/ Sodium 250 mls @ 250 mls/hr 12/31/19 14:00 01/01/20 14:06 Chloride IV 01/03/20 14:59 250 mls 1400 TWILA Administration Insulin Human Lispro 0 units 12/30/19 21:55 01/01/20 06:01 Humalog 300 Units/3 Ml Vial SC 4 unit .BEDTIME SLIDING SC PRN Administration Bedtime Correctional Scale Insulin Human Regular 0 units 12/30/19 00:04 01/01/20 12:17 Insulin Regular 300 Units/3 Ml Vial SC 4 unit .MODERATE SLIDING SC PRN Administration Moderate Correctional Scale Lisinopril 10 mg 12/31/19 09:00 01/01/20 08:21 Lisinopril 10 Mg Tab PO 10 mg DAILY TWILA Administration Metoprolol Succinate 12.5 mg 12/30/19 21:00 01/01/20 08:19 Metoprolol Succinate Xl 25 Mg Tab PO 12.5 mg BID TWILA Administration Pantoprazole Sodium 40 mg 12/31/19 09:00 01/01/20 08:18 Pantoprazole 40 Mg Tab PO 40 mg DAILY TWILA Administration Potassium Chloride 10 meq 12/31/19 09:00 01/01/20 08:20 Potassium Chloride 10 Meq Tab PO 10 meq DAILY TWILA Administration Multivit/Folic Acid/Iron 2 tab 12/31/19 09:00 01/01/20 08:18 Vitamin 1 Tab PO 2 tab DAILY TWILA Administration Sodium Chloride 10 ml 12/29/19 23:43 12/31/19 21:27 Flush - Normal Saline 10 Ml Syringe IVF 10 ml Q12HR PRN Administration Saline Flush Sucralfate 1 gm 12/30/19 13:00 01/01/20 12:15 Sucralfate 1 Gm Tab PO 1 gm QID TWILA Administration Tizanidine HCl 4 mg 12/30/19 09:45 01/01/20 01:41 Tizanidine Hcl 4 Mg Tab PO 4 mg Q8H PRN Administration Muscle Spasm Torsemide 20 mg 12/31/19 09:00 01/01/20 08:21 Torsemide 20 Mg Tab PO 20 mg DAILY TWILA Administration Tramadol HCl 50 mg 12/30/19 09:45 01/01/20 01:41 Tramadol Hcl 50 Mg Tab PO 50 mg Q8H PRN Administration Pain Warfarin Sodium 5 mg 12/31/19 17:00 12/31/19 16:24 Warfarin Sodium 5 Mg Tab PO 5 mg [id number]@1700 TWILA Administration Warfarin Sodium 7.5 mg 12/30/19 17:00 12/30/19 17:46 Warfarin Sodium 7.5 Mg Tab PO 7.5 mg MWF@1700 TWILA Administration Zinc Sulfate 220 mg 12/30/19 09:00 01/01/20 08:21 Zinc Sulfate 220 Mg Cap PO 220 mg DAILY TWILA Administration - Exam General - other findings: Morbid obesity Eye: anicteric sclera ENT: moist mucosa Neck: supple Heart: RRR Respiratory: no wheezes Gastrointestinal: soft Extremities: no clubbing Skin: no rashes Psychiatric: normal affect Hosp A/P (1) Pneumonia due to COVID-19 virus Code(s): U07.1 - COVID-19; J12.89 - OTHER VIRAL PNEUMONIA Status: Acute (2) Paroxysmal A-fib Code(s): I48.0 - PAROXYSMAL ATRIAL FIBRILLATION Status: Chronic (3) CAD (coronary artery disease) Code(s): I25.10 - ATHSCL HEART DISEASE OF [place] CORONARY ARTERY W/O ANG PCTRS Status: Chronic (4) COPD (chronic obstructive pulmonary disease) Status: Chronic (5) DM type 2 (diabetes mellitus, type 2) Status: Chronic (6) GERD (gastroesophageal reflux disease) Code(s): K21.9 - GASTRO-ESOPHAGEAL REFLUX DISEASE WITHOUT ESOPHAGITIS Status: Chronic (7) Hypertension Code(s): I10 - ESSENTIAL (PRIMARY) HYPERTENSION Status: Chronic (8) Hyperlipidemia Code(s): E78.5 - HYPERLIPIDEMIA, UNSPECIFIED Status: Chronic (9) Morbid obesity with BMI of 45.0-49.9, adult Code(s): E66.01 - MORBID (SEVERE) OBESITY DUE TO EXCESS CALORIES; Z68.42 - BODY MASS INDEX [BMI] 45.0-49.9, ADULT Status: Chronic (10) Hemoptysis Code(s): R04.2 - HEMOPTYSIS Status: Resolved - Plan Patient received convalescent plasma and is currently on intravenous from February until January 03, 2020. Patient is on dexamethasone, vitamin C and zinc. Hemoglobin relatively stable. Warfarin management by pharmacy. Mopped assist has improved.
[2020-01-01] MEDS: Warfarin Sodium 7.5 MG TAB PO SCH (17:32)
[2020-01-01] MEDS: Atorvastatin Calcium 20 MG TAB PO SCH (20:22)
[2020-01-01] MEDS ORDERED: Hydrocortisone/Pramoxine (Proctofoam HC) 10 GM BOX PR PRN (23:54)
[2020-01-02] MEDS: Insulin Regular 300 UNITS/3 ML VIAL SC PRN ×3 (06:10→17:54)
[2020-01-02 06:21] LABS: D-Dimer Test 0.39 *mcg/mL (0.27-0.43); INR-International Normal Ratio 2.5; Prothrombin Time 27.5 sec (12.0-14.7)
[2020-01-02] MEDS: Prenatal Vitamin 1 TAB PO SCH (08:45)
[2020-01-02] MEDS: Dexamethasone 4 MG TAB PO SCH (08:46)
[2020-01-02] MEDS: Zinc Sulfate 220 MG CAP PO SCH (08:46)
[2020-01-02] MEDS: Ascorbic Acid 500 mg Chewable Tablet PO SCH (08:46)
[2020-01-02] MEDS: Potassium Chloride 10 MEQ TAB PO SCH (08:47)
[2020-01-02] MEDS: Cholecalciferol 1,000 UNITS (25 MCG) TAB PO SCH (08:48)
[2020-01-02] MEDS: Aspirin 81 mg Enteric Coated Tablet PO SCH (08:49)
[2020-01-02] MEDS: Lisinopril 10 MG TAB PO SCH (08:50)
[2020-01-02] MEDS: Insulin Glargine 40 UNITS in Pre-Filled Syringe 1 EACH SC SCH (08:50)
[2020-01-02] MEDS: Torsemide 20 MG TAB PO SCH (08:50)
[2020-01-02] MEDS: Sucralfate 1 GM TAB PO SCH ×4 (09:00→20:27)
[2020-01-02] MEDS: traMADol HCl 50 MG TAB PO PRN (09:28)
[2020-01-02] MEDS: tiZANidine HCl 4 MG TAB PO PRN (09:28)
[2020-01-02 09:46] LABS: ALT (SGPT) 25 U/L (8-55); AST (SGOT) 25 U/L (5-34); Albumin 3.1 g/dL (3.4-4.8); Alkaline Phosphatase 90 U/L (40-110); Anion Gap 14 mmol/L (10-20); BUN (Urea Nitrogen) 27 mg/dL (9.8-20.1); Bilirubin, Direct 0.2 mg/dL (0.1-0.3); Bilirubin, Total 0.4 mg/dL (0.2-1.2); CRP (Inflammatory) 1.52 mg/dL (= or < 0.5); Calc. Creatinine Clearance 122 mL/min (70-130); Calcium 8.8 mg/dL (7.8-10.44); Carbon Dioxide 26 mmol/L (23-31); Chloride 99 mmol/L (98-107); Estimated GFR-MDRD 63; Glucose 278 mg/dL (80-115); Potassium 3.9 mmol/L (3.5-5.1); Protein, Total 6.4 g/dL (6.0-8.3); Sodium 135 mmol/L (136-145)
[2020-01-02] MEDS: REMDESIVIR (EUA) 100 MG in Sodium Chloride 0.9% 250 ML 230 ML IV SCH (15:07)
--- NOTE | 2020-01-02 16:33 | PDOC.HOSPP ---
- Subjective Encounter Date: 01/02/20 Encounter Time: 09:20 Subjective: Patient seen for follow-up for pneumonia secondary to COVID-19 virus. States she feels well. - Objective Vital Signs & Weight: Vital Signs (12 hours) Temp Pulse Resp BP BP BP Pulse Ox 01/02/20 15:29 97.1 F L 68 16 119/64 01/02/20 11:40 98.2 F 72 18 106/59 L 100 01/02/20 08:50 119/74 01/02/20 08:46 64 141/90 H 01/02/20 08:30 97.9 F 73 18 119/74 100 01/02/20 08:00 2 L Weight Weight 274 lb 7.608 oz I&O: 01/01/20 01/02/20 01/03/20 06:59 06:59 06:59 Intake Total 310 2540 Output Total 1250 2900 Balance -940 -360 Result Diagrams: 12/31/19 04:34 01/02/20 04:40 Additional Labs: Accuchecks 01/02/20 01/02/20 01/01/20 11:40 06:10 20:07 POC Glucose 424 H 242 H 391 H 01/01/20 16:39 POC Glucose 324 H I reviewed patient's labs and MAR EKG Reviewed by me: Yes (Normal sinus rhythm on telemetry) Hospitalist ROS - Review of Systems Respiratory: denies: cough, shortness of breath, SOB with excertion, pleuritic pain, wheezing Cardiovascular: denies: chest pain, palpitations, orthopnea, paroxysmal noc. dyspnea, edema, light headedness - Medication Medications: Active Medications Generic Name Dose Route Start Last Admin Trade Name Freq PRN Reason Stop Dose Admin Acetaminophen 650 mg 12/29/19 23:43 12/31/19 21:27 Acetaminophen 325 Mg Tab PO 650 mg Q4H PRN Administration Headache/Fever/Mild Pain (1-3) Ascorbic Acid 1,000 mg 12/30/19 09:00 01/02/20 08:46 Ascorbic Acid 500 Mg Chewable Tablet PO 1,000 mg DAILY TWILA Administration Aspirin 81 mg 12/31/19 09:00 01/02/20 08:49 Aspirin 81 Mg Enteric Coated Tablet PO 81 mg DAILY TWILA Administration Atorvastatin Calcium 20 mg 12/30/19 21:00 01/01/20 20:22 Atorvastatin Calcium 20 Mg Tab PO 20 mg HS TWILA Administration Cholecalciferol 1,000 units 12/30/19 09:00 01/02/20 08:48 Cholecalciferol 1,000 Units (25 Mcg) Tab PO 1,000 units DAILY TWILA Administration Dexamethasone 6 mg 12/30/19 08:00 01/02/20 08:46 Dexamethasone 4 Mg Tab PO 6 mg QAM-WM TWILA Administration Diltiazem HCl 240 mg 12/31/19 09:00 01/02/20 08:46 Diltiazem Hcl Cd 240 Mg Capsule PO 240 mg DAILY TWILA Administration Glipizide 10 mg 12/31/19 09:00 01/02/20 08:45 Glipizide Xl 10 Mg Tablet PO 10 mg DAILY TWILA Administration Hydrocortisone/Pramoxine 0 gm 01/01/20 23:54 01/02/20 00:11 Hydrocortisone/Pramoxine (Proctofoam Hc) 10 Gm Box [place] 1 applic TIDPRN PRN Administration Irritation Insulin Glargine 40 units/ 0.4 mls @ 0 mls/hr 12/31/19 09:00 01/02/20 08:50 Miscellaneous Medication SC 0.4 mls DAILY TWILA Administration Remdesivir 100 mg/ Sodium 250 mls @ 250 mls/hr 12/31/19 14:00 01/02/20 15:07 Chloride IV 01/03/20 14:59 250 mls 1400 TWILA Administration Insulin Human Lispro 0 units 12/30/19 21:55 01/01/20 20:23 Humalog 300 Units/3 Ml Vial SC 5 unit .BEDTIME SLIDING SC PRN Administration Bedtime Correctional Scale Insulin Human Regular 0 units 12/30/19 00:04 01/02/20 12:00 Insulin Regular 300 Units/3 Ml Vial SC 10 unit .MODERATE SLIDING SC PRN Administration Moderate Correctional Scale Lisinopril 10 mg 12/31/19 09:00 01/02/20 08:50 Lisinopril 10 Mg Tab PO 10 mg DAILY TWILA Administration Metoprolol Succinate 12.5 mg 12/30/19 21:00 01/02/20 08:49 Metoprolol Succinate Xl 25 Mg Tab PO 12.5 mg BID TWILA Administration Pantoprazole Sodium 40 mg 12/31/19 09:00 01/02/20 08:46 Pantoprazole 40 Mg Tab PO 40 mg DAILY TWILA Administration Potassium Chloride 10 meq 12/31/19 09:00 01/02/20 08:47 Potassium Chloride 10 Meq Tab PO 10 meq DAILY TWILA Administration Multivit/Folic Acid/Iron 2 tab 12/31/19 09:00 01/02/20 08:45 Vitamin 1 Tab PO 2 tab DAILY TWILA Administration Sodium Chloride 10 ml 12/29/19 23:43 01/02/20 08:50 Flush - Normal Saline 10 Ml Syringe IVF 10 ml Q12HR PRN Administration Saline Flush Sucralfate 1 gm 12/30/19 13:00 01/02/20 12:44 Sucralfate 1 Gm Tab PO 1 gm QID TWILA Administration Tizanidine HCl 4 mg 12/30/19 09:45 01/02/20 09:28 Tizanidine Hcl 4 Mg Tab PO 4 mg Q8H PRN Administration Muscle Spasm Torsemide 20 mg 12/31/19 09:00 01/02/20 08:50 Torsemide 20 Mg Tab PO 20 mg DAILY TWILA Administration Tramadol HCl 50 mg 12/30/19 09:45 01/02/20 09:28 Tramadol Hcl 50 Mg Tab PO 50 mg Q8H PRN Administration Pain Warfarin Sodium 5 mg 12/31/19 17:00 12/31/19 16:24 Warfarin Sodium 5 Mg Tab PO 5 mg SuTuThSa@1700 TWILA Administration Warfarin Sodium 7.5 mg 12/30/19 17:00 01/01/20 17:32 Warfarin Sodium 7.5 Mg Tab PO 7.5 mg MWF@1700 TWILA Administration Zinc Sulfate 220 mg 12/30/19 09:00 01/02/20 08:46 Zinc Sulfate 220 Mg Cap PO 220 mg DAILY TWILA Administration - Exam General Appearance: awake alert General - other findings: Morbid obese Eye: anicteric sclera Heart: RRR Respiratory: CTAB Gastrointestinal: soft Skin: no rashes Psychiatric: normal affect Hosp A/P (1) Pneumonia due to COVID-19 virus Code(s): U07.1 - COVID-19; J12.89 - OTHER VIRAL PNEUMONIA Status: Acute (2) CAD (coronary artery disease) Code(s): I25.10 - ATHSCL HEART DISEASE OF [place] CORONARY ARTERY W/O ANG PCTRS Status: Chronic (3) COPD (chronic obstructive pulmonary disease) Status: Chronic (4) DM type 2 (diabetes mellitus, type 2) Status: Chronic (5) GERD (gastroesophageal reflux disease) Code(s): K21.9 - GASTRO-ESOPHAGEAL REFLUX DISEASE WITHOUT ESOPHAGITIS Status: Chronic (6) Hypertension Code(s): I10 - ESSENTIAL (PRIMARY) HYPERTENSION Status: Chronic (7) Hyperlipidemia Code(s): E78.5 - HYPERLIPIDEMIA, UNSPECIFIED Status: Chronic (8) Morbid obesity with BMI of 45.0-49.9, adult Code(s): E66.01 - MORBID (SEVERE) OBESITY DUE TO EXCESS CALORIES; Z68.42 - BODY MASS INDEX [BMI] 45.0-49.9, ADULT Status: Chronic (9) Hemoptysis Code(s): R04.2 - HEMOPTYSIS Status: Resolved (10) Paroxysmal A-fib Code(s): I48.0 - PAROXYSMAL ATRIAL FIBRILLATION Status: Chronic - Plan Continue remdesivir here until tomorrow. Patient received convalescent plasma. Continue dexamethasone, vitamin C and zinc. Hemoglobin relatively stable. Warfarin management by pharmacy. Mopped assist has improved.
[2020-01-02] MEDS: Warfarin Sodium 5 MG TAB PO SCH (17:55)
[2020-01-02] MEDS: Atorvastatin Calcium 20 MG TAB PO SCH (20:26)
[2020-01-02] MEDS: Acetaminophen 325 MG TAB PO PRN (20:27)
[2020-01-02] MEDS: HumaLOG 300 UNITS/3 ML VIAL SC PRN (20:33)
[2020-01-03] MEDS: tiZANidine HCl 4 MG TAB PO PRN (00:58)
[2020-01-03] MEDS: traMADol HCl 50 MG TAB PO PRN (00:58)
[2020-01-03 05:14] LABS: #Lymphocytes 0.6 thou/uL (1.20-3.40); #Monocytes 0.4 thou/uL (0.11-0.59); #Neutrophils 6.1 thou/uL (1.40-6.50); %Basophils 0.1 % (0.0-1.0); %Eosinophils 0.1 % (0.0-10.0); %Lymphocytes 8.4 % (21.0-51.0); %Monocytes 5.4 % (0.0-10.0); Hemoglobin 11.2 g/dL (12.0-16.0); Mean Corpuscular HGB CONC 33.6 g/dL (32.0-36.0); Mean Corpuscular Hemoglobin 29.9 pg (27.0-31.0); Mean Corpuscular Volume 89.2 fL (78.0-98.0); Mean Platelet Volume 7.7 fL (7.4-10.4); Platelet Count 163 thou/uL (130-400); RBC Distribution Width 12.9 % (11.5-14.5); Red Blood Cell (RBC) Count 3.74 mill/uL (4.20-5.40); White Blood Cell (WBC) Count 7.1 thou/uL (4.8-10.8)
[2020-01-03 05:16] LABS: INR-International Normal Ratio 3.4; Prothrombin Time 34.4 sec (12.0-14.7)
[2020-01-03 05:17] LABS: D-Dimer Test 0.28 *mcg/mL (0.27-0.43)
[2020-01-03] MEDS: Insulin Regular 300 UNITS/3 ML VIAL SC PRN ×2 (05:21→12:01)
[2020-01-03 05:30] LABS: Anion Gap 10 mmol/L (10-20); BUN (Urea Nitrogen) 30 mg/dL (9.8-20.1); Calc. Creatinine Clearance 125 mL/min (70-130); Calcium 8.6 mg/dL (7.8-10.44); Carbon Dioxide 31 mmol/L (23-31); Chloride 97 mmol/L (98-107); Estimated GFR-MDRD 65; Glucose 262 mg/dL (80-115); Potassium 3.6 mmol/L (3.5-5.1); Sodium 134 mmol/L (136-145)
[2020-01-03 05:32] LABS: ALT (SGPT) 33 U/L (8-55); AST (SGOT) 23 U/L (5-34); Albumin 3.1 g/dL (3.4-4.8); Alkaline Phosphatase 79 U/L (40-110); Bilirubin, Direct 0.2 mg/dL (0.1-0.3); Bilirubin, Total 0.4 mg/dL (0.2-1.2); Protein, Total 6.1 g/dL (6.0-8.3)
[2020-01-03] MEDS: Ascorbic Acid 500 mg Chewable Tablet PO SCH (07:46)
[2020-01-03] MEDS: Dexamethasone 4 MG TAB PO SCH (07:46)
[2020-01-03] MEDS: Cholecalciferol 1,000 UNITS (25 MCG) TAB PO SCH (07:47)
[2020-01-03] MEDS: Aspirin 81 mg Enteric Coated Tablet PO SCH (07:47)
[2020-01-03] MEDS: Lisinopril 10 MG TAB PO SCH (07:48)
[2020-01-03] MEDS: Torsemide 20 MG TAB PO SCH (07:49)
[2020-01-03] MEDS: Prenatal Vitamin 1 TAB PO SCH (07:49)
[2020-01-03] MEDS: Zinc Sulfate 220 MG CAP PO SCH (07:49)
[2020-01-03] MEDS: Potassium Chloride 10 MEQ TAB PO SCH (07:49)
--- NOTE | 2020-01-03 09:08 | PQF ---
CLINICAL DOCUMENTATION CLARIFICATION FORM: Dear Dr. Pablo Date: 01/03/2020 Please exercise your independent, professional judgment in responding to the clarification form. Clinical indicators are provided on the bottom of this form for your review. Please check appropriate box(es) to clarify if the following diagnosis has been ruled in our ruled out: SEPSIS [ ] Ruled in diagnosis [ ] Continue to treat [ ] Resolved [ ] Ruled out diagnosis [ ] Cannot rule out diagnosis [ ] Other diagnosis [ ] Unable to determine For continuity of documentation, please document condition throughout progress notes and discharge summary. Thank You. CLINICAL INDICATORS - SIGNS / SYMPTOMS / LABS / RESULTS AND LOCATION IN EMR *LAB (EMR): WBC Neutrophils % Lactic Acid Procalcitonin 12/28 5.7 76.6 1.5 0.04 12/29 3.7 60.7 01/02 7.1 86.0 *ED 12/28: * Vital Signs: Pulse 105-113 RR 19-22 T (max) 101.6 (oral) * COVID pneumonia * Sepsis *H&P 12/28 ([facility]): She was maintained on 2 L of oxygen by nasal cannula in the ER. She states that she is on 2 L of oxygen by nasal cannula at baseline. RISK FACTORS / RESULTS AND LOCATION IN EMR *H&P 12/28 ([facility]): * Hospitalized here for COPD exacerbation and heart failure exacerbation and discharged about 2 weeks ago. * Pneumonia due to COVID-19 virus TREATMENTS / RESULTS AND LOCATION IN EMR *ED 12/28: Oxygen, NS 1L IV x2, Azithromycin IV, Ceftriaxone IV *LAB (EMR): CBC 12/28,12/29, 01/02 Lactic Acid 12/28 *Infectious Disease Consultation 12/29 ([place]): She is eligible for Remdesivir. I will keg inspector her plasma too and continue Decadron. Thank you, Brianda CDS/Strategic Manager Signature: Brianda Garcia RN, CDS Phone #: [phone] [email or web address] This is a permanent part of the Medical Record [facility]
[2020-01-03] MEDS: Insulin Glargine 40 UNITS in Pre-Filled Syringe 1 EACH SC SCH (09:28)
[2020-01-03] MEDS: Sucralfate 1 GM TAB PO SCH ×2 (09:28→12:05)
[2020-01-03] MEDS: REMDESIVIR (EUA) 100 MG in Sodium Chloride 0.9% 250 ML 230 ML IV SCH (14:31)
[2020-01-03 15:55] VITALS: BP 134/74; TEMP 98.2
[2020-01-03] MEDS ORDERED: Warfarin Sodium 7.5 MG TAB PO SCH (17:00)
--- NOTE | 2020-01-04 01:17 | DIS ---
DATE OF ADMISSION: 12/29/2019 DATE OF DISCHARGE: 01/03/2020 PRIMARY CARE PROVIDER: Dr. Jassi Ramos. DISCHARGE DIAGNOSES: 1. Sepsis. 2. Sepsis secondary to COVID-19 pneumonia. 3. Hyponatremia. 4. Thrombocytopenia, resolved. CONDITION OF PATIENT ON THE DAY OF DISCHARGE: Stable. I assessed Ms. Darling on the day of discharge. She denies any chest pain or shortness of breath. Vital signs are stable. S1 and S2 are heard, regular. Lungs are clear to auscultation bilaterally. CONSULTATIONS DURING THIS HOSPITALIZATION: Infectious Diseases, Dr. Finley. HOSPITAL COURSE: Ms. Darling is a pleasant 64-year-old lady who was admitted to [facility] on December 29, 2019, for a COVID-19 pneumonia. She also had small volume hemoptysis and was in sepsis at the time of admission. She received convalescent plasma. She was also started on Remdesivir, dexamethasone, vitamin C, and zinc. She improved clinically and is being discharged home in a stable condition. On the day of discharge, she has a supratherapeutic INR of 3.4. She has been advised to skip warfarin dose on the day of discharge and resume on the day following the discharge and to have her PT/INR checked through primary care provider's office in 3 to 5 days. She reportedly takes multivitamins at home and reports that her INR is usually therapeutic on her regimen. On the day of discharge, she has sodium 134, potassium 3.6, creatinine 0.87, white count 7100, hemoglobin 11.2, and platelet count 163,000. Many thanks for allowing me to participate in your patient's care. Please feel free to contact me with any questions or concerns. DISCHARGE MEDICATIONS: 1. Zinc 220 mg daily for 5 more days. 2. Vitamin C 1000 mg daily for 5 more days. 3. Dexamethasone 6 mg daily for 5 more days. 4. Warfarin to be skipped on January 03, 2020. Otherwise, no change was made to her pre-admission home medications. DIET: Diabetic and heart healthy. ACTIVITY: As tolerated. DISCHARGE DESTINATION: Home. TIME SPENT: Total amount of time spent coordinating this discharge: 25 minutes. Job ID: [id number]
[2020-01-04] MEDS ORDERED: Warfarin Sodium 5 MG TAB PO SCH (17:00)
== END 2020-01-03 17:32 | disposition home or self-care (01) | DRG 871 ==
LOC: ERS 20:05 → 2SW 23:48
PROVIDERS: ADMIT Internal Medicine; ATTEND Internal Medicine
PROC: 8E0ZXY6 Isolation (ICD-10-PCS; 2019-12-29)
PROC: XW033E5 Introduction of Remdesivir Anti-infective into Peripheral Vein, Percutaneous Approach, New Technology Group 5 (ICD-10-PCS; principal; 2019-12-30)
PROC: XW13325 Transfusion of Convalescent Plasma (Nonautologous) into Peripheral Vein, Percutaneous Approach, New Technology Group 5 (ICD-10-PCS; 2019-12-30)
PROC: 3E02340 Introduction of Influenza Vaccine into Muscle, Percutaneous Approach (ICD-10-PCS; 2019-12-30)
DX: A41.89 Other specified sepsis (principal); U07.1 COVID-19; J12.89 Other viral pneumonia; I50.33 Acute on chronic diastolic (congestive) heart failure; I48.19 Other persistent atrial fibrillation; Z68.42 Body mass index [BMI] 45.0-49.9, adult; E87.1 Hypo-osmolality and hyponatremia; R04.2 Hemoptysis; J44.0 Chronic obstructive pulmonary disease with (acute) lower respiratory infection; I25.10 Atherosclerotic heart disease of native coronary artery without angina pectoris; E66.01 Morbid (severe) obesity due to excess calories; D69.6 Thrombocytopenia, unspecified; K21.9 Gastro-esophageal reflux disease without esophagitis; E78.5 Hyperlipidemia, unspecified; C50.912 Malignant neoplasm of unspecified site of left female breast; E11.9 Type 2 diabetes mellitus without complications; I11.0 Hypertensive heart disease with heart failure; Z79.01 Long term (current) use of anticoagulants; Z79.899 Other long term (current) drug therapy; Z79.82 Long term (current) use of aspirin; Z79.4 Long term (current) use of insulin; Z23 Encounter for immunization; Z90.12 Acquired absence of left breast and nipple; Z87.891 Personal history of nicotine dependence; Z92.3 Personal history of irradiation; Z94.9 Transplanted organ and tissue status, unspecified; Z88.2 Allergy status to sulfonamides; Z88.8 Allergy status to other drugs, medicaments and biological substances; Z88.1 Allergy status to other antibiotic agents; Z99.81 Dependence on supplemental oxygen; Z90.49 Acquired absence of other specified parts of digestive tract
CPT/HCPCS: 36415; 36416; 36430; 71045; 80048; 80053; 80076; 81003; 82728; 83605; 83880; 84145; 84484; 85014; 85018; 85025; 85049; 85379; 85610; 85730; 86140; 86850; 86900; 86901; 87040; 87635; 90471; 90662; 93005; 96360; 96361; 96365; 96367; G0008; J0456; J0696; J1815; J1940; J7050; J8540; P9017; U0003

== ENCOUNTER 2020-03-20 10:23 | Observation (INO) | payer MEDICARE, BC ==
[2020-03-20] MEDS ORDERED: Nitroglycerin 2% Ointment 1 INCH/1 GM Packet ONE (10:37)
--- NOTE | 2020-03-20 11:24 | RAD ---
Exam: Chest one view HISTORY:Chest pain. Comparison: 12/28/2019, 12/12/2019, 06/06/2019 and 12/29/2019 Correlation: Chest CT 06/06/2019 FINDINGS: Cardiac silhouette:Cardiomegaly. Aorta: Atherosclerosis. Pulmonary vessels: Normal Costophrenic angles: Clear LUNGS: Delivery Architect opacification in the right lower lobe. Lungs are hyperinflated. Additional chronic c hanges are noted throughout the lung parenchyma. Pneumothorax: None Osseous abnormalities: None IMPRESSION: 1. Cardiomegaly. 2. Atherosclerosis 3. Hyperinflation with chronic lung parenchymal changes. Persistent opacity in the right lower lobe m ay represent atelectasis. In the appropriate clinical setting, consider chest CT with contrast.
[2020-03-20 11:34] LABS: #Eosinphils 0.1 thou/uL (0.0-0.7); #Lymphocytes 1.6 thou/uL (1.20-3.40); #Monocytes 0.4 thou/uL (0.11-0.59); #Neutrophils 7.1 thou/uL (1.40-6.50); %Basophils 0.2 % (0.0-1.0); %Lymphocytes 16.9 % (21.0-51.0); %Neutrophils 77.9 % (42.0-75.0); Mean Corpuscular HGB CONC 32.6 g/dL (32.0-36.0); Mean Corpuscular Hemoglobin 29.2 pg (27.0-31.0); Mean Corpuscular Volume 89.7 fL (78.0-98.0); Mean Platelet Volume 8.2 fL (7.4-10.4); Platelet Count 163 thou/uL (130-400); RBC Distribution Width 13.6 % (11.5-14.5); White Blood Cell (WBC) Count 9.2 thou/uL (4.8-10.8)
[2020-03-20 11:58] LABS: ALT (SGPT) 14 U/L (8-55); AST (SGOT) 16 U/L (5-34); Albumin 3.8 g/dL (3.4-4.8); Alkaline Phosphatase 99 U/L (40-110); Anion Gap 17 mmol/L (10-20); BUN (Urea Nitrogen) 19 mg/dL (9.8-20.1); Bilirubin, Total 0.6 mg/dL (0.2-1.2); Calc. Creatinine Clearance 0 mL/min (70-130); Calcium 9.2 mg/dL (7.8-10.44); Carbon Dioxide 26 mmol/L (23-31); Chloride 101 mmol/L (98-107); Globulin 3.6 g/dL (2.4-3.5); Glucose 211 mg/dL (80-115); Lipase 14 U/L (8-78); Potassium 3.9 mmol/L (3.5-5.1); Protein, Total 7.4 g/dL (6.0-8.3); Sodium 140 mmol/L (136-145)
--- NOTE | 2020-03-20 12:43 | PDOC.FPRHP ---
- History of Present Illness Chief Complaint: chest pain History of Present Illness: 64YOF with a PMH notable for IDDMII, HTN, afib s/p multiple ablations, cardioversions & watchman procedure, COPD on 2-3L NC @ home & GERD who presented via EMS for evaluation for chest pain. Patient reports that this AM while sitting at home sending our her [employer] announcements she developed sudden onset L-sided chest pressure w/ radiation into shoulder & arm. This occurred @ ~0930 today. Reports she had associated SOB but no N/V or diaphoresis. Has never had an [place] or chest pain like this before. Reports it lasted several minutes & did not subside so she called EMS. Got up to get he door for them when they arrived & states this made the pain worse. Was given PO nitro and ASA by EMS and says this somewhat relieved her pain. Was given nitro paste in the ED which she states helped even more. Endorses having had a cath but it was at least 1 year ago. Also endorses significant FH of MIs & CAD. Mortar Carrier is Dr. Argueta. ED Course: nitro paste & Th Lovenox - Allergies/Adverse Reactions Allergies Allergy/AdvReac Type Severity Reaction Status Date / Time ampicillin Allergy Verified 12/12/19 15:46 anastrozole Allergy Verified 12/12/19 15:46 dronedarone HCl [From Multaq] Allergy Verified 12/12/19 15:46 flecainide Allergy Verified 12/12/19 15:46 iodine Allergy Verified 12/12/19 15:46 levofloxacin [From Levaquin] Allergy Verified 12/13/19 13:05 Sulfa (Sulfonamide Allergy Rash Verified 12/12/19 15:46 Antibiotics) - Home Medications Medication Instructions Recorded Confirmed Type Aspirin [Aspirin EC] 81 mg PO DAILY 09/29/15 03/20/20 History Atorvastatin Calcium [Lipitor] 20 mg PO HS 06/18/17 03/20/20 History tiZANidine HCl [Zanaflex] 4 mg PO Q8H PRN 08/30/18 03/20/20 History Albuterol Sulfate [Albuterol 3 ml NEB QID PRN 11/03/18 03/20/20 History Sulfate Neb] Insulin Glargine,Hum.Rec.Anlog 40 units SC DAILY 11/03/18 03/20/20 History [Lantus Solostar] Torsemide [Demadex] 20 mg PO DAILY tab 11/06/18 03/20/20 Rx Diltiazem HCl [Cardizem CD] 240 mg PO DAILY cap 12/13/19 03/20/20 Rx Metoprolol Succinate [Toprol XL] 12.5 mg PO BID tab 12/13/19 03/20/20 Rx Ondansetron [Zofran ODT] 4 mg SL Q6H PRN tab 12/13/19 03/20/20 Rx Pantoprazole [Protonix] 40 mg PO DAILY tab 12/13/19 03/20/20 Rx Potassium Chloride [Klor-Con 10] 10 meq PO DAILY tab 12/13/19 03/20/20 Rx Vitamin 2 tab PO DAILY tab 12/13/19 03/20/20 Rx Sucralfate [Carafate] 1 gm PO QID tab 12/13/19 03/20/20 Rx traMADol HCl [Ultram] 50 mg PO Q8H PRN tab 12/13/19 03/20/20 Rx Lisinopril [Zestril] 10 mg PO DAILY 12/30/19 03/20/20 History Ascorbic Acid [Vitamin C] 1,000 mg PO DAILY #5 tablet 01/03/20 03/20/20 Rx Warfarin Sodium [Coumadin] 5 mg PO SuTuThSa #0 tab 01/03/20 03/20/20 Rx Warfarin Sodium [Coumadin] 7.5 mg PO MoWeFr #0 tab 01/03/20 03/20/20 Rx Zinc Sulfate [Zinc-220] 220 mg PO DAILY #5 capsule 01/03/20 03/20/20 Rx - History PMHx: afib s/p multiple ablations & cardioversions & watchman's procedure, HTN, IDDMII, GERD, HLD, COPD on 2-3L @ home @ baseline, Hx L breast CA s/p mastectomy & radiation in remission PSHx: L-sided mastectomy, tonsillectomy, uzma, appe, C/S x3 FHx: Father from [place] in setting of colon CA in his 80s, mother with [place] & triple bypass in her 40s, brother with [place] & bypass in his 50s, sister with [place] Social: . Lives alone in [place]. Former heavy smoker smoking ~1ppd for many years but quit in 2008. No drugs or EtOH use. - Review of Systems General: denies: fever/chills, weight/appetite/sleep changes Eyes: denies: eye pain, vision changes ENT: reports: other (no sore throat). denies: nasal congestion Respiratory: reports: shortness of breath. denies: cough Cardiovascular: reports: chest pain. denies: edema Gastrointestinal: reports: constipation. denies: nausea, vomiting, diarrhea Genitourinary: reports: other (no hematuria). denies: dysuria Skin: reports: rashes. denies: itching Musculoskeletal: reports: arthritis/arthralgias. denies: tenderness Neurological: denies: numbness, syncope Psychological: denies: anxiety, depression - Vital signs BP: 177/100 HR: 101 RR: 22 Tmax: 98.4F Pox: 96% on 3L NC Wt: 122kg - Physical Exam Constitutional: NAD, awake, alert and oriented, well developed HEENT: normocephalic and atraumatic, grossly normal vision, grossly normal he aring, MMM Neck: supple, FROM Chest: no-tender to palpation, other (s/p L mastectomy) Heart: normal S1/S2, no murmurs/rubs/gallops, pulses present, no edema, other (tachycardic but regular rhythm) Lungs: no respiratory distress, good air movement, no rales/rhonchi, no wheezing, no retractions, other (crackles in B/L bases) Abdomen: soft, non-tender, bowel sounds present Musculoskeletal: normal structure, normal tone, ROM grossly normal Neurological: no focal deficit, CN II-XII intact (grossly) Skin: good turgor, other (mild erythema not on right arm from elbow down) Heme/Lymphatic: no unusual bruising or bleeding Psychiatric: normal mood and affect, good judgment and insight, intact recent and remote memory FMR H&P: Results - Labs Result Diagrams: 03/20/20 11:08 03/20/20 11:08 Lab results: WBC 9.2 thou/uL (4.8-10.8) 03/20/20 11:08 Hgb 12.0 g/dL (12.0-16.0) 03/20/20 11:08 Hct 36.8 % (36.0-47.0) 03/20/20 11:08 MCV 89.7 fL (78.0-98.0) 03/20/20 11:08 Plt Count 163 thou/uL (130-400) 03/20/20 11:08 Neutrophils % 77.9 % (42.0-75.0) H 03/20/20 11:08 Sodium 140 mmol/L (136-145) 03/20/20 11:08 Potassium 3.9 mmol/L (3.5-5.1) 03/20/20 11:08 Chloride 101 mmol/L (98-107) 03/20/20 11:08 Carbon Dioxide 26 mmol/L (23-31) 03/20/20 11:08 BUN 19 mg/dL (9.8-20.1) 03/20/20 11:08 Creatinine 0.84 mg/dL (0.6-1.1) 03/20/20 11:08 Glucose 211 mg/dL (80-115) H 03/20/20 11:08 Calcium 9.2 mg/dL (7.8-10.44) 03/20/20 11:08 Total Bilirubin 0.6 mg/dL (0.2-1.2) 03/20/20 11:08 AST 16 U/L (5-34) 03/20/20 11:08 ALT 14 U/L (8-55) 03/20/20 11:08 Alkaline Phosphatase 99 U/L (40-110) 03/20/20 11:08 B-Natriuretic Peptide 37.8 pg/mL (0-100) 03/20/20 11:08 Serum Total Protein 7.4 g/dL (6.0-8.3) 03/20/20 11:08 Albumin 3.8 g/dL (3.4-4.8) 03/20/20 11:08 Lipase 14 U/L (8-78) 03/20/20 11:08 - EKG Interpretation EKG: sinus tachycardia w/ no ST changes noted - Radiology Interpretation Chest x-ray Status: image reviewed by me, report reviewed by me (cardiomegaly w/ hyperinflation but persistent opacity in RLL that could represent atelectasis, recommend CTA chest) FMR H&P: A/P - Problem List (1) Chest pain, rule out acute myocardial infarction Current Visit: Yes Status: Acute Code(s): R07.9 - CHEST PAIN, UNSPECIFIED (2) CHF (congestive heart failure) Current Visit: Yes Status: Chronic Code(s): I50.9 - HEART FAILURE, UNSPECIFIED Qualifiers: Heart failure type: unspecified Heart failure chronicity: chronic Qualified Code(s): I50.9 - Heart failure, unspecified (3) COPD (chronic obstructive pulmonary disease) Current Visit: No Status: Chronic Qualifiers: COPD type: unspecified COPD Qualified Code(s): J44.9 - Chronic obstructive pulmonary disease, unspecified (4) Chronic anticoagulation Current Visit: Yes Status: Chronic Code(s): Z79.01 - MCFP (CURRENT) USE OF ANTICOAGULANTS (5) Chronic respiratory failure with hypoxia Current Visit: Yes Status: Chronic Code(s): J96.11 - CHRONIC RESPIRATORY FAILURE WITH HYPOXIA (6) DM type 2 (diabetes mellitus, type 2) Current Visit: Yes Status: Chronic Qualifiers: Diabetes mellitus continuous churn buttermaker insulin use: with continuous churn buttermaker use (7) Dyslipidemia Current Visit: Yes Status: Chronic Code(s): E78.5 - HYPERLIPIDEMIA, UNSPECIFIED (8) GERD (gastroesophageal reflux disease) Current Visit: Yes Status: Chronic Code(s): K21.9 - GASTRO-ESOPHAGEAL REFLUX DISEASE WITHOUT ESOPHAGITIS (9) History of breast cancer Current Visit: Yes Status: Chronic Code(s): Z85.3 - PERSONAL HISTORY OF LUCIA GNANT NEOPLASM OF BREAST (10) Hypertension Current Visit: Yes Status: Chronic Code(s): I10 - ESSENTIAL (PRIMARY) HYPERTENSION (11) Morbid obesity with BMI of 45.0-49.9, adult Current Visit: Yes Status: Chronic Code(s): E66.01 - MORBID (SEVERE) OBESITY DUE TO EXCESS CALORIES; Z68.42 - BODY MASS INDEX [BMI] 45.0-49.9, ADULT (12) A-fib Current Visit: Yes Status: Chronic Code(s): I48.91 - UNSPECIFIED ATRIAL FIBRILLATION Qualifiers: Atrial fibrillation type: unspecified chronic Qualified Code(s): I48.20 - Chronic atrial fibrillation, unspecified; I48.2 - Chronic atrial fibrillation - Plan 64YOF with a PMH notable for IDDMII, HTN, afib s/p multiple ablations, cardioversions & watchman procedure, COPD on 2-3L NC @ home & GERD who presented via EMS for evaluation of chest pain. Typical chest pain 2/2 ACS vs. PE vs. GERD vs. MSK strain: - Patient's history markedly suspicious for unstable angina. Given this & multiple risk factors despite NL troponin & EKG, heart score is 6. Will continue to trend troponins & address PRN based on results but already on Th Lovenox as noted below. - Will admit with plans to stress in the AM. Given body habitus will likely require 2 days stress. - PRN nitrostat for recurrence of chest pain & will get a repeat EKG should pain recur. PRN zofrna for nausea. s/p ASA with EMS. Elevated d-dimer: - D-dimer slightly elevated @ 0.86 on presentation in setting of sinus tachy & chest pain. Was given Th lovenox in the ED which we will continue for now. Unable to do CTA given patient's anaphylaxis to iodine. Could consider perfusion portion of V/Q scan to assess for possible PE but would not private branch exchange installer at this point. Will hold off for now. afib s/p multiple ablations, cardioversion & watchman's procedure: - Aware, patient in sinus tach on presentation. Rate controlled w/ dilt & BB @ home. Will resume while inpatient. Holding home warfarin in setting of Th lovenox being given for possible PE. Reported CHF: - Patient reports a diagnosis of CHF but per chart review last ECHO in 11/2019 showed an EF of 50-55% without any noted diastolic dysfunction. Does not appear volume overloaded. Will monitor strict I&Os & QD weights while inpatient. COPD w/ chronic hypoxia in 2-3L @ home: - Aware, not in acute exacerbation. Stable on baseline O2 requirements. Will keep sats between 88-92% while inpatient & resume home meds. HTN: - BP significantly elevated in the ED but patient reports she did not take her home meds this AM before calling EMS. s/p 5mg IV metoprolol in the ED. Will give NL home meds FRANCISCO & resume NL home regimen while inpatient. IDMMII: - Aware, A1c 7.7 this admission. Will resume home insulin regimen & have moderate SSI available as well. Hypoglycemia protocol & ACHS accuchecks. HLD: - Aware, continue home statin. Obesity: - Aware, will encourage lifestyle changes for weight loss. GERD: - Will resume home meds. Hx Breast CA s/p L mastectomy & radiation therapy: - Aware, patient reports she is in remission. Dispo: Will admit to telemetry for close cardiac monitoring & continued trending of troponin levels with plans to stress in the AM. PCP: MOIZ Ramos Diet: CC, HH IVFs: SL Abx: None GI PPX: protonix VTE PPX: Th Lovenox CODE STATUS: FULL CODE FMR H&P: Upper Level - Plan Date/Time: 03/20/20 1236 I, [], have evaluated this patient and agree with findings/plan as outlined by business analyst intern resident. Pertinent changes/additions are listed here.
[2020-03-20] MEDS ORDERED: Metoprolol Tartrate 5 MG/5 ML VIAL ONE (12:46)
[2020-03-20] MEDS ORDERED: Enoxaparin Sodium 30 MG/0.3 ML SYRINGE ONE (12:47)
[2020-03-20] MEDS ORDERED: Enoxaparin Sodium 100 MG/ML SYRINGE ONE (12:47)
[2020-03-20] MEDS ORDERED: Enoxaparin Sodium 40 MG/0.4 ML SYRINGE ONE (13:11)
[2020-03-20] MEDS ORDERED: Nitroglycerin 0.4 MG TAB (25 Tab Bottle) SL PRN (13:33)
[2020-03-20] MEDS ORDERED: HumaLOG 300 UNITS/3 ML VIAL SC PRN ×2 (13:33→14:26)
[2020-03-20] MEDS ORDERED: Dextrose 5% in Water 1,000 ML IV PRN (13:33)
[2020-03-20] MEDS ORDERED: Dextrose 50% Abboject 50 ML SYRINGE SLOW IVP PRN (13:33)
[2020-03-20] MEDS ORDERED: Ondansetron ODT 4 MG TAB SL PRN (13:39)
[2020-03-20] MEDS ORDERED: Acetaminophen 500 MG TAB PO PRN (14:16)
[2020-03-20 14:28] LABS: Hemoglobin A1c 7.7 % (4.0-6.0)
[2020-03-20 15:49] LABS: Troponin I 0.014 ng/mL (< 0.028)
[2020-03-20] MEDS ORDERED: Lisinopril 10 MG TAB PO SCH (16:00)
[2020-03-20] MEDS: Sucralfate 1 GM TAB PO SCH ×2 (16:56→20:30)
[2020-03-20] MEDS: HumaLOG 300 UNITS/3 ML VIAL SC PRN (17:00)
[2020-03-20 18:46] LABS: Troponin I 0.014 ng/mL (< 0.028)
[2020-03-20] MEDS: tiZANidine HCl 4 MG TAB PO PRN (20:30)
[2020-03-20] MEDS: Calcium Carbonate 500 MG ChewTAB PO PRN (20:30)
[2020-03-20] MEDS: Enoxaparin Sodium 120 MG/0.8 ML SYRINGE SC SCH ×2 (20:30)
[2020-03-20] MEDS: Atorvastatin Calcium 20 MG TAB PO SCH (20:30)
[2020-03-20] MEDS: traMADol HCl 50 MG TAB PO PRN (20:30)
[2020-03-20] MEDS ORDERED: Enoxaparin Sodium 80 MG/0.8 ML SYRINGE SC SCH (21:00)
[2020-03-21] MEDS: tiZANidine HCl 4 MG TAB PO PRN ×2 (04:10→20:44)
[2020-03-21] MEDS: traMADol HCl 50 MG TAB PO PRN ×3 (04:10→20:36)
[2020-03-21] MEDS: Calcium Carbonate 500 MG ChewTAB PO PRN (04:10)
--- NOTE | 2020-03-21 06:27 | PDOC.FM ---
- Subjective Subjective: Ms. Darling is doing well this morning. Her only complaint is that her stomach hurts. She states she has pancreatitis but her lipase on admission was 14. She denies dyspnea, SOB, CP, N/V. She has not had a recurrence of the chest pressure that brought her in. She is tender to palpation of her Lt chest which she states is from her mastectomy in May of this year. She states the pain she feels with that is different from the one she was feeling yesterday. On tele, she has been in NSR in the 80s with occasional PVCs. - Objective Vital Signs & Weight: Vital Signs (12 hours) Temp Pulse Resp BP Pulse Ox 03/21/20 04:00 98.2 F 79 18 143/86 H 97 03/20/20 19:35 98.3 F 92 18 122/72 99 Weight Weight 124.194 kg I&O: 03/19/20 03/20/20 03/21/20 06:59 06:59 06:59 Intake Total 1440 Balance 1440 Result Diagrams: 03/20/20 11:08 03/20/20 11:08 Phys Exam - Physical Examination Constitutional: NAD Neck: supple, full ROM Rhonchi in the lower bases b/l c/w hx of COPD Cardiovascular: RRR, no significant murmur Gastrointestinal: soft, non-tender, no distention, positive bowel sounds Musculoskeletal: no edema, pulses present Neurological: non-focal, moves all 4 limbs Psychiatric: normal affect, A&O x 3 Skin: no rash Dx/Plan - Plan Plan: 64F with a PMH notable for IDDMII, HTN, afib s/p multiple ablations, cardioversions & watchman procedure, who presented via EMS for evaluation of chest pain. Typical chest pain Ddx includes ACS, PE, GERD, MSK strain - Hx suspicious for unstable angina. Heart score 6 d/t risk factors - S/p ASA in ED - Lovenox as noted below. - Trops neg x3. EKG unconcerning. - Admit to tele. Has been NSR with PVCs on tele since admission. - Stress test this AM. Given body habitus will likely require 2 days stress. - PRN nitrostat for recurrence of chest pain & will get a repeat EKG should pain recur. - PRN zofran for nausea - Consider GI cocktail if CP recurs around mealtime Elevated d-dimer - D-dimer slightly elevated @ 0.86 on presentation in setting of sinus tachy & chest pain. - Will continue Th lovenox - Unable to do CTA given patient's reported anaphylaxis to iodine. * However, she had a chest/thorax CTA performed in 05/2019 - Could perform perfusion portion of V/Q scan to assess for possible PE but would not change management manager at this point. Will hold off for now. AFib s/p multiple ablations, cardioversion & watchman's procedure - Patient in sinus tach on presentation, resolved - Rate controlled w/ dilt & BB @ home. Will hold BB for stress and then resume. - Hold home warfarin in setting of Th lovenox being given for possible PE. Reported CHF - Patient reports a diagnosis of CHF but per chart review last ECHO in 11/2019 showed an EF of 50-55% without any noted diastolic dysfunction. Does not appear volume overloaded. Will monitor strict I&Os & QD weights while inpatient. COPD - Chronic hypoxia on 2-3L @ home - Not in acute exacerbation. Stable on baseline O2 requirements. - Will keep sats between 88-92% while inpatient - Resume home meds. HTN - BP significantly elevated in the ED but patient reports she did not take her home meds this AM before calling EMS. - Resume home regimen IDDMII - A1c 7.7 this admission. - Resume home insulin regimen & have moderate SSI available as well. - Hypoglycemia protocol & ACHS accuchecks. - Diabetes education ordered HLD - Continue home statin. GERD - Resume home meds. Obesity Hx Breast CA s/p L mastectomy & radiation therapy - Patient reports she is in remission. Dispo: Will admit to telemetry for cardiac monitoring & stress today PCP: MOIZ Ramos Diet: CC, HH IVFs: SL Abx: None GI PPX: protonix VTE PPX: Th Lovenox CODE STATUS: FULL CODE Addendum - Attending - Attending Attestation Date/Time: 03/21/20 3180 I personally evaluated the patient and discussed the management with Dr. June Covington. I agree with the History, Examination, Assessment and Plan documented above with any addition or exceptions noted below. The patient notes improvement in chest pain. Will get stress test today, likely 2-part.
[2020-03-21 06:59] LABS: Cardiac Risk 4.3 (Less than 4.5)
[2020-03-21] MEDS: Torsemide 20 MG TAB PO SCH (08:26)
[2020-03-21] MEDS: Aspirin Chewable 81 MG TAB PO SCH (08:26)
[2020-03-21] MEDS: Sucralfate 1 GM TAB PO SCH ×4 (08:27→20:40)
[2020-03-21] MEDS: Potassium Chloride 10 MEQ TAB PO SCH (08:27)
[2020-03-21] MEDS: Prenatal Vitamin 1 TAB PO SCH (08:28)
[2020-03-21] MEDS: Enoxaparin Sodium 120 MG/0.8 ML SYRINGE SC SCH ×2 (08:28→20:34)
[2020-03-21] MEDS ORDERED: Lisinopril 20 MG TAB PO SCH (09:00)
[2020-03-21] MEDS ORDERED: INSULIN GLARGINE HUM REC ANLOG SC SCH (09:00)
[2020-03-21] MEDS ORDERED: [UNRECOGNIZED DRUG - OTHER] SC SCH (09:00)
[2020-03-21] MEDS: Insulin Glargine 40 UNITS in Pre-Filled Syringe 1 EACH SC SCH (09:00)
[2020-03-21] MEDS ORDERED: Regadenoson 0.4 MG/5 ML SYRINGE ONE (12:01)
[2020-03-21] MEDS: Lisinopril 10 MG TAB PO SCH (15:06)
[2020-03-21] MEDS: HumaLOG 300 UNITS/3 ML VIAL SC PRN (17:02)
[2020-03-21] MEDS: Atorvastatin Calcium 20 MG TAB PO SCH (20:40)
[2020-03-22] MEDS: traMADol HCl 50 MG TAB PO PRN (05:41)
[2020-03-22] MEDS: tiZANidine HCl 4 MG TAB PO PRN (05:55)
[2020-03-22] MEDS: HumaLOG 300 UNITS/3 ML VIAL SC PRN ×2 (05:56→11:25)
--- NOTE | 2020-03-22 06:01 | PDOC.FM ---
- Subjective Subjective: Ms. Darling is doing well this morning but continues to complain of epigastric abdominal pain. She states Nexium tends to help. Lipase nml, lipid panel WNL, no evidence for pancreatitis at this point. Pt has been refusing Lovenox because "I hate that stuff. It took me so long to get my blood back to normal after I was given that last time". She is going for the second part of her stress test this am. Tele has shown NSR. - Objective Vital Signs & Weight: Vital Signs (12 hours) Temp Pulse Resp BP Pulse Ox 03/22/20 04:00 98.5 F 89 16 125/67 98 03/21/20 20:28 98.4 F 81 19 145/85 H 97 Weight Weight 124.194 kg I&O: 03/20/20 03/21/20 03/22/20 06:59 06:59 06:59 Intake Total 1440 1200 Balance 1440 1200 Result Diagrams: 03/20/20 11:08 03/20/20 11:08 Phys Exam - Physical Examination Constitutional: NAD Neck: supple Respiratory: clear to auscultation bilateral Cardiovascular: RRR, no significant murmur Neurological: non-focal, moves all 4 limbs Psychiatric: normal affect, A&O x 3 Skin: no rash Dx/Plan - Plan Plan: 64F with a PMH notable for IDDMII, HTN, afib s/p multiple ablations, cardioversions & watchman procedure, who presented via EMS for evaluation of chest pain. Typical chest pain Ddx includes ACS, PE, GERD, MSK strain - Tender to L chest from mastectomy in May 2019 - Hx suspicious for unstable angina. Heart score 6 d/t risk factors - S/p ASA in ED. - Pt refusing Lovenox. Will restart Warfarin - Admit to tele. Has been NSR. - Part 2 of stress test today. Hold Metoprolol this am. Will consult Cards if positive - PRN nitrostat for recurrence of chest pain & will get a repeat EKG should pain recur. - GI cocktail for abdominal pain that could be referred CP, although this is unlikely. - PRN zofran for nausea Elevated d-dimer - D-dimer slightly elevated @ 0.86 on presentation in setting of sinus tachy & chest pain. - No Lovenox, as above - Unable to do CTA given patient's reported anaphylaxis to iodine. * She had a chest/thorax CTA performed in 05/2019 - Could perform perfusion portion of V/Q scan to assess for possible PE but would not tar heat exchanger cleaner at this point. Will hold off for now. AFib s/p multiple ablations, cardioversion & watchman's procedure - Rate controlled w/ dilt & BB @ home. Will hold BB for stress and then resume. - Continue Warfarin, as above Reported CHF - Patient reports a diagnosis of CHF but per chart review last ECHO in 11/2019 showed an EF of 50-55% without any noted diastolic dysfunction. Does not appear volume overloaded. Will monitor strict I&Os & QD weights while inpatient. COPD - Chronic hypoxia on 2-3L @ home - Not in acute exacerbation. Stable on baseline O2 requirements. - Will keep sats between 88-92% while inpatient - Resume home meds. HTN - BP significantly elevated in the ED but patient reports she did not take her home meds this AM before calling EMS. - Resume home regimen - Monitor vitals IDDMII - A1c 7.7 this admission. - Resume home insulin regimen & have moderate SSI available as well. - Hypoglycemia protocol & ACHS accuchecks. - Diabetes education ordered HLD - Continue home statin. GERD - Resume home meds. Obesity Hx Breast CA s/p L mastectomy & radiation therapy - Patient reports she is in remission. - Ttp on L chest Dispo: Will admit to telemetry for cardiac monitoring & stress today. Possible discharge today pending stress test results. PCP: MOIZ Ramos Diet: CC, ROBERTO CARLOS IVFs: SL Abx: None GI PPX: protonix VTE PPX: Home Warfarin CODE STATUS: FULL CODE Addendum - Attending - Attending Attestation Date/Time: 03/22/20 8285 I personally evaluated the patient and discussed the management with Dr. Darling. I agree with the History, Examination, Assessment and Plan documented above with any addition or exceptions noted below. The patient's chest pain is better. She still notes mild abdominal pain. Getting second part of stress test today. Restarting coumadin.
[2020-03-22] MEDS ORDERED: Lidocaine 2% Viscous Solution 10 ML, Aluminum & Magnesium Hydroxide 30 ML SSW SCH (07:45)
[2020-03-22] MEDS: Aspirin Chewable 81 MG TAB PO SCH (08:25)
[2020-03-22] MEDS: Insulin Glargine 40 UNITS in Pre-Filled Syringe 1 EACH SC SCH (08:25)
[2020-03-22] MEDS: Lisinopril 10 MG TAB PO SCH (08:25)
[2020-03-22] MEDS: Prenatal Vitamin 1 TAB PO SCH (08:26)
[2020-03-22] MEDS: Sucralfate 1 GM TAB PO SCH ×2 (08:26→14:13)
[2020-03-22] MEDS: Potassium Chloride 10 MEQ TAB PO SCH (08:26)
[2020-03-22] MEDS: Torsemide 20 MG TAB PO SCH (08:26)
[2020-03-22 08:30] LABS: Prothrombin Time 23.1 sec (12.0-14.7)
[2020-03-22 08:34] VITALS: BMI 18.9
--- NOTE | 2020-03-22 10:46 | NM ---
Nuclear medicine Cardiac myocardial perfusion SPECT Ejection fraction study Wall motion cine: DATE:03/21/2020 12:20 PM INDICATION: History of chest pain, COPD, CHF, atrial fibrillation status post ablation, dyspnea, hype rtension, diabetes and dyslipidemia TECHNIQUE: Number of days:2 Rest Study: Technetium 99m-sestamibi (Cardiolite) dose:29.9 mCi Stress study: Technetium 99m-sestamibi (Cardiolite) dose:27.3 mCi FINDINGS: Cardiac (myocardial perfusion) SPECT There is a predominantly fixed, small sized, mild radiotracer defect involving the apex of the left v entricle, seen on both the rest and stress images, likely reflecting an area of soft tissue attenuation or apical thinning. No reversible myocardial perfusion defect is evident. Ejection fraction study Left ventricular EF = 67% Wall motion cine There is normal wall motion and thickening. IMPRESSION: Probably normal myocardial perfusion evaluation. 1. Prominent fixed, small sized mild radiotracer defect involving the apex of the left ventricle, see n on both the rest and stress images, likely reflective of overlying soft tissue attenuation or apical thinning. 2. Estimated LVEF of 67%.
[2020-03-22 13:09] VITALS: BP 128/82; TEMP 98.6
[2020-03-22] MEDS ORDERED: Warfarin Sodium 5 MG TAB PO SCH (17:00)
--- NOTE | 2020-03-23 10:43 | DIS ---
DATE OF ADMISSION: 03/20/2020 DATE OF DISCHARGE: 03/22/2020 RESIDENT: Tashia Jacob MD ADMITTING ATTENDING: Eric Puga MD DISCHARGE ATTENDING: Yvette Herrmann MD CONSULTS: None. PROCEDURES: Nuclear stress test (03/21), results described below. PRIMARY DIAGNOSIS: Typical chest pain. SECONDARY DIAGNOSES: Elevated D-dimer, atrial fibrillation, S/P, multiple ablations/cardioversion and Watchman procedure, reported congestive heart failure, chronic obstructive pulmonary disease with chronic hypoxia in 2-3 L oxygen requirement at baseline, hypertension, insulin-dependent type 2 diabetes, hyperlipidemia, obesity, gastroesophageal reflux disease, history of breast cancer, S/P left mastectomy and radiation therapy in May of 2019. DISCHARGE MEDICATIONS: 1. Aspirin 81 mg p.o. daily. 2. Atorvastatin 20 mg p.o. q.h.s. 3. Tizanidine 4 mg p.o. q.8 h. p.r.n. 4. Albuterol. 5. Lantus SoloStar 40 units subcu daily. 6. Torsemide 20 mg p.o. daily. 7. Sucralfate 1 g p.o. q.i.d. 8. Diltiazem 240 mg p.o. daily. 9. Potassium chloride 10 mEq p.o. daily. 10. vitamins. 11. Pantoprazole 40 mg p.o. daily. 12. Metoprolol succinate 12.5 mg p.o. b.i.d. 13. Tramadol 50 mg p.o. q.8 h. p.r.n. 14. Ondansetron 4 mg SL q.6 h. p.r.n. 15. Lisinopril 10 mg p.o. daily. 16. Ascorbic acid 1000 mg p.o. daily. 17. Zinc sulfate 220 mg p.o. daily. 18. Warfarin 5 mg p.o. every Monday, Monday, , Monday. 19. Warfarin 7.5 mg p.o. every Monday, Monday, and Monday. DISCONTINUED MEDICATIONS: None. HISTORY OF PRESENT ILLNESS/HOSPITAL COURSE: This is a 64-year-old female, who presented with chest pain that started while she was sitting at home. It started in her left chest with pressure and radiation into her shoulder and arm, associated with shortness of breath. She has no history of [place] or previous chest pain occurrences. She had recently had a catheterization about 1 year ago and has significant family history of MIs and CAD. Her b2b account executive is Dr. Argueta. Given the patient's history, which was suspicious for unstable angina and her multiple risk factors, she had a heart score of 6, despite normal troponins and EKG. As such, she was admitted for a stress test. On admission, she was also found to have a mildly elevated D-dimer, which, in the setting of sinus tachycardia and chest pain, she was treated with therapeutic Lovenox. The patient refused the Lovenox because she did not want to get off her warfarin regimen, which she had just gotten established. ARTIFICIAL INSEMINATOR was not an option given the patient's reported anaphylaxis to iodine. The 2-day stress test showed a prominent fixed, small-sized mild radiotracer defect involving the apex of the left ventricle pain both at rest and during stress, likely reflective of overlying soft tissue attenuation or apical thickening. It also showed an estimated LVEF of 67%. Given the defect was present at rest and at stress, it was deemed there was nothing we would be able to do in the hospital for this and, rather, that it would need to be worked up in the outpatient setting. DISPOSITION: Stable. DISCHARGE INSTRUCTIONS: Location: Home. Diet: Diabetic diet, heart healthy, low-sodium. Activity: As tolerated. Followup: The patient is encouraged to follow up with her PCP, Dr. Jassi Ramos at [facility] in 7 to 10 days. Patient is encouraged to follow up with her b2b account executive, Dr. Argueta, as soon as possible. Job ID: [id number]
[2020-03-23] MEDS ORDERED: Warfarin Sodium 7.5 MG TAB PO SCH (17:00)
== END 2020-03-22 16:08 | disposition home or self-care (01) ==
LOC: ERS 10:23 → 2NO 12:34
PROVIDERS: ADMIT Family Medicine; ATTEND Family Medicine
DX: R07.89 Other chest pain (principal); E11.9 Type 2 diabetes mellitus without complications; J44.9 Chronic obstructive pulmonary disease, unspecified; K21.9 Gastro-esophageal reflux disease without esophagitis; I11.0 Hypertensive heart disease with heart failure; I50.9 Heart failure, unspecified; J96.11 Chronic respiratory failure with hypoxia; I48.20 Chronic atrial fibrillation, unspecified; R79.1 Abnormal coagulation profile; E66.01 Morbid (severe) obesity due to excess calories; Z68.42 Body mass index [BMI] 45.0-49.9, adult; Z85.3 Personal history of malignant neoplasm of breast; Z87.891 Personal history of nicotine dependence; Z79.01 Long term (current) use of anticoagulants; Z79.4 Long term (current) use of insulin; Z79.82 Long term (current) use of aspirin; Z79.899 Other long term (current) drug therapy; Z88.0 Allergy status to penicillin; Z88.1 Allergy status to other antibiotic agents; Z88.2 Allergy status to sulfonamides; Z91.041 Radiographic dye allergy status
CPT/HCPCS: 71045; 78452; 80061; 82962 ×3; 83036; 83690; 83880; 84484 ×2; 85379; 85610; 93005; 93017; 94760 ×2; 96372; 96374; 99285; A9500; G0378 ×4; 36415; 36416; 80053; 84443; 85025; J1650; J1815; J2785

== ENCOUNTER 2020-05-01 16:03 | Emergency (ER) | payer BC, MEDICARE ==
[2020-05-01 17:51] LABS: #Eosinphils 0.1 thou/uL (0.0-0.7); #Lymphocytes 1.4 thou/uL (1.20-3.40); #Monocytes 0.5 thou/uL (0.11-0.59); %Basophils 0.4 % (0.0-1.0); %Eosinophils 0.9 % (0.0-10.0); %Lymphocytes 15.4 % (21.0-51.0); %Monocytes 5.2 % (0.0-10.0); %Neutrophils 78.1 % (42.0-75.0); Hemoglobin 11.4 g/dL (12.0-16.0); Mean Corpuscular HGB CONC 31.6 g/dL (32.0-36.0); Mean Corpuscular Hemoglobin 27.8 pg (27.0-31.0); Mean Corpuscular Volume 88.2 fL (78.0-98.0); Mean Platelet Volume 8.2 fL (7.4-10.4); Platelet Count 171 thou/uL (130-400); RBC Distribution Width 13.8 % (11.5-14.5); White Blood Cell (WBC) Count 8.9 thou/uL (4.8-10.8)
[2020-05-01 18:17] LABS: ALT (SGPT) 20 U/L (8-55); AST (SGOT) 18 U/L (5-34); Albumin 3.6 g/dL (3.4-4.8); Alkaline Phosphatase 101 U/L (40-110); Anion Gap 13 mmol/L (10-20); BUN (Urea Nitrogen) 17 mg/dL (9.8-20.1); Bilirubin, Total 0.3 mg/dL (0.2-1.2); Calc. Creatinine Clearance 0 mL/min (70-130); Calcium 8.9 mg/dL (7.8-10.44); Carbon Dioxide 28 mmol/L (23-31); Chloride 103 mmol/L (98-107); Globulin 3.6 g/dL (2.4-3.5); Glucose 234 mg/dL (80-115); Potassium 3.9 mmol/L (3.5-5.1); Protein, Total 7.2 g/dL (5.8-8.1); Sodium 140 mmol/L (136-145)
[2020-05-01 20:06] LABS: Bilirubin Negative (Negative); Blood, Urine Negative (Negative); Clarity Clear (Clear); Glucose, Urine (Dipstick) 300 mg/dL (Negative); Ketone, Urine Negative (Negative); Leukocyte 250 Leu/uL (Negative); Mucous/LPF Rare LPF (<2+); Nitrite Negative (Negative); Protein, Urine (Dipstick) 20 mg/dL (Neg-Trace); RBC/HPF 0-3 HPF (0-3); Renal Epithelial 0-3 HPF (None Seen); Specific Gravity, Urine 1.029 (1.002-1.036); Squamous Epithelial 0-3 HPF (0-3); Urobilinogen Normal mg/dL (Less than 2); WBC/HPF 21-50 HPF (0-3)
--- NOTE | 2020-05-01 20:14 | CT ---
CT ABDOMEN NONCONTRAST CT PELVIS NONCONTRAST: (Urolithiasis protocol) DATE: 05/01/2020 HISTORY: 64-year-old female with abdominal pain COMPARISON: 04/26/2007 TECHNIQUE: IV injection of iodinated contrast media: None Oral contrast media: None FINDINGS: Other than for urolithiasis, the lack of IV and oral contrast limits the evaluation. The previously 2.8 cm fusiform ectasia of infrarenal abdominal aorta has grown now to a 3.3 cm fusifo rm aneurysm. Appendiceal stump. No appendicitis. New finding of a 1.5 cm exophytic well-circumscribed hyperdense mass protruding anteriorly from the l eft renal upper pole. Favored to be hemorrhagic renal cyst, although solid neoplasm is not excluded. Inferior to that, there is a 1.5 cm exophytic small mass protruding laterally from the mid-lower pole . This has slowly grown since the previous CT, and is consistent with a small hemorrhagic cyst. No renal, ureteral, or bladder calculus. No hydronephrosis. Empty urinary bladder. There is an approximately 1 x 2 x 3 cm ill-defined focal soft tissue density lesion located very clos e to the lateral surface of the junction between the descending colon and sigmoid colon, which was not present previously. This is probably epiploic appendagitis. Diverticulitis is less likely. Clips in gallbladder fossa. No small bowel dilation, ascites, pneumoperitoneum, pleural effusion, or basilar pulmonary consolidat ion. Within the limitations of noncontrast scan, no obvious major pathology is identified involving right kidney, adrenals, pancreas, liver, or spleen. IMPRESSION: 1) small focal lesion close to the lateral surface of the descending colon-sigmoid colon junction. Th is is probably epiploic appendagitis. 2) 3.3 cm fusiform aneurysm of infrarenal abdominal aorta. 3) no urolithiasis or obstructive uropathy.
[2020-05-01 20:15] LABS: Bacteria/HPF Rare-Few HPF (None Seen)
[2020-05-01] MEDS ORDERED: cefTRIAXone\\ROCEPHIN 1 GM VIAL ONE (21:34)
[2020-05-01] MEDS ORDERED: Lidocaine 1% PF 5 ML VIAL ONE (22:08)
== END 2020-05-01 22:43 | disposition home or self-care (01) ==
LOC: ERS 16:03
DX: I72.2 Aneurysm of renal artery (principal); N39.0 Urinary tract infection, site not specified; N28.1 Cyst of kidney, acquired; I48.91 Unspecified atrial fibrillation; I10 Essential (primary) hypertension; I25.10 Atherosclerotic heart disease of native coronary artery without angina pectoris; E11.9 Type 2 diabetes mellitus without complications; K21.9 Gastro-esophageal reflux disease without esophagitis; E78.5 Hyperlipidemia, unspecified; J44.9 Chronic obstructive pulmonary disease, unspecified; Z79.4 Long term (current) use of insulin; Z87.891 Personal history of nicotine dependence; Z79.82 Long term (current) use of aspirin; Z79.899 Other long term (current) drug therapy
CPT/HCPCS: 36415; 36416; 74176; 80053; 81003; 81015; 83690; 85025; 96372; J0696

== ENCOUNTER 2020-05-04 19:01 | Emergency (ER) | payer BC, MEDICARE, OTHER ==
[~2020-05-04 19:01] MED LIST changes: -ISOVUE-370 76%-LOCM 1 ML ONE; +Iopamidol-370 76% 500 ML 1 ML ONE
[2020-05-04 19:31] LABS: #Eosinphils 0.1 thou/uL (0.0-0.7); #Lymphocytes 1.5 thou/uL (1.20-3.40); #Monocytes 0.5 thou/uL (0.11-0.59); #Neutrophils 6.6 thou/uL (1.40-6.50); %Basophils 0.4 % (0.0-1.0); %Eosinophils 1.1 % (0.0-10.0); %Lymphocytes 17.4 % (21.0-51.0); %Neutrophils 75.1 % (42.0-75.0); Hemoglobin 11.8 g/dL (12.0-16.0); Mean Corpuscular HGB CONC 32.3 g/dL (32.0-36.0); Mean Corpuscular Hemoglobin 28.2 pg (27.0-31.0); Mean Corpuscular Volume 87.5 fL (78.0-98.0); Mean Platelet Volume 8.2 fL (7.4-10.4); Platelet Count 180 thou/uL (130-400); RBC Distribution Width 13.5 % (11.5-14.5); Red Blood Cell (RBC) Count 4.17 mill/uL (4.20-5.40); White Blood Cell (WBC) Count 8.8 thou/uL (4.8-10.8)
[2020-05-04 20:06] LABS: ALT (SGPT) 14 U/L (8-55); AST (SGOT) 20 U/L (5-34); Albumin 3.8 g/dL (3.4-4.8); Alkaline Phosphatase 112 U/L (40-110); Anion Gap 15 mmol/L (10-20); Bilirubin, Total 0.4 mg/dL (0.2-1.2); Calc. Creatinine Clearance 0 mL/min (70-130); Carbon Dioxide 27 mmol/L (23-31); Chloride 102 mmol/L (98-107); Globulin 3.8 g/dL (2.4-3.5); Glucose 172 mg/dL (80-115); Potassium 4.1 mmol/L (3.5-5.1); Protein, Total 7.6 g/dL (5.8-8.1); Sodium 140 mmol/L (136-145)
[2020-05-04] MEDS ORDERED: Morphine 4 MG/ML VIAL ONE (21:41)
[2020-05-04] MEDS ORDERED: Furosemide 40 MG/4 ML VIAL ONE (21:41)
[2020-05-04] MEDS ORDERED: diphenhydrAMINE 50 MG/ML VIAL ONE (21:41)
[2020-05-04] MEDS ORDERED: Famotidine/PF 20 mg/2ml Vial ONE (21:42)
[2020-05-04] MEDS ORDERED: methylPREDNISolone Sod Succ 40 MG VIAL ONE (21:42)
[2020-05-04 22:19] LABS: Bilirubin Negative (Negative); Blood, Urine Negative (Negative); Clarity Clear (Clear); Glucose, Urine (Dipstick) Normal (Negative); Ketone, Urine Negative (Negative); Leukocyte Negative Leu/uL (Negative); Nitrite Negative (Negative); Protein, Urine (Dipstick) Negative (Neg-Trace); Urobilinogen Normal mg/dL (Less than 2)
[2020-05-04] MEDS ORDERED: Ondansetron PF 4 MG/2 ML Vial ONE (22:30)
[2020-05-04 23:14] LABS: BUN (Urea Nitrogen) 16 mg/dL (9.8-20.1)
--- NOTE | 2020-05-04 23:27 | CT ---
CT abdomen and pelvis: 05/04/2020 COMPARISON: 05/01/2020 HISTORY: Abdominal pain TECHNIQUE: Axial CT imaging obtained at 5 mm intervals from the lung bases through the pubic symphysi s with IV contrast. Coronal and sagittal reformatted imaging obtained. FINDINGS: The visualized lung bases appear grossly unremarkable. Cholecystectomy clips are present. N o free intraperitoneal air or fluid is noted. The liver, spleen, pancreas, adrenal glands, and kidneys demonstrate no acute findings. There is a hy perdense lesion emanating from the upper pole of the left kidney measuring 1.3 cm, most consistent with a hemorrhagic/proteinaceous cyst as this demonstrates no significant enhancement when compared t o the to 08/13/2020 examination. Limited assessment of the bowel without oral contrast media demonstrates a focal area of inflammatory change anterior to the sigmoid colon, best seen on image 54. There appears to be a fat density structure central to this process, best seen on coronal image 61, axial image 54, and sagittal image 189. This is most consistent with epiploic appendagitis and the associated inflammatory stranding has worsened since the prior exam. No evidence for bowel obstruction or abscess formation. There is extensive multifocal atherosclerotic calcification of the abdominal aorta and its branches. There is aneurysmal dilatation of the infrarenal abdominal aorta measuring in the 3.3 cm range. No abdominal or pelvic lymphadenopathy is seen. Review of the osseous structures demonstrates no acute findings. IMPRESSION: Findings suggesting epiploic appendagitis anterior to the distal descending colon/proxima l sigmoid colon, with worsening inflammatory change when compared to the prior study. Multiple incidental findings as detailed above, including a infrarenal abdominal aortic aneurysm.
== END 2020-05-04 23:48 | disposition home or self-care (01) ==
LOC: ERS 19:01
DX: K57.92 Diverticulitis of intestine, part unspecified, without perforation or abscess without bleeding (principal); R60.0 Localized edema; I50.9 Heart failure, unspecified; I25.10 Atherosclerotic heart disease of native coronary artery without angina pectoris; I48.91 Unspecified atrial fibrillation; E11.9 Type 2 diabetes mellitus without complications; Z79.4 Long term (current) use of insulin; K21.9 Gastro-esophageal reflux disease without esophagitis; E78.5 Hyperlipidemia, unspecified; I11.0 Hypertensive heart disease with heart failure; J44.9 Chronic obstructive pulmonary disease, unspecified; Z87.891 Personal history of nicotine dependence; Z79.899 Other long term (current) drug therapy; Z79.82 Long term (current) use of aspirin
CPT/HCPCS: 36415; 74177; 80053; 81003; 83880; 84484; 85025; 93005; 96374; 96375; J1200; J1940; J2270; J2405; J2920; Q9967; S0028

== ENCOUNTER 2020-05-26 06:42 | Inpatient (IN) | payer BC, MEDICARE ==
[2020-05-26] MEDS ORDERED: Nitroglycerin 2% Ointment 1 INCH/1 GM Packet ONE (07:05)
[2020-05-26] MEDS ORDERED: Furosemide 20 MG/2 ML VIAL ONE ×2 (07:05→07:12)
[2020-05-26] MEDS ORDERED: Furosemide 40 MG/4 ML VIAL ONE (07:12)
[2020-05-26 07:24] LABS: #Eosinphils 0.1 thou/uL (0.0-0.7); #Monocytes 0.3 thou/uL (0.11-0.59); #Neutrophils 7.9 thou/uL (1.40-6.50); %Basophils 0.1 % (0.0-1.0); %Eosinophils 0.7 % (0.0-10.0); %Lymphocytes 11.2 % (21.0-51.0); %Monocytes 2.8 % (0.0-10.0); %Neutrophils 85.2 % (42.0-75.0); Hemoglobin 12.8 g/dL (12.0-16.0); Mean Corpuscular HGB CONC 32.4 g/dL (32.0-36.0); Mean Corpuscular Hemoglobin 28.5 pg (27.0-31.0); Mean Platelet Volume 8.5 fL (7.4-10.4); Platelet Count 152 thou/uL (130-400); RBC Distribution Width 13.7 % (11.5-14.5); Red Blood Cell (RBC) Count 4.48 mill/uL (4.20-5.40); White Blood Cell (WBC) Count 9.2 thou/uL (4.8-10.8)
[2020-05-26 07:30] LABS: INR-International Normal Ratio 1.7; Prothrombin Time 20.4 sec (12.0-14.7)
--- NOTE | 2020-05-26 07:51 | RAD ---
Portable frontal chest radiograph: 05/26/2020 COMPARISON: 03/20/2020 HISTORY: Chest pain FINDINGS: Stable prominence of the cardiac silhouette. Stable pulmonary vascular congestion and nonsp ecific perihilar interstitial prominence. No focal consolidation or alveolar edema. IMPRESSION: Prominent cardiac silhouette with pulmonary vascular congestion and increased linear inte rstitial density. Findings may signify interstitial edema in the proper clinical setting.
[2020-05-26 08:14] LABS: AST (SGOT) 19 U/L (5-34); Anion Gap 17 mmol/L (10-20); Potassium 4.1 mmol/L (3.5-5.1); Protein, Total 7.8 g/dL (5.8-8.1)
[2020-05-26 08:41] LABS: SARS-CoV-2 NAA Rapid Test Not Detected (NotDetected)
[2020-05-26] MEDS ORDERED: Enoxaparin Sodium 100 MG/ML SYRINGE ONE (08:50)
[2020-05-26 08:55] LABS: BUN (Urea Nitrogen) 16 mg/dL (9.8-20.1); Calc. Creatinine Clearance 0 mL/min (70-130); Carbon Dioxide 29 mmol/L (23-31); Chloride 98 mmol/L (98-107); Sodium 137 mmol/L (136-145)
[2020-05-26 08:56] LABS: Albumin 3.9 g/dL (3.4-4.8); Bilirubin, Total 0.5 mg/dL (0.2-1.2); Calcium 9.4 mg/dL (7.8-10.44); Glucose 215 mg/dL (80-115)
[2020-05-26 08:57] LABS: Globulin 3.9 g/dL (2.4-3.5)
[2020-05-26] MEDS ORDERED: Enoxaparin Sodium 80 MG/0.8 ML SYRINGE ONE (08:57)
[2020-05-26] MEDS ORDERED: Enoxaparin Sodium 40 MG/0.4 ML SYRINGE ONE (08:57)
[2020-05-26 09:03] LABS: ALT (SGPT) 18 U/L (8-55); Alkaline Phosphatase 125 U/L (40-110); Lipase 11 U/L (8-78)
--- NOTE | 2020-05-26 09:35 | PDOC.HHP ---
Hospitalist AZAEL MIR History of Present Illness: Ms. Darling is a 64-year-old female with past medical history of insulin-dependent type 2 diabetes mellitus, hypertension, A. fib status post multiple ablations cardioversion and watchman on long-term anticoagulation with Coumadin, COPD on 2 to 3 L nasal cannula baseline, GERD, CHF, breast cancer status postmastectomy and radiation May 2019 who presents for acute onset shortness of breath. Patient reports that she awoke this morning approximately 4 AM extremely short of breath. Patient does note that she received her COVID-19 vaccine first dose yesterday. Patient felt significant dyspnea on exertion when ambulating to her bathroom. While in route by EMS she was on a nonrebreather mask and received DuoNeb which she reports somewhat improved her shortness of breath. She denies any chest pain, palpitations. Denies abdominal pain melena hematochezia. No dizziness fever chills night sweats. No numbness weakness or paresthesias. Of note patient had COVID-19 infection last last year. She feels that she is close to her dry weight and that she may have a little bit of fluid on her but does not feel that she is significantly edematous. In emergency room initial vital signs 167/107, 118, 17, 95% on nonrebreather. WBC 9.2, H/H 12.8/39.5. Lactic acid 2.6, BNP 86.8, troponin 0.01. BUN/CR 16/1.03, sodium 137, potassium 4.1, glucose 215. INR subtherapeutic at 1.7. Chest x-ray with stable vascular congestion from prior. EKG showed sinus tachycardia with no ischemic changes. Patient received 80 mg of Lasix in the emergency room as well as 1 mg/kg of Lovenox and Nitropaste. Allergies/Adverse Reactions: Allergy/AdvReac Type Severity Reaction Status Date / Time ampicillin Allergy Verified 12/12/19 15:46 anastrozole Allergy Verified 12/12/19 15:46 dronedarone HCl [From Multaq] Allergy Verified 12/12/19 15:46 flecainide Allergy Verified 12/12/19 15:46 iodine Allergy Verified 12/12/19 15:46 levofloxacin [From Levaquin] Allergy Verified 12/13/19 13:05 Sulfa (Sulfonamide Allergy Rash Verified 12/12/19 15:46 Antibiotics) Home Medications: Medication Instructions Recorded Confirmed Type Aspirin [Aspirin EC] 81 mg PO DAILY 09/29/15 05/26/20 History Atorvastatin Calcium [Lipitor] 20 mg PO HS 06/18/17 05/26/20 History tiZANidine HCl [Zanaflex] 4 mg PO Q8H PRN 08/30/18 05/26/20 History Albuterol Sulfate [Albuterol 3 ml NEB QID PRN 11/03/18 03/20/20 History Sulfate Neb] Insulin Glargine,Hum.Rec.Anlog 30 units SC BID 11/03/18 05/26/20 History [Lantus Solostar] Diltiazem HCl [Cardizem CD] 240 mg PO DAILY cap 12/13/19 03/20/20 Rx Metoprolol Succinate [Toprol XL] 12.5 mg PO BID tab 12/13/19 03/20/20 Rx Ondansetron [Zofran ODT] 4 mg SL Q6H PRN tab 12/13/19 03/20/20 Rx Pantoprazole [Protonix] 40 mg PO DAILY tab 12/13/19 05/26/20 Rx Potassium Chloride [Klor-Con 10] 10 meq PO DAILY tab 12/13/19 05/26/20 Rx Vitamin 2 tab PO DAILY tab 12/13/19 03/20/20 Rx Sucralfate [Carafate] 1 gm PO QID tab 12/13/19 05/26/20 Rx traMADol HCl [Ultram] 50 mg PO Q8H PRN tab 12/13/19 05/26/20 Rx Ascorbic Acid [Vitamin C] 1,000 mg PO DAILY #5 tablet 01/03/20 03/20/20 Rx Warfarin Sodium [Coumadin] 5 mg PO SuTuThSa #0 tab 01/03/20 03/20/20 Rx Warfarin Sodium [Coumadin] 7.5 mg PO MoWeFr #0 tab 01/03/20 03/20/20 Rx Zinc Sulfate [Zinc-220] 220 mg PO DAILY #5 capsule 01/03/20 03/20/20 Rx Esomeprazole Magnesium 40 mg PO DAILY 05/26/20 History Lisinopril 10 mg PO DAILY 05/26/20 05/26/20 History Torsemide [Demadex] 1 - 2 tab PO DAILY 05/26/20 05/26/20 History Past History: PMHx: afib s/p multiple ablations & cardioversions & watchman's procedure, HTN, IDDMII, GERD, HLD, COPD on 2-3L @ home @ baseline, Hx L breast CA s/p mastectomy & radiation in remission PSHx: L-sided mastectomy, tonsillectomy, uzma, appe, C/S x3 FHx: Father from [place] in setting of colon CA in his 80s, mother with [place] & triple bypass in her 40s, brother with [place] & bypass in his 50s, sister with [place] Social: . Lives alone in [place]. Former heavy smoker smoking 1ppd for many years but quit in 2008. No drugs or EtOH use. Hospitalist HPI ROS Constitutional: denies: fever, chills, sweats, weakness, malaise, other Eyes: denies: pain, vision change, conjunctivae inflammation, eyelid inflammation, redness, other ENT: denies: ear pain, ear discharge, nose pain, nose discharge, nose congestion, mouth pain, mouth swelling, throat pain, throat swelling, other Respiratory: reports: shortness of breath, SOB with excertion. denies: cough, dry, hemoptysis, pleuritic pain, sputum, wheezing, other Cardiovascular: denies: chest pain, palpitations, orthopnea, paroxysmal noc. dyspnea, edema, light headedness, other Gastrointestinal: denies: nausea, vomiting, abdominal pain, diarrhea, constipation, melena, hematochezia, other Genitourinary: denies: dysuria, frequency, incontinence, hematuria, retention, other Musculoskeletal: denies: neck pain, shoulder pain, arm pain, back pain, hand pain, leg pain, foot pain, other Skin: denies: rash, lesions, robin, bruising, other Neurological: denies: weakness, numbness, incoordination, change in speech, confusion, seizures, other Hospitalist Exam General Appearance: NAD, awake alert General - other findings: Comfortable on 3 L nasal cannula Eye: PERRL, anicteric sclera ENT: normocephalic atraumatic, no oropharyngeal lesions, moist mucosa Neck: supple, symmetric, no JVD, no thyromegaly, no lymphadenopathy, no carotid bruit Heart: no murmur, no gallops, no rubs, normal peripheral pulses Heart - other findings: Tachycardic Respiratory: CTAB, no wheezes, no rales, no ronchi, normal chest expansion, no tachypnea, normal percussion Gastrointestinal: soft, non-tender, non-distended, normal bowel sounds, no palpable masses, no hepatomegaly, no splenomegaly, no bruit Extremities: no cyanosis, no clubbing, 1+ LE edema Skin: normal turgor, no lesions, no rashes Neurological: cranial nerve grossly intact, normal sensation to touch, no weakness, no focal deficits, no new deficit Musculoskeletal: normal tone, normal strength, no muscle wasting Psychiatric: normal affect, normal behavior, A&O x 3 Hospitalist Results Result Diagrams: 05/26/20 07:11 05/26/20 07:11 Lab results: Laboratory Last Values WBC 9.2 thou/uL (4.8-10.8) 05/26/20 07:11 RBC 4.48 mill/uL (4.20-5.40) 05/26/20 07:11 Hgb 12.8 g/dL (12.0-16.0) 05/26/20 07:11 Hct 39.5 % (36.0-47.0) 05/26/20 07:11 MCV 88.0 fL (78.0-98.0) 05/26/20 07:11 MCH 28.5 pg (27.0-31.0) 05/26/20 07:11 MCHC 32.4 g/dL (32.0-36.0) 05/26/20 07:11 RDW 13.7 % (11.5-14.5) 05/26/20 07:11 Plt Count 152 thou/uL (130-400) 05/26/20 07:11 MPV 8.5 fL (7.4-10.4) 05/26/20 07:11 Neutrophils % 85.2 % (42.0-75.0) H 05/26/20 07:11 Lymphocytes % 11.2 % (21.0-51.0) L 05/26/20 07:11 Monocytes % 2.8 % (0.0-10.0) 05/26/20 07:11 Eosinophils % 0.7 % (0.0-10.0) 05/26/20 07:11 Basophils % 0.1 % (0.0-1.0) 05/26/20 07:11 Neutrophils # 7.9 thou/uL (1.40-6.50) H 05/26/20 07:11 Lymphocytes # 1.0 thou/uL (1.20-3.40) L 05/26/20 07:11 Monocytes # 0.3 thou/uL (0.11-0.59) 05/26/20 07:11 Eosinophils # 0.1 thou/uL (0.0-0.7) 05/26/20 07:11 Basophils # 0.0 thou/uL (0.0-0.2) 05/26/20 07:11 PT 20.4 sec (12.0-14.7) H 05/26/20 07:11 INR 1.7 05/26/20 07:11 APTT 42.0 sec (22.9-36.1) H 05/26/20 07:11 Sodium 137 mmol/L (136-145) 05/26/20 07:11 Potassium 4.1 mmol/L (3.5-5.1) 05/26/20 07:11 Chloride 98 mmol/L (98-107) 05/26/20 07:11 Carbon Dioxide 29 mmol/L (23-31) 05/26/20 07:11 Anion Gap 17 mmol/L (10-20) 05/26/20 07:11 BUN 16 mg/dL (9.8-20.1) 05/26/20 07:11 Creatinine 1.03 mg/dL (0.6-1.1) 05/26/20 07:11 Estimated GFR (MDRD) 54 05/26/20 07:11 Glucose 215 mg/dL (80-115) H 05/26/20 07:11 Lactic Acid 2.6 mmol/L (0.5-2.2) H 05/26/20 07:40 Calcium 9.4 mg/dL (7.8-10.44) 05/26/20 07:11 Total Bilirubin 0.5 mg/dL (0.2-1.2) 05/26/20 07:11 AST 19 U/L (5-34) 05/26/20 07:11 ALT 18 U/L (8-55) 05/26/20 07:11 Alkaline Phosphatase 125 U/L (40-110) H 05/26/20 07:11 Troponin I 0.010 ng/mL (< 0.028) 05/26/20 07:11 B-Natriuretic Peptide 86.8 pg/mL (0-100) 05/26/20 07:11 Serum Total Protein 7.8 g/dL (5.8-8.1) 05/26/20 07:11 Albumin 3.9 g/dL (3.4-4.8) 05/26/20 07:11 Globulin 3.9 g/dL (2.4-3.5) H 05/26/20 07:11 Albumin/Globulin Ratio 1.0 g/dL (1.2-2.2) L 05/26/20 07:11 Lipase 11 U/L (8-78) 05/26/20 07:11 Influenza A RNA INAAT Not Detected (NotDetected) 05/26/20 07:35 Influenza B RNA INAAT Not Detected (NotDetected) 05/26/20 07:35 SARS-CoV-2 Rap RNA(RT-PCR) Not Detected (NotDetected) 05/26/20 07:35 Hospitalist H&P A/P Plan: Shortness of breath Patient presents with shortness of breath likely multifactorial including mild CHF exacerbation versus COPD exacerbation. Chest x-ray with stable vascular congestion. BNP 86.8. Patient does not appear to be significantly fluid overloaded on exam. Patient's breathing slightly improved with DuoNeb treatment and IV Lasix. Patient continues to still need more oxygen above her baseline and is persistently tachycardic. She is on Coumadin chronically however her INR is subtherapeutic at 1.7. D-dimer mildly elevated at 0.57. Patient has anaphylactic reaction to iodine contrast still unable to pursue CTA at this time. Will check bilateral venous Dopplers to check for DVT. Patient received 1 mg/kg of Lovenox in the emergency room. Plan Continue diuresis PRN duo nebs Lower extremity ultrasound Continue Lovenox 1 mg/kg twice daily Congestive heart failure Patient with history of CHF with preserved ejection fraction. Last echo in the fall 2019 showed EF of 55 to 60%. Patient on daily torsemide 10 mg. Patient received 80 mg of IV Lasix in the emergency room. BNP 86.8 which is very slightly elevated from patient's baseline. BUN/CR 16/1.03, sodium 137. We will continue trial of diuretics and monitor for clinical improvement. Monitor electrolytes daily. Plan Strict I&O's IV Lasix 40 mg twice daily, continue home BB, ACEI Trend potassium, magnesium, kidney function Daily weights COPD Hx of COPD on 2-3L home O2. Patient does not use daily inhalers, but does use duonebs as needed. SOB mildly improved s/p duoneb treatment. CXR with stable vascular congestion and stable persistent RLL infiltrate. Patient is covid, flu negative. Had COVID pneumonia last year. Plan -Supplemental O2 -Duonebs, albuterol PRN Atrial fibrillation History of A. fib with multiple prior ablations. Patient follows with Dr. Argueta. She is continued on daily Coumadin. INR subtherapeutic at 1.7 on presentation. Will cover with Lovenox and restart Coumadin. EKG showed sinus tachycardia. Plan Continue home metoprolol, Cardizem Lovenox 1 mg/kg Continue Coumadin, daily INR Type 2 diabetes mellitus On 30 units twice daily Lantus. We will continue at half dose placed on a [facility] glucose checks insulin sliding scale and carb consistent diet. Hypertension Continue home lisinopril, metoprolol, Cardizem GERD Continue home pantoprazole Hyperlipidemia Continue home atorvastatin DVT prophylaxis-therapeutic lovenox FULL CODE Case discussed with attending physician, Dr. Truong.
[2020-05-26] MEDS ORDERED: Dextrose 5% in Water 1,000 ML IV PRN (10:01)
[2020-05-26] MEDS ORDERED: HumaLOG 300 UNITS/3 ML VIAL SC PRN (10:01)
[2020-05-26] MEDS ORDERED: Acetaminophen 325 MG TAB PO PRN (10:01)
[2020-05-26] MEDS ORDERED: Dextrose 50% Abboject 50 ML SYRINGE SLOW IVP PRN (10:01)
[2020-05-26] MEDS ORDERED: Acetaminophen 650 MG Suppository PR PRN (10:01)
[2020-05-26] MEDS ORDERED: Ondansetron ODT 4 MG TAB PO PRN (10:01)
[2020-05-26] MEDS ORDERED: Ondansetron PF 4 MG/2 ML Vial IVP PRN (10:01)
[2020-05-26 11:20] LABS: Lactic Acid 2.6 mmol/L (0.5-2.2)
[2020-05-26] MEDS: traMADol HCl 50 MG TAB PO PRN ×2 (11:57→22:03)
[2020-05-26 12:22] VITALS: BMI 47.1
[2020-05-26] MEDS: Furosemide 40 MG/4 ML VIAL SLOW IVP SCH (12:59)
--- NOTE | 2020-05-26 14:20 | ULT ---
ULTRASOUND DOPPLER DUPLEX VENOUS BILATERAL LOWER EXTREMITIES: DATE: 05/26/2020 HISTORY: 64-year-old female with elevated d-dimer and dyspnea TECHNIQUE: Grayscale, color-flow, and spectral analysis, of major veins of bilateral lower extremities. FINDINGS: There is demonstration of blood flow with normal compressibility, of the bilateral common femoral, pr ofunda femoral, greater saphenous, femoral, popliteal, and posterior tibial, veins. IMPRESSION: Negative. No deep venous thrombosis of bilateral lower extremities.
[2020-05-26 15:34] LABS: Troponin I 0.015 ng/mL (< 0.028)
[2020-05-26] MEDS ORDERED: Warfarin Sodium 2.5 MG TAB PO SCH (17:00)
[2020-05-26] MEDS: HumaLOG 300 UNITS/3 ML VIAL SC PRN ×2 (17:19→20:57)
[2020-05-26] MEDS: Enoxaparin Sodium 120 MG/0.8 ML SYRINGE SC SCH (20:53)
[2020-05-26] MEDS ORDERED: Enoxaparin Sodium 80 MG/0.8 ML SYRINGE SC SCH (21:00)
[2020-05-26] MEDS ORDERED: Atorvastatin Calcium 20 MG TAB PO SCH (21:00)
[2020-05-26] MEDS ORDERED: Insulin Glargine 15 UNITS in Pre-Filled Syringe 1 EACH SC SCH (21:00)
[2020-05-26] MEDS: Fluticasone Propionate Nasal Spray 16 gm Bottle NASAL PRN (22:32)
[2020-05-27] MEDS: Furosemide 40 MG/4 ML VIAL SLOW IVP SCH ×2 (05:31→14:41)
[2020-05-27] MEDS: HumaLOG 300 UNITS/3 ML VIAL SC PRN ×2 (06:33→11:23)
[2020-05-27 06:51] LABS: #Eosinphils 0.1 thou/uL (0.0-0.7); #Lymphocytes 0.7 thou/uL (1.20-3.40); #Monocytes 0.5 thou/uL (0.11-0.59); #Neutrophils 4.4 thou/uL (1.40-6.50); %Basophils 0.7 % (0.0-1.0); %Eosinophils 1.6 % (0.0-10.0); %Lymphocytes 12.1 % (21.0-51.0); %Monocytes 8.6 % (0.0-10.0); %Neutrophils 77.1 % (42.0-75.0); Hemoglobin 12.3 g/dL (12.0-16.0); Mean Corpuscular HGB CONC 31.4 g/dL (32.0-36.0); Mean Corpuscular Hemoglobin 27.7 pg (27.0-31.0); Mean Corpuscular Volume 88.1 fL (78.0-98.0); Mean Platelet Volume 8.3 fL (7.4-10.4); Platelet Count 144 thou/uL (130-400); RBC Distribution Width 13.8 % (11.5-14.5); Red Blood Cell (RBC) Count 4.42 mill/uL (4.20-5.40); White Blood Cell (WBC) Count 5.7 thou/uL (4.8-10.8)
[2020-05-27 07:04] LABS: INR-International Normal Ratio 1.7; Prothrombin Time 20.5 sec (12.0-14.7)
[2020-05-27 07:10] LABS: Lactic Acid 1.2 mmol/L (0.5-2.2)
[2020-05-27 07:12] LABS: Anion Gap 15 mmol/L (10-20); BUN (Urea Nitrogen) 15 mg/dL (9.8-20.1); Calc. Creatinine Clearance 131 mL/min (70-130); Carbon Dioxide 30 mmol/L (23-31); Chloride 94 mmol/L (98-107); Glucose 167 mg/dL (80-115); Potassium 3.8 mmol/L (3.5-5.1); Sodium 135 mmol/L (136-145)
[2020-05-27 08:07] VITALS: TEMP 98.5
[2020-05-27] MEDS ORDERED: Aspirin 81 mg Enteric Coated Tablet PO SCH (09:00)
[2020-05-27] MEDS: traMADol HCl 50 MG TAB PO PRN (09:00)
[2020-05-27] MEDS ORDERED: Insulin Glargine 15 UNITS in Pre-Filled Syringe 1 EACH SC SCH (09:00)
[2020-05-27] MEDS: Fluticasone Propionate Nasal Spray 16 gm Bottle NASAL PRN (09:01)
[2020-05-27] MEDS: Enoxaparin Sodium 120 MG/0.8 ML SYRINGE SC SCH (09:02)
[2020-05-27 09:10] LABS: Hemoglobin A1c 8.2 % (4.0-6.0)
[2020-05-27 10:57] VITALS: BP 124/77
--- NOTE | 2020-05-27 13:04 | PDOC.DS.DS ---
Provider Date of Admission: 05/26/20 09:21 Date of Discharge: 05/27/20 Admitting Provider: Royce Truong MD Primary Care Physician: CHELSI MARQUES MD Course Hospital Course: Patient is a 64 year old female with a PMH of morbid obesity, chronic respiratory failure, COPD on 2-3L of home O2, atrial fibrillation s/p multiple ablations and failed Amaral procedure in [place], currently on warfarin. She was admitted with acute on chronic respirartoy failure attributed to a mxture of COPD and CHF exacerbation. She received diuresis and nebulizer during this stay. She is doing well and her respiratory status is back to baseline. Patient will be discharged on a increased dose of warfarin given a mildly subtherapeutic INR level, 1.7. She has refused lovenox bridging. Resuscitation Status: 05/26/20 10:01 Resuscitation Status Routine Co-Sign Provider: Resuscitation Status: FULL: Full Resuscitation Lab Results: 05/27/20 06:27 05/27/20 06:27 Abnormal Lab Results - Last 48 hrs 05/26/20 07:11: Alkaline Phosphatase 125 H, Globulin 3.9 H, Albumin/Globulin Ratio 1.0 L 05/26/20 07:11: Neutrophils % 85.2 H, Lymphocytes % 11.2 L, Neutrophils # 7.9 H, Lymphocytes # 1.0 L 05/26/20 07:11: PT 20.4 H, APTT 42.0 H 05/26/20 07:11: D-Dimer 0.57 H 05/26/20 07:40: Lactic Acid 2.6 H 05/26/20 10:41: Lactic Acid 2.6 H 05/27/20 06:27: Sodium 135 L, Chloride 94 L 05/27/20 06:27: MCHC 31.4 L, Neutrophils % 77.1 H, Lymphocytes % 12.1 L, Lymphocytes # 0.7 L 05/27/20 06:27: PT 20.5 H 05/27/20 08:50: Hemoglobin A1c 8.2 H Microbiology - Entire Visit 05/26/20 07:40 Venous blood - Left Arm Blood Culture - Preliminary Specimen has been received and culture in progress. No Growth to date. 05/26/20 07:30 Venous blood - Right Arm Blood Culture - Preliminary Specimen has been received and culture in progress. No Growth to date. Vitals: Vital Signs (12 hours) Temp Pulse Resp BP Pulse Ox 05/27/20 10:56 98.5 F 86 16 124/77 96 05/27/20 09:01 87 05/27/20 08:00 98.5 F 87 17 137/88 98 05/27/20 04:15 98.2 F 85 18 136/67 98 05/27/20 03:55 97 Weight Weight 264 lb Physical Exam: The patient was seen and examined on the day of discharge. General Appearance: NAD, awake alert General - other findings: morbidly obese Eye: anicteric sclera ENT: normocephalic atraumatic Respiratory: no wheezes, no ronchi Cardiovascular: no murmur, irregular Extremities: no clubbing, no edema Neurological: cranial nerve grossly intact PSYCH: normal affect, normal behavior Plan Home Medications: Medication Instructions Recorded Confirmed Type Aspirin [Aspirin EC] 81 mg PO DAILY 09/29/15 05/26/20 History Atorvastatin Calcium [Lipitor] 20 mg PO HS 06/18/17 05/26/20 History tiZANidine HCl [Zanaflex] 4 mg PO Q8H PRN 08/30/18 05/26/20 History Albuterol Sulfate [Albuterol 3 ml NEB QID PRN 11/03/18 05/26/20 History Sulfate Neb] Insulin Glargine,Hum.Rec.Anlog 40 units SC HS 11/03/18 05/26/20 History [Lantus Solostar] Diltiazem HCl [Cardizem CD] 240 mg PO DAILY cap 12/13/19 05/26/20 Rx Metoprolol Succinate [Toprol XL] 12.5 mg PO BID tab 12/13/19 05/26/20 Rx Potassium Chloride [Klor-Con 10] 10 meq PO DAILY tab 12/13/19 05/26/20 Rx Vitamin 2 tab PO DAILY tab 12/13/19 05/26/20 Rx Sucralfate [Carafate] 1 gm PO QID tab 12/13/19 05/26/20 Rx traMADol HCl [Ultram] 50 mg PO Q8H PRN tab 12/13/19 05/26/20 Rx Ascorbic Acid [Vitamin C] 1,000 mg PO DAILY #5 tablet 01/03/20 05/26/20 Rx Warfarin Sodium [Coumadin] 5 mg PO SuTuThSa #0 tab 01/03/20 05/26/20 Rx Warfarin Sodium [Coumadin] 7.5 mg PO MoWeFr #0 tab 01/03/20 05/26/20 Rx Zinc Sulfate [Zinc-220] 220 mg PO DAILY #5 capsule 01/03/20 05/26/20 Rx Esomeprazole Magnesium 40 mg PO DAILY 05/26/20 05/26/20 History Lisinopril 10 mg PO DAILY 05/26/20 05/26/20 History Torsemide 10 mg PO DAILY PRN 05/26/20 05/26/20 History Fluticasone Propionate [Flonase 0 gm NASAL DAILYPRN PRN bot 05/27/20 Rx Nasal [place]] Ondansetron [Zofran ODT] 4 mg PO Q6H PRN tab 05/27/20 Rx Pantoprazole [Protonix] 40 mg PO DAILY tab 05/27/20 Rx Allergies: ampicillin Allergy (Verified 12/12/19 15:46) "deathly ill" anastrozole Allergy (Verified 12/12/19 15:46) dronedarone HCl [From Multaq] Allergy (Verified 12/12/19 15:46) flecainide Allergy (Verified 12/12/19 15:46) significant weight gain- almost overnight iodine Allergy (Verified 12/12/19 15:46) levofloxacin [From Levaquin] Allergy (Verified 12/13/19 13:05) Sulfa (Sulfonamide Antibiotics) Allergy (Verified 12/12/19 15:46) Rash Referrals: CHELSI MARQUES MD [Primary Care Provider] - Disposition: HOME HEALTH Quality CORE MEASURES:: N/A
== END 2020-05-27 15:25 | disposition home health service (06) | DRG 291 ==
LOC: ERS 06:42 → ERHOLD 09:21 → 3SE 11:45
PROVIDERS: ADMIT Internal Medicine; ATTEND Internal Medicine
DX: I11.0 Hypertensive heart disease with heart failure (principal); J96.20 Acute and chronic respiratory failure, unspecified whether with hypoxia or hypercapnia; J44.1 Chronic obstructive pulmonary disease with (acute) exacerbation; Z68.42 Body mass index [BMI] 45.0-49.9, adult; I50.33 Acute on chronic diastolic (congestive) heart failure; I48.91 Unspecified atrial fibrillation; I25.10 Atherosclerotic heart disease of native coronary artery without angina pectoris; E11.9 Type 2 diabetes mellitus without complications; K21.9 Gastro-esophageal reflux disease without esophagitis; E78.5 Hyperlipidemia, unspecified; Z92.3 Personal history of irradiation; Z99.81 Dependence on supplemental oxygen; Z79.4 Long term (current) use of insulin; Z85.3 Personal history of malignant neoplasm of breast; Z90.49 Acquired absence of other specified parts of digestive tract; Z90.89 Acquired absence of other organs; Z87.891 Personal history of nicotine dependence; Z88.1 Allergy status to other antibiotic agents; Z88.2 Allergy status to sulfonamides; Z91.041 Radiographic dye allergy status; Z79.899 Other long term (current) drug therapy; Z90.12 Acquired absence of left breast and nipple; Z79.2 Long term (current) use of antibiotics; Z79.82 Long term (current) use of aspirin; Z79.01 Long term (current) use of anticoagulants; Z80.0 Family history of malignant neoplasm of digestive organs; Z82.49 Family history of ischemic heart disease and other diseases of the circulatory system; Z86.16 Personal history of COVID-19; E66.01 Morbid (severe) obesity due to excess calories; Z20.822 Contact with and (suspected) exposure to COVID-19
CPT/HCPCS: 0240U; 36415; 36416; 71045; 80048; 80053; 83036; 83605; 83690; 83880; 84484; 85025; 85379; 85610; 85730; 87040; 93005; 93970; 94760; 96372; 96374; J1650; J1815; J1940; Q0162

== ENCOUNTER 2020-06-11 12:13 | Emergency (ER) | payer MEDICARE ==
[2020-06-11 12:59] LABS: #Eosinphils 0.2 thou/uL (0.0-0.7); #Lymphocytes 2.4 thou/uL (1.20-3.40); #Monocytes 0.4 thou/uL (0.11-0.59); #Neutrophils 7.2 thou/uL (1.40-6.50); %Basophils 0.3 % (0.0-1.0); %Eosinophils 1.5 % (0.0-10.0); %Lymphocytes 23.8 % (21.0-51.0); %Monocytes 4.3 % (0.0-10.0); Hemoglobin 12.3 g/dL (12.0-16.0); Mean Corpuscular HGB CONC 32.2 g/dL (32.0-36.0); Mean Corpuscular Hemoglobin 28.3 pg (27.0-31.0); Mean Corpuscular Volume 87.9 fL (78.0-98.0); Mean Platelet Volume 8.3 fL (7.4-10.4); Platelet Count 190 thou/uL (130-400); RBC Distribution Width 13.9 % (11.5-14.5); Red Blood Cell (RBC) Count 4.35 mill/uL (4.20-5.40); White Blood Cell (WBC) Count 10.2 thou/uL (4.8-10.8)
[2020-06-11] MEDS ORDERED: Lidocaine Viscous Sol 2% 15 ml UD Cup ONE (13:10)
[2020-06-11] MEDS ORDERED: Pantoprazole 40 MG VIAL ONE (13:11)
[2020-06-11] MEDS ORDERED: Mag-Al 1200 mg/1200 mg/30 ML UDCUP ONE (13:11)
[2020-06-11 15:03] LABS: Albumin 3.6 g/dL (3.4-4.8)
[2020-06-11 15:04] LABS: Chloride 104 mmol/L (98-107); Potassium 3.8 mmol/L (3.5-5.1); Sodium 139 mmol/L (136-145)
[2020-06-11 15:05] LABS: Calcium 8.9 mg/dL (7.8-10.44); Glucose 315 mg/dL (80-115)
[2020-06-11 15:06] LABS: Globulin 3.5 g/dL (2.4-3.5); Protein, Total 7.1 g/dL (5.8-8.1)
[2020-06-11 15:07] LABS: Anion Gap 11 mmol/L (10-20); Bilirubin, Total 0.4 mg/dL (0.2-1.2); Carbon Dioxide 28 mmol/L (23-31)
[2020-06-11 15:08] LABS: Alkaline Phosphatase 113 U/L (40-110)
[2020-06-11 15:09] LABS: Calc. Creatinine Clearance 0 mL/min (70-130)
[2020-06-11 15:10] LABS: AST (SGOT) 14 U/L (5-34); BUN (Urea Nitrogen) 14 mg/dL (9.8-20.1)
[2020-06-11 15:11] LABS: ALT (SGPT) 18 U/L (8-55); Lipase 15 U/L (8-78)
[2020-06-11 16:17] LABS: SARS-CoV-2 NAA Rapid Test Not Detected (NotDetected)
== END 2020-06-11 16:40 | disposition home or self-care (01) ==
LOC: ERS 12:13
DX: J44.9 Chronic obstructive pulmonary disease, unspecified (principal); R10.13 Epigastric pain; Z20.822 Contact with and (suspected) exposure to COVID-19; I48.91 Unspecified atrial fibrillation; I11.0 Hypertensive heart disease with heart failure; I50.9 Heart failure, unspecified; K21.9 Gastro-esophageal reflux disease without esophagitis; E78.5 Hyperlipidemia, unspecified; E11.9 Type 2 diabetes mellitus without complications; Z87.891 Personal history of nicotine dependence; Z79.899 Other long term (current) drug therapy; Z79.4 Long term (current) use of insulin
CPT/HCPCS: 0240U; 71045; 74176; 80053; 82550; 83690; 83880; 84484; 85025; 93005; 96374; 99285; 36415; C9113

== ENCOUNTER 2021-01-03 15:49 | Emergency (ER) | payer MEDICARE ==
[2021-01-03] MEDS ORDERED: Acetaminophen/Codeine 30-300mg Tablet ONE (19:44)
== END 2021-01-03 20:05 | disposition home or self-care (01) ==
LOC: ERS 15:49
DX: S52.501A Unspecified fracture of the lower end of right radius, initial encounter for closed fracture (principal); S52.611A Displaced fracture of right ulna styloid process, initial encounter for closed fracture; I25.10 Atherosclerotic heart disease of native coronary artery without angina pectoris; I11.0 Hypertensive heart disease with heart failure; I50.9 Heart failure, unspecified; I48.91 Unspecified atrial fibrillation; E11.9 Type 2 diabetes mellitus without complications; K21.9 Gastro-esophageal reflux disease without esophagitis; E78.5 Hyperlipidemia, unspecified; J44.9 Chronic obstructive pulmonary disease, unspecified; Z87.891 Personal history of nicotine dependence; Z79.4 Long term (current) use of insulin; Z79.82 Long term (current) use of aspirin; Z79.899 Other long term (current) drug therapy; W01.198A Fall on same level from slipping, tripping and stumbling with subsequent striking against other object, initial encounter
CPT/HCPCS: 25600

== ENCOUNTER 2021-03-01 23:16 | Emergency (ER) | payer MEDICARE ==
[2021-03-02] MEDS ORDERED: traMADol HCl 50 MG TAB ONE (02:39)
[2021-03-02 04:38] LABS: #Lymphocytes 0.9 thou/uL (1.20-3.40); #Monocytes 0.5 thou/uL (0.11-0.59); #Neutrophils 8.7 thou/uL (1.40-6.50); %Basophils 0.2 % (0.0-1.0); %Eosinophils 0.4 % (0.0-10.0); %Lymphocytes 8.5 % (21.0-51.0); %Monocytes 4.8 % (0.0-10.0); %Neutrophils 86.1 % (42.0-75.0); Hemoglobin 11.2 g/dL (12.0-16.0); Mean Corpuscular HGB CONC 31.3 g/dL (32.0-36.0); Mean Corpuscular Hemoglobin 28.3 pg (27.0-31.0); Mean Corpuscular Volume 90.4 fL (78.0-98.0); Mean Platelet Volume 7.7 fL (7.4-10.4); Platelet Count 171 thou/uL (130-400); RBC Distribution Width 14.8 % (11.5-14.5); Red Blood Cell (RBC) Count 3.96 mill/uL (4.20-5.40); White Blood Cell (WBC) Count 10.1 thou/uL (4.8-10.8)
[2021-03-02 04:53] LABS: ALT (SGPT) 15 U/L (8-55); AST (SGOT) 15 U/L (5-34); Albumin 3.6 g/dL (3.4-4.8); Alkaline Phosphatase 112 U/L (40-110); Anion Gap 14 mmol/L (10-20); BUN (Urea Nitrogen) 14 mg/dL (9.8-20.1); Calc. Creatinine Clearance 0 mL/min (70-130); Calcium 9.3 mg/dL (7.8-10.44); Carbon Dioxide 28 mmol/L (23-31); Chloride 102 mmol/L (98-107); Globulin 3.7 g/dL (2.4-3.5); Glucose 259 mg/dL (80-115); Potassium 4.4 mmol/L (3.5-5.1); Protein, Total 7.3 g/dL (5.8-8.1); Sodium 140 mmol/L (136-145)
== END 2021-03-02 07:16 | disposition home or self-care (01) ==
LOC: ERS 23:16
DX: R06.02 Shortness of breath (principal); I48.91 Unspecified atrial fibrillation; E11.9 Type 2 diabetes mellitus without complications; Z79.4 Long term (current) use of insulin; K21.9 Gastro-esophageal reflux disease without esophagitis; E78.5 Hyperlipidemia, unspecified; I10 Essential (primary) hypertension; Z87.891 Personal history of nicotine dependence; Z79.899 Other long term (current) drug therapy; Z79.82 Long term (current) use of aspirin
CPT/HCPCS: 36415; 36416; 71045; 80053; 83880; 84484; 85025; 85379; 93005; 94640; J7620